=== PATIENT | male | born 1950 | race Hispanic/Latino ===

== ENCOUNTER 2017-05-17 15:18 | Inpatient (IN) | payer MEDICARE ==
[2017-05-17 15:19] VITALS: PULSE 135
[2017-05-17 15:34] VITALS: BMI 22.3
[2017-05-17] MEDS ORDERED: Morphine 2 mg/ml ISec IVP STA (16:14)
--- NOTE | 2017-05-17 16:14 | ED PDOC ---
Arrival/HPI - General Historian: Patient - History of Present Illness Time/Duration: Other (since last night) Quality: Aching Context: Home - General Chief Complaint: Trauma Time Seen by Provider: 05/17/17 15:37 - History of Present Illness Narrative History of Present Illness (Text): 05/17/17 16:14 This 66 yo male with a pacemaker, presents to this ED with brother in Law, c/o right shoulder pain, and right hip pain since last night. Patient stated as he was walking up his front stairs, he stepped "wrong", causing him to fall on his right shoulder, and hip. He noted a mild right sided head trauma. Denies loc. dizziness, syncope, dysarthria, weakness, paresthesias, or abnormal gait, but mild pain. (Georgina Mcallister) Past Medical History - Provider Review Nursing Documentation Reviewed: Yes - Infectious Disease Hx of Infectious Diseases: None - Tetanus Immunization Tetanus Immunization: Unknown - Cardiac Hx Hypertension: Yes Hx Pacemaker: Yes - Pulmonary Hx Respiratory Disorders: Yes Hx Chronic Obstructive Pulmonary Disease (COPD): Yes - Neurological Hx Neurological Disorder: No - HEENT Hx HEENT Disorder: No - Renal Hx Renal Disorder: No - Endocrine/Metabolic Hx Endocrine Disorders: No - Hematological/Oncological Hx Blood Disorders: No - Integumentary Hx Dermatological Disorder: No - Musculoskeletal/Rheumatological Hx Musculoskeletal Disorders: Yes Hx Falls: No Hx Herniated Disk: Yes (C6C7,CORD COMPRESSION C5C6) - Gastrointestinal Hx Gastrointestinal Disorders: Yes (HIATAL HERNIA,TONSILLECTOMY,BILROTH GASTRECTOMY 1981) Hx Gastroesophageal Reflux: Yes Hx Pancreatitis: Yes (2002) - Genitourinary/Gynecological Hx Genitourinary Disorders: No - Psychiatric Hx Psychophysiologic Disorder: No (INSOMNIA,SMOKED 1/2 PPD X 40 YRS.,ETOH WEEKENDS) Hx Depression: No Hx Emotional Abuse: No Hx Physical Abuse: No Hx Substance Use: No - Surgical History Hx Coronary Artery Bypass Graft: Yes (2013) - Anesthesia Hx Anesthesia: Yes Hx Anesthesia Reactions: No Hx Malignant Hyperthermia: No - Suicidal Assessment Feels Threatened In Home Enviroment: No Family/Social History - Physician Review Nursing Documentation Reviewed: Yes Family/Social History: Other (noncontributory) Smoking Status: Former Smoker Hx Alcohol Use: Yes (stopped 10 wks ago.DRANK [employer] WEEKENDS) Hx Substance Use: No Hx Substance Use Treatment: No Allergies/Home Meds Allergies/Adverse Reactions: Allergies No Known Allergies Allergy (Verified 08/29/13 07:54) Home Medications: Home Meds Medication Instructions Recorded Confirmed Warfarin [Coumadin] 3 mg PO DAILY 07/19/13 05/17/17 Amiodarone HCl [Pacerone] 200 mg PO DAILY 02/23/16 05/17/17 Atorvastatin [Lipitor] 20 mg PO DAILY 02/23/16 05/17/17 Losartan [Cozaar] 50 mg PO DAILY 02/23/16 05/17/17 Metoprolol Tartrate [Lopressor] 12.5 mg PO BID 02/23/16 05/17/17 Mexiletine [Mexiletine HCl] 150 mg PO DAILY 02/23/16 05/17/17 Levothyroxine [Synthroid] 1 tab PO DAILY 05/17/17 05/17/17 Zolpidem [Ambien] 1 tab PO DAILY 05/17/17 05/17/17 Review of Systems - Review of Systems Constitutional: Normal. absent: Fatigue, Weight Change, Fevers Eyes: Normal ENT: Normal Respiratory: Normal Cardiovascular: Normal Gastrointestinal: Normal Genitourinary Male: Normal Musculoskeletal: Other (right hip pain, right shoulder pain) Skin: Normal Neurological: Normal Endocrine: Normal Hemo/Lymphatic: Normal Psychiatric: Normal Physical Exam Temperature: Afebrile Blood Pressure: Normal Pulse: Regular Respiratory Rate: Normal Appearance: Positive for: Well-Appearing, Non-Toxic, Comfortable Pain Distress: None Mental Status: Positive for: Alert and Oriented X 3 - Systems Exam Head: Present: Atraumatic, Normocephalic Pupils: Present: PERRL Extroacular Muscles: Present: EOMI Conjunctiva: Present: Normal Mouth: Present: Moist Mucous Membranes Neck: Present: Normal Range of Motion Respiratory/Chest: Present: Clear to Auscultation, Good Air Exchange. No: Respiratory Distress, Accessory Muscle Use Cardiovascular: Present: Regular Rate and Rhythm, Normal S1, S2. No: Murmurs Abdomen: Present: Normal Bowel Sounds. No: Tenderness, Distention, Peritoneal Signs Back: Present: Normal Inspection Upper Extremity: Present: Normal Inspection, Normal ROM, NORMAL PULSES, Neurovascularly Intact, Capillary Refill < 2s, Other ((+) mild right trapezius tenderness.). No: Cyanosis, Edema Lower Extremity: Present: Normal Inspection, NORMAL PULSES, Neurovascularly Intact, Capillary Refill < 2 s. No: Edema, CALF TENDERNESS, Normal ROM ( decreased ROM due to pain. (+) mild tenderness over right greater throcanter area. No swelling or ecchymosis) Neurological: Present: GCS=15, CN II-XII Intact, Speech Normal Skin: Present: Warm, Dry, Normal Color. No: Rashes Psychiatric: Present: Alert, Oriented x 3, Normal Insight, Normal Concentration Vital Signs Temp Pulse Resp BP Pulse Ox 05/17/17 21:57 71 18 130/81 96 05/17/17 19:47 62 17 128/78 99 05/17/17 18:10 65 17 129/80 98 05/17/17 16:25 59 L 18 132/71 95 05/17/17 15:37 97.8 F 60 18 134/87 93 L Medical Decision Making Re-evaluation Time: 20:00 Reassessment Condition: Re-examined, Improving,but remains with symptoms ED Course and Treatment: 05/17/17 20:[address] reviewed. Patient with greater trochanteric fx. Based on patient's PMD, consult placed with Dr. Cameron. CT with also AAA noted, although patient with no abdominal pain, no back pain, no chest pain, intact distal pulses. Likely incidental finding although will recommend follow-up. d/w house doctor for admission to hospitalist, covering for DR. Rust, who we discussed case with. (Kirstie Ricketts) 05/17/17 20:[address] Rust who was covering Dr. Henriquez. He agrees with plan for observation. He recommended to have patient in observation under hospitalist. I spoke with Dr. Rosa Barnett regrading patient history of mechanical fall, and right clavicular, and right trochanteric Fx. She recommended to consult orthopedist. She agreed with plan for observation. Dr. Ricketts spoke with Dr. Cameron regarding Fx. (Georgina Mcallister) - Lab Interpretations Lab Results: 05/17/17 16:20 05/17/17 16:20 Lab Results 05/17/17 16:20: PT 23.0 H, INR 2.08 H, APTT 33.6 05/17/17 16:20: Sodium 135, Potassium 4.1, Chloride 101, Carbon Dioxide 22, Anion Gap 16, BUN 13, Creatinine 0.9, Est GFR ( Amer) > 60, Est GFR (Non- Af Amer) > 60, Random Glucose 104, Calcium 9.3, Total Bilirubin 0.5, AST 81 H, ALT 86 H, Alkaline Phosphatase 136 H, Total Protein 7.6, Albumin 4.2, Globulin 3.4, Albumin/Globulin Ratio 1.2 05/17/17 16:20: WBC 10.1, RBC 4.38, Hgb 11.1 L, Hct 34.4 L, MCV 78.5 L, MCH 25.3 , MCHC 32.3, RDW 18.5 H, Plt Count 171, MPV 10.2, Gran % 84.5 H, Lymph % (Auto) 5.4 L, [facility] % (Auto) 9.8 H, Eos % (Auto) 0.2 L, Baso % (Auto) 0.1, Gran # 8.52 H , Lymph # 0.5 L, [facility] # 1.0 H, Eos # 0.0, Baso # 0.01 - RAD Interpretation Narrative RAD Interpretations (Text): 05/17/17 20:07 [facility] Division of Radiology [address] [place] [address] Tel. no. Patient Name: MELISSA HAGEN Pt. Address: [address] [place] [address] Rec #: [id number] [place], [place] [id number] Ordering Dr: Georgina Mcallister PA-C Pt Order Location: ED : 1950 Male Age: 66 Order #: [id number] Reason for exam: pain s/p trauma CT Scan HIP WITHOUT CONTRAST RIGHT Exam Date: 05/17/17 This imaging exam was performed at [facility] EXAM: CT Right Lower Extremity Without Intravenous Contrast, Hip EXAM DATE/TIME: 05/17/2017 5:39 PM CLINICAL HISTORY: The patient age is 66 years old and is male; Pain; Hip; Right; Patient HX: Pain S/P trauma Facility exam id and description: Ct hipright hip without contrast right TECHNIQUE: Axial computed tomography images of the right hip without intravenous contrast. All CT scans at this facility use one or more dose reduction techniques, viz.: automated exposure control; ma/kV adjustment per patient size (including targeted exams where dose is matched to indication; i.e. head); or iterative reconstruction technique. Coronal and sagittal reformatted images were created and reviewed. COMPARISON: DX - HIP MIN 2V W/ PELVIS RT 2017-05-17 17:21 FINDINGS: Bones/joints: There is a fracture of the right greater trochanter, with mild displacement. Nonspecific sclerotic lesions are identified within the proximal right femur, the largest at the level of the femoral neck measuring 1.0 x 0.5 cm. There is a nonspecific sclerotic lesion within the posterior right iliac bone. There is no dislocation of the right hip. The remaining bones of the right hip are intact. Soft tissues: Minimal swelling of the subcutaneous tissues lateral to the right hip. Vasculature: There is aneurysmal dilatation of the distal abdominal aorta measuring 5.4 cm in diameter. There is focal ectasia of the right common iliac artery measures 1.8 cm in diameter. Atherosclerotic changes are identified of the visualized abdominal aorta and iliac arteries. IMPRESSION: 1. There is a fracture of the right greater trochanter, with mild displacement. 2. There is aneurysmal dilatation of the distal abdominal aorta measuring 5.4 cm in diameter. 3. Additional CT findings described above. Dictated By: Chad Kauffman MD, MD Dictated Date/Time: 05/17/171944 Signed By: Chad Baker MD Date Signed: 1942 Transcribed By: ROLANDO Transcribe Date/Time : 05/17/171944 SHAY/MAIDA (Georgina Mcallister) Radiology Orders: 05/17/17 16:10 HEAD W/O CONTRAST [CT] Stat Hip Right [HIP MIN 2V W/ PELVIS RT] [RAD] Stat SHOULDER RIGHT [RAD] Stat 05/17/17 16:12 CERVICAL SPINE W/O CONTRAST [CT] Stat 05/17/17 16:13 CHEST TWO VIEWS (PA/LAT) [RAD] Stat 05/17/17 17:39 HIP WITHOUT CONTRAST RIGHT [CT] Stat - Medication Orders Current Medication Orders: Amiodarone HCl (Cordarone) 200 mg PO DAILY SANNA Last Admin: 05/21/17 10:09 Dose: 200 mg MAR Pulse and Blood Pressure Document 05/21/17 10:09 KALA (Rec: 05/21/17 10:[address] [id number]) Pulse Pulse Rate (60-90) 82 Blood Pressure Blood Pressure (100/60-150/90) 130/99 Atorvastatin Calcium (Lipitor) 20 mg PO DAILY [facility] Last Admin: 05/21/17 10:09 Dose: 20 mg Famotidine (Pepcid) 40 mg PO HS [facility] Last Admin: 05/21/17 06:00 Dose: 40 mg Levothyroxine Sodium (Synthroid) 75 mcg PO DAILY [facility] Last Admin: 05/21/17 10:09 Dose: 75 mcg Losartan Potassium (Cozaar) 50 mg PO DAILY [facility] Last Admin: 05/21/17 10:10 Dose: 50 mg MAR Pulse and Blood Pressure Document 05/21/17 10:10 KALA (Rec: 05/21/17 10:[address] [id number]) Pulse Pulse Rate (60-90) 82 Blood Pressure Blood Pressure (100/60-150/90) 130/99 Metoprolol Tartrate (Lopressor) 12.5 mg PO BRKDIN [facility] Last Admin: 05/21/17 16:14 Dose: 12.5 mg MAR Pulse and Blood Pressure Document 05/21/17 16:14 KALA (Rec: 05/21/17 16:[address] [id number]) Pulse Pulse Rate (60-90) 64 Blood Pressure Blood Pressure (100/60-150/90) 124/87 Non-Formulary Medication (Mexiletine [Mexiletine]) 150 mg PO BID [facility] Last Admin: 05/21/17 17:40 Dose: 150 mg Oxycodone/Acetaminophen (Percocet 5/325 Mg Tab) 1 tab PO Q4H PRN PRN Reason: Pain, severe (8-10) Stop: 05/23/17 10:06 Last Admin: 05/21/17 16:18 Dose: 1 tab MAR Pain Assessment Document 05/21/17 16:18 KALA (Rec: 05/21/17 16:[address] [id number]) Pain Reassessment Is this a pain reassessment? No Sleep Is patient sleeping during reassessment? No Presence of Pain Presence of Pain Yes Pain Scale Used Pain Scale Used Numeric Location Left, Right or Bilateral Right Pain Location Body Site Hip Leg Description Description Constant Intensity of Pain at present 9 Pain Behavior Grasping Site Restlessness Facial Grimacing Aggravating Factors Exercise/Activity Alleviating Factors/Management Medication Techniques Position Change Alleviating Factors Medication Re-Assess: MAR Pain Assessment Document 05/21/17 17:18 JA (Rec: 05/21/17 17:43 JA [id number]) Pain Reassessment Is this a pain reassessment? Yes Sleep Is patient sleeping during reassessment? No Presence of Pain Presence of Pain Yes Pain Scale Used Pain Scale Used Numeric Description Intensity of Pain at present 4 Acceptable Level of Pain 0-2 Warfarin Sodium (Coumadin) 3 mg PO 1800 SANNA PRN Reason: Protocol Zolpidem Tartrate (Ambien) 5 mg PO HS PRN PRN Reason: Insomnia Last Admin: 05/19/17 00:58 Dose: 5 mg Behavioural Document 05/19/17 00:58 MB (Rec: 05/19/17 00:58 [id number] Maintenance Maintenance Dose Yes Re-Assess: Reassess Psych Meds Document 05/19/17 01:58 MB (Rec: 05/19/17 02:08 [id number][facility] Reassess Psych Med Effective Discontinued Medications Atorvastatin Calcium (Lipitor) 20 mg PO DAILY SANNA Levothyroxine Sodium (Synthroid) 75 mcg PO DAILY [facility] Morphine Sulfate (Morphine) 2 mg IVP STAT STA Stop: 05/17/17 16:15 Last Admin: 05/17/17 16:30 Dose: 2 mg [facility] Pain Assessment Document 05/17/17 16:30 SF (Rec: 05/17/17 16:30 SF [id number]) Pain Reassessment Is this a pain reassessment? Yes Sleep Is patient sleeping during reassessment? No Presence of Pain Presence of Pain Yes Pain Scale Used Pain Scale Used Numeric Location Left, Right or Bilateral Left IVP Administration Document 05/17/17 16:30 SF (Rec: 05/17/17 16:30 SF [id number]) Charges for Administration # of IVP Administrations 1 Morphine Sulfate (Morphine) 2 mg IVP Q4H PRN PRN Reason: Pain, severe (8-10) Last Admin: 05/20/17 07:52 Dose: 2 mg [facility] Pain Assessment Document 05/20/17 07:52 SD (Rec: 05/20/17 07:[address] [id number]) Pain Reassessment Is this a pain reassessment? No Presence of Pain Presence of Pain Yes Pain Scale Used Pain Scale Used Numeric Location Left, Right or Bilateral Right Pain Location Body Site Hip Description Description Intermittent Intensity of Pain at present 8 Pain Behavior Facial Grimacing IVP Administration Document 05/20/17 07:52 SD (Rec: 05/20/17 07:[address] [id number]) Charges for Administration # of IVP Administrations 1 Re-Assess: MAR Pain Assessment Document 05/20/17 08:52 SD (Rec: 05/20/17 10:[address] [id number]) Pain Reassessment Is this a pain reassessment? Yes Sleep Is patient sleeping during reassessment? Yes Non-Formulary Medication (Mexiletine [Mexiletine]) 150 mg PO BID SANNA Warfarin Sodium (Coumadin) 3 mg PO 1800 SANNA Last Admin: 05/19/17 17:22 Dose: 3 mg [facility] aPTT Document 05/19/17 17:22 DSZ (Rec: 05/19/17 17:[address] [id number]) aPTT aPTT (secs) 1.8 Warfarin Sodium (Coumadin) 4 mg PO 1800 ONE PRN Reason: Protocol Stop: 05/20/17 18:01 Last Admin: 05/20/17 17:01 Dose: 4 mg Warfarin Sodium (Coumadin) 6 mg PO 1800 ONE PRN Reason: Protocol Stop: 05/21/17 18:01 Last Admin: 05/21/17 17:40 Dose: 6 mg Disposition/Present on Arrival - Present on Arrival Any Indicators Present on Arrival: No History of DVT/PE: No History of Uncontrolled Diabetes: No Urinary Catheter: No History of Decub. Ulcer: No History Surgical Site Infection Following: None - Disposition Have Diagnosis and Disposition been Completed?: Yes Disposition Time: 20:20 Patient Plan: Observation - Disposition Diagnosis: Clavicular fracture, Trochanteric fracture of femur Disposition: HOSPITALIZED Condition: STABLE
[2017-05-17 16:55] LABS: BASO # 0.01 K/mm3 (0.0-2.0); BASO % 0.1 % (0.0-3.0); EOS % 0.2 % (1.5-5.0); GRAN # 8.52 (1.4-6.5); GRAN % 84.5 % (50.0-68.0); HEMATOCRIT 34.4 % (42.0-52.0); LYMPH # 0.5 (1.2-3.4); LYMPH % 5.4 % (22.0-35.0); MEAN CELL VOLUME 78.5 fl (80.0-105.0); MEAN CORPUSCULAR HEMOGLOBIN 25.3 pg (25.0-35.0); MEAN CORPUSCULAR HGB CONC 32.3 g/dl (31.0-37.0); MEAN PLATELET VOLUME 10.2 fl (7.0-11.0); MONO % 9.8 % (1.0-6.0); RED CELL DISTRIBUTION WIDTH 18.5 % (11.5-14.5); WHITE BLOOD COUNT 10.1 10^3/ul (4.5-11.0)
[2017-05-17 17:03] LABS: BLOOD UREA NITROGEN 13 mg/dL (7-21); CARBON DIOXIDE 22 mmol/L (21-33); CHLORIDE 101 mmol/L (98-107); GFR AFRICAN-AMERICAN > 60; GLUCOSE,RANDOM 104 mg/dL (70-110); POTASSIUM 4.1 mmol/L (3.6-5.0); SODIUM 135 mmol/L (132-148)
[2017-05-17 17:04] LABS: ALB/GLOB RATIO 1.2 (1.1-1.8); ALKALINE PHOSPHATASE 136 U/L (38-126); ALT/SGPT 86 U/L (7-56); AST/SGOT 81 U/L (17-59); BILIRUBIN,TOTAL 0.5 mg/dL (0.2-1.3); CALCIUM 9.3 mg/dL (8.4-10.5); TOTAL PROTEIN 7.6 g/dL (5.8-8.3)
[2017-05-17 17:06] LABS: INR 2.08 (0.93-1.08); PARTIAL THROMBOPLASTIN TIME 33.6 Seconds (25.1-36.5)
--- NOTE | 2017-05-17 18:03 | CT ---
PROCEDURE: CT Cervical Spine without contrast HISTORY: Posttraumatic pain COMPARISON: None available. TECHNIQUE: Axial computed tomography images were obtained of the cervical spine without the use of intravenous contrast. Coronal and sagittal reformatted images were created and reviewed. Radiation dose: Total exam DLP = 1344.65 mGy-cm. This CT exam was performed using one or more of the following dose reduction techniques: Automated exposure control, adjustment of the mA and/or kV according to patient size, and/or use of iterative reconstruction technique. FINDINGS: VERTEBRAE: No fracture. Normal alignment. No destructive bony lesion. DISCS/SPINAL CANAL/NEURAL FORAMINA: Hypertrophic bar formation C5-6 and C6-7. This is asymmetrical more prominent on the right than the left. Uncovertebral hypertrophy noted at multiple levels. PARASPINAL SOFT TISSUES: Unremarkable. OTHER FINDINGS: None. IMPRESSION: No acute findings related to/accounting for the clinical presentation. Multilevel degenerative change.
--- NOTE | 2017-05-17 18:04 | CT ---
PROCEDURE: CT HEAD WITHOUT CONTRAST. HISTORY: pain s/p fall COMPARISON: None available. TECHNIQUE: Axial computed tomography images were obtained through the head/brain without intravenous contrast. Radiation dose: Total exam DLP = 1344.65 mGy-cm. This CT exam was performed using one or more of the following dose reduction techniques: Automated exposure control, adjustment of the mA and/or kV according to patient size, and/or use of iterative reconstruction technique. FINDINGS: HEMORRHAGE: No intracranial hemorrhage. BRAIN: No mass effect or edema. Cortical atrophy, periventricular small vessel disease VENTRICLES: Unremarkable. No hydrocephalus. CALVARIUM: Unremarkable. PARANASAL SINUSES: Unremarkable as visualized. No significant inflammatory changes. MASTOID AIR CELLS: Unremarkable as visualized. No inflammatory changes. OTHER FINDINGS: None. IMPRESSION: Normal CT of the Head.
--- NOTE | 2017-05-17 18:07 | RAD ---
HISTORY: right upper back pain COMPARISON: 10/04/2013 TECHNIQUE: Chest PA and lateral FINDINGS: LUNGS: No active pulmonary disease. PLEURA: No significant pleural effusion identified. No pneumothorax apparent. CARDIOVASCULAR: Cardiomegaly. No evidence of acute, significant cardiovascular disease. Mitral valve device identified. Position/ configuration of pacemaker OSSEOUS STRUCTURES: No significant abnormalities. VISUALIZED UPPER ABDOMEN: Normal. OTHER FINDINGS: None. IMPRESSION: No active disease. No significant interval change compared to the prior examination(s).
--- NOTE | 2017-05-17 18:08 | RAD ---
PROCEDURE: Radiographs of the Right Shoulder HISTORY: pain s/p fall COMPARISON: No prior. FINDINGS: BONES: Distal non articular right clavicular fracture. Major fracture fragments are anatomically aligned. JOINTS: Degenerative changes primarily glenohumeral. No scapular abnormalities detected SOFT TISSUES: Soft tissue swelling attests to the acuity of the fracture. OTHER FINDINGS: None. IMPRESSION: Acute distal right clavicular fracture.
--- NOTE | 2017-05-17 19:10 | RAD ---
PROCEDURE: Right hip HISTORY: pain s/p fall COMPARISON: None TECHNIQUE: Standard protocol for this study/examination. FINDINGS: Avulsion fracture greater trochanter. The finding is marked on the study for review. IMPRESSION: Acute Avulsion fracture from the greater trochanter with adjacent soft tissue injury.
--- NOTE | 2017-05-17 19:45 | CT ---
EXAM: CT Right Lower Extremity Without Intravenous Contrast, Hip EXAM DATE/TIME: 05/17/2017 5:39 PM CLINICAL HISTORY: The patient age is 66 years old and is male; Pain; Hip; Right; Patient HX: Pain S/P trauma Facility exam id and description: Ct hipright hip without contrast right TECHNIQUE: Axial computed tomography images of the right hip without intravenous contrast. All CT scans at this facility use one or more dose reduction techniques, viz.: automated exposure control; ma/kV adjustment per patient size (including targeted exams where dose is matched to indication; i.e. head); or iterative reconstruction technique. Coronal and sagittal reformatted images were created and reviewed. COMPARISON: DX - HIP MIN 2V W/ PELVIS RT 2017-05-17 17:21 FINDINGS: Bones/joints: There is a fracture of the right greater trochanter, with mild displacement. Nonspecific sclerotic lesions are identified within the proximal right femur, the largest at the level of the femoral neck measuring 1.0 x 0.5 cm. There is a nonspecific sclerotic lesion within the posterior right iliac bone. There is no dislocation of the right hip. The remaining bones of the right hip are intact. Soft tissues: Minimal swelling of the subcutaneous tissues lateral to the right hip. Vasculature: There is aneurysmal dilatation of the distal abdominal aorta measuring 5.4 cm in diameter. There is focal ectasia of the right common iliac artery measures 1.8 cm in diameter. Atherosclerotic changes are identified of the visualized abdominal aorta and iliac arteries. IMPRESSION: 1. There is a fracture of the right greater trochanter, with mild displacement. 2. There is aneurysmal dilatation of the distal abdominal aorta measuring 5.4 cm in diameter. 3. Additional CT findings described above.
--- NOTE | 2017-05-17 20:53 | CP.PCM.HP ---
History of Present Illness - History of Present Illness History of Present Illness: 66 year old [place] male with a past medical history significant for hypothyrodism, non-obstructive CAD, MV replacement, history of tachyarrhythmias controlled with AICD, pacemaker, and antiarrhythmic drugs who presents s/p mechanical fall. He was holiday shopping yesterday and going from his car to his apartment when he slipped on some stairs outside and fell. He recalls having little to no pain after the fall. Prior to the fall he denies having any lightheadedness or faintness, weakness, fatigue, nausea, dimming vision, ringing in the ears, or sweating. When he woke up today he had fairly significant right shoulder, right hip pain and difficult with ambulation. PMD: Dr. Rajan PMH: As above Surgical History: Open chest surgery for MV replacement; AICD and pacemaker placement Allergies: NKDA Social: Lives alone, quit smoking, drinking 4 years ago; not employed Present on Admission - Present on Admission Any Indicators Present on Admission: No Review of Systems - Constitutional Constitutional: absent: Anorexia, Frequent Falls, Night Sweats - EENT Eyes: absent: Blurred Vision, Diplopia, Itchy Eyes Ears: absent: Ear Discharge, Disequilibrium, Dizziness Nose/Mouth/Throat: absent: Nasal Congestion, Nasal Trauma, Bleeding Gums - Cardiovascular Cardiovascular: absent: Chest Pain, Chest Pain at Rest, Dyspnea - Respiratory Respiratory: absent: Dyspnea, Hemoptysis, Pain on Inspiration - Gastrointestinal Gastrointestinal: absent: Abdominal Pain, Change in Stool Character, Fecal Incontinence - Genitourinary Genitourinary: absent: Change in Urinary Stream, Difficulty Urinating, Dysuria - Musculoskeletal Musculoskeletal: Abnormal Gait - Integumentary Integumentary: absent: Change in Pigmentation, Lesions, Pruritus - Neurological Neurological: absent: Abnormal Hearing, Burning Sensations, Focal Weakness - Psychiatric Psychiatric: absent: Anhedonia, Behavioral Changes, Depression - Hematologic/Lymphatic Hematologic: absent: Easy Bleeding, Easy Bruising Past Patient History - Infectious Disease Hx of Infectious Diseases: None - Tetanus Immunizations Tetanus Immunization: Unknown - Past Social History Smoking Status: Former Smoker - CARDIAC Hx Hypertension: Yes Hx Pacemaker: Yes - PULMONARY Hx Respiratory Disorders: Yes Hx Chronic Obstructive Pulmonary Disease (COPD): Yes - NEUROLOGICAL Hx Neurological Disorder: No - HEENT Hx HEENT Problems: No - RENAL Hx Chronic Kidney Disease: No - ENDOCRINE/METABOLIC Hx Endocrine Disorders: No - HEMATOLOGICAL/ONCOLOGICAL Hx Blood Disorders: No - INTEGUMENTARY Hx Dermatological Problems: No - MUSCULOSKELETAL/RHEUMATOLOGICAL Hx Musculoskeletal Disorders: Yes Hx Falls: No Hx Herniated Disk: Yes (C6C7,CORD COMPRESSION C5C6) - GASTROINTESTINAL Hx Gastrointestinal Disorders: Yes (HIATAL HERNIA,TONSILLECTOMY,BILROTH GASTRECTOMY 1981) Hx Gastroesophageal Reflux: Yes Hx Pancreatitis: Yes (2002) - GENITOURINARY/GYNECOLOGICAL Hx Genitourinary Disorders: No - PSYCHIATRIC Hx Psychophysiologic Disorder: No (INSOMNIA,SMOKED 1/2 PPD X 40 YRS.,ETOH WEEKENDS) Hx Depression: No Hx Emotional Abuse: No Hx Physical Abuse: No Hx Substance Use: No - SURGICAL HISTORY Hx Coronary Artery Bypass Graft: Yes (2013) - ANESTHESIA Hx Anesthesia: Yes Hx Anesthesia Reactions: No Hx Malignant Hyperthermia: No Meds Allergies/Adverse Reactions: Allergies Allergy/AdvReac Type Severity Reaction Status Date / Time No Known Allergies Allergy Verified 08/29/13 07:54 Physical Exam - Constitutional Appears: Well, Non-toxic - Head Exam Head Exam: ATRAUMATIC, NORMOCEPHALIC - Eye Exam Eye Exam: EOMI, Normal appearance - ENT Exam ENT Exam: Mucous Membranes Moist, Normal Oropharynx - Neck Exam Neck exam: Positive for: Normal Inspection - Respiratory Exam Respiratory Exam: Clear to Auscultation Bilateral, NORMAL BREATHING PATTERN. absent: Wheezes - Cardiovascular Exam Cardiovascular Exam: RRR, +S1, +S2 - GI/Abdominal Exam GI & Abdominal Exam: Normal Bowel Sounds, Soft - Extremities Exam Extremities exam: Positive for: normal capillary refill, normal inspection, pedal pulses present. Negative for: pedal edema - Back Exam Back exam: NORMAL INSPECTION. absent: CVA tenderness (L), CVA tenderness (R) - Neurological Exam Neurological exam: Alert, CN II-XII Intact, Oriented x3 - Psychiatric Exam Psychiatric exam: Normal Affect, Normal Mood - Skin Skin Exam: Dry, Intact, Normal Color, Warm - Additional Findings Additional findings: right shoulder and right hip tender to palpation. Results - Vital Signs Recent Vital Signs: Last Vital Signs Temp 97.8 F 05/17/17 15:37 Pulse 62 05/17/17 19:47 Resp 17 05/17/17 19:47 BP 128/78 05/17/17 19:47 Pulse Ox 99 05/17/17 19:47 - Labs Result Diagrams: 05/17/17 16:20 05/17/17 16:20 Labs: Laboratory Results - last 24 hr 05/17/17 05/17/17 05/17/17 16:20 16:20 16:20 WBC 10.1 RBC 4.38 Hgb 11.1 L Hct 34.4 L MCV 78.5 L MCH 25.3 MCHC 32.3 RDW 18.5 H Plt Count 171 MPV 10.2 Gran % 84.5 H Lymph % (Auto) 5.4 L [place] % (Auto) 9.8 H Eos % (Auto) 0.2 L Baso % (Auto) 0.1 Gran # 8.52 H Lymph # 0.5 L [place] # 1.0 H Eos # 0.0 Baso # 0.01 PT 23.0 H INR 2.08 H APTT 33.6 Sodium 135 Potassium 4.1 Chloride 101 Carbon Dioxide 22 Anion Gap 16 BUN 13 Creatinine 0.9 Est GFR ( Amer) > 60 Est GFR (Non-Af Amer) > 60 Random Glucose 104 Calcium 9.3 Total Bilirubin 0.5 AST 81 H ALT 86 H Alkaline Phosphatase 136 H Total Protein 7.6 Albumin 4.2 Globulin 3.4 Albumin/Globulin Ratio 1.2 Assessment & Plan - Assessment and Plan (Free Text) Assessment: 66 year old male with a past medical history significant for hypothyroidism, non -obstructive CAD, and arrhythmias s/p AICD, pacemaker, on anti-arrhythmic medications who presents s/p mechanical fall with an avulsion fracture of the greater trochanter with soft tissue swelling and a distal non-articular right clavicular fracture with associated soft tissue swelling. In the ED room, CT scan of the head and cervical spine showed no acute changes. Plan: 1) Fall - Non-contrast CT scan of head normal - 3 view of the right shoulder shows distal non-articular right clavicular fracture with soft tissue swelling. - Chest x-ray shows cardiomegaly, unchanged compared to prior film. - CT of hip shows there is a fracture of the right greater trochanter, with mild displacement. There is aneurysmal dilatation of the distal abdominal aorta measuring 5.4 cm. - CT of cervical spine negative for any acute changes. - Orthopedic consulted, Dr. Samuel 2) Tachyarrhythmia-currently controlled - Mexiletine 150 BID - Amiodarone 200 mg PO daily - Metoprolol 12.5 mg BID 3) CAD - Atrovastatin 20 mg PO daily - Warfarin 2.5-3 mg PO daily - Losartan 50 mg PO daily 4) Hypothyroidism - Levothyroxine 75 mcg PO daily 5) Insomnia - Ambien 5 mg HS PRN 6) GI/DVT prophylaxis - Famotidine 40 mg HS - Patient already on Warfarin Case discussed with attending physician, Dr. Tereza Barnett - Date & Time Date: 05/17/17 Time: 21:44
[2017-05-18] MEDS: Levothyroxine 75 MCG TAB PO SCH ×2 (06:26→09:27)
[2017-05-18 07:17] LABS: HEMATOCRIT 33.6 % (42.0-52.0); MEAN CELL VOLUME 78.9 fl (80.0-105.0); MEAN CORPUSCULAR HEMOGLOBIN 25.4 pg (25.0-35.0); MEAN CORPUSCULAR HGB CONC 32.1 g/dl (31.0-37.0); RED CELL DISTRIBUTION WIDTH 18.8 % (11.5-14.5); WHITE BLOOD COUNT 8.5 10^3/ul (4.5-11.0)
[2017-05-18 07:19] LABS: INR 2.2 (0.93-1.08)
[2017-05-18] MEDS: Morphine 2 mg/ml ISec IVP PRN ×3 (08:53→21:11)
[2017-05-18] MEDS ORDERED: AMIODARONE HCL 200 MG PO SCH (10:00)
[2017-05-18] MEDS ORDERED: MEXILETINE 150 MG PO SCH (10:00)
[2017-05-18] MEDS ORDERED: Levothyroxine 75 MCG TAB PO SCH (10:00)
--- NOTE | 2017-05-18 10:17 | CARD ---
APPROVED REPORT EKG Measurement Heart [id number] <Conclusion> AV sequential or dual chamber electronic pacemaker: 100% AV paced. No change
--- NOTE | 2017-05-18 10:45 | CP.PCM.PN ---
Subjective - Date & Time of Evaluation Date of Evaluation: 05/18/17 Time of Evaluation: 07:10 - Subjective Subjective: Patient seen and examined at bedside in no acute distress was up eating his breakfast. Patient states he had no sensation of dizziness, palpitations, or syncope contributing to his fall. Describes fall as purely mechanical stating he missed a step. Denies chest pain, shortness of breath, fever, chills, abdominal pain, dizziness, weakness. Objective - Vital Signs/Intake and Output Vital Signs (last 24 hours): Temp Pulse Resp BP Pulse Ox 98.5 F 61 20 105/71 94 L 05/18/17 07:30 05/18/17 09:27 05/18/17 07:30 05/18/17 09:27 05/18/17 07:30 Intake and Output: 05/18/17 05/18/17 06:59 18:59 Intake Total 180 Balance 180 - Medications Medications: Current Medications Amiodarone HCl (Cordarone) 200 mg PO DAILY [facility] Last Admin: 05/18/17 09:27 Dose: 200 mg Atorvastatin Calcium (Lipitor) 20 mg PO DAILY [facility] Last Admin: 05/18/17 09:27 Dose: 20 mg Famotidine (Pepcid) 40 mg PO HS [facility] Last Admin: 05/18/17 00:44 Dose: 40 mg Levothyroxine Sodium (Synthroid) 75 mcg PO DAILY [facility] Last Admin: 05/18/17 09:27 Dose: 75 mcg Losartan Potassium (Cozaar) 50 mg PO DAILY [facility] Last Admin: 05/18/17 09:27 Dose: 50 mg Metoprolol Tartrate (Lopressor) 12.5 mg PO BRKDIN [facility] Last Admin: 05/18/17 08:31 Dose: Not Given Morphine Sulfate (Morphine) 2 mg IVP Q4H PRN PRN Reason: Pain, severe (8-10) Last Admin: 05/18/17 08:53 Dose: 2 mg Non-Formulary Medication (Mexiletine [Mexiletine]) 150 mg PO BID [facility] Warfarin Sodium (Coumadin) 3 mg PO 1800 [facility] Zolpidem Tartrate (Ambien) 5 mg PO HS PRN PRN Reason: Insomnia - Labs Labs: 05/18/17 05:00 PT 24.6 SECONDS (9.4-12.5) H 05/18/17 06:30 INR 2.20 (0.93-1.08) H 05/18/17 06:30 APTT 33.6 Seconds (25.1-36.5) 05/17/17 16:20 - Constitutional Appears: Non-toxic, No Acute Distress - Head Exam Head Exam: ATRAUMATIC, NORMAL INSPECTION, NORMOCEPHALIC - Eye Exam Eye Exam: EOMI, Normal appearance - ENT Exam ENT Exam: Mucous Membranes Moist, Normal Exam - Neck Exam Neck Exam: Normal Inspection - Respiratory Exam Respiratory Exam: Clear to Ausculation Bilateral, NORMAL BREATHING PATTERN. absent: Wheezes - Cardiovascular Exam Cardiovascular Exam: REGULAR RHYTHM, +S1, +S2 - GI/Abdominal Exam GI & Abdominal Exam: Soft, Normal Bowel Sounds - Neurological Exam Neurological Exam: Alert, Awake, Oriented x3 - Psychiatric Exam Psychiatric exam: Normal Affect, Normal Mood - Skin Skin Exam: Intact, Normal Color, Warm Assessment and Plan - Assessment and Plan (Free Text) Assessment: 66 year old male with a past medical history significant for hypothyroidism, non -obstructive CAD, and arrhythmias s/p AICD, pacemaker, on anti-arrhythmic medications who presents s/p mechanical fall with an avulsion fracture of the greater trochanter with soft tissue swelling and a distal non-articular right clavicular fracture with associated soft tissue swelling. In the ED room, CT scan of the head and cervical spine showed no acute changes. Plan: 1. Fall - Non-contrast CT scan of head normal - 3 view of the right shoulder shows distal non-articular right clavicular fracture with soft tissue swelling. - Chest x-ray shows cardiomegaly, unchanged compared to prior film. - CT of hip shows there is a fracture of the right greater trochanter, with mild displacement. There is aneurysmal dilatation of the distal abdominal aorta measuring 5.4 cm; will discuss with patient to follow up this finding with his primary care physician. - CT of cervical spine negative for any acute changes. - Orthopedic consulted, Dr. Samuel;As per ortho patient has a right distal clavicle fracture and right greater trochanter fracture which does not require surgery. Suggests ambulatory assistance with a cane or walker and a right arm sling, subacute rehabilitation possibly required to increase functional mobility. 2. Tachyarrhythmia-currently controlled - Mexiletine 150 BID - Amiodarone 200 mg PO daily - Metoprolol 12.5 mg BID 3. CAD - Atrovastatin 20 mg PO daily - Warfarin 2.5-3 mg PO daily - Losartan 50 mg PO daily 4. Hypothyroidism - Levothyroxine 75 mcg PO daily 5. Insomnia - Ambien 5 mg HS PRN 6. GI/DVT prophylaxis - Famotidine 40 mg HS - Patient on Warfarin Case discussed with attending physician, Dr. Kelly
[2017-05-18] MEDS: MEXILETINE 150 MG PO SCH ×2 (11:32→17:34)
[2017-05-19 08:09] LABS: HEMATOCRIT 35.7 % (42.0-52.0); MEAN CELL VOLUME 79.9 fl (80.0-105.0); MEAN CORPUSCULAR HGB CONC 32.5 g/dl (31.0-37.0); MEAN PLATELET VOLUME 10.4 fl (7.0-11.0); RED CELL DISTRIBUTION WIDTH 18.7 % (11.5-14.5)
[2017-05-19 08:30] LABS: INR 1.81 (0.93-1.08)
--- NOTE | 2017-05-19 08:39 | CP.PCM.PN ---
Addendum entered and electronically signed by Aundrea Swain DO 05/19/17 13:13: f/u acute hep panel in light of elevated LFTs on admission CT showed aneurysmal dilatation of the distal abdominal aorta measuring 5.4 cm- discussed with patient and will discuss with PMD regarding follow up etc Discussed with Dr. Ericka Swain PGY2 Original Note: <Aundrea Swain - Last Filed: 05/19/17 13:00> Subjective - Date & Time of Evaluation Date of Evaluation: 05/19/17 Time of Evaluation: 08:15 - Subjective Subjective: PGY2 Medicine note for Dr. Barnett Please note encounter was with help of nurse who translated as patient is [place] speaking Patient seen and examined. Nursing reports no acute events overnight. Patient states pain is controlled with meds. Patient has sling in place. Denies acute complaints of headache, dizziness, chest pain, palpitations, SOB, cough, abd pain, nausea, vomiting, bowel/bladder complaints. Patient lives at home alone and walks up 4 stairs. He is amenable to physical therapy. Objective - Vital Signs/Intake and Output Vital Signs (last 24 hours): Temp Pulse Resp BP Pulse Ox 98.1 F 65 20 143/92 H 94 L 05/18/17 16:42 05/19/17 08:27 05/18/17 16:42 05/19/17 08:27 05/18/17 16:42 Intake and Output: 05/19/17 05/19/17 06:59 18:59 Intake Total 240 Output Total 200 Balance 40 - Medications Medications: Current Medications Amiodarone HCl (Cordarone) 200 mg PO DAILY [facility] Last Admin: 05/18/17 09:27 Dose: 200 mg Atorvastatin Calcium (Lipitor) 20 mg PO DAILY [facility] Last Admin: 05/18/17 09:27 Dose: 20 mg Famotidine (Pepcid) 40 mg PO HS [facility] Last Admin: 05/18/17 21:11 Dose: 40 mg Levothyroxine Sodium (Synthroid) 75 mcg PO DAILY [facility] Last Admin: 05/18/17 09:27 Dose: 75 mcg Losartan Potassium (Cozaar) 50 mg PO DAILY [facility] Last Admin: 05/18/17 09:27 Dose: 50 mg Metoprolol Tartrate (Lopressor) 12.5 mg PO BRKDIN [facility] Last Admin: 05/19/17 08:27 Dose: 12.5 mg Morphine Sulfate (Morphine) 2 mg IVP Q4H PRN PRN Reason: Pain, severe (8-10) Last Admin: 05/18/17 21:11 Dose: 2 mg Non-Formulary Medication (Mexiletine [Mexiletine]) 150 mg PO BID [facility] Last Admin: 05/18/17 17:34 Dose: 150 mg Warfarin Sodium (Coumadin) 3 mg PO 1800 [facility] Last Admin: 05/18/17 17:34 Dose: 3 mg Zolpidem Tartrate (Ambien) 5 mg PO HS PRN PRN Reason: Insomnia Last Admin: 05/19/17 00:58 Dose: 5 mg - Labs Labs: 05/19/17 05:00 PT 20.1 SECONDS (9.4-12.5) H 05/19/17 06:00 INR 1.81 (0.93-1.08) H 05/19/17 06:00 APTT 33.6 Seconds (25.1-36.5) 05/17/17 16:20 - Constitutional Appears: Non-toxic, No Acute Distress - Head Exam Head Exam: ATRAUMATIC, NORMAL INSPECTION, NORMOCEPHALIC - Eye Exam Eye Exam: EOMI, Normal appearance, PERRL. absent: Conjunctival injection, Scleral icterus Pupil Exam: NORMAL ACCOMODATION - ENT Exam ENT Exam: Mucous Membranes Moist - Neck Exam Neck Exam: Full ROM, Normal Inspection. absent: Lymphadenopathy - Respiratory Exam Respiratory Exam: Clear to Ausculation Bilateral, NORMAL BREATHING PATTERN. absent: Accessory Muscle Use, Rales, Rhonchi, Wheezes, Respiratory Distress - Cardiovascular Exam Cardiovascular Exam: REGULAR RHYTHM, +S1, +S2 - GI/Abdominal Exam GI & Abdominal Exam: Soft, Normal Bowel Sounds. absent: Tenderness - Extremities Exam Extremities Exam: Normal Inspection. absent: Pedal Edema, Tenderness - Neurological Exam Neurological Exam: Alert, Awake, Oriented x3 - Psychiatric Exam Psychiatric exam: Normal Affect, Normal Mood - Skin Skin Exam: Dry, Intact, Normal Color, Warm Assessment and Plan - Assessment and Plan (Free Text) Assessment: 66yo male PMHx hypothyroidism, non-obstructive CAD, and arrhythmias s/p AICD, pacemaker, on anti-arrhythmic medications presented s/p mechanical fall with an avulsion fracture of the right greater trochanter with soft tissue swelling and a distal non-articular right clavicular fracture with associated soft tissue swelling. Plan: Mechanical Fall - Head CT: negative - Cervical spine CT: negative - Hip/pelvis x-ray: acute avulsion fracture from greater trochanter with adjacent soft tissue injury - Shoulder x-ray: distal non-articular right clavicular fracture with soft tissue swelling. - CXR: cardiomegaly, unchanged compared to prior film. - CT hip: fracture of the right greater trochanter, with mild displacement. There is aneurysmal dilatation of the distal abdominal aorta measuring 5.4 cm - As per ortho patient has a right distal clavicle fracture and right greater trochanter fracture which does not require surgery. Suggests ambulatory assistance with a cane or walker and a right arm sling, subacute rehabilitation possibly required to increase functional mobility. - Morphine 2mg ivp q4 prn pain severe - Orthopedic Dr. Samuel - Physical therapy and Occupational therapy eval/treat Hx of Tachyarrhythmia - controlled HR - Mexiletine 150 BID - Amiodarone 200 mg PO daily - Metoprolol 12.5 mg BID Hx of CAD - Atrovastatin 20 mg PO daily - Warfarin 2.5-3 mg PO daily - Losartan 50 mg PO daily Hx of Hypothyroidism - Levothyroxine 75 mcg PO daily Hx of Insomnia - Ambien 5 mg HS PRN GI/DVT prophylaxis - Pepcid 40 mg HS - Patient on Warfarin Case discussed with Dr. Ericka Swain PGY2 <Danette Barnett - Last Filed: 05/20/17 17:45> Objective - Vital Signs/Intake and Output Vital Signs (last 24 hours): Temp Pulse Resp BP Pulse Ox 97.9 F 62 20 120/62 95 05/20/17 16:00 05/20/17 16:00 05/20/17 16:00 05/20/17 16:00 05/20/17 16:00 Intake and Output: 05/20/17 05/20/17 06:59 18:59 Intake Total 1260 780 Balance 1260 780 - Medications Medications: Current Medications Amiodarone HCl (Cordarone) 200 mg PO DAILY [facility] Last Admin: 05/20/17 10:05 Dose: 200 mg Atorvastatin Calcium (Lipitor) 20 mg PO DAILY [facility] Last Admin: 05/20/17 10:04 Dose: 20 mg Famotidine (Pepcid) 40 mg PO HS [facility] Last Admin: 05/19/17 21:19 Dose: 40 mg Levothyroxine Sodium (Synthroid) 75 mcg PO DAILY [facility] Last Admin: 05/20/17 10:04 Dose: 75 mcg Losartan Potassium (Cozaar) 50 mg PO DAILY [facility] Last Admin: 05/20/17 10:05 Dose: 50 mg Metoprolol Tartrate (Lopressor) 12.5 mg PO BRKDIN [facility] Last Admin: 05/20/17 16:39 Dose: 12.5 mg Non-Formulary Medication (Mexiletine [Mexiletine]) 150 mg PO BID [facility] Last Admin: 05/20/17 17:11 Dose: 150 mg Oxycodone/Acetaminophen (Percocet 5/325 Mg Tab) 1 tab PO Q4H PRN PRN Reason: Pain, severe (8-10) Stop: 05/23/17 10:06 Warfarin Sodium (Coumadin) 4 mg PO 1800 [facility] PRN Reason: Protocol Stop: 05/20/17 18:01 Last Admin: 05/20/17 17:01 Dose: 4 mg Warfarin Sodium (Coumadin) 3 mg PO 1800 [facility] Zolpidem Tartrate (Ambien) 5 mg PO HS PRN PRN Reason: Insomnia Last Admin: 05/19/17 00:58 Dose: 5 mg - Labs Labs: 05/20/17 06:40 05/19/17 09:00 PT 18.5 SECONDS (9.4-12.5) H 05/20/17 06:40 INR 1.66 (0.93-1.08) H 05/20/17 06:40 APTT 33.6 Seconds (25.1-36.5) 05/17/17 16:20 Attending/Attestation - Attestation I have personally seen and examined this patient.: Yes I have fully participated in the care of the patient.: Yes I have reviewed all pertinent clinical information, including history, physical exam and plan: Yes Notes (Text): I have seen and examined the patient at bedside. Agree with the above note with the following additions/ exceptions: Briefly this is 66 year old male with history of hypothyroidism, non-obstructive CAD, and arrhythmias s/p AICD, pacemaker, on anti-arrhythmic medications who came s/p mechanical fall and found to have avulsion fracture of the right greater trochanter and a distal non -articular right clavicular fracture. Ortho eval appreciated. There is no surgical intervention indicated.
[2017-05-19] MEDS: MEXILETINE 150 MG PO SCH ×2 (09:00→17:24)
[2017-05-19] MEDS: Levothyroxine 75 MCG TAB PO SCH (09:32)
--- NOTE | 2017-05-19 10:19 | CON ---
DATE: 05/19/2017 ORTHOPEDIC CONSULTATION HISTORY OF PRESENT ILLNESS: A 66-year-old male with a history of falling and sustaining a minimally displaced fracture of greater trochanter of this right hip and distal right clavicle fracture both minimally displaced and he is able to put weight on the right hip. He does not have an intertrochanteric fracture by x-ray, also confirmed by CAT scan. He cannot have an MRI because he has a pacemaker that is not compatible with MRI, but it appears still he has isolated greater trochanter fracture where he should be able to ambulate and I heard he is being going to the bathroom on his own and he has a right arm sling. It is going to be difficulty to use the walker because of his same sided right clavicle fracture, so he may have to go to TCU or subacute rehab until he gets better and I will follow him closely to make sure the right hip does not have an occult injury pattern, which would have to be followed clinically, hopefully he could stay at TCU so I could watch him for another week or so. FINAL DIAGNOSES: Minimally displaced fracture right distal clavicle and greater trochanter fracture right hip that does not appear to communicate with intertrochanteric region. Royal Samuel DO
[2017-05-19 10:24] LABS: ALB/GLOB RATIO 1.2 (1.1-1.8); ALKALINE PHOSPHATASE 125 U/L (38-126); ALT/SGPT 78 U/L (7-56); AST/SGOT 55 U/L (17-59); BILIRUBIN,TOTAL 0.4 mg/dL (0.2-1.3); BLOOD UREA NITROGEN 23 mg/dL (7-21); CALCIUM 9.5 mg/dL (8.4-10.5); CARBON DIOXIDE 22 mmol/L (21-33); CHLORIDE 104 mmol/L (98-107); GFR AFRICAN-AMERICAN > 60; GLUCOSE,RANDOM 139 mg/dL (70-110); POTASSIUM 4.6 mmol/L (3.6-5.0); SODIUM 138 mmol/L (132-148); TOTAL PROTEIN 7.1 g/dL (5.8-8.3)
[2017-05-19] MEDS: Morphine 2 mg/ml ISec IVP PRN (21:19)
[2017-05-20 07:04] LABS: MEAN CELL VOLUME 80.8 fl (80.0-105.0); MEAN CORPUSCULAR HEMOGLOBIN 25.5 pg (25.0-35.0); MEAN CORPUSCULAR HGB CONC 31.6 g/dl (31.0-37.0); MEAN PLATELET VOLUME 10.5 fl (7.0-11.0); RED CELL DISTRIBUTION WIDTH 18.8 % (11.5-14.5); WHITE BLOOD COUNT 9.3 10^3/ul (4.5-11.0)
[2017-05-20 07:17] LABS: INR 1.66 (0.93-1.08)
[2017-05-20] MEDS: Morphine 2 mg/ml ISec IVP PRN (07:52)
[2017-05-20 08:06] VITALS: RESP 20
--- NOTE | 2017-05-20 08:45 | CON ---
DATE: 05/18/2017 ORTHOPEDIC CONSULT HISTORY OF PRESENT ILLNESS: He is a 66-year-old male lives alone, slipped and fell couple of days before admission on his right hip and right shoulder. X-rays of the right hip showed isolated great trochanteric fracture right hip with intact calcar and a distal right clavicle fracture, minimally displaced oblique. Both fractures are compatible for conservative therapy with an arm sling for the right for 6 weeks and a protected weightbearing on the right for 6 weeks to allow both fractures to heel. He probably have to walk with a cane in his left hand initially but then switch to a walk when the pain in the shoulder is better and that will make a more stable gait to protect his right hip because he should not fall again because that could make the right hip fracture into complete fracture that could may need surgery. Let us hope he does not fall again. As he has a pacemaker, we cannot do an MRI to really investigate the extent of the fracture, but clinically he can move the hip well and can always do a straight leg raise to flex the hip without pain, just the greater trochanter hurts to palpation. He is also on Coumadin, so he will swell more than expected, but in the meantime, we will have to just rest him 3-4 days, he will feel better. He has 2 choices, either go home with his daughter because he lives alone or stay in the TCU for 8 days to get more therapy. I will try to reach out to the daughter, so this both injuries of the right clavicle fracture and right great trochanteric fracture compatible for now conservative therapy, so allow 6 to 8 weeks to fully heal, and I will follow him closely. I gave him my name and number, I should see him in the office once at least in the hospital. We will see him in 3 weeks. FINAL DIAGNOSES: Right clavicle fracture treated with right arm sling and the right trochanter fracture treatable with protected weightbearing and early mobilization, but no surgeries necessary. Royal Samuel DO
[2017-05-20] MEDS ORDERED: Enoxaparin 60 mg Syringe SC SCH (09:45)
[2017-05-20] MEDS: Levothyroxine 75 MCG TAB PO SCH (10:04)
[2017-05-20] MEDS: MEXILETINE 150 MG PO SCH ×3 (10:05→17:11)
[2017-05-20] MEDS ORDERED: Oxycodone/Acetaminophen 5/325 mg Tab PO PRN (10:05)
--- NOTE | 2017-05-20 17:13 | CP.PCM.PN ---
<Kamran Riggins - Last Filed: 05/20/17 17:14> Subjective - Date & Time of Evaluation Date of Evaluation: 05/20/17 Time of Evaluation: 07:30 - Subjective Subjective: Patient seen and evaluated at bedside in no acute distress with right arm in swing. Patient states his pain has been well controlled with pain medication. Denies any palpitations, chest pain, dizziness, shortness of breath, nausea, vomiting, fever, chills . Objective - Vital Signs/Intake and Output Vital Signs (last 24 hours): Temp Pulse Resp BP Pulse Ox 98.2 F 67 20 132/92 H 94 L 05/20/17 07:30 05/20/17 07:30 05/20/17 07:30 05/20/17 07:30 05/20/17 07:30 Intake and Output: 05/20/17 05/20/17 06:59 18:59 Intake Total 1260 780 Balance 1260 780 - Medications Medications: Current Medications Amiodarone HCl (Cordarone) 200 mg PO DAILY [facility] Last Admin: 05/20/17 10:05 Dose: 200 mg Atorvastatin Calcium (Lipitor) 20 mg PO DAILY [facility] Last Admin: 05/20/17 10:04 Dose: 20 mg Famotidine (Pepcid) 40 mg PO HS [facility] Last Admin: 05/19/17 21:19 Dose: 40 mg Levothyroxine Sodium (Synthroid) 75 mcg PO DAILY [facility] Last Admin: 05/20/17 10:04 Dose: 75 mcg Losartan Potassium (Cozaar) 50 mg PO DAILY [facility] Last Admin: 05/20/17 10:05 Dose: 50 mg Metoprolol Tartrate (Lopressor) 12.5 mg PO BRKDIN [facility] Last Admin: 05/20/17 16:39 Dose: 12.5 mg Non-Formulary Medication (Mexiletine [Mexiletine]) 150 mg PO BID [facility] Last Admin: 05/20/17 17:01 Dose: Not Given Oxycodone/Acetaminophen (Percocet 5/325 Mg Tab) 1 tab PO Q4H PRN PRN Reason: Pain, severe (8-10) Stop: 05/23/17 10:06 Warfarin Sodium (Coumadin) 4 mg PO 1800 ONE PRN Reason: Protocol Stop: 05/20/17 18:01 Last Admin: 05/20/17 17:01 Dose: 4 mg Warfarin Sodium (Coumadin) 3 mg PO 1800 SANNA Zolpidem Tartrate (Ambien) 5 mg PO HS PRN PRN Reason: Insomnia Last Admin: 05/19/17 00:58 Dose: 5 mg - Labs Labs: 05/20/17 06:40 05/19/17 09:00 PT 18.5 SECONDS (9.4-12.5) H 05/20/17 06:40 INR 1.66 (0.93-1.08) H 05/20/17 06:40 APTT 33.6 Seconds (25.1-36.5) 05/17/17 16:20 - Constitutional Appears: No Acute Distress - Head Exam Head Exam: ATRAUMATIC, NORMAL INSPECTION, NORMOCEPHALIC - Eye Exam Eye Exam: EOMI, Normal appearance - ENT Exam ENT Exam: Mucous Membranes Moist, Normal Exam - Respiratory Exam Respiratory Exam: Clear to Ausculation Bilateral, NORMAL BREATHING PATTERN. absent: Wheezes - Cardiovascular Exam Cardiovascular Exam: REGULAR RHYTHM, +S1, +S2 - GI/Abdominal Exam GI & Abdominal Exam: Soft, Normal Bowel Sounds - Neurological Exam Neurological Exam: Alert, Oriented x3 - Psychiatric Exam Psychiatric exam: Normal Affect, Normal Mood - Skin Skin Exam: Intact, Normal Color, Warm Assessment and Plan - Assessment and Plan (Free Text) Assessment: 66yo male PMHx hypothyroidism, non-obstructive CAD, and arrhythmias s/p AICD, pacemaker, on anti-arrhythmic medications presented s/p mechanical fall with an avulsion fracture of the right greater trochanter with soft tissue swelling and a distal non-articular right clavicular fracture with associated soft tissue swelling. Plan: Mechanical Fall - Head CT: negative - Cervical spine CT: negative - Hip/pelvis x-ray: acute avulsion fracture from greater trochanter with adjacent soft tissue injury - Shoulder x-ray: distal non-articular right clavicular fracture with soft tissue swelling. - CXR: cardiomegaly, unchanged compared to prior film. - CT hip: fracture of the right greater trochanter, with mild displacement. There is aneurysmal dilatation of the distal abdominal aorta measuring 5.4 cm - As per ortho patient has a right distal clavicle fracture and right greater trochanter fracture which does not require surgery. Suggests ambulatory assistance with a cane or walker and a right arm sling, subacute rehabilitation possibly required to increase functional mobility. - Morphine 2mg ivp q4 prn pain severe has been switched to percocet - Orthopedic Dr. Samuel; states patient is doing pretty well, the way patient is able to move his body alone and is able to ambulate is a positive - Physical therapy and Occupational therapy eval/treat. Physical therapy recommends subacute rehab. Patient has been provided with different locations will discuss with patient tomorrow. Distal Abdominal aortic aneurysm - 5.4 cm - Vascular surgery consulted for evaluation Hx of Tachyarrhythmia - Heart Rate continues to be controlled; monitor - Mexiletine 150 BID - Amiodarone 200 mg PO daily - Metoprolol 12.5 mg BID Hx of CAD - Atrovastatin 20 mg PO daily - Warfarin dose increased from 3 mg to 4 mg due to subtherapeutic INR - Losartan 50 mg PO daily Hx of Hypothyroidism - Levothyroxine 75 mcg PO daily Hx of Insomnia - Ambien 5 mg HS PRN GI/DVT prophylaxis - Pepcid 40 mg HS - Patient on Warfarin Case discussed with Dr. Ericka Swain PGY2 <Danette Barnett - Last Filed: 05/22/17 13:15> Objective - Vital Signs/Intake and Output Vital Signs (last 24 hours): Temp Pulse Resp BP Pulse Ox 97.8 F 64 20 124/87 95 05/21/17 16:02 05/21/17 16:14 05/21/17 16:02 05/21/17 16:14 05/21/17 16:02 - Labs Labs: 05/21/17 06:30 05/21/17 06:30 PT 18.5 SECONDS (9.4-12.5) H 05/20/17 06:40 INR 1.66 (0.93-1.08) H 05/20/17 06:40 APTT 33.6 Seconds (25.1-36.5) 05/17/17 16:20 Attending/Attestation - Attestation I have personally seen and examined this patient.: Yes I have fully participated in the care of the patient.: Yes I have reviewed all pertinent clinical information, including history, physical exam and plan: Yes Notes (Text): I have seen and examined the patient at bedside. Agree with the above note with the following additions/ exceptions: Briefly this is 66 year old male with history of hypothyroidism, non-obstructive CAD, and arrhythmias s/p AICD, pacemaker, on anti-arrhythmic medications who came s/p mechanical fall and found to have avulsion fracture of the right greater trochanter and a distal non -articular right clavicular fracture. Ortho eval appreciated. There is no surgical intervention indicated.
--- NOTE | 2017-05-20 17:14 | CP.PCM.CON ---
History of Present Illness - History of Present Illness History of Present Illness: Vascular surgery 66 year old [place] male former smoker h/o for hypothyrodism, non-obstructive CAD , MV replacement, history of tachyarrhythmias controlled with AICD, pacemaker, and coumadin who presents s/p mechanical fall. Vascular surgery is consulted to evaluate for incidental finding of AAA 5.4 cm that was found on the CT of hip. Pt slipped from stairs and fell on his R side . He recalls having little to no pain after the fall. Prior to the fall he denies having any lightheadedness or faintness, weakness, fatigue, nausea, dimming vision, ringing in the ears,LOC, pulsatile mass, back pain, abd pain, SILVA or sweating. When he woke up with significant right shoulder, right hip pain and difficult with ambulation. Pt is admitted for R clavicle and R hip fx. Pt is on coumadin. CT of the head shows no acute finding. PMD: Dr. Rajan PMH: As above Surgical History: Open chest surgery for MV replacement; AICD and pacemaker placement Allergies: NKDA Social: Lives alone, quit smoking, drinking 4 years ago; not employed Review of Systems - Review of Systems Review of Systems: See HPI Past Patient History - Infectious Disease Hx of Infectious Diseases: None - Tetanus Immunizations Tetanus Immunization: Unknown - Past Social History Smoking Status: Former Smoker - CARDIAC Hx Cardiac Disorders: Yes Hx Hypertension: Yes - PULMONARY Hx Chronic Obstructive Pulmonary Disease (COPD): Yes - NEUROLOGICAL Hx Neurological Disorder: No - HEENT Hx HEENT Problems: No - RENAL Hx Chronic Kidney Disease: No - ENDOCRINE/METABOLIC Hx Hypothyroidism: Yes - HEMATOLOGICAL/ONCOLOGICAL Hx Blood Disorders: No - INTEGUMENTARY Hx Dermatological Problems: No - MUSCULOSKELETAL/RHEUMATOLOGICAL Hx Falls: Yes - GASTROINTESTINAL Hx Gastrointestinal Disorders: Yes (HIATAL HERNIA,TONSILLECTOMY,BILROTH GASTRECTOMY 1981) Hx Gastroesophageal Reflux: Yes Hx Pancreatitis: Yes (2002) - GENITOURINARY/GYNECOLOGICAL Hx Genitourinary Disorders: No - PSYCHIATRIC Hx Psychophysiologic Disorder: No (INSOMNIA,SMOKED 1/2 PPD X 40 YRS.,ETOH WEEKENDS) Hx Depression: No Hx Emotional Abuse: No Hx Physical Abuse: No Hx Substance Use: No - SURGICAL HISTORY Hx Coronary Artery Bypass Graft: Yes (2013) - ANESTHESIA Hx Anesthesia: Yes Hx Anesthesia Reactions: No Hx Malignant Hyperthermia: No Meds Home Medications: Home Medication List Medication Instructions Recorded Confirmed Type oxyCODONE/Acetaminophen [Percocet 1 ea PO Q6H PRN #12 tab 05/20/17 Rx 5/325 mg Tab] Allergies/Adverse Reactions: Allergies Allergy/AdvReac Type Severity Reaction Status Date / Time No Known Allergies Allergy Verified 08/29/13 07:54 - Medications Medications: Current Medications Amiodarone HCl (Cordarone) 200 mg PO DAILY [facility] Last Admin: 05/20/17 10:05 Dose: 200 mg Atorvastatin Calcium (Lipitor) 20 mg PO DAILY [facility] Last Admin: 05/20/17 10:04 Dose: 20 mg Famotidine (Pepcid) 40 mg PO HS [facility] Last Admin: 05/19/17 21:19 Dose: 40 mg Levothyroxine Sodium (Synthroid) 75 mcg PO DAILY [facility] Last Admin: 05/20/17 10:04 Dose: 75 mcg Losartan Potassium (Cozaar) 50 mg PO DAILY [facility] Last Admin: 05/20/17 10:05 Dose: 50 mg Metoprolol Tartrate (Lopressor) 12.5 mg PO BRKDIN [facility] Last Admin: 05/20/17 16:39 Dose: 12.5 mg Non-Formulary Medication (Mexiletine [Mexiletine]) 150 mg PO BID [facility] Last Admin: 05/20/17 17:01 Dose: Not Given Oxycodone/Acetaminophen (Percocet 5/325 Mg Tab) 1 tab PO Q4H PRN PRN Reason: Pain, severe (8-10) Stop: 05/23/17 10:06 Warfarin Sodium (Coumadin) 4 mg PO 1800 ONE PRN Reason: Protocol Stop: 05/20/17 18:01 Last Admin: 05/20/17 17:01 Dose: 4 mg Warfarin Sodium (Coumadin) 3 mg PO 1800 [facility] Zolpidem Tartrate (Ambien) 5 mg PO HS PRN PRN Reason: Insomnia Last Admin: 05/19/17 00:58 Dose: 5 mg Physical Exam - Constitutional Appears: No Acute Distress - Head Exam Head Exam: ATRAUMATIC, NORMAL INSPECTION, NORMOCEPHALIC - Eye Exam Eye Exam: EOMI, Normal appearance, PERRL Pupil Exam: NORMAL ACCOMODATION, PERRL - ENT Exam ENT Exam: Mucous Membranes Moist, Normal Exam - Neck Exam Neck exam: Positive for: Normal Inspection - Respiratory Exam Respiratory Exam: Clear to Auscultation Bilateral, NORMAL BREATHING PATTERN - Cardiovascular Exam Cardiovascular Exam: REGULAR RHYTHM - GI/Abdominal Exam GI & Abdominal Exam: Normal Bowel Sounds, Soft. absent: Distended, Firm, Guarding, Hernia, Mass, Pulsatile Mass, Rebound, Tenderness - Exam Exam: NORMAL INSPECTION - Extremities Exam Extremities exam: Positive for: full ROM, normal inspection - Back Exam Back exam: NORMAL INSPECTION - Neurological Exam Neurological exam: Alert, CN II-XII Intact, Normal Gait, Oriented x3, Reflexes Normal - Psychiatric Exam Psychiatric exam: Normal Affect, Normal Mood - Skin Skin Exam: Dry, Intact, Normal Color, Warm Results - Vital Signs Recent Vital Signs: Last Vital Signs Temp 98.2 F 05/20/17 07:30 Pulse 67 05/20/17 07:30 Resp 20 05/20/17 07:30 BP 132/92 H 05/20/17 07:30 Pulse Ox 94 L 05/20/17 07:30 - Labs Result Diagrams: 05/20/17 06:40 05/19/17 09:00 Labs: Laboratory Results - last 24 hr 05/20/17 05/20/17 06:40 06:40 WBC 9.3 RBC 4.58 Hgb 11.7 L Hct 37.0 L MCV 80.8 MCH 25.5 MCHC 31.6 RDW 18.8 H Plt Count 181 MPV 10.5 PT 18.5 H INR 1.66 H Assessment & Plan - Assessment and Plan (Free Text) Assessment: Incidental finding of AAA 5.4cm on CT of the hip: Asymptomatic -F/U CT abd/ pelvis w IV contrast -Likely no emergent surgical intervention needed at this time. -6 month follow up -Likely elective outpatient surgery Will RAMÍREZ Pate
--- NOTE | 2017-05-20 17:37 | CT ---
PROCEDURE: CT Angiography Chest, Abdomen and Pelvis with and without intravenous contrast HISTORY: Aortic aneurism COMPARISON: None. TECHNIQUE: Contiguous axial images of the chest, abdomen and pelvis were obtained in the phase of aortic enhancement. A noncontrast enhanced CT of the chest was also obtained to evaluate for possible intramural thrombus. Coronal and sagittal reformats were generated. IV dose administered: 150 mL Omnipaque 350 Radiation dose: Total exam DLP = 798.08 mGy-cm. This CT exam was performed using one or more of the following dose reduction techniques: Automated exposure control, adjustment of the mA and/or kV according to patient size, and/or use of iterative reconstruction technique. FINDINGS: CT ANGIOGRAPHY OF THE CHEST WITH & WITHOUT CONTRAST: AORTA (CHEST AND ABDOMEN): No evidence of thoracic or abdominal aortic dissection. There is a fusiform infrarenal abdominal aortic aneurysm, approximately 9.2 cm in length. This aneurysm measures 4.7 cm in greatest A-P dimension. There is no iliac aneurysm evident. There is no thoracic aortic aneurysm evident. The celiac axis, superior mesenteric artery, inferior mesenteric artery and the renal arteries are widely patent. The pelvic arteries are unremarkable. LUNGS: Centrilobular pulmonary emphysema. Probable dependent atelectasis bilaterally, right greater than left. 1.9 cm rounded mass in the posterior right lower lobe. Concerning for neoplasm. Linear pleural-based scar/ atelectasis in lateral right lower lobe. No other pulmonary mass identified. MEDIASTINUM: No lymphadenopathy. Status post CABG. Cardiomegaly. No pericardial effusion. AICD. There is calcification along the posterior inferior wall of the left ventricle, possibly myocardial calcification status post infarction. Please correlate with clinical and echocardiographic evaluation. LYMPH NODES: Unremarkable. PLEURA: Unremarkable. No pneumothorax. No pleural fluid. BONES: Mild compression fracture of T5, T6 and T7 as well as T4 vertebrae, age indeterminate. OTHER FINDINGS: None. CT ANGIOGRAPHY OF THE ABDOMEN AND PELVIS WITH CONTRAST: LIVER: Unremarkable. No gross lesion or ductal dilatation. GALLBLADDER AND BILE DUCTS: Unremarkable. PANCREAS: Unremarkable. No gross lesion or ductal dilatation. SPLEEN: Unremarkable. ADRENALS: Unremarkable. No mass. KIDNEYS AND URETERS: Left upper pole exophytic renal cyst, 1.3 cm. Left lower pole renal cortical cyst, 1.2 cm. No calculus or hydronephrosis. VASCULATURE: As above STOMACH AND BOWEL: Unremarkable. No obstruction. No gross mural thickening. APPENDIX: Not identified. PERITONEUM: Unremarkable. No free fluid. No free air. LYMPH NODES: Unremarkable. No enlarged lymph nodes. BLADDER: Poorly distended. No gross abnormality. REPRODUCTIVE: Unremarkable prostate. BONES: Central compression deformity superior L2 vertebral endplate. Age indeterminate. A few very small nonspecific sclerotic foci of both iliac bones. Bone islands versus sclerotic metastases. Similar very small sclerotic foci in both femoral necks. OTHER FINDINGS: None. IMPRESSION: No evidence of thoracic or abdominal aortic dissection. Fusiform infrarenal abdominal aortic aneurysm, 4.7 cm greatest A-P diameter. Inferior wall left ventricle calcification, possibly status post OH. Please correlate. 1.9 cm rounded mass posterior right lower lobe. Suspicious for neoplasm. Consider further evaluation with percutaneous CT-guided biopsy. No lymphadenopathy. Centrilobular pulmonary emphysema. Multiple mild vertebral compression fractures of indeterminate age.
[2017-05-21 07:13] LABS: BASO # 0.02 K/mm3 (0.0-2.0); BASO % 0.3 % (0.0-3.0); EOS # 0.2 (0.0-0.7); EOS % 3.5 % (1.5-5.0); GRAN # 4.44 (1.4-6.5); HEMATOCRIT 32.3 % (42.0-52.0); LYMPH # 0.8 (1.2-3.4); LYMPH % 12.7 % (22.0-35.0); MEAN CELL VOLUME 79.6 fl (80.0-105.0); MEAN CORPUSCULAR HEMOGLOBIN 25.4 pg (25.0-35.0); MEAN CORPUSCULAR HGB CONC 31.9 g/dl (31.0-37.0); MEAN PLATELET VOLUME 10.1 fl (7.0-11.0); MONO # 0.6 (0.1-0.6); MONO % 10.5 % (1.0-6.0); RED CELL DISTRIBUTION WIDTH 18.7 % (11.5-14.5); WHITE BLOOD COUNT 6.1 10^3/ul (4.5-11.0)
[2017-05-21 07:36] LABS: ALB/GLOB RATIO 1.1 (1.1-1.8); ALKALINE PHOSPHATASE 108 U/L (38-126); ALT/SGPT 60 U/L (7-56); AST/SGOT 51 U/L (17-59); BILIRUBIN,TOTAL 0.4 mg/dL (0.2-1.3); BLOOD UREA NITROGEN 19 mg/dL (7-21); CALCIUM 9.1 mg/dL (8.4-10.5); CARBON DIOXIDE 25 mmol/L (21-33); CHLORIDE 105 mmol/L (98-107); GFR AFRICAN-AMERICAN > 60; GLUCOSE,RANDOM 88 mg/dL (70-110); POTASSIUM 4.2 mmol/L (3.6-5.0); SODIUM 137 mmol/L (132-148); TOTAL PROTEIN 6.8 g/dL (5.8-8.3)
--- NOTE | 2017-05-21 08:51 | CP.PCM.PN ---
Subjective - Date & Time of Evaluation Date of Evaluation: 05/21/17 Time of Evaluation: 06:40 - Subjective Subjective: Vascular Surgery Note for Dr. Pate Patient seen and examined at bedside. No acute events overnight reported. Patient complains of right shoulder and right hip pain. Patient denies chest pain, shortness of breath, abdominal pain, numbness, weakness, back pain, nausea , vomiting, fever, chills. Objective - Vital Signs/Intake and Output Vital Signs (last 24 hours): Temp Pulse Resp BP Pulse Ox 98.8 F 82 20 130/99 H 94 L 05/21/17 08:33 05/21/17 08:38 05/21/17 08:33 05/21/17 08:38 05/21/17 08:33 Intake and Output: 05/21/17 05/21/17 06:59 18:59 Intake Total 660 Balance 660 - Medications Medications: Current Medications Amiodarone HCl (Cordarone) 200 mg PO DAILY [facility] Last Admin: 05/20/17 10:05 Dose: 200 mg Atorvastatin Calcium (Lipitor) 20 mg PO DAILY [facility] Last Admin: 05/20/17 10:04 Dose: 20 mg Famotidine (Pepcid) 40 mg PO HS [facility] Last Admin: 05/21/17 06:00 Dose: 40 mg Levothyroxine Sodium (Synthroid) 75 mcg PO DAILY [facility] Last Admin: 05/20/17 10:04 Dose: 75 mcg Losartan Potassium (Cozaar) 50 mg PO DAILY [facility] Last Admin: 05/20/17 10:05 Dose: 50 mg Metoprolol Tartrate (Lopressor) 12.5 mg PO BRKDIN [facility] Last Admin: 05/21/17 08:38 Dose: 12.5 mg Non-Formulary Medication (Mexiletine [Mexiletine]) 150 mg PO BID [facility] Last Admin: 05/20/17 17:11 Dose: 150 mg Oxycodone/Acetaminophen (Percocet 5/325 Mg Tab) 1 tab PO Q4H PRN PRN Reason: Pain, severe (8-10) Stop: 05/23/17 10:06 Warfarin Sodium (Coumadin) 3 mg PO 1800 [facility] Zolpidem Tartrate (Ambien) 5 mg PO HS PRN PRN Reason: Insomnia Last Admin: 05/19/17 00:58 Dose: 5 mg - Labs Labs: 05/21/17 06:30 05/21/17 06:30 PT 18.5 SECONDS (9.4-12.5) H 05/20/17 06:40 INR 1.66 (0.93-1.08) H 05/20/17 06:40 APTT 33.6 Seconds (25.1-36.5) 05/17/17 16:20 - Constitutional Appears: No Acute Distress - Head Exam Head Exam: ATRAUMATIC, NORMAL INSPECTION, NORMOCEPHALIC - Eye Exam Eye Exam: EOMI, PERRL - ENT Exam ENT Exam: Mucous Membranes Moist, Normal Exam - Respiratory Exam Respiratory Exam: Clear to Ausculation Bilateral, NORMAL BREATHING PATTERN - Cardiovascular Exam Cardiovascular Exam: REGULAR RHYTHM, +S1, +S2 - GI/Abdominal Exam GI & Abdominal Exam: Soft, Normal Bowel Sounds - Back Exam Back Exam: NORMAL INSPECTION - Neurological Exam Neurological Exam: Alert, Awake, CN II-XII Intact, Normal Gait, Oriented x3 - Psychiatric Exam Psychiatric exam: Normal Affect, Normal Mood - Skin Skin Exam: Dry, Intact Assessment and Plan - Assessment and Plan (Free Text) Assessment: 66 year old male with past medical history that includes AICD for tachyarrhthymias, MV replacement, tobacco abuse with incidental finding on CT of Hip showing AAA of 5.4 cm Plan: -Pt asymptomatic -Plan for lung nodule biopsy -Depending on biopsy results, potential for endovascular repair of AAA -Plan to discuss with Dr. Rio Mcbride PGY1
[2017-05-21] MEDS: MEXILETINE 150 MG PO SCH ×2 (10:09→17:40)
[2017-05-21] MEDS: Levothyroxine 75 MCG TAB PO SCH (10:09)
--- NOTE | 2017-05-21 10:59 | PN ---
DATE: SUBJECTIVE: A 66-year-old male in room 566, bed 1, came into the hospital approximately on 05/17/2017 with a fall at home and suffered a minimally displaced greater trochanter fracture, isolated to that region of the hip and without evidence of intertrochanteric fracture. Unable to get a MRI because of a pacemaker. CAT scan did not show any cortical disruption of the calcar or intertrochanteric area. He also has a minimally displaced fracture, right distal clavicle with both fractures on the right side. We are doing therapy to get him to ambulate with a cane and he moves that right hip around quite well, could hyperflex it over 100 degrees, and can rotate it internal and external. Can move the leg off the bed without difficulty. That is why I am sure that he does not need an intramedullary екатерина or pin for the right hip because the intertrochanteric part of hip is not fractured. The greater trochanter which will heal uneventfully by 6 weeks, but he is allowed to get up out of bed and ambulate with a cane in the left hand and the clavicle also takes 6 weeks to heal as long as he does not fall again, so we have to be careful. I feel he probably could go home and live alone after he spends another week here in [facility] because he has accommodation to be on the first henry, he has a daughter, lives in [place], help him buy and purchase food and grocery. Does not have to go out for 6 weeks, and I will follow him closely. FINAL DIAGNOSES: Stable greater trochanteric fracture right hip and stable right distal clavicle fracture, both compatible with conservative therapy to allow 6 to 8 weeks for healing and ambulate with the cane in the left hand. Royal Samuel DO
--- NOTE | 2017-05-21 13:28 | CON ---
DATE: REASON FOR CONSULTATION: Infrarenal abdominal aortic aneurysm. HISTORY OF PRESENT ILLNESS: The patient is a 66-year-old man, who was admitted after a fall. Workup is for review of trochanteric fracture and the right AC joint separation. On one of his CAT scans, 5.3 cm infrarenal abdominal aortic aneurysm was noted. Repeat CT angiogram shows that the aneurysm to be around 5 cm. The patient has a significant cardiac history. He has undergone a mitral valve replacement 3 to 4 years ago for mitral valvular disease. He also has severe tricuspid regurgitation. The surgery was performed around 2013. At that point, echocardiogram showed 15%-20% ejection fraction. Due to a persistent ventricular arrhythmia, he was placed on amiodarone, Coumadin and had implantation of an AICD. His cardiac status has been stable until this episode. He has no prior knowledge of having an abdominal aortic aneurysm. Also, the CT of the chest showed a 1.9 mm lung nodule which was not noted previously. The old chart was reviewed and no prior chest x-ray or CT scan for comparison. PAST MEDICAL HISTORY: Significant for the mentioned cardiac disease. SOCIAL HISTORY: He was a former smoker. REVIEW OF SYSTEMS: Except for the cardiac disease mentioned in the history of present illness, rest of it was within normal limit. MEDICATIONS: He is on amiodarone. ALLERGY: HAS NO KNOWN ALLERGY. PHYSICAL EXAMINATION: GENERAL: Shows a slender male in no distress. He was wearing a right arm sling. HEENT: Within normal limit. CHEST: Wall has the presence of an AICD battery pack and the median sternotomy incision that was healed. Chest is clear. CARDIAC: Reveal irregular rhythm. ABDOMEN: Soft. There is a pulsatile epigastric mass. EXTREMITIES: Palpable femoral pulse and DP pulses. LABORATORY DATA: The CT scan was reviewed as well as his old chart. He has a negative stress test in 2016 and his echocardiogram in 2013 only shows an ejection fraction of 15%-20%. His hemoglobin is 11.1 and WBC 10.1. Chemistry is within normal limit with a creatinine ranging from 0.9 to 1.1. IMPRESSION: Asymptomatic abdominal aortic aneurysm. The aneurysm measured approximately 5 cm. In view of patient's extensive medical history as well as the presence of a lung nodule, the lung nodule has to be worked up first. Should it be benign, he is a good candidate for an endoaortic stent. His further evaluation could be complete as an outpatient. Magdalena Pate MD
[2017-05-21 16:20] VITALS: BP 124/87; PULSE 64
[2017-05-21 17:02] VITALS: TEMP 97.8; O2SAT 95
--- NOTE | 2017-05-22 19:26 | CP.PCM.DIS ---
Provider - Provider Date of Admission: 05/17/17 20:38 Attending physician: Danette Barnett MD Primary care physician: Vanessa Baker MD Consults: Vascular: Dr. Pate Interventional Radiology: Dr. Staton Time Spent in preparation of Discharge (in minutes): 45 Diagnosis - Discharge Diagnosis (1) Lung mass Status: Acute Priority: Medium (2) Abdominal aortic aneurysm (AAA) 3.0 cm to 5.5 cm in diameter in male Status: Acute Priority: Medium (3) Clavicular fracture Status: Acute Priority: High (4) Trochanteric fracture of femur Status: Acute Priority: High Hospital Course - Lab Results Lab Results: Most Recent Lab Values WBC 6.1 10^3/ul (4.5-11.0) D 05/21/17 06:30 RBC 4.06 10^6/uL (3.5-6.1) 05/21/17 06:30 Hgb 10.3 g/dL (14.0-18.0) L 05/21/17 06:30 Hct 32.3 % (42.0-52.0) L 05/21/17 06:30 MCV 79.6 fl (80.0-105.0) L 05/21/17 06:30 MCH 25.4 pg (25.0-35.0) 05/21/17 06:30 MCHC 31.9 g/dl (31.0-37.0) 05/21/17 06:30 RDW 18.7 % (11.5-14.5) H 05/21/17 06:30 Plt Count 160 10^3/uL (120.0-450.0) 05/21/17 06:30 MPV 10.1 fl (7.0-11.0) 05/21/17 06:30 Gran % 73.0 % (50.0-68.0) H 05/21/17 06:30 Lymph % (Auto) 12.7 % (22.0-35.0) L 05/21/17 06:30 [place] % (Auto) 10.5 % (1.0-6.0) H 05/21/17 06:30 Eos % (Auto) 3.5 % (1.5-5.0) 05/21/17 06:30 Baso % (Auto) 0.3 % (0.0-3.0) 05/21/17 06:30 Gran # 4.44 (1.4-6.5) 05/21/17 06:30 Lymph # 0.8 (1.2-3.4) L 05/21/17 06:30 [place] # 0.6 (0.1-0.6) 05/21/17 06:30 Eos # 0.2 (0.0-0.7) 05/21/17 06:30 Baso # 0.02 K/mm3 (0.0-2.0) 05/21/17 06:30 PT 18.5 SECONDS (9.4-12.5) H 05/20/17 06:40 INR 1.66 (0.93-1.08) H 05/20/17 06:40 APTT 33.6 Seconds (25.1-36.5) 05/17/17 16:20 Sodium 137 mmol/L (132-148) 05/21/17 06:30 Potassium 4.2 mmol/L (3.6-5.0) 05/21/17 06:30 Chloride 105 mmol/L (98-107) 05/21/17 06:30 Carbon Dioxide 25 mmol/L (21-33) 05/21/17 06:30 Anion Gap 11 (10-20) 05/21/17 06:30 BUN 19 mg/dL (7-21) 05/21/17 06:30 Creatinine 0.9 mg/dl (0.8-1.5) 05/21/17 06:30 Est GFR ( Amer) > 60 05/21/17 06:30 Est GFR (Non-Af Amer) > 60 05/21/17 06:30 Random Glucose 88 mg/dL (70-110) 05/21/17 06:30 Calcium 9.1 mg/dL (8.4-10.5) 05/21/17 06:30 Total Bilirubin 0.4 mg/dL (0.2-1.3) 05/21/17 06:30 AST 51 U/L (17-59) 05/21/17 06:30 ALT 60 U/L (7-56) H 05/21/17 06:30 Alkaline Phosphatase 108 U/L (38-126) 05/21/17 06:30 Total Protein 6.8 g/dL (5.8-8.3) 05/21/17 06:30 Albumin 3.5 g/dL (3.0-4.8) 05/21/17 06:30 Globulin 3.2 gm/dL 05/21/17 06:30 Albumin/Globulin Ratio 1.1 (1.1-1.8) 05/21/17 06:30 Hepatitis A IgM Ab Negative (NEGATIVE) 05/19/17 09:00 Hep Bs Antigen Negative (NEGATIVE) 05/19/17 09:00 Hep B Core IgM Ab Negative (NEGATIVE) 05/19/17 09:00 Hepatitis C Antibody Negative (NEGATIVE) 05/19/17 09:00 - Hospital Course Hospital Course: Patient is a 66 year old Faro[place] male with a past medical history significant for hypothyrodism, non-obstructive CAD, MV replacement, history of tachyarrhythmias controlled with AICD, pacemaker, and antiarrhythmic drugs who presents s/p mechanical fall. He was holiday shopping and going from his car to his apartment when he slipped on some stairs outside and fell. He recalls having little to no pain after the fall. Prior to the fall he denies having any lightheadedness or faintness, weakness, fatigue, nausea, dimming vision, ringing in the ears, or sweating. When he woke up he had fairly significant right shoulder, right hip pain and difficult with ambulation. Upon being admitted to the emergency department, imaging done included head ct, hip/pelvis x-ray, shoulder x-ray, cervical spine CT, chest x-ray, and hip CT. CT head revealed no ICH or any acute findings. Hip/pelvis x-ray revealed acute avulsion fracture from the greater trochanter with adjacent soft tissue injury. Shoulder x-ray revealed acute distal right clavicular fracture. Cervical spine CT revealed no acute findings; multilevel degenerative change. Chest x-ray reveals no active disease or interval changes compared to the prior examinations. Imaging revealed a fracture of the right greater trochanter with mild displacement, aneurysmal dilatation of the distal abdominal aorta measuring 5.4 cm in diameter. Being that the aneurysm was a new finding, patient's PMD was notified and requested inpatient evaluation. CT dissection was ordered and revealed a fusiform infrarenal abdominal aortic aneurysm, 4.7 cm greatest A-P diameter, inferior wall left ventricle calcification, possibly status post [place], another finding included 1.9 cm rounded mass posterior right lower lobe suspicious for neoplasm. As far as patient's bone injuries, Orthopedic surgery recommended physical therapy and no surgical intervention. Patient was therefore stable for transfer to TCU where he will receive rehabilitation as well as further work up regarding his two new findings. Interventional radiology was consulted for CT guided lung biopsy. Vascular surgery was consulted for evaluation of abdominal aneurysm and decided that if lung biopsy revealed no signs of malignancy then vascular surgery will repair abdominal aortic aneurysm with endovascular procedure. During patient's hospital course, INR was found to subtherapuetic which is currently being treated. Case discussed and reviewed with Dr. Barnett Discharge Exam - Head Exam Head Exam: ATRAUMATIC, NORMAL INSPECTION, NORMOCEPHALIC - Eye Exam Eye Exam: EOMI, Normal appearance Pupil Exam: NORMAL ACCOMODATION - ENT Exam ENT Exam: Mucous Membranes Moist - Neck Exam Neck exam: Normal Inspection - Respiratory Exam Respiratory Exam: NORMAL BREATHING PATTERN, UNREMARKABLE - Cardiovascular Exam Cardiovascular Exam: REGULAR RHYTHM, +S1, +S2 - GI/Abdominal Exam GI & Abdominal Exam: Normal Bowel Sounds, Unremarkable - Back Exam Back exam: NORMAL INSPECTION - Neurological Exam Neurological exam: Alert, CN II-XII Intact, Oriented x3 - Psychiatric Exam Psychiatric exam: Normal Affect, Normal Mood - Skin Skin Exam: Intact, Normal Color, Warm Discharge Plan - Follow Up Plan Condition: STABLE Disposition: TRANSF TO SNF Instructions: Pacemaker (DC), How To Use an Overhead Trapeze (GEN), How to Use a Sling (GEN), Abdominal Aortic Aneurysm (DC), Hip Fracture (GEN), Coronary Artery Bypass Graft (DC) Additional Instructions: follow up at Dr. Pate's office for Abdominal Aortic aneurism. Referrals: Magdalena Pate MD [Staff Provider] - Royal Samuel DO [Staff Provider] - Vanessa Foster MD [Primary Care Provider] -
== END 2017-05-21 20:56 | DRG 562 ==
LOC: ED 15:18 → ERH 20:38 → 5RNO 22:45
PROVIDERS: ADMIT Internal Medicine; ATTEND Hospitalist
DX: S42.031A Displaced fracture of lateral end of right clavicle, initial encounter for closed fracture (principal); S72.111A Displaced fracture of greater trochanter of right femur, initial encounter for closed fracture; S09.90XA Unspecified injury of head, initial encounter; I08.1 Rheumatic disorders of both mitral and tricuspid valves; E03.9 Hypothyroidism, unspecified; S43.101A Unspecified dislocation of right acromioclavicular joint, initial encounter; W01.0XXA Fall on same level from slipping, tripping and stumbling without subsequent striking against object, initial encounter; I10 Essential (primary) hypertension; I25.10 Atherosclerotic heart disease of native coronary artery without angina pectoris; I71.4 Abdominal aortic aneurysm, without rupture; J44.9 Chronic obstructive pulmonary disease, unspecified; K21.9 Gastro-esophageal reflux disease without esophagitis; Z79.01 Long term (current) use of anticoagulants; Z79.899 Other long term (current) drug therapy; Z87.891 Personal history of nicotine dependence; Z95.0 Presence of cardiac pacemaker; Z95.1 Presence of aortocoronary bypass graft; Z95.2 Presence of prosthetic heart valve; Z95.810 Presence of automatic (implantable) cardiac defibrillator

== ENCOUNTER 2017-05-21 21:08 | Inpatient (IN) | payer OTHER ==
[2017-05-21 21:16] VITALS: BMI 21.9
[2017-05-22] MEDS: Levothyroxine 75 MCG TAB PO SCH (05:54)
[2017-05-22 06:40] LABS: BASO # 0.01 K/mm3 (0.0-2.0); BASO % 0.2 % (0.0-3.0); EOS # 0.2 (0.0-0.7); EOS % 4.3 % (1.5-5.0); GRAN # 3.51 (1.4-6.5); GRAN % 71.2 % (50.0-68.0); HEMOGLOBIN 10.1 g/dL (14.0-18.0); LYMPH # 0.7 (1.2-3.4); MEAN CELL VOLUME 79.5 fl (80.0-105.0); MEAN CORPUSCULAR HEMOGLOBIN 25.6 pg (25.0-35.0); MEAN CORPUSCULAR HGB CONC 32.2 g/dl (31.0-37.0); MEAN PLATELET VOLUME 9.8 fl (7.0-11.0); MONO # 0.5 (0.1-0.6); MONO % 10.3 % (1.0-6.0); RBC 3.95 10^6/uL (3.5-6.1); RED CELL DISTRIBUTION WIDTH 18.2 % (11.5-14.5); WHITE BLOOD COUNT 4.9 10^3/ul (4.5-11.0)
[2017-05-22 07:01] LABS: ALBUMIN 3.5 g/dL (3.0-4.8); ALT/SGPT 62 U/L (7-56); AST/SGOT 45 U/L (17-59); BLOOD UREA NITROGEN 21 mg/dL (7-21); CALCIUM 9.1 mg/dL (8.4-10.5); GFR AFRICAN-AMERICAN > 60; GFR NON-AFRICAN AMERICAN > 60
[2017-05-22 07:17] LABS: INR 1.58 (0.93-1.08); PROTHROMBIN TIME 17.5 SECONDS (9.4-12.5)
--- NOTE | 2017-05-22 09:28 | CON ---
DATE: ORTHOPEDIC CONSULTATION REPORT HISTORY OF PRESENT ILLNESS: Vazquez Huitron is a 66-year-old male admitted to TCU floor on 05/21/2017 for rehabilitation for injury sustained when he fell on 05/17/2017, admitted to [facility] for evaluation. He was found to have a greater trochanteric fracture right hip and a right distal clavicle fracture both compatible with conservative therapy. He did well. While he was in the hospital, we put him in a right arm sling and he was able to ambulate with minimal assistance because the fracture of the hip is not involving the weightbearing portion just the greater trochanter and he could not have an MRI because he has also a pacemaker, so now he is on the TCU floor where a week or eight days of therapy here. It should be able to get him to his point where he could live alone and does have close family in [place], so he could physical therapy, ambulation mainly with a cane in the left hand, and just to wait that 6-8 weeks of fracture healing, so he could be totally independent. FINAL DIAGNOSES: Greater trochanteric fracture right hip, nonoperative, nonweightbearing type of fracture and the right distal clavicle fracture, both compatible with conservative care. Royal Samuel DO
--- NOTE | 2017-05-22 10:59 | CP.PCM.PN ---
Subjective - Date & Time of Evaluation Date of Evaluation: 05/22/17 Time of Evaluation: 07:15 - Subjective Subjective: Vascular Surgery Note for Dr. Pate Patient seen and examined at bedside. No acute events overnight reported. Patient complains of continued right shoulder and right hip pain. Patient now moved to TCU. Patient denies chest pain, shortness of breath, abdominal pain, numbness, weakness, back pain, nausea, vomiting, fever, chills. Objective - Vital Signs/Intake and Output Vital Signs (last 24 hours): Temp Pulse Resp BP Pulse Ox 98.2 F 66 18 117/80 05/21/17 23:08 05/22/17 08:30 05/21/17 23:08 05/22/17 08:30 - Medications Medications: Current Medications Amiodarone HCl (Cordarone) 200 mg PO DAILY [facility] PRN Reason: Protocol Atorvastatin Calcium (Lipitor) 20 mg PO DAILY [facility] PRN Reason: Protocol Last Admin: 05/21/17 22:15 Dose: 20 mg Famotidine (Pepcid) 40 mg PO HS [facility] PRN Reason: Protocol Last Admin: 05/21/17 22:15 Dose: 40 mg Home Med (Home Med) 1 unit PO BID [facility] Levothyroxine Sodium (Synthroid) 75 mcg PO 0600 [facility] PRN Reason: Protocol Last Admin: 05/22/17 05:54 Dose: 75 mcg Losartan Potassium (Cozaar) 50 mg PO DAILY [facility] PRN Reason: Protocol Metoprolol Tartrate (Lopressor) 12.5 mg PO BRKDIN [facility] PRN Reason: Protocol Last Admin: 05/22/17 08:30 Dose: 12.5 mg Oxycodone/Acetaminophen (Percocet 5/325 Mg Tab) 1 tab PO Q4H PRN; Protocol PRN Reason: Pain, severe (8-10) Stop: 05/24/17 21:17 Warfarin Sodium (Coumadin) 3 mg PO 1800 [facility] PRN Reason: Protocol Zolpidem Tartrate (Ambien) 5 mg PO HS PRN; Protocol PRN Reason: Insomnia Last Admin: 05/21/17 22:18 Dose: 5 mg - Labs Labs: 05/22/17 06:30 05/22/17 06:30 PT 17.5 SECONDS (9.4-12.5) H 05/22/17 06:30 INR 1.58 (0.93-1.08) H 05/22/17 06:30 - Constitutional Appears: No Acute Distress - Head Exam Head Exam: ATRAUMATIC, NORMAL INSPECTION, NORMOCEPHALIC - Eye Exam Eye Exam: EOMI, PERRL - ENT Exam ENT Exam: Mucous Membranes Moist - Respiratory Exam Respiratory Exam: Clear to Ausculation Bilateral, NORMAL BREATHING PATTERN - Cardiovascular Exam Cardiovascular Exam: REGULAR RHYTHM, +S1, +S2 - GI/Abdominal Exam GI & Abdominal Exam: Soft, Normal Bowel Sounds. absent: Tenderness - Extremities Exam Extremities Exam: Full ROM. absent: Calf Tenderness Additional comments: Tenderness to right shoulder upon palpation, RUE in sling Right hip with pain to palpation - Neurological Exam Neurological Exam: Alert, Awake, Oriented x3 - Psychiatric Exam Psychiatric exam: Normal Affect - Skin Skin Exam: Dry, Intact. absent: Rash Assessment and Plan - Assessment and Plan (Free Text) Assessment: 66 year old male with past medical history that includes AICD for tachyarrhthymias, MV replacement, tobacco abuse with incidental finding on CT of Hip showing AAA of 5.4 cm, Angiogram of chest, abdomen, pelvis showing infrarenal AAA measuring 4.7cm Plan: -Pt asymptomatic -CT angio chest, abdomen, pelvis showing infrarenal AAA measuring 4.7 cm -Plan for CT guided Lung nodule biopsy -Depending on biopsy results, potential for endovascular repair of AAA -Plan to discuss with Dr. Rio Mcbride PGY1
[2017-05-22] MEDS: MEXILETINE 150 MG PO SCH ×2 (11:00→17:19)
[2017-05-23] MEDS: Levothyroxine 75 MCG TAB PO SCH (05:25)
--- NOTE | 2017-05-23 07:32 | CP.PCM.HP ---
<Kamran Riggins - Last Filed: 05/23/17 07:43> History of Present Illness - History of Present Illness History of Present Illness: Patient is a 66 year old Frisian male with a past medical history significant for hypothyrodism, non-obstructive CAD, MV replacement, history of tachyarrhythmias controlled with AICD, pacemaker, and antiarrhythmic drugs who presents s/p mechanical fall. He was holiday shopping and going from his car to his apartment when he slipped on some stairs outside and fell. He recalls having little to no pain after the fall. Prior to the fall he denies having any lightheadedness or faintness, weakness, fatigue, nausea, dimming vision, ringing in the ears, or sweating. When he woke up he had fairly significant right shoulder, right hip pain and difficult with ambulation. Upon being admitted to the emergency department, imaging done included head ct, hip/pelvis x-ray, shoulder x-ray, cervical spine CT, chest x-ray, and hip CT. CT head revealed no ICH or any acute findings. Hip/pelvis x-ray revealed acute avulsion fracture from the greater trochanter with adjacent soft tissue injury. Shoulder x-ray revealed acute distal right clavicular fracture. Cervical spine CT revealed no acute findings; multilevel degenerative change. Chest x-ray reveals no active disease or interval changes compared to the prior examinations. Imaging revealed a fracture of the right greater trochanter with mild displacement, aneurysmal dilatation of the distal abdominal aorta measuring 5.4 cm in diameter. Being that the aneurysm was a new finding, patient's PMD was notified and requested inpatient evaluation. CT dissection was ordered and revealed a fusiform infrarenal abdominal aortic aneurysm, 4.7 cm greatest A-P diameter, inferior wall left ventricle calcification, possibly status post [place], another finding included 1.9 cm rounded mass posterior right lower lobe suspicious for neoplasm. As far as patient's bone injuries, Orthopedic surgery recommended physical therapy and no surgical intervention. Patient was therefore stable for transfer to TCU where he will receive rehabilitation as well as further work up regarding his two new findings. Interventional radiology was consulted for CT guided lung biopsy. Vascular surgery was consulted for evaluation of abdominal aneurysm and decided that if lung biopsy revealed no signs of malignancy then vascular surgery will repair abdominal aortic aneurysm with endovascular procedure. During patient's hospital course, INR was found to subtherapuetic which is currently being treated. Patient was transferred to TCU and will receive rehabilitation and will continue to monitor his INR. Date for discharge from TCU is set for 05/28/2016. CT guided lung biopsy pending for the following week. Present on Admission - Present on Admission Any Indicators Present on Admission: No Review of Systems - Review of Systems Systems not reviewed;Unavailable: Acuity of Condition - Constitutional Constitutional: absent: Anorexia, Chills - EENT Eyes: absent: Blurred Vision, Change in Vision Ears: absent: Decreased Hearing, Ear Discharge - Cardiovascular Cardiovascular: absent: Chest Pain, Dyspnea - Respiratory Respiratory: absent: Dyspnea, Pain on Inspiration - Gastrointestinal Gastrointestinal: absent: Abdominal Pain, Diarrhea, Nausea, Vomiting - Genitourinary Genitourinary: absent: Difficulty Urinating, Dysuria - Musculoskeletal Musculoskeletal: absent: Back Pain, Neck Pain, Stiffness Additional comments: right clavicular pain, right hip pain - Neurological Neurological: absent: Dizziness, Headaches, Loss of Vision - Psychiatric Psychiatric: absent: Anxiety, Confusion Past Patient History - Infectious Disease Hx of Infectious Diseases: None - Tetanus Immunizations Tetanus Immunization: Unknown - Past Social History Smoking Status: Former Smoker - CARDIAC Hx Cardiac Disorders: Yes (CABG, pacemaker) Hx Hypertension: Yes - PULMONARY Hx Chronic Obstructive Pulmonary Disease (COPD): Yes - NEUROLOGICAL Hx Neurological Disorder: No - HEENT Hx HEENT Problems: No - RENAL Hx Chronic Kidney Disease: No - ENDOCRINE/METABOLIC Hx Hypothyroidism: Yes - HEMATOLOGICAL/ONCOLOGICAL Hx Blood Disorders: No - INTEGUMENTARY Hx Dermatological Problems: No - MUSCULOSKELETAL/RHEUMATOLOGICAL Hx Falls: Yes - GASTROINTESTINAL Hx Gastrointestinal Disorders: Yes (Gerd, Pancreatitis, bilroth gastrectomy) - GENITOURINARY/GYNECOLOGICAL Hx Genitourinary Disorders: No Hx Reproductive Disorders: No - PSYCHIATRIC Hx Psychophysiologic Disorder: No (INSOMNIA,SMOKED 1/2 PPD X 40 YRS.,ETOH WEEKENDS) Hx Depression: No Hx Emotional Abuse: No Hx Physical Abuse: No Hx Substance Use: No - SURGICAL HISTORY Hx Coronary Artery Bypass Graft: Yes (2013) - ANESTHESIA Hx Anesthesia: Yes Hx Anesthesia Reactions: No Hx Malignant Hyperthermia: No Meds Allergies/Adverse Reactions: Allergies Allergy/AdvReac Type Severity Reaction Status Date / Time No Known Allergies Allergy Verified 08/29/13 07:54 Physical Exam - Constitutional Appears: Non-toxic, No Acute Distress - Head Exam Head Exam: ATRAUMATIC, NORMAL INSPECTION, NORMOCEPHALIC - Eye Exam Eye Exam: EOMI, Normal appearance - ENT Exam ENT Exam: Mucous Membranes Moist, Normal Exam - Neck Exam Neck exam: Positive for: Normal Inspection - Respiratory Exam Respiratory Exam: Clear to Auscultation Bilateral, Rhonchi (lower left lobe), NORMAL BREATHING PATTERN. absent: Wheezes - Cardiovascular Exam Cardiovascular Exam: REGULAR RHYTHM, +S1, +S2 - GI/Abdominal Exam GI & Abdominal Exam: Normal Bowel Sounds, Soft - Extremities Exam Extremities exam: Positive for: normal inspection - Back Exam Back exam: NORMAL INSPECTION - Neurological Exam Neurological exam: Alert, Oriented x3 - Psychiatric Exam Psychiatric exam: Normal Affect, Normal Mood - Skin Skin Exam: Intact, Normal Color, Warm Results - Vital Signs Recent Vital Signs: Last Vital Signs Temp 98.1 F 05/22/17 17:52 Pulse 63 05/22/17 17:52 Resp 18 05/22/17 17:52 BP 98/67 L 05/22/17 17:52 Pulse Ox 94 L 05/22/17 17:52 - Labs Result Diagrams: 05/22/17 06:30 05/22/17 06:30 Assessment & Plan - Assessment and Plan (Free Text) Assessment: 66yo male PMHx hypothyroidism, non-obstructive CAD, and arrhythmias s/p AICD, pacemaker, on anti-arrhythmic medications presented s/p mechanical fall with an avulsion fracture of the right greater trochanter with soft tissue swelling and a distal non-articular right clavicular fracture with associated soft tissue swelling. Plan: Mechanical Fall - Head CT: negative - Cervical spine CT: negative - Hip/pelvis x-ray: acute avulsion fracture from greater trochanter with adjacent soft tissue injury - Shoulder x-ray: distal non-articular right clavicular fracture with soft tissue swelling. - CXR: cardiomegaly, unchanged compared to prior film. - CT hip: fracture of the right greater trochanter, with mild displacement. There is aneurysmal dilatation of the distal abdominal aorta measuring 5.4 cm - CT dissection: fusiform infrarenal abdominal aortic aneurysm measures 4.7 AP diameter, inferior left ventricle calcification possibly status post [place], , 1.9 cm lung mass posterior right lower lobe. - As per ortho patient has a right distal clavicle fracture and right greater trochanter fracture which does not require surgery. Suggests ambulatory assistance with a cane or walker and a right arm sling, subacute rehabilitation possibly required to increase functional mobility. - Percocet for pain control - Patient has been transferred to TCU for rehabilitation. Distal Abdominal aortic aneurysm - 5.4 cm, found to be 4.[address] dissection - Vascular surgery consulted for evaluation; will perform endovascular procedure pending results of lung biopsy Lung mass posterior right lower lobe - 1.[address] dissection - Interventional radiology consulted - CT guided lung biopsy planned Hx of Tachyarrhythmia - Heart Rate continues to be controlled; monitor - Mexiletine 150 BID - Amiodarone 200 mg PO daily - Metoprolol 12.5 mg BID Hx of CAD - Atrovastatin 20 mg PO daily - Subtherapeutic INR; continue to monitor restarted home dose of warfarin - Losartan 50 mg PO daily Hx of Hypothyroidism - Levothyroxine 75 mcg PO daily Hx of Insomnia - Ambien 5 mg HS PRN GI/DVT prophylaxis - Pepcid 40 mg HS - Patient on Warfarin Case discussed with Dr. Barnett <Danette Barnett - Last Filed: 05/23/17 14:35> Results - Vital Signs Recent Vital Signs: Last Vital Signs Temp 97.7 F 05/23/17 11:21 Pulse 73 05/23/17 11:21 Resp 18 05/23/17 11:21 BP 154/73 H 05/23/17 11:21 Pulse Ox 94 L 05/23/17 11:21 - Labs Result Diagrams: 05/23/17 08:00 05/23/17 08:00 Labs: Laboratory Results - last 24 hr 05/23/17 05/23/17 05/23/17 08:00 08:00 08:00 WBC 5.9 D RBC 4.27 Hgb 10.8 L Hct 33.8 L MCV 79.2 L MCH 25.3 MCHC 32.0 RDW 17.9 H Plt Count 172 MPV 9.6 Gran % 73.7 H Lymph % (Auto) 10.6 L [place] % (Auto) 11.6 H Eos % (Auto) 3.9 Baso % (Auto) 0.2 Gran # 4.31 Lymph # 0.6 L [place] # 0.7 H Eos # 0.2 Baso # 0.01 PT 18.4 H INR 1.66 H APTT 28.1 Sodium 134 Potassium 4.2 Chloride 100 Carbon Dioxide 25 Anion Gap 13 BUN 21 Creatinine 1.0 Est GFR ( Amer) > 60 Est GFR (Non-Af Amer) > 60 Random Glucose 84 Calcium 9.0 Total Bilirubin 0.5 AST 44 ALT 61 H Alkaline Phosphatase 117 Total Protein 7.1 Albumin 3.7 Globulin 3.4 Albumin/Globulin Ratio 1.1 Attending/Attestation - Attestation I have personally seen and examined this patient.: Yes I have fully participated in the care of the patient.: Yes I have reviewed all pertinent clinical information: Yes Notes (Text): I have seen and examined the patient at bedside. Agree with the above note with the following additions/ exceptions: Briefly this is 66 year old male with history of hypothyroidism, non-obstructive CAD, and arrhythmias s/p AICD, pacemaker, on anti-arrhythmic medications who came s/p mechanical fall and found to have avulsion fracture of the right greater trochanter and a distal non -articular right clavicular fracture. Ortho eval appreciated. There is no surgical intervention indicated. PT recommends VIKI and patient got transferred to TCU. He is now participating in physical therapy. Patient was found to have incidental finding of infrarenal AAA measuring 4.7 cm. Vascular consult appreciated. Nothing emergent needs to be done. Patient can follow up with Dr Pate as an outpatient. Also there was an incidental finding of 1.9 cm posterior RLL nodule. IR consult appreciated. Plan for CT guided biopsy possibly on Friday. Discussed with Dr Contreras who has also informed patients daughter about that. Upon discharge patient will follow up with Dr Contreras. Dr Danette Barnett
[2017-05-23 08:08] LABS: BASO # 0.01 K/mm3 (0.0-2.0); BASO % 0.2 % (0.0-3.0); EOS # 0.2 (0.0-0.7); EOS % 3.9 % (1.5-5.0); GRAN # 4.31 (1.4-6.5); GRAN % 73.7 % (50.0-68.0); HEMOGLOBIN 10.8 g/dL (14.0-18.0); LYMPH # 0.6 (1.2-3.4); LYMPH % 10.6 % (22.0-35.0); MEAN CELL VOLUME 79.2 fl (80.0-105.0); MEAN CORPUSCULAR HEMOGLOBIN 25.3 pg (25.0-35.0); MEAN PLATELET VOLUME 9.6 fl (7.0-11.0); MONO # 0.7 (0.1-0.6); MONO % 11.6 % (1.0-6.0); RBC 4.27 10^6/uL (3.5-6.1); RED CELL DISTRIBUTION WIDTH 17.9 % (11.5-14.5); WHITE BLOOD COUNT 5.9 10^3/ul (4.5-11.0)
[2017-05-23 08:18] LABS: ALB/GLOB RATIO 1.1 (1.1-1.8); ALBUMIN 3.7 g/dL (3.0-4.8); ALT/SGPT 61 U/L (7-56); AST/SGOT 44 U/L (17-59); BLOOD UREA NITROGEN 21 mg/dL (7-21); GFR AFRICAN-AMERICAN > 60; GFR NON-AFRICAN AMERICAN > 60
[2017-05-23 08:34] LABS: PROTHROMBIN TIME 18.4 SECONDS (9.4-12.5)
[2017-05-23 08:35] LABS: INR 1.66 (0.93-1.08); PARTIAL THROMBOPLASTIN TIME 28.1 Seconds (25.1-36.5)
[2017-05-23] MEDS: Oxycodone/Acetaminophen 5/325 mg Tab PO PRN ×2 (08:45→21:52)
[2017-05-23] MEDS: MEXILETINE 150 MG PO SCH ×2 (10:35→17:48)
[2017-05-23] MEDS ORDERED: Enoxaparin 60 mg Syringe SC SCH (14:30)
[2017-05-24] MEDS: Levothyroxine 75 MCG TAB PO SCH (06:37)
[2017-05-24] MEDS: Enoxaparin 60 mg Syringe SC SCH ×2 (06:38→19:08)
[2017-05-24 07:39] LABS: BASO # 0.01 K/mm3 (0.0-2.0); BASO % 0.2 % (0.0-3.0); EOS # 0.2 (0.0-0.7); EOS % 3.4 % (1.5-5.0); GRAN # 4.39 (1.4-6.5); GRAN % 72.1 % (50.0-68.0); HEMOGLOBIN 10.9 g/dL (14.0-18.0); LYMPH # 0.8 (1.2-3.4); LYMPH % 13.6 % (22.0-35.0); MEAN CELL VOLUME 80.4 fl (80.0-105.0); MEAN CORPUSCULAR HEMOGLOBIN 25.2 pg (25.0-35.0); MEAN CORPUSCULAR HGB CONC 31.3 g/dl (31.0-37.0); MEAN PLATELET VOLUME 9.7 fl (7.0-11.0); MONO # 0.7 (0.1-0.6); MONO % 10.7 % (1.0-6.0); RBC 4.33 10^6/uL (3.5-6.1); RED CELL DISTRIBUTION WIDTH 17.8 % (11.5-14.5); WHITE BLOOD COUNT 6.1 10^3/ul (4.5-11.0)
[2017-05-24 08:16] LABS: INR 1.59 (0.93-1.08); PROTHROMBIN TIME 17.6 SECONDS (9.4-12.5)
[2017-05-24] MEDS: MEXILETINE 150 MG PO SCH ×2 (10:37→19:02)
--- NOTE | 2017-05-24 11:14 | CP.PCM.PN ---
<Jorge Martínez - Last Filed: 05/24/17 10:59> Subjective - Date & Time of Evaluation Date of Evaluation: 05/24/17 Time of Evaluation: 10:59 - Subjective Subjective: Medicine Progress Note Pt seen and examined at bedside. Pt offers no new complaints. Pt tolerating PT and diet well. Pt denied CP, SOB, nausea, vomiting, diarrhea, abdominal pain, fever, chills, SILVA, or dizziness. Objective - Vital Signs/Intake and Output Vital Signs (last 24 hours): Temp Pulse Resp BP Pulse Ox 97.4 F L 61 18 116/81 96 05/23/17 16:35 05/24/17 10:36 05/23/17 16:35 05/24/17 10:36 05/23/17 17:28 Intake and Output: 05/24/17 05/24/17 06:59 18:59 Intake Total 400 Balance 400 - Medications Medications: Current Medications Amiodarone HCl (Cordarone) 200 mg PO DAILY SANNA PRN Reason: Protocol Last Admin: 05/24/17 10:36 Dose: 200 mg Atorvastatin Calcium (Lipitor) 20 mg PO DAILY SANNA PRN Reason: Protocol Last Admin: 05/24/17 10:38 Dose: 20 mg Enoxaparin Sodium (Lovenox) 60 mg SC 0600,1800 SANNA PRN Reason: Protocol Last Admin: 05/24/17 06:38 Dose: 60 mg Famotidine (Pepcid) 40 mg PO HS SANNA PRN Reason: Protocol Last Admin: 05/23/17 21:49 Dose: 40 mg Home Med (Home Med) 1 unit PO BID SANNA Last Admin: 05/24/17 10:37 Dose: 1 unit Levothyroxine Sodium (Synthroid) 75 mcg PO 0600 SANNA PRN Reason: Protocol Last Admin: 05/24/17 06:37 Dose: 75 mcg Losartan Potassium (Cozaar) 50 mg PO DAILY SANNA PRN Reason: Protocol Last Admin: 05/24/17 10:37 Dose: 50 mg Metoprolol Tartrate (Lopressor) 12.5 mg PO BRKDIN SANNA PRN Reason: Protocol Last Admin: 05/24/17 08:27 Dose: 12.5 mg Oxycodone/Acetaminophen (Percocet 5/325 Mg Tab) 1 tab PO Q4H PRN; Protocol PRN Reason: Pain, severe (8-10) Stop: 05/24/17 21:17 Last Admin: 05/23/17 21:52 Dose: 1 tab Warfarin Sodium (Coumadin) 3 mg PO 1800 SANNA PRN Reason: Protocol Last Admin: 05/22/17 17:17 Dose: 3 mg Zolpidem Tartrate (Ambien) 5 mg PO HS PRN; Protocol PRN Reason: Insomnia Last Admin: 05/21/17 22:18 Dose: 5 mg - Labs Labs: 05/24/17 07:00 05/23/17 08:00 PT 17.6 SECONDS (9.4-12.5) H 05/24/17 07:00 INR 1.59 (0.93-1.08) H 05/24/17 07:00 APTT 29.0 Seconds (25.1-36.5) 05/24/17 07:00 - Constitutional Appears: No Acute Distress - Head Exam Head Exam: NORMAL INSPECTION - Eye Exam Eye Exam: Normal appearance - ENT Exam ENT Exam: Normal Exam - Respiratory Exam Respiratory Exam: Rhonchi (left lower lobe). absent: Accessory Muscle Use, Rales, Wheezes, Respiratory Distress - Cardiovascular Exam Cardiovascular Exam: RRR, +S1, +S2. absent: Gallop, Rubs, Murmur - GI/Abdominal Exam GI & Abdominal Exam: Soft. absent: Distended, Guarding, Tenderness, Rebound - Extremities Exam Extremities Exam: Normal Inspection - Back Exam Back Exam: NORMAL INSPECTION - Neurological Exam Neurological Exam: Alert, Awake, Oriented x3 - Psychiatric Exam Psychiatric exam: Normal Affect, Normal Mood - Skin Skin Exam: Dry, Intact, Normal Color, Warm Assessment and Plan - Assessment and Plan (Free Text) Assessment: 66yo male PMHx hypothyroidism, non-obstructive CAD, and arrhythmias s/p AICD, pacemaker, on anti-arrhythmic medications presented s/p mechanical fall with an avulsion fracture of the right greater trochanter with soft tissue swelling and a distal non-articular right clavicular fracture with associated soft tissue swelling. Plan: 1. Lung mass posterior right lower lobe - CTA chest showed 1.9 cm lung mass posterior right lower lobe - Interventional radiology consulted CT guided lung biopsy planned for Friday Cont Lovenox, Coumadin held for procedure 2. Distal Abdominal aortic aneurysm - CTA chest: fusiform infrarenal abdominal aortic aneurysm measures 4.7 AP diameter, inferior left ventricle calcification possibly status post OR - Vascular surgery consulted Endovascular procedure pending results of lung biopsy 3. Mechanical fall - Acute intracranial bleed and cervical trauma ruled out as Head CT and Cervical spine CT negative 4. Right distal clavicular fracture - Shoulder x-ray: distal non-articular right clavicular fracture with soft tissue swelling. - Ortho: right distal clavicular fracture and right greater trochanter fracture No surgical intervention at this time Ambulatory assistance with cane or walker and right arm sling Consider VIKI - Percocet for pain control - Cont PT 5. Right greater trochanter avulsion fracture - Hip/pelvis x-ray: acute avulsion fracture from greater trochanter with adjacent soft tissue injury - CT hip: fracture of the right greater trochanter, with mild displacement. There is aneurysmal dilatation of the distal abdominal aorta measuring 5.4 cm - See above for ortho recs 6. Hx of Tachyarrhythmia - Heart Rate continues to be controlled; monitor - Mexiletine 150 BID - Amiodarone 200 mg PO daily - Metoprolol 12.5 mg BID 7. Hx of CAD - Atrovastatin 20 mg PO daily - Subtherapeutic INR; continue to monitor restarted home dose of warfarin - Losartan 50 mg PO daily 8. Hx of Hypothyroidism - Levothyroxine 75 mcg PO daily 9. Hx of Insomnia - Ambien 5 mg HS PRN GI/DVT prophylaxis - Pepcid 40 mg HS - Lovenox Pt seen and discussed in detail with Dr. Barnett. Randal Martínez, PGY1 <Danette Barnett - Last Filed: 05/25/17 16:14> Objective - Vital Signs/Intake and Output Vital Signs (last 24 hours): Temp Pulse Resp BP Pulse Ox 97.7 F 61 19 94/63 L 96 05/24/17 10:00 05/25/17 10:12 05/24/17 10:00 05/25/17 10:12 05/24/17 10:00 - Medications Medications: Current Medications Amiodarone HCl (Cordarone) 200 mg PO DAILY SANNA PRN Reason: Protocol Last Admin: 05/25/17 10:12 Dose: 200 mg Atorvastatin Calcium (Lipitor) 20 mg PO DAILY SANNA PRN Reason: Protocol Last Admin: 05/25/17 10:13 Dose: 20 mg Enoxaparin Sodium (Lovenox) 60 mg SC 0600,1800 SANNA PRN Reason: Protocol Last Admin: 05/25/17 05:36 Dose: 60 mg Famotidine (Pepcid) 40 mg PO HS SANNA PRN Reason: Protocol Last Admin: 05/24/17 21:19 Dose: 40 mg Home Med (Home Med) 1 unit PO BID SANNA Last Admin: 05/25/17 10:12 Dose: 1 unit Ibuprofen (Motrin Tab) 400 mg PO Q6H PRN PRN Reason: Pain, moderate (4-7) Levothyroxine Sodium (Synthroid) 75 mcg PO 0600 SANNA PRN Reason: Protocol Last Admin: 05/25/17 05:36 Dose: 75 mcg Losartan Potassium (Cozaar) 25 mg PO DAILY SANNA PRN Reason: Protocol Metoprolol Tartrate (Lopressor) 12.5 mg PO BRKDIN SANNA PRN Reason: Protocol Last Admin: 05/25/17 08:23 Dose: 12.5 mg Oxycodone/Acetaminophen (Percocet 5/325 Mg Tab) 1 tab PO Q4H PRN PRN Reason: Pain, severe (8-10) Stop: 05/28/17 05:47 Warfarin Sodium (Coumadin) 3 mg PO 1800 SANNA PRN Reason: Protocol Last Admin: 05/22/17 17:17 Dose: 3 mg Zolpidem Tartrate (Ambien) 5 mg PO HS PRN; Protocol PRN Reason: Insomnia Last Admin: 05/21/17 22:18 Dose: 5 mg - Labs Labs: 05/25/17 06:30 05/25/17 06:30 PT 17.1 SECONDS (9.4-12.5) H 05/25/17 06:30 INR 1.54 (0.93-1.08) H 05/25/17 06:30 APTT 38.5 Seconds (25.1-36.5) H 05/25/17 06:30 Attending/Attestation - Attestation I have personally seen and examined this patient.: Yes I have fully participated in the care of the patient.: Yes I have reviewed all pertinent clinical information, including history, physical exam and plan: Yes Notes (Text): I have seen and examined the patient at bedside. Agree with the above note with the following additions/ exceptions: Briefly this is 66 year old male with history of hypothyroidism, non-obstructive CAD, and arrhythmias s/p AICD, pacemaker, on anti-arrhythmic medications who came s/p mechanical fall and found to have avulsion fracture of the right greater trochanter and a distal non -articular right clavicular fracture. There is no surgical intervention indicated as per ortho. PT recommends VIKI and patient got transferred to TCU. He is now participating in physical therapy. Patient was found to have incidental finding of infrarenal AAA measuring 4.7 cm. Vascular consult appreciated. Nothing emergent needs to be done. Patient can follow up with Dr Pate as an outpatient. Also there was an incidental finding of 1.9 cm posterior RLL nodule. IR consult appreciated. Plan for CT guided biopsy possibly on Friday. Coumadin is on hold and patient is on lovenox. Discussed with Dr Contreras who has also informed patients daughter about that. This morning patient complained of dizziness. SBP was in 90's. Patient took percocet an hour earlier. Advised patient to take percocet only for severe pain. Decrease losartan from 50 to 25 mg. Will closely monitor BP. Upon discharge patient will follow up with Dr Contreras. Dr Danette Barnett 1
[2017-05-25] MEDS: Levothyroxine 75 MCG TAB PO SCH (05:36)
[2017-05-25] MEDS: Enoxaparin 60 mg Syringe SC SCH ×2 (05:36→17:27)
[2017-05-25] MEDS ORDERED: Oxycodone/Acetaminophen 5/325 mg Tab PO PRN (05:46)
[2017-05-25 07:51] LABS: BASO # 0.01 K/mm3 (0.0-2.0); BASO % 0.2 % (0.0-3.0); EOS # 0.2 (0.0-0.7); EOS % 3.5 % (1.5-5.0); GRAN # 4.51 (1.4-6.5); GRAN % 71.1 % (50.0-68.0); HEMOGLOBIN 10.1 g/dL (14.0-18.0); LYMPH % 15.3 % (22.0-35.0); MEAN CELL VOLUME 79.7 fl (80.0-105.0); MEAN CORPUSCULAR HEMOGLOBIN 25.3 pg (25.0-35.0); MEAN CORPUSCULAR HGB CONC 31.8 g/dl (31.0-37.0); MONO # 0.6 (0.1-0.6); MONO % 9.9 % (1.0-6.0); RBC 3.99 10^6/uL (3.5-6.1); RED CELL DISTRIBUTION WIDTH 17.7 % (11.5-14.5); WHITE BLOOD COUNT 6.3 10^3/ul (4.5-11.0)
[2017-05-25 07:59] LABS: ALB/GLOB RATIO 1.2 (1.1-1.8); ALBUMIN 3.7 g/dL (3.0-4.8); ALT/SGPT 50 U/L (7-56); AST/SGOT 47 U/L (17-59); BLOOD UREA NITROGEN 21 mg/dL (7-21); CALCIUM 8.8 mg/dL (8.4-10.5); GFR AFRICAN-AMERICAN > 60; GFR NON-AFRICAN AMERICAN > 60
[2017-05-25 08:27] LABS: PROTHROMBIN TIME 17.1 SECONDS (9.4-12.5)
[2017-05-25 08:28] LABS: INR 1.54 (0.93-1.08); PARTIAL THROMBOPLASTIN TIME 38.5 Seconds (25.1-36.5)
[2017-05-25] MEDS: MEXILETINE 150 MG PO SCH ×2 (10:12→17:27)
[2017-05-26] MEDS: Enoxaparin 60 mg Syringe SC SCH ×2 (05:37→17:34)
[2017-05-26] MEDS: Levothyroxine 75 MCG TAB PO SCH (05:38)
[2017-05-26 07:40] LABS: BASO # 0.01 K/mm3 (0.0-2.0); BASO % 0.2 % (0.0-3.0); EOS # 0.2 (0.0-0.7); EOS % 3.6 % (1.5-5.0); GRAN # 4.81 (1.4-6.5); GRAN % 76.2 % (50.0-68.0); HEMOGLOBIN 10.3 g/dL (14.0-18.0); LYMPH # 0.7 (1.2-3.4); LYMPH % 10.8 % (22.0-35.0); MEAN CELL VOLUME 80.9 fl (80.0-105.0); MEAN CORPUSCULAR HEMOGLOBIN 25.5 pg (25.0-35.0); MEAN CORPUSCULAR HGB CONC 31.5 g/dl (31.0-37.0); MEAN PLATELET VOLUME 9.7 fl (7.0-11.0); MONO # 0.6 (0.1-0.6); MONO % 9.2 % (1.0-6.0); RBC 4.04 10^6/uL (3.5-6.1); RED CELL DISTRIBUTION WIDTH 17.7 % (11.5-14.5); WHITE BLOOD COUNT 6.3 10^3/ul (4.5-11.0)
[2017-05-26 07:54] LABS: ALB/GLOB RATIO 1.1 (1.1-1.8); ALBUMIN 3.7 g/dL (3.0-4.8); ALT/SGPT 54 U/L (7-56); AST/SGOT 49 U/L (17-59); BLOOD UREA NITROGEN 21 mg/dL (7-21); CALCIUM 9.2 mg/dL (8.4-10.5); GFR AFRICAN-AMERICAN > 60; GFR NON-AFRICAN AMERICAN > 60
[2017-05-26 07:56] LABS: INR 1.33 (0.93-1.08); PARTIAL THROMBOPLASTIN TIME 36.1 Seconds (25.1-36.5); PROTHROMBIN TIME 14.7 SECONDS (9.4-12.5)
[2017-05-26] MEDS: MEXILETINE 150 MG PO SCH ×2 (09:08→17:32)
--- NOTE | 2017-05-26 11:32 | RAD ---
PROCEDURE: Radiographs of the Lumbar Spine. HISTORY: Back pain COMPARISON: No prior. FINDINGS: BONES: The current study reveals multilevel chronic anterior wedge deformities of the lower thoracic and upper lumbar region. . There is mild dextroscoliosis centered at approximately the L2-L3 level. Vertebral bodies otherwise exhibit relatively normal alignment DISC SPACES: Multilevel degenerative spondylosis. Changes include varying degrees of mild posterior disc space narrowing with endplate eburnation and at anterolateral as well as small posterior osteophyte formation. Facet joints are hypertrophic L5-S1 through the L2-L3 levels in decreasing order of severity. OTHER FINDINGS: Large amount of stool seen throughout the colon consistent with fecal retention/ constipation. IMPRESSION: Multilevel chronic at anterior wedge deformities involving the lower thoracic and upper lumbar segments. Mild dextroscoliosis. Multilevel degenerative spondylosis.
[2017-05-26 12:11] VITALS: RESP 18
--- NOTE | 2017-05-26 13:51 | CP.PCM.PN ---
<Jorge Martínez - Last Filed: 05/26/17 13:47> Subjective - Date & Time of Evaluation Date of Evaluation: 05/26/17 Time of Evaluation: 13:48 - Subjective Subjective: Medicine Progress Note Pt seen and examined at bedside. No acute overnight events. Pt is OOB and ambulating. Pt scheduled for biopsy tomorrow AM. Pt denied CP, SOB, nausea, vomiting, diarrhea, abdominal pain, fever, chills, SILVA or dizziness. Objective - Vital Signs/Intake and Output Vital Signs (last 24 hours): Temp Pulse Resp BP Pulse Ox 97.9 F 62 18 104/69 96 05/26/17 10:00 05/26/17 10:00 05/26/17 10:00 05/26/17 10:00 05/24/17 10:00 Intake and Output: 05/26/17 05/26/17 06:59 18:59 Intake Total 500 Balance 500 - Medications Medications: Current Medications Amiodarone HCl (Cordarone) 200 mg PO DAILY SANNA PRN Reason: Protocol Last Admin: 05/26/17 09:06 Dose: 200 mg Atorvastatin Calcium (Lipitor) 20 mg PO DAILY SANNA PRN Reason: Protocol Last Admin: 05/26/17 09:08 Dose: 20 mg Enoxaparin Sodium (Lovenox) 60 mg SC 0600,1800 SANNA PRN Reason: Protocol Last Admin: 05/26/17 05:37 Dose: 60 mg Famotidine (Pepcid) 40 mg PO HS SANNA PRN Reason: Protocol Last Admin: 05/25/17 21:08 Dose: 40 mg Home Med (Home Med) 1 unit PO BID SANNA Last Admin: 05/26/17 09:08 Dose: 1 unit Ibuprofen (Motrin Tab) 400 mg PO Q6H PRN PRN Reason: Pain, moderate (4-7) Levothyroxine Sodium (Synthroid) 75 mcg PO 0600 SANNA PRN Reason: Protocol Last Admin: 05/26/17 05:38 Dose: 75 mcg Losartan Potassium (Cozaar) 25 mg PO DAILY SANNA PRN Reason: Protocol Last Admin: 05/26/17 09:07 Dose: 25 mg Metoprolol Tartrate (Lopressor) 12.5 mg PO BRKDIN SANNA PRN Reason: Protocol Last Admin: 05/26/17 08:19 Dose: 12.5 mg Oxycodone/Acetaminophen (Percocet 5/325 Mg Tab) 1 tab PO Q4H PRN PRN Reason: Pain, severe (8-10) Stop: 05/28/17 05:47 Warfarin Sodium (Coumadin) 3 mg PO 1800 SANNA PRN Reason: Protocol Last Admin: 05/22/17 17:17 Dose: 3 mg Zolpidem Tartrate (Ambien) 5 mg PO HS PRN; Protocol PRN Reason: Insomnia Last Admin: 05/21/17 22:18 Dose: 5 mg - Labs Labs: 05/26/17 06:30 05/26/17 06:30 PT 14.7 SECONDS (9.4-12.5) H 05/26/17 06:30 INR 1.33 (0.93-1.08) H 05/26/17 06:30 APTT 36.1 Seconds (25.1-36.5) 05/26/17 06:30 - Constitutional Appears: No Acute Distress - Head Exam Head Exam: NORMAL INSPECTION - Eye Exam Eye Exam: Normal appearance - ENT Exam ENT Exam: Normal Exam - Neck Exam Neck Exam: Normal Inspection - Respiratory Exam Respiratory Exam: Clear to Ausculation Bilateral. absent: Accessory Muscle Use , Rales, Rhonchi, Wheezes, Respiratory Distress - Cardiovascular Exam Cardiovascular Exam: RRR, +S1, +S2. absent: Gallop, Rubs, Murmur - GI/Abdominal Exam GI & Abdominal Exam: Soft. absent: Distended, Guarding, Tenderness, Rebound - Extremities Exam Additional comments: sling right arm - Neurological Exam Neurological Exam: Alert, Awake, Oriented x3 - Psychiatric Exam Psychiatric exam: Normal Affect, Normal Mood - Skin Skin Exam: Dry, Intact, Normal Color, Warm Assessment and Plan - Assessment and Plan (Free Text) Assessment: 66yo male PMHx hypothyroidism, non-obstructive CAD, and arrhythmias s/p AICD, pacemaker, on anti-arrhythmic medications presented s/p mechanical fall with an avulsion fracture of the right greater trochanter with soft tissue swelling and a distal non-articular right clavicular fracture with associated soft tissue swelling. Plan: 1. Lung mass posterior right lower lobe - CTA chest showed 1.9 cm lung mass posterior right lower lobe - Interventional radiology consulted CT guided lung biopsy planned for Tomorrow Cont Lovenox, Coumadin held for procedure 2. Distal Abdominal aortic aneurysm - CTA chest: fusiform infrarenal abdominal aortic aneurysm measures 4.7 AP diameter, inferior left ventricle calcification possibly status post [place] - Vascular surgery consulted Endovascular procedure pending results of lung biopsy 3. Mechanical fall - Acute intracranial bleed and cervical trauma ruled out as Head CT and Cervical spine CT negative - Cont PT 4. Right distal clavicular fracture - Shoulder x-ray: distal non-articular right clavicular fracture with soft tissue swelling. - Ortho: right distal clavicular fracture and right greater trochanter fracture No surgical intervention at this time Ambulatory assistance with cane or walker and right arm sling Consider VIKI - Percocet for pain control - Cont PT 5. Right greater trochanter avulsion fracture - Hip/pelvis x-ray: acute avulsion fracture from greater trochanter with adjacent soft tissue injury - CT hip: fracture of the right greater trochanter, with mild displacement. There is aneurysmal dilatation of the distal abdominal aorta measuring 5.4 cm - See above for ortho recs - Cont PT 6. Hx of Tachyarrhythmia - Heart Rate continues to be controlled; monitor - Mexiletine 150 BID - Amiodarone 200 mg PO daily - Metoprolol 12.5 mg BID 7. Hx of CAD - Atrovastatin 20 mg PO daily - Subtherapeutic INR; continue to monitor restarted home dose of warfarin - Losartan 50 mg PO daily 8. Hx of Hypothyroidism - Levothyroxine 75 mcg PO daily 9. Hx of Insomnia - Ambien 5 mg HS PRN GI/DVT prophylaxis - Pepcid 40 mg HS - Lovenox Pt seen and discussed in detail with Dr. Barnett. Randal Martínez, PGY1 <Danette Barnett B - Last Filed: 05/26/17 14:27> Objective - Vital Signs/Intake and Output Vital Signs (last 24 hours): Temp Pulse Resp BP Pulse Ox 97.9 F 62 18 109/69 97 05/26/17 14:00 05/26/17 14:00 05/26/17 14:00 05/26/17 14:00 05/26/17 14:00 Intake and Output: 05/26/17 05/26/17 06:59 18:59 Intake Total 500 Balance 500 - Medications Medications: Current Medications Amiodarone HCl (Cordarone) 200 mg PO DAILY SANNA PRN Reason: Protocol Last Admin: 05/26/17 09:06 Dose: 200 mg Atorvastatin Calcium (Lipitor) 20 mg PO DAILY SANNA PRN Reason: Protocol Last Admin: 05/26/17 09:08 Dose: 20 mg Enoxaparin Sodium (Lovenox) 60 mg SC 0600,1800 [facility] PRN Reason: Protocol Last Admin: 05/26/17 05:37 Dose: 60 mg Famotidine (Pepcid) 40 mg PO HS SANNA PRN Reason: Protocol Last Admin: 05/25/17 21:08 Dose: 40 mg Home Med (Home Med) 1 unit PO BID [facility] Last Admin: 05/26/17 09:08 Dose: 1 unit Ibuprofen (Motrin Tab) 400 mg PO Q6H PRN PRN Reason: Pain, moderate (4-7) Levothyroxine Sodium (Synthroid) 75 mcg PO 0600 [facility] PRN Reason: Protocol Last Admin: 05/26/17 05:38 Dose: 75 mcg Losartan Potassium (Cozaar) 25 mg PO DAILY SANNA PRN Reason: Protocol Last Admin: 05/26/17 09:07 Dose: 25 mg Metoprolol Tartrate (Lopressor) 12.5 mg PO BRKDIN [facility] PRN Reason: Protocol Last Admin: 05/26/17 08:19 Dose: 12.5 mg Oxycodone/Acetaminophen (Percocet 5/325 Mg Tab) 1 tab PO Q4H PRN PRN Reason: Pain, severe (8-10) Stop: 05/28/17 05:47 Last Admin: 05/26/17 14:22 Dose: 1 tab Warfarin Sodium (Coumadin) 3 mg PO 1800 [facility] PRN Reason: Protocol Last Admin: 05/22/17 17:17 Dose: 3 mg Zolpidem Tartrate (Ambien) 5 mg PO HS PRN; Protocol PRN Reason: Insomnia Last Admin: 05/21/17 22:18 Dose: 5 mg - Labs Labs: 05/26/17 06:30 05/26/17 06:30 PT 14.7 SECONDS (9.4-12.5) H 05/26/17 06:30 INR 1.33 (0.93-1.08) H 05/26/17 06:30 APTT 36.1 Seconds (25.1-36.5) 05/26/17 06:30 Attending/Attestation - Attestation I have personally seen and examined this patient.: Yes I have fully participated in the care of the patient.: Yes I have reviewed all pertinent clinical information, including history, physical exam and plan: Yes Notes (Text): I have seen and examined the patient at bedside. Agree with the above note with the following additions/ exceptions: Briefly this is 66 year old male with history of hypothyroidism, non-obstructive CAD, and arrhythmias s/p AICD, pacemaker, on anti-arrhythmic medications who came s/p mechanical fall and found to have avulsion fracture of the right greater trochanter and a distal non -articular right clavicular fracture. There is no surgical intervention indicated as per ortho. PT recommends VIKI and patient got transferred to TCU. He is now participating in physical therapy. Patient was found to have incidental finding of infrarenal AAA measuring 4.7 cm. Vascular consult appreciated. Nothing emergent needs to be done. Patient can follow up with Dr Pate as an outpatient. Also there was an incidental finding of 1.9 cm posterior RLL nodule. IR consult appreciated. Plan for CT guided biopsy possibly on Friday. Coumadin is on hold and patient is on lovenox. Today INR is 1.3. Discussed with Dr Contreras who has also informed patients daughter about that. Patients BP was on the lower side therefore losartan dose was decreased. Will monitor BP closely. Patient denies dizziness and reports no complaints. Upon discharge patient will follow up with Dr Contreras. Dr Danette Barnett
[2017-05-26] MEDS: Oxycodone/Acetaminophen 5/325 mg Tab PO PRN ×2 (14:22→23:50)
[2017-05-27] MEDS: Levothyroxine 75 MCG TAB PO SCH (06:01)
[2017-05-27 06:23] LABS: BASO # 0.01 K/mm3 (0.0-2.0); BASO % 0.1 % (0.0-3.0); EOS # 0.2 (0.0-0.7); EOS % 2.4 % (1.5-5.0); GRAN # 5.96 (1.4-6.5); GRAN % 72.9 % (50.0-68.0); HEMOGLOBIN 11.4 g/dL (14.0-18.0); LYMPH # 1.3 (1.2-3.4); LYMPH % 15.6 % (22.0-35.0); MEAN CELL VOLUME 81.3 fl (80.0-105.0); MEAN CORPUSCULAR HEMOGLOBIN 25.7 pg (25.0-35.0); MEAN CORPUSCULAR HGB CONC 31.6 g/dl (31.0-37.0); MEAN PLATELET VOLUME 9.4 fl (7.0-11.0); MONO # 0.7 (0.1-0.6); RBC 4.44 10^6/uL (3.5-6.1); RED CELL DISTRIBUTION WIDTH 17.8 % (11.5-14.5); WHITE BLOOD COUNT 8.2 10^3/ul (4.5-11.0)
[2017-05-27 06:41] LABS: ALB/GLOB RATIO 1.1 (1.1-1.8); ALBUMIN 4.1 g/dL (3.0-4.8); ALT/SGPT 59 U/L (7-56); AST/SGOT 43 U/L (17-59); BLOOD UREA NITROGEN 23 mg/dL (7-21); CALCIUM 9.5 mg/dL (8.4-10.5); GFR AFRICAN-AMERICAN > 60; GFR NON-AFRICAN AMERICAN > 60
[2017-05-27 06:44] LABS: INR 1.17 (0.93-1.08); PARTIAL THROMBOPLASTIN TIME 30.3 Seconds (25.1-36.5); PROTHROMBIN TIME 12.9 SECONDS (9.4-12.5)
[2017-05-27] MEDS ORDERED: Sod Polystyrene Sulf 15 gm/60 ml Susp PR ONE (08:51)
[2017-05-27] MEDS: MEXILETINE 150 MG PO SCH ×2 (13:31→18:47)
[2017-05-27] MEDS: Sod Polystyrene Sulf 15 gm/60 ml Susp PO ONE ×2 (13:31→18:56)
[2017-05-27] MEDS: Enoxaparin 60 mg Syringe SC SCH (19:25)
[2017-05-28] MEDS: Oxycodone/Acetaminophen 5/325 mg Tab PO PRN (02:03)
[2017-05-28] MEDS: Levothyroxine 75 MCG TAB PO SCH (06:06)
[2017-05-28 06:23] LABS: BASO # 0.01 K/mm3 (0.0-2.0); BASO % 0.2 % (0.0-3.0); EOS # 0.2 (0.0-0.7); EOS % 2.9 % (1.5-5.0); GRAN # 4.13 (1.4-6.5); GRAN % 71.2 % (50.0-68.0); HEMOGLOBIN 10.4 g/dL (14.0-18.0); LYMPH # 0.9 (1.2-3.4); LYMPH % 14.7 % (22.0-35.0); MEAN CELL VOLUME 80.8 fl (80.0-105.0); MEAN CORPUSCULAR HEMOGLOBIN 25.6 pg (25.0-35.0); MEAN CORPUSCULAR HGB CONC 31.7 g/dl (31.0-37.0); MEAN PLATELET VOLUME 9.3 fl (7.0-11.0); MONO # 0.6 (0.1-0.6); RBC 4.06 10^6/uL (3.5-6.1); RED CELL DISTRIBUTION WIDTH 17.5 % (11.5-14.5); WHITE BLOOD COUNT 5.8 10^3/ul (4.5-11.0)
[2017-05-28 07:14] LABS: INR 1.21 (0.93-1.08); PARTIAL THROMBOPLASTIN TIME 25.6 Seconds (25.1-36.5); PROTHROMBIN TIME 13.4 SECONDS (9.4-12.5)
[2017-05-28 08:18] LABS: BLOOD UREA NITROGEN 24 mg/dL (7-21); CALCIUM 8.9 mg/dL (8.4-10.5); GFR AFRICAN-AMERICAN > 60; GFR NON-AFRICAN AMERICAN > 60
--- NOTE | 2017-05-28 10:04 | RAD ---
PROCEDURE: Radiographs of the right clavicle. HISTORY: follow up COMPARISON: None. FINDINGS: RIGHT CLAVICLE: There is a mildly displaced obliquely oriented fracture of the distal clavicle JOINTS: Right acromioclavicular and glenohumeral joints are grossly unremarkable. SOFT TISSUES: Grossly unremarkable. OTHER FINDINGS: None. IMPRESSION: There is a mildly displaced obliquely oriented fracture of the distal clavicle
--- NOTE | 2017-05-28 10:07 | RAD ---
PROCEDURE: Right Hip and pelvis Radiographs. HISTORY: follow up COMPARISON: 05/17/2017 FINDINGS: BONES: There is a focal avulsion type fracture of the superior surface of the greater trochanter. This is unchanged. There are no other fractures seen. JOINTS: Normal. SOFT TISSUES: Normal. OTHER FINDINGS: None. IMPRESSION: There is a focal avulsion type fracture of the superior surface of the greater trochanter. This is unchanged. There are no other fractures seen.
[2017-05-28] MEDS: MEXILETINE 150 MG PO SCH ×2 (10:12→18:22)
[2017-05-28 17:45] VITALS: O2SAT 96
[2017-05-28] MEDS: Enoxaparin 60 mg Syringe SC SCH (18:24)
--- NOTE | 2017-05-28 20:34 | PN ---
DATE: 05/28/2017 ORTHOPEDIC FOLLOW REPORT SUBJECTIVE: The patient has been followed in TCU over the past week for recuperating from greater trochanteric fracture of his right hip and distal clavicle fracture. Both fractures were only moderately displaced and the hip fracture did not go into the intratrochanteric zone. So, it is safe to say that he is not going to get a structural right hip fracture, but just greater trochanteric fracture, which can be treated conservatively, and the initial injury occurred on 05/17/2017 and he has been in the TCU for the last week since 05/22/2017. He has no complaint of pain, can do bilateral straight leg raising, moves the hips and knees appropriately. Right shoulder still in the right sling. I will see him in the office in 3 weeks to reevaluate the right shoulder and right hip again. FINAL DIAGNOSES: Minimally displaced fracture of the right distal clavicle and minimally displaced retrograde trochanter of the right hip without extension into the trochanteric region. Royal Samuel DO
[2017-05-29] MEDS: Levothyroxine 75 MCG TAB PO SCH (05:03)
[2017-05-29] MEDS: Enoxaparin 60 mg Syringe SC SCH (05:03)
--- NOTE | 2017-05-29 05:46 | CP.PCM.PN ---
<Kamran Riggins - Last Filed: 05/29/17 05:48> Subjective - Date & Time of Evaluation Date of Evaluation: 05/28/17 Time of Evaluation: 07:45 - Subjective Subjective: Patient seen and examined at bedside in no acute distress. Patient states he is doing fine and the pain has improved. Denies shortness of breath, chest pain, abdominal pain, nausea, vomiting, diarrhea. Is aware of discharge plan tomorrow. Objective - Vital Signs/Intake and Output Vital Signs (last 24 hours): Temp Pulse Resp BP Pulse Ox 97.6 F 60 18 102/69 96 05/28/17 17:45 05/28/17 17:45 05/28/17 17:45 05/28/17 18:23 05/28/17 17:45 Intake and Output: 05/28/17 05/29/17 18:59 06:59 Intake Total 360 Balance 360 - Medications Medications: Current Medications Amiodarone HCl (Cordarone) 200 mg PO DAILY SANNA PRN Reason: Protocol Last Admin: 05/28/17 10:11 Dose: 200 mg Atorvastatin Calcium (Lipitor) 20 mg PO DAILY SANNA PRN Reason: Protocol Last Admin: 05/28/17 10:13 Dose: 20 mg Enoxaparin Sodium (Lovenox) 60 mg SC 0600,1800 SANNA PRN Reason: Protocol Last Admin: 05/29/17 05:03 Dose: 60 mg Famotidine (Pepcid) 40 mg PO HS SANNA PRN Reason: Protocol Last Admin: 05/28/17 21:13 Dose: 40 mg Home Med (Home Med) 1 unit PO BID [facility] Last Admin: 05/28/17 18:22 Dose: 1 unit Ibuprofen (Motrin Tab) 400 mg PO Q6H PRN PRN Reason: Pain, moderate (4-7) Levothyroxine Sodium (Synthroid) 75 mcg PO 0600 SANNA PRN Reason: Protocol Last Admin: 05/29/17 05:03 Dose: 75 mcg Losartan Potassium (Cozaar) 25 mg PO DAILY SANNA PRN Reason: Protocol Last Admin: 05/26/17 09:07 Dose: 25 mg Metoprolol Tartrate (Lopressor) 12.5 mg PO BRKDIN SANNA PRN Reason: Protocol Last Admin: 05/28/17 18:23 Dose: 12.5 mg Warfarin Sodium (Coumadin) 3 mg PO 1800 SANNA PRN Reason: Protocol Last Admin: 05/28/17 18:22 Dose: 3 mg Zolpidem Tartrate (Ambien) 5 mg PO HS PRN; Protocol PRN Reason: Insomnia Last Admin: 05/29/17 00:56 Dose: 5 mg - Labs Labs: 05/28/17 06:00 05/28/17 06:00 PT 13.4 SECONDS (9.4-12.5) H 05/28/17 06:00 INR 1.21 (0.93-1.08) H 05/28/17 06:00 APTT 25.6 Seconds (25.1-36.5) 05/28/17 06:00 - Constitutional Appears: Non-toxic, No Acute Distress - Head Exam Head Exam: ATRAUMATIC, NORMAL INSPECTION, NORMOCEPHALIC - ENT Exam ENT Exam: Mucous Membranes Moist, Normal Exam - Respiratory Exam Respiratory Exam: Clear to Ausculation Bilateral, NORMAL BREATHING PATTERN - Cardiovascular Exam Cardiovascular Exam: +S1, +S2. absent: Murmur - GI/Abdominal Exam GI & Abdominal Exam: Soft, Normal Bowel Sounds - Extremities Exam Extremities Exam: Normal Inspection. absent: Calf Tenderness, Joint Swelling - Back Exam Back Exam: NORMAL INSPECTION - Neurological Exam Neurological Exam: Alert, Awake, CN II-XII Intact - Psychiatric Exam Psychiatric exam: Normal Affect, Normal Mood - Skin Skin Exam: Intact, Normal Color, Warm Assessment and Plan - Assessment and Plan (Free Text) Assessment: 66yo male PMHx hypothyroidism, non-obstructive CAD, and arrhythmias s/p AICD, pacemaker, on anti-arrhythmic medications presented s/p mechanical fall with an avulsion fracture of the right greater trochanter with soft tissue swelling and a distal non-articular right clavicular fracture with associated soft tissue swelling. Plan: 1. Lung mass posterior right lower lobe - CTA chest showed 1.9 cm lung mass posterior right lower lobe - Interventional radiology consulted CT guided lung biopsy performed; will follow up outpatient for results Resume Lovenox, Coumadin 2. Distal Abdominal aortic aneurysm - CTA chest: fusiform infrarenal abdominal aortic aneurysm measures 4.7 AP diameter, inferior left ventricle calcification possibly status post AL - Vascular surgery consulted Endovascular procedure pending results of lung biopsy 3. Mechanical fall - Acute intracranial bleed and cervical trauma ruled out as Head CT and Cervical spine CT negative - Cont PT 4. Right distal clavicular fracture - Shoulder x-ray: distal non-articular right clavicular fracture with soft tissue swelling. - Ortho: right distal clavicular fracture and right greater trochanter fracture No surgical intervention at this time Ambulatory assistance with cane or walker and right arm sling Will be discharged to home - Percocet for pain control - Cont PT 5. Right greater trochanter avulsion fracture - Hip/pelvis x-ray: acute avulsion fracture from greater trochanter with adjacent soft tissue injury - CT hip: fracture of the right greater trochanter, with mild displacement. There is aneurysmal dilatation of the distal abdominal aorta measuring 5.4 cm - See above for ortho recs - Cont PT 6. Hx of Tachyarrhythmia - Heart Rate continues to be controlled; monitor - Mexiletine 150 BID - Amiodarone 200 mg PO daily - Metoprolol 12.5 mg BID 7. Hx of CAD - Atrovastatin 20 mg PO daily - Subtherapeutic INR; will check INR in am, if still subpar will provide patient with lovenox for bridging until follup with PCP on Friday - Losartan 50 mg PO daily 8. Hx of Hypothyroidism - Levothyroxine 75 mcg PO daily 9. Hx of Insomnia - Ambien 5 mg HS PRN GI/DVT prophylaxis - Pepcid 40 mg HS - Lovenox Pt seen and discussed in detail with Dr.Irfan Kamran Riggins PGY1 <Anupama Turcios - Last Filed: 05/29/17 12:52> Objective - Vital Signs/Intake and Output Vital Signs (last 24 hours): Temp Pulse Resp BP Pulse Ox 97.4 F L 60 18 116/71 96 05/29/17 10:00 05/29/17 10:36 05/29/17 10:00 05/29/17 10:36 05/29/17 10:00 Intake and Output: 05/29/17 05/29/17 06:59 18:59 Intake Total 360 Balance 360 - Medications Medications: Current Medications Amiodarone HCl (Cordarone) 200 mg PO DAILY SANNA PRN Reason: Protocol Last Admin: 05/29/17 10:36 Dose: 200 mg Atorvastatin Calcium (Lipitor) 20 mg PO DAILY SANNA PRN Reason: Protocol Last Admin: 05/29/17 10:37 Dose: 20 mg Enoxaparin Sodium (Lovenox) 60 mg SC 0600,1800 SANNA PRN Reason: Protocol Last Admin: 05/29/17 05:03 Dose: 60 mg Famotidine (Pepcid) 40 mg PO HS SANNA PRN Reason: Protocol Last Admin: 05/28/17 21:13 Dose: 40 mg Home Med (Home Med) 1 unit PO BID SANNA Last Admin: 05/29/17 10:37 Dose: 1 unit Ibuprofen (Motrin Tab) 400 mg PO Q6H PRN PRN Reason: Pain, moderate (4-7) Levothyroxine Sodium (Synthroid) 75 mcg PO 0600 SANNA PRN Reason: Protocol Last Admin: 05/29/17 05:03 Dose: 75 mcg Losartan Potassium (Cozaar) 25 mg PO DAILY SANNA PRN Reason: Protocol Last Admin: 05/26/17 09:07 Dose: 25 mg Metoprolol Tartrate (Lopressor) 12.5 mg PO BRKDIN SANNA PRN Reason: Protocol Last Admin: 05/29/17 08:35 Dose: 12.5 mg Warfarin Sodium (Coumadin) 3 mg PO 1800 SANNA PRN Reason: Protocol Last Admin: 05/28/17 18:22 Dose: 3 mg Zolpidem Tartrate (Ambien) 5 mg PO HS PRN; Protocol PRN Reason: Insomnia Last Admin: 05/29/17 00:56 Dose: 5 mg - Labs Labs: 05/28/17 06:00 05/28/17 06:00 PT 14.0 SECONDS (9.4-12.5) H 05/29/17 07:00 INR 1.21 (0.93-1.08) H 05/29/17 07:00 APTT 35.5 Seconds (25.1-36.5) 05/29/17 07:00 Attending/Attestation - Attestation I have personally seen and examined this patient.: Yes I have fully participated in the care of the patient.: Yes I have reviewed all pertinent clinical information, including history, physical exam and plan: Yes Notes (Text): 05/29/17 12:50 Patient was seen and examined Agreed with medical office technologist assesment and plan. . 66 year old male with history of hypothyroidism, non-obstructive CAD, and arrhythmias s/p AICD, pacemaker, on anti-arrhythmic medications who came s/p mechanical fall and found to have avulsion fracture of the right greater trochanter and a distal non-articular right clavicular fracture. There is no surgical intervention indicated as per ortho. PT recommends VIKI and patient got transferred to TCU. He is now participating in physical therapy. Patient was found to have incidental finding of infrarenal AAA measuring 4.7 cm. Vascular consult appreciated. Nothing emergent needs to be done. Patient can follow up with Dr Pate as an outpatient.Also there was an incidental finding of 1.9 cm posterior RLL nodule. IR consult appreciated. Patient underwent CT guided biopsy 05/27/17 , results are pending at this time.Warfarin is restarted.INR is not therapeutic.Patient is on bridging lovenox.
[2017-05-29 07:36] LABS: INR 1.21 (0.93-1.08); PARTIAL THROMBOPLASTIN TIME 35.5 Seconds (25.1-36.5)
[2017-05-29] MEDS: MEXILETINE 150 MG PO SCH (10:37)
[2017-05-29 10:38] VITALS: BP 116/71; PULSE 60
[2017-05-29 11:31] VITALS: TEMP 97.4
== END 2017-05-29 16:26 | disposition home or self-care (01) | DRG 536 ==
LOC: TRCU 21:08
PROVIDERS: ADMIT Hospitalist; ATTEND Internal Medicine
PROC: F07Z9FZ Gait Training/Functional Ambulation Treatment using Assistive, Adaptive, Supportive or Protective Equipment (ICD-10-PCS; principal; 2017-05-22)
PROC: F07M6ZZ Therapeutic Exercise Treatment of Musculoskeletal System - Whole Body (ICD-10-PCS; 2017-05-22)
PROC: F08Z0ZZ Bathing/Showering Techniques Treatment (ICD-10-PCS; 2017-05-22)
PROC: F08Z1ZZ Dressing Techniques Treatment (ICD-10-PCS; 2017-05-22)
PROC: F08Z2ZZ Grooming/Personal Hygiene Treatment (ICD-10-PCS; 2017-05-22)
PROC: F08Z4ZZ Home Management Treatment (ICD-10-PCS; 2017-05-22)
DX: S72.111A Displaced fracture of greater trochanter of right femur, initial encounter for closed fracture (principal); E03.9 Hypothyroidism, unspecified; S42.031A Displaced fracture of lateral end of right clavicle, initial encounter for closed fracture; W01.0XXA Fall on same level from slipping, tripping and stumbling without subsequent striking against object, initial encounter; I10 Essential (primary) hypertension; I25.10 Atherosclerotic heart disease of native coronary artery without angina pectoris; I25.2 Old myocardial infarction; I71.4 Abdominal aortic aneurysm, without rupture; J44.9 Chronic obstructive pulmonary disease, unspecified; K21.9 Gastro-esophageal reflux disease without esophagitis; Z87.891 Personal history of nicotine dependence; Z95.1 Presence of aortocoronary bypass graft; Z95.810 Presence of automatic (implantable) cardiac defibrillator; G47.00 Insomnia, unspecified

== ENCOUNTER 2017-05-27 13:34 | Day surgery (SDC) | payer MEDICARE, MEDICAID ==
[2017-05-27] MEDS ORDERED: Midazolam 2 MG/2 ML VIAL ONE (14:46)
[2017-05-27] MEDS ORDERED: Lidocaine 1% Inj (20ml) ONE (15:46)
[2017-05-27] MEDS ORDERED: Oxycodone/Acetaminophen 5/325 mg Tab PO PRN (16:01)
[2017-05-27] MEDS ORDERED: Sodium Chloride 0.45% 1,000 ML IV SCH (16:15)
[2017-05-27 17:05] VITALS: PULSE 63; RESP 20; TEMP 98.2; O2SAT 93
--- NOTE | 2017-05-27 17:59 | RAD ---
HISTORY: rt lung bx All COMPARISON: No prior. FINDINGS: LUNGS: No active pulmonary disease. PLEURA: No significant pleural effusion identified, no pneumothorax apparent. CARDIOVASCULAR: Cardiomegaly. No evidence of acute, significant cardiovascular disease. Position/ configuration of pacemaker Satisfactory. OSSEOUS STRUCTURES: No significant abnormalities. VISUALIZED UPPER ABDOMEN: Normal. OTHER FINDINGS: None. IMPRESSION: No evidence of pneumothorax status post CT directed lung biopsy right lower lobe mass
[2017-05-27 18:28] VITALS: BP 112/74
--- NOTE | 2017-05-27 20:14 | CT ---
PROCEDURE: CT guided right lower lobe lung biopsy. HISTORY: 2.9 cm right lower lobe lung nodule. Previous smoker. Evaluate for malignancy PHYSICIAN(S): Mike Tang MD. TECHNIQUE: The relative risks and indications of the procedure were explained to the patient and consent obtained. The patient was placed prone on the CT scanner and preliminary images through the bases obtained. Conscious sedation and monitoring were provided throughout the procedure by a nurse. There is a noncalcified 2.9 cm nodule in the right lower lobe posteriorly. A right posterior approach was selected and the area prepped and draped in the usual sterile fashion. 1% Xylocaine was used to anesthetize the skin and soft tissues. A 19 gauge guiding needle was advanced into the 2.9 cm right lower lobe nodule. Its position was confirmed with CT. Using coaxial technique, multiple core biopsies were obtained. The postprocedure images show no evidence of large pneumothorax or significant hemorrhage.. IMPRESSION: 1. CT-guided right lower lobe lung biopsy as described above.
== END 2017-05-27 18:36 ==
LOC: SDS 13:34
PROVIDERS: ATTEND Radiology Vascular & Interventional Radiology
DX: C34.31 Malignant neoplasm of lower lobe, right bronchus or lung (principal); Z87.891 Personal history of nicotine dependence
CPT/HCPCS: 32405; 71045; 77012; 88305; J2250; J2405; J3010; J7030

== ENCOUNTER 2017-09-22 18:08 | Inpatient (IN) | payer MEDICARE, MEDICAID ==
[2017-09-22 18:09] VITALS: PULSE 135; BMI 20.6
--- NOTE | 2017-09-22 19:10 | ED PDOC ---
Arrival/HPI - General Chief Complaint: Upper Extremity Problem/Injury Time Seen by Provider: 09/22/17 19:00 Historian: Patient - History of Present Illness Narrative History of Present Illness (Text): 09/22/17 19:08 A 67 year old male, whose past medical history includes NC, open heart surgery ( patient currently takes Coudmadin), COPD, and pacemaker, presents to the emergency department complaining of right shoulder pain. Patient reports was consuming alcohol yesterday and fell in the hallway of his home, injuring his right upper chest shoulder region. No signs of bruising or broken ribs. Limited HPI and ROS due to patient being a poor historian. PMD: Dr. Alma Delia Lenz Past Medical History - Provider Review Nursing Documentation Reviewed: Yes - Infectious Disease Hx of Infectious Diseases: None - Tetanus Immunization Tetanus Immunization: Unknown - Cardiac Hx NC: Yes (x 1) Hx Hypertension: Yes - Pulmonary Hx Chronic Obstructive Pulmonary Disease (COPD): Yes - HEENT Hx HEENT Disorder: No - Renal Hx Renal Disorder: No - Endocrine/Metabolic Hx Hypothyroidism: Yes - Hematological/Oncological Hx Blood Transfusions: No Hx Blood Transfusion Reaction: No - Integumentary Hx Dermatological Disorder: No - Musculoskeletal/Rheumatological Hx Musculoskeletal Disorders: No - Gastrointestinal Hx Gastrointestinal Disorders: Yes (Gerd, Pancreatitis, bilroth gastrectomy) - Genitourinary/Gynecological Hx Genitourinary Disorders: No Hx Reproductive Disorders: No - Psychiatric Hx Emotional Abuse: No Hx Physical Abuse: No Hx Substance Use: No - Surgical History Hx Cardiac Catheterization: Yes Hx Coronary Artery Bypass Graft: Yes - Anesthesia Hx Anesthesia: Yes Hx Anesthesia Reactions: No Hx Malignant Hyperthermia: No - Suicidal Assessment Feels Threatened In Home Enviroment: No Family/Social History - Physician Review Nursing Documentation Reviewed: Yes Family/Social History: No Known Family HX Smoking Status: Former Smoker Hx Alcohol Use: Yes (OCCASSIONAL) Hx Substance Use: No Hx Substance Use Treatment: No Allergies/Home Meds Allergies/Adverse Reactions: Allergies No Known Allergies Allergy (Verified 08/29/13 07:54) Home Medications: Home Meds Medication Instructions Recorded Confirmed Amiodarone HCl [Pacerone] 200 mg PO DAILY 02/23/16 09/01/17 Atorvastatin [Lipitor] 20 mg PO DAILY 02/23/16 09/01/17 Losartan [Cozaar] 50 mg PO DAILY 02/23/16 09/01/17 Metoprolol Tartrate [Lopressor] 25 mg PO BRKDIN 02/23/16 05/21/17 Mexiletine 150 mg PO BID 02/23/16 09/01/17 Levothyroxine [Synthroid] 88 tab PO DAILY 05/17/17 09/01/17 Warfarin [Coumadin] 4 mg PO 1800 09/01/17 09/01/17 Review of Systems - Review of Systems Systems not reviewed;Unavailable: Other (poor historian) Physical Exam Vital Signs Reviewed: Yes Vital Signs Temp Pulse Resp BP Pulse Ox 09/22/17 19:01 98.3 F 60 18 141/92 H 97 09/22/17 18:09 98.4 F 60 20 141/92 H 97 Temperature: Afebrile Blood Pressure: Normal Pulse: Regular Respiratory Rate: Normal Appearance: Positive for: Well-Appearing Pain Distress: None Mental Status: Positive for: Alert and Oriented X 3 - Systems Exam Head: Present: Atraumatic, Normocephalic Respiratory/Chest: Present: Clear to Auscultation, Good Air Exchange. No: Respiratory Distress, Accessory Muscle Use Cardiovascular: Present: Regular Rate and Rhythm, Normal S1, S2. No: Murmurs Abdomen: Present: Tenderness (right side ribs 3 and 4 tenderness anteriorly), Other (no rib fractures). No: Distention, Peritoneal Signs Back: Present: Normal Inspection Upper Extremity: Present: Normal Inspection, Normal ROM (right shoulder full ROM ). No: Cyanosis, Edema Lower Extremity: Present: Normal Inspection. No: Edema Neurological: Present: GCS=15, CN II-XII Intact, Speech Normal Skin: Present: Warm, Dry, Normal Color, Other (no visible bruising). No: Rashes Psychiatric: Present: Alert, Oriented x 3, Normal Insight, Normal Concentration Medical Decision Making ED Course and Treatment: 09/22/17 19:11 Impression: 67 year old male with right shoulder pain, no other information due to patient being a poor historian. Physical exam shows right shoulder full ROM; no rib fractures, right side ribs 3 and 4 tenderness anteriorly. Plan: -- EKG -- Abd/Pelvis CT -- Chest CT -- Labs -- Urine Culture -- Urinalysis -- Reassess and disposition Prior Visits: Notes and results from previous visits were reviewed. Patient was last seen in the emergency department on 05/17/2017 for right shoulder pain and right hip pain. Patient was admitted. Progress Notes: EKG: Ordered, reviewed, and independently interpreted the EKG. Rate : 70 BPM Rhythm : AV sequential or dual chamber electronic pacemaker. Interpretation : No ST-segment elevations or depressions, no T-wave inversions, normal intervals. Comparison : No previous EKG for comparison. EXAM:CT Abdomen and Pelvis Without Intravenous Contrast Dictated and Authenticated by: Katya Kasper MD 09/22/2017 10:21 PM IMPRESSION: - No evidence of acute traumatic organ injury, allowing for motion artifact and unenhanced technique. - Large 5.3 cm abdominal aortic aneurysm. No evidence of aneurysm rupture. - Healing fracture of the right greater trochanter. - See above for remaining findings. EXAM: CT Chest Without Intravenous Contrast Dictated and Authenticated by: Katya Kasper MD 09/22/2017 10:34 PM IMPRESSION: - No evidence of significant acute traumatic injury in the chest on this unenhanced exam. - 1.7 cm indeterminate right pulmonary nodule. Further workup is recommended, such as with PET/CT or tissue sampling. - Small area of consolidation in the right middle lobe. This could be due to a small infiltrate/pneumonia. - Emphysematous changes. - See above for remaining findings. 09/22/17 22:31 Case discussed with [employer] Mixer and Dr. Ashley who is aware and agrees with the plan. Accepts patient into hospitlaist service. - Lab Interpretations Lab Results: 09/22/17 20:00 09/22/17 20:00 Lab Results 09/22/17 20:03: Urine Opiates Screen Negative, Urine Methadone Screen Negative, Ur Barbiturates Screen Negative, Ur Phencyclidine Scrn Negative, Ur Amphetamines Screen Negative, U Benzodiazepines Scrn Negative, U Oth Cocaine Metabols Negative, U Cannabinoids Screen Negative 09/22/17 20:03: Urine Color Straw, Urine Appearance Clear, Urine pH 7.5, Ur Specific [place] 1.010, Urine Protein Negative, Urine Glucose (UA) Negative, Urine Ketones Negative, Urine Blood Negative, Urine Nitrate Negative, Urine Bilirubin Negative, Urine Urobilinogen 0.2, Ur Leukocyte Esterase Negative 09/22/17 20:00: TSH 3rd Generation 7.27 H, Alcohol, Quantitative < 10 09/22/17 20:00: Sodium 120 L, Potassium 5.2 H, Chloride 88 L, Carbon Dioxide 24 , Anion Gap 14, BUN 10, Creatinine 0.7 L, Est GFR ( Amer) > 60, Est GFR ( Non-Af Amer) > 60, Random Glucose 104, Calcium 8.9, Total Bilirubin 0.4, AST 134 H D, ALT 72 H, Alkaline Phosphatase 137 H, Lactate Dehydrogenase 1011 H, Total Creatine Kinase 201, Troponin I 0.02 D, Total Protein 7.6, Albumin 4.2, Globulin 3.4, Albumin/Globulin Ratio 1.3 09/22/17 20:00: PT 23.8 H, INR 2.06 H 09/22/17 20:00: WBC 6.0, RBC 4.05, Hgb 10.7 L, Hct 30.8 L, MCV 76.0 L D, MCH 26.4, MCHC 34.7, RDW 15.4 H, Plt Count 195, MPV 9.0, Gran % 82.2 H, Lymph % ( Auto) 8.8 L, [place] % (Auto) 8.8 H, Eos % (Auto) 0.2 L, Baso % (Auto) 0.0, Gran # 4.96, Lymph # (Auto) 0.5 L, [place] # (Auto) 0.5, Eos # (Auto) 0.0, Baso # (Auto) 0.00 - RAD Interpretation Radiology Orders: 09/22/17 19:07 ABD & PELVIS W/O PO OR IV CONT [CT] Stat CHEST W/O CONTRAST [CT] Stat - Medication Orders Current Medication Orders: Ceftriaxone Sodium (Rocephin 1 Gram Ivpb) 1 gm in 100 mls @ 200 mls/hr IVPB STAT STA PRN Reason: Protocol Stop: 09/22/17 23:09 Azithromycin (Zithromax 500mg In Ns) 500 mg in 250 mls @ 167 mls/hr IVPB STAT STA PRN Reason: Protocol Stop: 09/23/17 00:09 Discontinued Medications Sodium Chloride (Sodium Chloride 0.9%) 1,000 mls @ 999 mls/hr IV .Q1H1M STA Stop: 09/22/17 22:23 Last Admin: 09/22/17 22:04 Dose: 999 mls/hr eMAR Start Stop Document 09/22/17 22:04 RD (Rec: 04/30/18 22:04 RD [id number]) Intravenous Solution Start Date 09/22/17 Start Time 21:50 End Date 09/22/17 End time 22:50 Total Infusion Time 60 Sodium Polystyrene Sulfonate (Kayexalate Susp) 15 gm PO STAT STA Stop: 09/22/17 21:24 Last Admin: 09/22/17 22:04 Dose: 15 gm - Scribe Statement The provider has reviewed the documentation as recorded by the Ileana Burt Provider Yaryibrodney Attestation: All medical record entries made by the Ileana were at my direction and personally dictated by me. I have reviewed the chart and agree that the record accurately reflects my personal performance of the history, physical exam, medical decision making, and the department course for this patient. I have also personally directed, reviewed, and agree with the discharge instructions and disposition. Disposition/Present on Arrival - Present on Arrival Any Indicators Present on Arrival: No History of DVT/PE: No History of Uncontrolled Diabetes: No Urinary Catheter: No History of Decub. Ulcer: No History Surgical Site Infection Following: None - Disposition Have Diagnosis and Disposition been Completed?: Yes Diagnosis: Lung mass, Abdominal aortic aneurysm (AAA) 3.0 cm to 5.5 cm in diameter in male , Hyponatremia, Hyperkalemia, Hypothyroidism determined by thyroid function test , CHF (congestive heart failure), Hepatic insufficiency, Lung cancer, Pulmonary infiltrate in right lung on CXR, Pneumonia Disposition: HOSPITALIZED Disposition Time: 22:38 Patient Plan: Admission, Telemetry Patient Problems: Current Active Problems Problem Status Onset Lung mass Acute Abdominal aortic aneurysm (AAA) 3.0 cm to 5.5 cm in diameter in male Acute Hyponatremia Acute Hyperkalemia Acute Hypothyroidism determined by thyroid function test Acute CHF (congestive heart failure) Acute Hepatic insufficiency Acute Lung cancer Acute Pulmonary infiltrate in right lung on CXR Acute Discharge Instructions (ExitCare): Heart Failure (ED) Referrals: Alma Delia Lenz Ae, [facility] [Advanced Practice Nurse] - Follow up with primary Forms: [employer] ([place])
[2017-09-22 20:28] LABS: ALB/GLOB RATIO 1.3 (1.1-1.8); ALBUMIN 4.2 g/dL (3.0-4.8); ALT/SGPT 72 U/L (7-56); AST/SGOT 134 U/L (17-59); BLOOD UREA NITROGEN 10 mg/dL (7-21); CALCIUM 8.9 mg/dL (8.4-10.5); EOS % 0.2 % (1.5-5.0); GFR AFRICAN-AMERICAN > 60; GFR NON-AFRICAN AMERICAN > 60; GRAN # 4.96 (1.4-6.5); GRAN % 82.2 % (50.0-68.0); HEMOGLOBIN 10.7 g/dL (14.0-18.0); LYMPH # 0.5 (1.2-3.4); LYMPH % 8.8 % (22.0-35.0); MEAN CORPUSCULAR HEMOGLOBIN 26.4 pg (25.0-35.0); MEAN CORPUSCULAR HGB CONC 34.7 g/dl (31.0-37.0); MONO # 0.5 (0.1-0.6); MONO % 8.8 % (1.0-6.0); RBC 4.05 10^6/uL (3.5-6.1); RED CELL DISTRIBUTION WIDTH 15.4 % (11.5-14.5)
[2017-09-22 20:31] LABS: PH,URINE 7.5 (4.7-8.0); URINE BILIRUBIN NEGATIVE (NEGATIVE); URINE BLOOD NEGATIVE (NEGATIVE); URINE GLUCOSE (UA) NEGATIVE (NEGATIVE); URINE LEUKOCYTE ESTERASE NEGATIVE Leu/uL (NEGATIVE); URINE PROTEIN NEGATIVE mg/dL (<30 mg/dL); URINE UROBILINOGEN 0.2 E.U./dL (<1 E.U./dL)
[2017-09-22 20:32] LABS: URINE APPEARANCE CLEAR (CLEAR); URINE COLOR STRAW (YELLOW)
[2017-09-22 20:39] LABS: TROPONIN I 0.02 ng/mL
[2017-09-22 20:40] LABS: INR 2.06 (0.93-1.08); PROTHROMBIN TIME 23.8 SECONDS (9.4-12.5)
[2017-09-22 20:56] LABS: BARBITURATES, UR NEGATIVE (NEGATIVE); BENZODIAZEPINES, UR NEGATIVE (NEGATIVE); OPIATES, UR NEGATIVE (NEGATIVE); PHENCYCLIDINE, UR NEGATIVE (NEGATIVE)
[2017-09-22] MEDS ORDERED: Sodium Chloride 0.9% 1,000 ML IV STA (21:23)
[2017-09-22] MEDS ORDERED: Sod Polystyrene Sulf 15 gm/60 ml Susp PO STA (21:23)
--- NOTE | 2017-09-22 22:22 | CT ---
EXAM: CT Abdomen and Pelvis Without Intravenous Contrast EXAM DATE/TIME: 09/22/2017 7:07 PM CLINICAL HISTORY: 67 years old, male; Injury or trauma; Fall; Initial encounter; Abrasion; Additional info: Fall on coumadin, CO pain r chest/abd TECHNIQUE: Axial computed tomography images of the abdomen and pelvis without intravenous contrast. All CT scans at this facility use one or more dose reduction techniques, viz.: automated exposure control; ma/kV adjustment per patient size (including targeted exams where dose is matched to indication; i.e. head); or iterative reconstruction technique. Coronal and sagittal reformatted images were created and reviewed. COMPARISON: Report from a prior CT right hip of 05/17/2017. The prior study itself is currently unavailable. FINDINGS: LIMITATIONS: Mild to moderate streak/motion artifact. Streak artifact from a metallic cardiac pacing device. ABDOMEN: LIVER: No evidence of liver laceration, allowing for unenhanced technique. GALLBLADDER AND BILE DUCTS: High density material in the gallbladder lumen, likely representing gallbladder sludge. No evidence of pericholecystic fluid. PANCREAS: No evidence of peripancreatic fluid. SPLEEN: No evidence of splenic laceration, allowing for unenhanced technique. ADRENALS: No evidence of adrenal hemorrhage/hematoma. KIDNEYS AND URETERS: No evidence of perinephric hemorrhage. STOMACH AND BOWEL: No definite acute abnormality of the bowel identified, allowing for motion artifact. No evidence of large mesenteric hematoma. No evidence of bowel obstruction. PELVIS: APPENDIX: Appendix is seen, and is within normal limits in appearance. BLADDER: No acute abnormality of the bladder identified. REPRODUCTIVE: No acute abnormality of the reproductive organs is seen. ABDOMEN and PELVIS: INTRAPERITONEAL SPACE: No evidence of free intraperitoneal air or fluid. RETROPERITONEAL SPACE: No evidence of retroperitoneal hemorrhage. BONES/JOINTS: Mildly displaced fracture of the right greater trochanter. There is adjacent bony sclerosis, and this was also described on the prior right hip CT report. Findings are most compatible with a healing fracture. 50% compression fracture of L2, which appears chronic in nature. Chronic fracture versus a normal variant involving the right L1 transverse process. Bony structures appear demineralized. No definite acute fractures. SOFT TISSUES: No evidence of soft tissue hematoma. VASCULATURE: Large infrarenal abdominal aortic aneurysm, measuring 5.3 x 4.9 cm maximally. No evidence of periaortic hemorrhage/aneurysm rupture LYMPH NODES: No evidence of diffuse lymphadenopathy. IMPRESSION: - No evidence of acute traumatic organ injury, allowing for motion artifact and unenhanced technique. - Large 5.3 cm abdominal aortic aneurysm. No evidence of aneurysm rupture. - Healing fracture of the right greater trochanter. - See above for remaining findings.
--- NOTE | 2017-09-22 22:34 | CT ---
EXAM: CT Chest Without Intravenous Contrast EXAM DATE/TIME: 09/22/2017 7:07 PM CLINICAL HISTORY: 67 years old, male; Injury or trauma; Fall; Initial encounter; Abrasion; Additional info: Fall on coumadin, CO pain r chest/abd TECHNIQUE: Axial computed tomography images of the chest without intravenous contrast. All CT scans at this facility use one or more dose reduction techniques, viz.: automated exposure control; ma/kV adjustment per patient size (including targeted exams where dose is matched to indication; i.e. head); or iterative reconstruction technique. Coronal and sagittal reformatted images were created and reviewed. COMPARISON: Prior chest radiographs of 2017-05-27 FINDINGS: LIMITATIONS: Moderate streak/motion artifact. LUNGS: 1.7 x 1.4 cm nodule in the right lung base. This has mildly irregular margins. Small area of consolidation in the right middle lobe. This could be due to a small infiltrate/pneumonia. Moderate bilateral centrilobular emphysematous changes. PLEURAL SPACE: No pneumothorax or significant pleural effusions seen. HEART: Heart appears moderately to markedly enlarged. Prosthetic cardiac valve is in place. No evidence of hemopericardium. MEDIASTINUM: No evidence of pneumomediastinum. BONES/JOINTS: Multiple chronic thoracic vertebral compression fractures, greatest at T4, where there is associated 50-75% vertebral height loss. Sclerosis involving multiple right ribs, most likely secondary to old fractures. Sternotomy wires noted. Bony structures appear demineralized. No definite acute fractures. SOFT TISSUES: No evidence of soft tissue hematoma. VASCULATURE: Exam is nondiagnostic for aortic dissection, secondary to unenhanced technique. No evidence of periaortic hemorrhage. LYMPH NODES: No evidence of diffuse lymphadenopathy. TUBES, LINES AND DEVICES: Cardiac pacing device is in place. IMPRESSION: - No evidence of significant acute traumatic injury in the chest on this unenhanced exam. - 1.7 cm indeterminate right pulmonary nodule. Further workup is recommended, such as with PET/CT or tissue sampling. - Small area of consolidation in the right middle lobe. This could be due to a small infiltrate/pneumonia. - Emphysematous changes. - See above for remaining findings.
[2017-09-22] MEDS ORDERED: Azithromycin 500MG/NS 250ml 500 MG/250 ML BAG IVPB STA (22:40)
[2017-09-22] MEDS ORDERED: cefTRIAXone 1 gm 1 GM/100 ML BAG IVPB STA (22:40)
--- NOTE | 2017-09-23 00:47 | CP.PCM.HP ---
"<Song Ryan - Last Filed: 09/23/17 02:43> History of Present Illness - History of Present Illness History of Present Illness: This patient is a 67 year old male with a PMHx of CHF (32%EF), Pacemaker, Hypothyroidism, CAD, HTN, Open Heart Surgery, COPD (Denies Hx), Atrial Flutter, and Adenocarcinoma of the right lung who presents complaining of Right shoulder and rib pain. Patient states he drank 10 beers yesterday, lost his balance and fell. He denies any loss of consciousness or head trauma but states he hit his shoulder and rib when he fell. The shoulder pain has been getting worse which prompted him to come to the emergency room. The pain is aggravated with movement. He did not try any modalities to relieve the pain. Patient denies any chest/rib pain at rest or with deep inspiration. He denies any fever, chills, vision changes, headache, dizziness, SOB, abdominal pain, nausea, vomiting, changes in bowel habits, generalized weakness, or urinary symptoms. Patient found have sodium of 120 and Potassium of 5.2 in E.R. Patient states he drank about a gallon of water today. ROS: As stated above PMHx: As stated Above PSHx: unspecified abdominal surgery (Over 30 years ago), Open Heart Surgery Allergies: NKDA SocialHx: 1/2PPD Smoker for 35 years. Quit 5 years ago. States Friday was his only time drinking since last admission. Denies illicit drug use [place] [facility] [place] Avulsion Fracture FamHx: Non-Cont. Meds: Reviewed PMD: Dr. Baker Cardio: Dr. Wong Present on Admission - Present on Admission Any Indicators Present on Admission: No Review of Systems - Review of Systems All systems: reviewed and no additional remarkable complaints except (As per HPI ) Review of Systems: As per HPI Past Patient History - Infectious Disease Hx of Infectious Diseases: None - Tetanus Immunizations Tetanus Immunization: Unknown - Past Social History Smoking Status: Former Smoker - CARDIAC Hx Heart Attack: Yes (x 1) Hx Hypertension: Yes - PULMONARY Hx Chronic Obstructive Pulmonary Disease (COPD): Yes - HEENT Hx HEENT Problems: No - RENAL Hx Chronic Kidney Disease: No - ENDOCRINE/METABOLIC Hx Hypothyroidism: Yes - HEMATOLOGICAL/ONCOLOGICAL Hx Blood Transfusions: No Hx Blood Transfusion Reaction: No - INTEGUMENTARY Hx Dermatological Problems: No - MUSCULOSKELETAL/RHEUMATOLOGICAL Hx Musculoskeletal Disorders: No - GASTROINTESTINAL Hx Gastrointestinal Disorders: Yes (Gerd, Pancreatitis, bilroth gastrectomy) - GENITOURINARY/GYNECOLOGICAL Hx Genitourinary Disorders: No Hx Reproductive Disorders: No - PSYCHIATRIC Hx Emotional Abuse: No Hx Physical Abuse: No Hx Substance Use: No - SURGICAL HISTORY Hx Cardiac Catheterization: Yes Hx Coronary Artery Bypass Graft: Yes - ANESTHESIA Hx Anesthesia: Yes Hx Anesthesia Reactions: No Hx Malignant Hyperthermia: No Meds Allergies/Adverse Reactions: Allergies Allergy/AdvReac Type Severity Reaction Status Date / Time No Known Allergies Allergy Verified 08/29/13 07:54 Physical Exam - Constitutional Appears: Non-toxic, Older Than Stated Age - Head Exam Head Exam: ATRAUMATIC, NORMAL INSPECTION, NORMOCEPHALIC - Eye Exam Eye Exam: EOMI, Normal appearance, PERRL - ENT Exam ENT Exam: Mucous Membranes Moist - Neck Exam Neck exam: Positive for: Normal Inspection - Respiratory Exam Respiratory Exam: Clear to Auscultation Bilateral, NORMAL BREATHING PATTERN. absent: Accessory Muscle Use, Rales, Wheezes - Cardiovascular Exam Cardiovascular Exam: RRR, +S1, +S2. absent: Bradycardia, Diastolic murmur, Systolic Murmur - GI/Abdominal Exam GI & Abdominal Exam: Normal Bowel Sounds, Soft. absent: Organomegaly, Tenderness - Extremities Exam Extremities exam: Positive for: normal capillary refill, normal inspection, pedal pulses present. Negative for: pedal edema Additional comments: Normal Quadricep reflex bilaterally - Expanded Upper Extremities Exam Right Upper Arm exam: full ROM, tenderness. absent: abrasion - Back Exam Back exam: rash noted (Right Thoracic Region with some scabbing. ). absent: paraspinal tenderness - Neurological Exam Neurological exam: Alert, Oriented x3 Additional comments: NO Motor or Sensory Deficit No Tremor Normal Quadricep reflex bilaterally Normal Speech. - Psychiatric Exam Psychiatric exam: Normal Affect, Normal Mood - Skin Skin Exam: Dry, Intact, Warm Additional comments: Midline Chest Wall Scar Normal Skin Turgor - Additional Findings Additional findings: Tenderness to palpation in Right lateral ribs (7-8), No Bruising or erythema noted. Results - Vital Signs Recent Vital Signs: Last Vital Signs Temp 98.3 F 09/22/17 19:01 Pulse 70 09/22/17 23:28 Resp 18 09/22/17 23:28 BP 147/91 H 09/22/17 23:28 Pulse Ox 97 09/22/17 23:28 - Labs Result Diagrams: 09/22/17 20:00 09/22/17 20:00 Assessment & Plan - Assessment and Plan (Free Text) Assessment: 67 year old male with a PMHx of CHF (32%EF), Pacemaker, Hypothyroidism, CAD, HTN , Open Heart Surgery, COPD (Denies Hx), Atrial Flutter, and Adenocarcinoma of the right lung presents for right shoulder and rib pain status post mechanical fall. Patient found to be hyponatremic. Admitted for evaluation and treatment of hyponatremia and hyperkalemia. EXAM:CT Abdomen and Pelvis Without Intravenous Contrast Dictated and Authenticated by: Katya Kasper MD 09/22/2017 10:21 PM IMPRESSION: - No evidence of acute traumatic organ injury, allowing for motion artifact and unenhanced technique. - Large 5.3 cm abdominal aortic aneurysm. No evidence of aneurysm rupture. - Healing fracture of the right greater trochanter. - See above for remaining findings. EXAM: CT Chest Without Intravenous Contrast Dictated and Authenticated by: Katya Kasper MD 09/22/2017 10:34 PM IMPRESSION: - No evidence of significant acute traumatic injury in the chest on this unenhanced exam. - 1.7 cm indeterminate right pulmonary nodule. Further workup is recommended, such as with PET/CT or tissue sampling. - Small area of consolidation in the right middle lobe. This could be due to a small infiltrate/pneumonia. - Emphysematous changes. - See above for remaining findings. Plan: Right Shoulder Pain/Right Rib Pain CT scans showed no evidence of acute traumatic organ or chest injury. Motrin PRN for Pain Hyponatremia Likely 2/2 to SIADH 120 on Admission Serum Osm - 250 (Low) Urine Osm - PENDING Serum Uric Acid - 1.9 (Low) Urine Uric Acid - PENDING Fluid Restriction AM Cortisol Consider Serum ADH/[employer] NS @ 60mls/hr CMP in AM HyperKalemia Kayexalate Given in ED CMP in AM Community Acquired PNA Chest CT showed small area of consolidation in the right middle lobe. Start Rocephin/Azithromycin ProCal Elevated Liver Enzymes Negative Hep Panel in April 2017 Likely due to EtOH Abuse Monitor Hx of HTN Home Losartan 50mg Hx of CAD w/ Pacemaker | Atrial Flutter Home Coumadin 4 HS Home Metoprolol Tartrate 25mg PO Home Amiodarone 200mg PO Hx of Hypothyroidism TSH elevated with normal T4 Home Synthroid 88mcg Patient needs outpatient levothyroxine adjustment Consider Endo Consult Hx of Abdominal Aortic Aneurysm (Stable) Patient stated that he was told that he was too high risk for surgical repair of aneurysm Hx of Adenocarcinoma Currently Receiving Radiation therapy Unsure of the name of doctor and place he is receiving therapy at Follow up with PMD in the AM for Proph Lovenox Protonix Heart Health Diet w/ Fluid Restriction Patient discussed with Attending (Dr. Ashley) Song Ryan, PGY-1 <Marilyn Ashley - Last Filed: 09/23/17 06:16> Results - Vital Signs Recent Vital Signs: Last Vital Signs Temp 97.9 F 09/23/17 05:48 Pulse 60 09/23/17 05:48 Resp 19 09/23/17 05:48 BP 119/77 09/23/17 05:48 Pulse Ox 94 L 09/23/17 05:48 - Labs Result Diagrams: 09/22/17 20:00 09/22/17 20:00 Attending/Attestation - Attestation I have personally seen and examined this patient.: Yes I have fully participated in the care of the patient.: Yes I have reviewed all pertinent clinical information: Yes Notes (Text): 09/23/17 06:13 Patient was seen when he was in bed # 13 in the ER. Medical record was reviewed. Agree with history, physical examination, assessment and plan. A note of following should be made. Hyponatremia. Hyperkalemia. Electrolyt imbalance. Open heart surgery. ETOH. CHF. HTN. HLD. PPM. Hypothyroidism. MVR. History of ventricular tachycardia. COPD. Historoy of cardioversion. EF 15-20 %. Anemia. On coumadin.Borderline coagulopathy. History of alcohol abuse. Elevated LFT's. Elevated BNP. Left ventricular aneurism repair. Atrial fibrillaton. Ablation therapy for atrial fibrillation. Pulmonary HTN. history of Billroth II gastrectomy. history of hiatus hernia. History of C6-C7 disc herniation. History of cord compression at C5,C6. History of pancreatitis. History of AR.[id number]! HIstory of CAD. History of AICD placeement. History of distal abdominal aortic aneurism. History of lung mass posterior right lower lobe. History of insomnia."
[2017-09-23 01:47] LABS: URIC ACID 1.9 mg/dL (3.5-8.5)
[2017-09-23] MEDS ORDERED: Albuterol-Ipratrop 3 mg / 0.5 (3 ml) UD IH PRN (02:49)
[2017-09-23] MEDS ORDERED: Sodium Chloride 0.9% 1,000 ML IV SCH (03:00)
[2017-09-23] MEDS: Pantoprazole 40 mg EC Tab PO SCH (06:02)
[2017-09-23] MEDS: Levothyroxine 88 MCG TAB PO SCH (06:47)
[2017-09-23 07:00] LABS: BASO # 0.01 K/mm3 (0.0-2.0); BASO % 0.2 % (0.0-3.0); EOS % 0.7 % (1.5-5.0); GRAN # 3.17 (1.4-6.5); GRAN % 78.2 % (50.0-68.0); HEMOGLOBIN 10.3 g/dL (14.0-18.0); LYMPH # 0.2 (1.2-3.4); LYMPH % 5.9 % (22.0-35.0); MEAN CELL VOLUME 77.1 fl (80.0-105.0); MEAN CORPUSCULAR HEMOGLOBIN 25.9 pg (25.0-35.0); MEAN CORPUSCULAR HGB CONC 33.7 g/dl (31.0-37.0); MONO # 0.6 (0.1-0.6); RBC 3.97 10^6/uL (3.5-6.1); RED CELL DISTRIBUTION WIDTH 15.5 % (11.5-14.5); WHITE BLOOD COUNT 4.1 10^3/ul (4.5-11.0)
[2017-09-23 07:43] LABS: ALB/GLOB RATIO 1.3 (1.1-1.8); ALBUMIN 3.7 g/dL (3.0-4.8); ALT/SGPT 68 U/L (7-56); AST/SGOT 113 U/L (17-59); BLOOD UREA NITROGEN 8 mg/dL (7-21); CALCIUM 8.6 mg/dL (8.4-10.5); GFR AFRICAN-AMERICAN > 60; GFR NON-AFRICAN AMERICAN > 60
--- NOTE | 2017-09-23 08:34 | CT ---
PROCEDURE: CT HEAD WITHOUT CONTRAST. HISTORY: Fall COMPARISON: 05/17/2017 CT TECHNIQUE: Axial computed tomography images were obtained through the head/brain without intravenous contrast. Radiation dose: Total exam DLP = 920 mGy-cm. This CT exam was performed using one or more of the following dose reduction techniques: Automated exposure control, adjustment of the mA and/or kV according to patient size, and/or use of iterative reconstruction technique. FINDINGS: HEMORRHAGE: No intracranial hemorrhage. BRAIN: No mass effect or edema. Chronic microvascular changes are seen in the periventricular white matter. There is mild atrophy VENTRICLES: Unremarkable. No hydrocephalus. CALVARIUM: Unremarkable. PARANASAL SINUSES: Unremarkable as visualized. No significant inflammatory changes. MASTOID AIR CELLS: Unremarkable as visualized. No inflammatory changes. OTHER FINDINGS: None. IMPRESSION: No acute findings
[2017-09-23] MEDS: MEXILETINE 150 MG PO SCH ×2 (09:22→20:46)
[2017-09-23] MEDS ORDERED: Enoxaparin 40 mg Syringe SC SCH (10:00)
[2017-09-23] MEDS ORDERED: Azithromycin 500MG/NS 250ml 500 MG/250 ML BAG IVPB SCH (10:00)
[2017-09-23] MEDS ORDERED: cefTRIAXone 1 gm 1 GM/100 ML BAG IVPB SCH (10:00)
--- NOTE | 2017-09-23 10:48 | CP.PCM.PN ---
"<Komal Ramirez - Last Filed: 09/23/17 10:45> Subjective - Date & Time of Evaluation Date of Evaluation: 09/23/17 Time of Evaluation: 09:00 - Subjective Subjective: IM progress note for Dr. Kelly-Komal Ramirez, PGY-1 Pt S & E at bedside. Pt reports continued Right sided chest wall pain with touch, right shoulder pain. Pain is worse with deep breathing. Admits to one previous episode of fall a few months ago- off steps, poor appetite. Denies SOB, palpitations, CP, N & V, F & C, dizzinesss, weakness, vision changes. Objective - Vital Signs/Intake and Output Vital Signs (last 24 hours): Temp Pulse Resp BP Pulse Ox 97.9 F 63 19 113/76 94 L 09/23/17 05:48 09/23/17 09:21 09/23/17 05:48 09/23/17 09:21 09/23/17 05:48 Intake and Output: 09/23/17 09/23/17 06:59 18:59 Intake Total 520 Output Total 400 Balance 120 - Medications Medications: Current Medications Albuterol/Ipratropium (Duoneb 3 Mg/0.5 Mg (3 Ml) Ud) 3 ml IH Q2H PRN PRN Reason: Shortness of Breath Amiodarone HCl (Cordarone) 200 mg PO DAILY [facility] Last Admin: 09/23/17 09:19 Dose: 200 mg Atorvastatin Calcium (Lipitor) 20 mg PO DAILY [facility] Last Admin: 09/23/17 09:19 Dose: 20 mg Ceftriaxone Sodium (Rocephin 1 Gram Ivpb) 1 gm in 100 mls @ 100 mls/hr IVPB DAILY [facility] PRN Reason: Protocol Last Admin: 09/23/17 09:21 Dose: 100 mls/hr Azithromycin (Zithromax 500mg In Ns) 500 mg in 250 mls @ 167 mls/hr IVPB DAILY [facility] PRN Reason: Protocol Ibuprofen (Motrin Tab) 600 mg PO Q6H PRN PRN Reason: Pain, moderate (4-7) Levothyroxine Sodium (Synthroid) 88 mcg PO 0600 [facility] Last Admin: 09/23/17 06:47 Dose: 88 mcg Losartan Potassium (Cozaar) 50 mg PO DAILY [facility] Last Admin: 05/01/18 09:21 Dose: 50 mg Metoprolol Tartrate (Lopressor) 25 mg PO BRKDIN [facility] Last Admin: 09/23/17 09:20 Dose: 25 mg Mexiletine [ Mexiletine] 150 Mg ( Home Med) 150 mg PO BID [facility] Last Admin: 09/23/17 09:22 Dose: Not Given Pantoprazole Sodium (Protonix Ec Tab) 40 mg PO 0600 [facility] Last Admin: 09/23/17 06:02 Dose: 40 mg Warfarin Sodium (Coumadin) 4 mg PO 1800 [facility] PRN Reason: Protocol Zolpidem Tartrate (Ambien) 5 mg PO HS [facility] PRN Reason: Protocol - Labs Labs: 09/23/17 05:30 09/23/17 05:30 PT 23.8 SECONDS (9.4-12.5) H 09/22/17 20:00 INR 2.06 (0.93-1.08) H 09/22/17 20:00 - Constitutional Appears: Non-toxic, No Acute Distress - Head Exam Head Exam: NORMOCEPHALIC. absent: ATRAUMATIC (superficial scratch over left eye , left forehead) - Eye Exam Eye Exam: EOMI, Normal appearance - ENT Exam ENT Exam: Mucous Membranes Moist, Normal Exam - Neck Exam Neck Exam: Full ROM, Normal Inspection - Respiratory Exam Respiratory Exam: Clear to Ausculation Bilateral, NORMAL BREATHING PATTERN. absent: Rales, Rhonchi, Wheezes - Cardiovascular Exam Cardiovascular Exam: REGULAR RHYTHM, +S1, +S2 - GI/Abdominal Exam GI & Abdominal Exam: Soft. absent: Distended, Firm, Guarding, Tenderness - Extremities Exam Extremities Exam: Normal Inspection. absent: Tenderness - Back Exam Back Exam: absent: paraspinal tenderness, vertebral tenderness - Neurological Exam Neurological Exam: Alert, Awake, CN II-XII Intact, Oriented x3 - Psychiatric Exam Psychiatric exam: Normal Affect, Normal Mood - Skin Skin Exam: Abrasion (right midthoracic region), Dry, Intact, Normal Color, Warm Assessment and Plan - Assessment and Plan (Free Text) Assessment: 67M w/PMH sig for CHF (EF 32%), Pacemaker, Hypothyroidism, CAD, HTN, CABG, COPD , Atrial Flutter, & Adenocarcinoma of R lung admitted s/p fall with right shoulder & right rib pain w/hyponatremia & hyperkalemia Plan: Right Shoulder Pain/Right Rib Pain CT ab neg for rib fxr or acute traumatic organ injury; heal, large 5.3 cm AAA, No evidence of aneurysm rupture. Healing fxr of R greater trochanter. Cont Motrin PRN for Pain CT brain neg Hyponatremia likely 2/2 to ETOH 131 from 120 D/c IVF FU urine uric acid urine osm 234 (low) Serum Osm - 250 (Low) Serum Uric Acid - 1.9 (Low) Cont Fluid Restriction FU AM Cortisol HyperKalemia- resolved 3.9 from 5.[address] w/small area of consolidation in RML Cont Rocephin/Azithromycin FU ProCal Transaminitis in setting of ETOH abuse Resolving Monitor Hx of HTN Cont home med-Losartan 50mg Hx of CAD w/ Pacemaker | Atrial Flutter Cont home meds- Coumadin 4 HS, Metoprolol Tartrate 25mg PO, Amiodarone 200mg PO Hx of Hypothyroidism Cont home med-Synthroid 88mcg FU w/PMh for medication adjustment, possible endo referral Hx of Abdominal Aortic Aneurysm (Stable) Patient stated that he was told that he was too high risk for surgical repair of aneurysm Cont to monitor via U/S Q6mos as outpatient Adenocarcinoma of lung s/p radiation therapy CT chest w/no sig acute traumatic injury, small RML consolidation, R pulmonary nodule, emphysematous changes Cont outpatient FU w/onc ETOH use FU UDS ETOH cessation education CIWA protocol Seizure precautions GI/DVT ppx Lovenox Protonix PT DW attending Ashley, PGY-1 <Domi Kelly - Last Filed: 09/24/17 15:30> Objective - Vital Signs/Intake and Output Vital Signs (last 24 hours): Temp Pulse Resp BP Pulse Ox 98.5 F 59 L 18 125/58 L 95 09/24/17 12:00 09/24/17 12:00 09/24/17 12:00 09/24/17 12:00 09/24/17 06:00 Intake and Output: 09/24/17 09/24/17 06:59 18:59 Intake Total 240 Output Total 1200 Balance -960 - Medications Medications: Current Medications Albuterol/Ipratropium (Duoneb 3 Mg/0.5 Mg (3 Ml) Ud) 3 ml IH Q2H PRN PRN Reason: Shortness of Breath Amiodarone HCl (Cordarone) 200 mg PO DAILY [facility] Last Admin: 09/24/17 11:50 Dose: 200 mg Atorvastatin Calcium (Lipitor) 20 mg PO DAILY [facility] Last Admin: 09/24/17 11:50 Dose: 20 mg Ceftriaxone Sodium (Rocephin 1 Gram Ivpb) 1 gm in 100 mls @ 100 mls/hr IVPB DAILY [facility] PRN Reason: Protocol Last Admin: 09/23/17 09:21 Dose: 100 mls/hr Azithromycin (Zithromax 500mg In Ns) 500 mg in 250 mls @ 167 mls/hr IVPB DAILY [facility] PRN Reason: Protocol Last Admin: 09/23/17 10:56 Dose: 167 mls/hr Ibuprofen (Motrin Tab) 600 mg PO Q6H PRN PRN Reason: Pain, moderate (4-7) Levothyroxine Sodium (Synthroid) 88 mcg PO 0600 [facility] Last Admin: 09/24/17 06:21 Dose: 88 mcg Losartan Potassium (Cozaar) 50 mg PO DAILY [facility] Last Admin: 09/24/17 11:50 Dose: 50 mg Metoprolol Tartrate (Lopressor) 25 mg PO BRKDIN [facility] Last Admin: 09/24/17 08:26 Dose: 25 mg Mexiletine [ Mexiletine] 150 Mg ( Home Med) 150 mg PO BID [facility] Last Admin: 09/24/17 11:28 Dose: Not Given Pantoprazole Sodium (Protonix Ec Tab) 40 mg PO 0600 [facility] Last Admin: 09/24/17 06:21 Dose: 40 mg Warfarin Sodium (Coumadin) 4 mg PO 1800 [facility] PRN Reason: Protocol Last Admin: 09/23/17 19:41 Dose: 4 mg Zolpidem Tartrate (Ambien) 5 mg PO HS [facility] PRN Reason: Protocol Last Admin: 09/23/17 21:46 Dose: 5 mg - Labs Labs: 09/24/17 06:15 09/24/17 06:15 PT 15.6 SECONDS (9.4-12.5) H 09/24/17 09:45 INR 1.35 (0.93-1.08) H 09/24/17 09:45 APTT 27.6 Seconds (25.1-36.5) 09/24/17 09:45 Attending/Attestation - Attestation I have personally seen and examined this patient.: Yes I have fully participated in the care of the patient.: Yes I have reviewed all pertinent clinical information, including history, physical exam and plan: Yes Notes (Text): 09/24/17 15:28 Attending note; Patient seen and examined with resident. Patient is a 67-year-old male with a past medical history of CHF (EF 32%), Pacemaker, Hypothyroidism, CAD, HTN, CABG, COPD, Atrial Flutter, & Adenocarcinoma of R lung/getting treated at [facility] with radiotherapy is admitted s/p fall with right shoulder & right rib pain w/ hyponatremia & hyperkalemia. Patient was drinking alcohol. Hyponatremia secondary to beer potomania. Sodium is improving. CT of the head is negative. CT abdomen and pelvis is negative. and chest is negative for any acute fracture. History of abdominal aneurysm. Stable. Patient is currently alert and awake. Started on diet. PT evaluation requested. Possible discharge home tomorrow. Case discussed with PMD Dr. Baker in detail."
--- NOTE | 2017-09-23 19:05 | CARD ---
APPROVED REPORT EKG Measurement Heart [id number] <Conclusion> AV sequential or dual chamber electronic pacemaker
[2017-09-23 19:30] LABS: INR 1.58 (0.93-1.08); PROTHROMBIN TIME 18.2 SECONDS (9.4-12.5)
[2017-09-24 06:01] VITALS: O2SAT 95
[2017-09-24] MEDS: Levothyroxine 88 MCG TAB PO SCH (06:21)
[2017-09-24] MEDS: Pantoprazole 40 mg EC Tab PO SCH (06:21)
[2017-09-24 06:45] LABS: ALB/GLOB RATIO 1.2 (1.1-1.8); ALBUMIN 3.7 g/dL (3.0-4.8); ALT/SGPT 60 U/L (7-56); AST/SGOT 74 U/L (17-59); BLOOD UREA NITROGEN 12 mg/dL (7-21); GFR AFRICAN-AMERICAN > 60; GFR NON-AFRICAN AMERICAN > 60
[2017-09-24 07:21] LABS: BASO # 0.02 K/mm3 (0.0-2.0); BASO % 0.5 % (0.0-3.0); EOS # 0.2 (0.0-0.7); EOS % 3.7 % (1.5-5.0); GRAN # 2.74 (1.4-6.5); GRAN % 68.1 % (50.0-68.0); HEMOGLOBIN 10.3 g/dL (14.0-18.0); LYMPH # 0.4 (1.2-3.4); MEAN CELL VOLUME 78.7 fl (80.0-105.0); MEAN CORPUSCULAR HEMOGLOBIN 26.1 pg (25.0-35.0); MEAN CORPUSCULAR HGB CONC 33.1 g/dl (31.0-37.0); MEAN PLATELET VOLUME 9.4 fl (7.0-11.0); MONO # 0.7 (0.1-0.6); MONO % 17.7 % (1.0-6.0); RBC 3.95 10^6/uL (3.5-6.1); RED CELL DISTRIBUTION WIDTH 15.8 % (11.5-14.5)
[2017-09-24 10:09] LABS: INR 1.35 (0.93-1.08); PARTIAL THROMBOPLASTIN TIME 27.6 Seconds (25.1-36.5); PROTHROMBIN TIME 15.6 SECONDS (9.4-12.5)
[2017-09-24] MEDS: MEXILETINE 150 MG PO SCH (11:28)
[2017-09-24 11:52] VITALS: PULSE 59
[2017-09-24 12:12] VITALS: BP 125/58; RESP 18; TEMP 98.5
--- NOTE | 2017-09-24 17:45 | CP.PCM.DIS ---
<MarcoJovani - Last Filed: 09/24/17 17:29> Provider - Provider Date of Admission: 09/22/17 22:27 Attending physician: Anupama Turcios MD Primary care physician: Vanessa Baker MD Consults: N/a Time Spent in preparation of Discharge (in minutes): 35 Diagnosis - Discharge Diagnosis (1) Accident due to mechanical fall without injury Status: Acute Priority: High (2) Abdominal aortic aneurysm (AAA) 3.0 cm to 5.5 cm in diameter in male Status: Chronic Priority: High (3) CHF (congestive heart failure) Status: Chronic Priority: Medium (4) Hyponatremia Status: Resolved Priority: High (5) Lung cancer Status: Chronic Priority: High Hospital Course - Lab Results Lab Results: Most Recent Lab Values WBC 4.0 10^3/ul (4.5-11.0) L 09/24/17 06:15 RBC 3.95 10^6/uL (3.5-6.1) 09/24/17 06:15 Hgb 10.3 g/dL (14.0-18.0) L 09/24/17 06:15 Hct 31.1 % (42.0-52.0) L 09/24/17 06:15 MCV 78.7 fl (80.0-105.0) L 09/24/17 06:15 MCH 26.1 pg (25.0-35.0) 09/24/17 06:15 MCHC 33.1 g/dl (31.0-37.0) 09/24/17 06:15 RDW 15.8 % (11.5-14.5) H 09/24/17 06:15 Plt Count 185 10^3/uL (120.0-450.0) 09/24/17 06:15 MPV 9.4 fl (7.0-11.0) 09/24/17 06:15 Gran % 68.1 % (50.0-68.0) H 09/24/17 06:15 Lymph % (Auto) 10.0 % (22.0-35.0) L 09/24/17 06:15 [place] % (Auto) 17.7 % (1.0-6.0) H 09/24/17 06:15 Eos % (Auto) 3.7 % (1.5-5.0) 09/24/17 06:15 Baso % (Auto) 0.5 % (0.0-3.0) 09/24/17 06:15 Gran # 2.74 (1.4-6.5) 09/24/17 06:15 Lymph # (Auto) 0.4 (1.2-3.4) L 09/24/17 06:15 [place] # (Auto) 0.7 (0.1-0.6) H 09/24/17 06:15 Eos # (Auto) 0.2 (0.0-0.7) 09/24/17 06:15 Baso # (Auto) 0.02 K/mm3 (0.0-2.0) 09/24/17 06:15 PT 15.6 SECONDS (9.4-12.5) H 09/24/17 09:45 INR 1.35 (0.93-1.08) H 09/24/17 09:45 APTT 27.6 Seconds (25.1-36.5) 09/24/17 09:45 Sodium 136 mmol/L (132-148) 09/24/17 06:15 Potassium 4.1 mmol/L (3.6-5.0) 09/24/17 06:15 Chloride 100 mmol/L (98-107) 09/24/17 06:15 Carbon Dioxide 26 mmol/L (21-33) 09/24/17 06:15 Anion Gap 14 (10-20) 09/24/17 06:15 BUN 12 mg/dL (7-21) 09/24/17 06:15 Creatinine 0.8 mg/dl (0.8-1.5) 09/24/17 06:15 Est GFR ( Amer) > 60 09/24/17 06:15 Est GFR (Non-Af Amer) > 60 09/24/17 06:15 Random Glucose 85 mg/dL (70-110) 09/24/17 06:15 Serum Osmolality 250 mosm/kg (272-300) L 09/22/17 20:00 Uric Acid 1.9 mg/dL (3.5-8.5) L 09/22/17 20:00 Calcium 9.0 mg/dL (8.4-10.5) 09/24/17 06:15 Phosphorus 3.4 mg/dL (2.5-4.5) 09/23/17 05:30 Magnesium 2.1 mg/dL (1.7-2.2) 09/23/17 05:30 Total Bilirubin 0.2 mg/dL (0.2-1.3) 09/24/17 06:15 AST 74 U/L (17-59) H D 09/24/17 06:15 ALT 60 U/L (7-56) H 09/24/17 06:15 Alkaline Phosphatase 113 U/L (38-126) 09/24/17 06:15 Lactate Dehydrogenase 1011 U/L (333-699) H 09/22/17 20:00 Total Creatine Kinase 201 U/L (35-230) 09/22/17 20:00 Troponin I 0.02 ng/mL D 09/22/17 20:00 NT-Pro-B Natriuret Pep 856 pg/mL (0-450) H 09/22/17 20:00 Total Protein 6.9 g/dL (5.8-8.3) 09/24/17 06:15 Albumin 3.7 g/dL (3.0-4.8) 09/24/17 06:15 Globulin 3.2 gm/dL 09/24/17 06:15 Albumin/Globulin Ratio 1.2 (1.1-1.8) 09/24/17 06:15 Procalcitonin < 0.05 NG/ML (0.19-0.49) L 09/23/17 05:30 Free T4 1.71 ng/dL (0.78-2.19) 09/22/17 20:00 TSH 3rd Generation 7.27 mIU/mL (0.46-4.68) H 09/22/17 20:00 Cortisol AM Sample 14.0 ug/dL (4.46-22.7) 09/23/17 05:30 Urine Color Straw (YELLOW) 09/22/17 20:03 Urine Appearance Clear (CLEAR) 09/22/17 20:03 Urine pH 7.5 (4.7-8.0) 09/22/17 20:03 Ur Specific [place] 1.010 (1.005-1.035) 09/22/17 20:03 Urine Protein Negative mg/dL (<30 mg/dL) 09/22/17 20:03 Urine Glucose (UA) Negative mg/dL (NEGATIVE) 09/22/17 20:03 Urine Ketones Negative mg/dL (NEGATIVE) 09/22/17 20:03 Urine Blood Negative (NEGATIVE) 09/22/17 20:03 Urine Nitrate Negative (NEGATIVE) 09/22/17 20:03 Urine Bilirubin Negative (NEGATIVE) 09/22/17 20:03 Urine Urobilinogen 0.2 E.U./dL (<1 E.U./dL) 09/22/17 20:03 Ur Leukocyte Esterase Negative Zeus/uL (NEGATIVE) 09/22/17 20:03 Urine Osmolality 234 mosm/kg (300-1000) L 09/23/17 09:50 Ur Random Sodium 59 meq/L 09/23/17 09:50 Ur Random Uric Acid 23.3 mg/dL 09/23/17 09:50 Urine Opiates Screen Negative (NEGATIVE) 09/22/17 20:03 Urine Methadone Screen Negative (NEGATIVE) 09/22/17 20:03 Ur Barbiturates Screen Negative (NEGATIVE) 09/22/17 20:03 Ur Phencyclidine Scrn Negative (NEGATIVE) 09/22/17 20:03 Ur Amphetamines Screen Negative (NEGATIVE) 09/22/17 20:03 U Benzodiazepines Scrn Negative (NEGATIVE) 09/22/17 20:03 U Oth Cocaine Metabols Negative (NEGATIVE) 09/22/17 20:03 U Cannabinoids Screen Negative (NEGATIVE) 09/22/17 20:03 Alcohol, Quantitative < 10 mg/dL (0-10) 09/22/17 20:00 - Hospital Course Hospital Course: This is a 67 yo M with PMH of CHF (EF 32%), Pacemaker, Hypothyroidism, CAD, HTN , CABG, COPD, Atrial Flutter, and Adenocarcinoma of R lung who was admitted s/p fall with right shoulder & right rib pain and co-presenting with hyponatremia & hyperkalemia. Although alcohol level was negative on presentation, patient admitted extensive drinking hx to admitting team, making his electrolyte abnormalities concerning for beer potomania. He underwent testing to determine cause of electrolytes abnormalities, including urine and serum osmolalities, spot urine sodium/creatinine, and AM cortisol. Serum and urine osms were both low, but with admission of IVF NS and PO fluid restriction, patient's hyponatremia quickly corrected to normal range. Imaging while inpatient confirms presence of stable 5.3cm AAA (pt too high risk for surgical repair as per prior reports and per pt), adenocarcinoma of the lung (too high risk for surgical resection, so undergoes radiation therapy). He was also monitored under the CIWA protocol, given his reported alcohol use hx, but scores remained consistently 0, so he appears to either be incorrect/lying about his most recent drinks, or he already underwent withdrawal prior to presentation. PT saw and also cleared patient to return home, without need for services. Patient was instructed to resume all home medications as previously prescribed, to follow up with his PMD (Dr. Baker) within 1 week of discharge, and to abstain from ALL further alcohol use. Patient expressed understanding and agreement with these instructions. He was then discharged. Patient seen, reviewed, and discussed with attending, Dr. Kelly. Discharge Exam - Additional Findings Additional findings: - Constitutional Appears: Non-toxic, No Acute Distress - Head Exam Head Exam: NORMOCEPHALIC but not Atraumatic (superficial scratch over left eye, left forehead, improved compared to yesterday) - Eye Exam Eye Exam: EOMI, Normal appearance - ENT Exam ENT Exam: Mucous Membranes Moist, Normal Exam - Neck Exam Neck Exam: Full ROM, Normal Inspection - Respiratory Exam Respiratory Exam: Clear to Ausculation Bilateral, NORMAL BREATHING PATTERN. absent: Rales, Rhonchi, Wheezes - Cardiovascular Exam Cardiovascular Exam: REGULAR RHYTHM, +S1, +S2 - GI/Abdominal Exam GI & Abdominal Exam: Soft. absent: Distended, Firm, Guarding, Tenderness - Extremities Exam Extremities Exam: Normal Inspection. absent: Tenderness - Neurological Exam Neurological Exam: Alert, Awake, moving all extremities spontaneously, following all commands - Psychiatric Exam Psychiatric exam: Normal Affect, Normal Mood - Skin Skin Exam: Abrasion (right midthoracic region), Dry, Intact, Normal Color, Warm Discharge Plan - Follow Up Plan Condition: GOOD Disposition: HOME/ ROUTINE Instructions: Alcohol Withdrawal (DC), Alcohol Abuse and Alcoholism (DC) Additional Instructions: Please resume all home medications as previously prescribed. Please follow up with your PMD (Dr. Baker) within 1 week of discharge Please avoid ALL further alcohol use. Please return to a hospital if you experience new concerning or worsening symptoms. Referrals: Vanessa Foster MD [Primary Care Provider] - <Domi Kelly - Last Filed: 09/25/17 07:14> Provider - Provider Date of Admission: 09/22/17 22:27 Attending physician: Anupama Turcios MD Primary care physician: Vanessa Baker MD Hospital Course - Lab Results Lab Results: Most Recent Lab Values WBC 4.0 10^3/ul (4.5-11.0) L 09/24/17 06:15 RBC 3.95 10^6/uL (3.5-6.1) 09/24/17 06:15 Hgb 10.3 g/dL (14.0-18.0) L 09/24/17 06:15 Hct 31.1 % (42.0-52.0) L 09/24/17 06:15 MCV 78.7 fl (80.0-105.0) L 09/24/17 06:15 MCH 26.1 pg (25.0-35.0) 09/24/17 06:15 MCHC 33.1 g/dl (31.0-37.0) 09/24/17 06:15 RDW 15.8 % (11.5-14.5) H 09/24/17 06:15 Plt Count 185 10^3/uL (120.0-450.0) 09/24/17 06:15 MPV 9.4 fl (7.0-11.0) 09/24/17 06:15 Gran % 68.1 % (50.0-68.0) H 09/24/17 06:15 Lymph % (Auto) 10.0 % (22.0-35.0) L 09/24/17 06:15 [place] % (Auto) 17.7 % (1.0-6.0) H 09/24/17 06:15 Eos % (Auto) 3.7 % (1.5-5.0) 09/24/17 06:15 Baso % (Auto) 0.5 % (0.0-3.0) 09/24/17 06:15 Gran # 2.74 (1.4-6.5) 09/24/17 06:15 Lymph # (Auto) 0.4 (1.2-3.4) L 09/24/17 06:15 [place] # (Auto) 0.7 (0.1-0.6) H 09/24/17 06:15 Eos # (Auto) 0.2 (0.0-0.7) 09/24/17 06:15 Baso # (Auto) 0.02 K/mm3 (0.0-2.0) 09/24/17 06:15 PT 15.6 SECONDS (9.4-12.5) H 09/24/17 09:45 INR 1.35 (0.93-1.08) H 09/24/17 09:45 APTT 27.6 Seconds (25.1-36.5) 09/24/17 09:45 Sodium 136 mmol/L (132-148) 09/24/17 06:15 Potassium 4.1 mmol/L (3.6-5.0) 09/24/17 06:15 Chloride 100 mmol/L (98-107) 09/24/17 06:15 Carbon Dioxide 26 mmol/L (21-33) 09/24/17 06:15 Anion Gap 14 (10-20) 09/24/17 06:15 BUN 12 mg/dL (7-21) 09/24/17 06:15 Creatinine 0.8 mg/dl (0.8-1.5) 09/24/17 06:15 Est GFR ( Amer) > 60 09/24/17 06:15 Est GFR (Non-Af Amer) > 60 09/24/17 06:15 Random Glucose 85 mg/dL (70-110) 09/24/17 06:15 Serum Osmolality 250 mosm/kg (272-300) L 09/22/17 20:00 Uric Acid 1.9 mg/dL (3.5-8.5) L 09/22/17 20:00 Calcium 9.0 mg/dL (8.4-10.5) 09/24/17 06:15 Phosphorus 3.4 mg/dL (2.5-4.5) 09/23/17 05:30 Magnesium 2.1 mg/dL (1.7-2.2) 09/23/17 05:30 Total Bilirubin 0.2 mg/dL (0.2-1.3) 09/24/17 06:15 AST 74 U/L (17-59) H D 09/24/17 06:15 ALT 60 U/L (7-56) H 09/24/17 06:15 Alkaline Phosphatase 113 U/L (38-126) 09/24/17 06:15 Lactate Dehydrogenase 1011 U/L (333-699) H 09/22/17 20:00 Total Creatine Kinase 201 U/L (35-230) 09/22/17 20:00 Troponin I 0.02 ng/mL D 09/22/17 20:00 NT-Pro-B Natriuret Pep 856 pg/mL (0-450) H 09/22/17 20:00 Total Protein 6.9 g/dL (5.8-8.3) 09/24/17 06:15 Albumin 3.7 g/dL (3.0-4.8) 09/24/17 06:15 Globulin 3.2 gm/dL 09/24/17 06:15 Albumin/Globulin Ratio 1.2 (1.1-1.8) 09/24/17 06:15 Procalcitonin < 0.05 NG/ML (0.19-0.49) L 09/23/17 05:30 Free T4 1.71 ng/dL (0.78-2.19) 09/22/17 20:00 TSH 3rd Generation 7.27 mIU/mL (0.46-4.68) H 09/22/17 20:00 Cortisol AM Sample 14.0 ug/dL (4.46-22.7) 09/23/17 05:30 Urine Color Straw (YELLOW) 09/22/17 20:03 Urine Appearance Clear (CLEAR) 09/22/17 20:03 Urine pH 7.5 (4.7-8.0) 09/22/17 20:03 Ur Specific [place] 1.010 (1.005-1.035) 09/22/17 20:03 Urine Protein Negative mg/dL (<30 mg/dL) 09/22/17 20:03 Urine Glucose (UA) Negative mg/dL (NEGATIVE) 09/22/17 20:03 Urine Ketones Negative mg/dL (NEGATIVE) 09/22/17 20:03 Urine Blood Negative (NEGATIVE) 09/22/17 20:03 Urine Nitrate Negative (NEGATIVE) 09/22/17 20:03 Urine Bilirubin Negative (NEGATIVE) 09/22/17 20:03 Urine Urobilinogen 0.2 E.U./dL (<1 E.U./dL) 09/22/17 20:03 Ur Leukocyte Esterase Negative [place]us/uL (NEGATIVE) 09/22/17 20:03 Urine Osmolality 234 mosm/kg (300-1000) L 09/23/17 09:50 Ur Random Sodium 59 meq/L 09/23/17 09:50 Ur Random Uric Acid 23.3 mg/dL 09/23/17 09:50 Urine Opiates Screen Negative (NEGATIVE) 09/22/17 20:03 Urine Methadone Screen Negative (NEGATIVE) 09/22/17 20:03 Ur Barbiturates Screen Negative (NEGATIVE) 09/22/17 20:03 Ur Phencyclidine Scrn Negative (NEGATIVE) 09/22/17 20:03 Ur Amphetamines Screen Negative (NEGATIVE) 09/22/17 20:03 U Benzodiazepines Scrn Negative (NEGATIVE) 09/22/17 20:03 U Oth Cocaine Metabols Negative (NEGATIVE) 09/22/17 20:03 U Cannabinoids Screen Negative (NEGATIVE) 09/22/17 20:03 Alcohol, Quantitative < 10 mg/dL (0-10) 09/22/17 20:00 Attending/Attestation - Attestation I have personally seen and examined this patient.: Yes I have fully participated in the care of the patient.: Yes I have reviewed all pertinent clinical information, including history, physical exam and plan: Yes Notes (Text): 09/25/17 07:13 Attending note; Patient seen and examined with resident. Patient is a 67-year-old male with a past medical history of CHF (EF 32%), Pacemaker, Hypothyroidism, CAD, HTN, CABG, COPD, Atrial Flutter, & Adenocarcinoma of R lung/getting treated at [facility] with radiotherapy is admitted s/p fall with right shoulder & right rib pain w/ hyponatremia & hyperkalemia. Patient was drinking alcohol. Hyponatremia secondary to beer potomania. Sodium is improving. CT of the head is negative. CT abdomen and pelvis is negative. and chest is negative for any acute fracture. History of abdominal aneurysm. Stable. Patient is currently alert and awake. Started on diet. PT evaluation appreciated. discharge home today. Case discussed with PMD Dr. Baker in detail.
== END 2017-09-24 17:27 | disposition home or self-care (01) | DRG 194 ==
LOC: ED 18:08 → ERH 22:27 → 2RSO 09-23 00:41
PROVIDERS: ADMIT Internal Medicine; ATTEND Internal Medicine
DX: J18.9 Pneumonia, unspecified organism (principal); E87.1 Hypo-osmolality and hyponatremia; C34.91 Malignant neoplasm of unspecified part of right bronchus or lung; I48.92 Unspecified atrial flutter; J44.0 Chronic obstructive pulmonary disease with (acute) lower respiratory infection; I71.4 Abdominal aortic aneurysm, without rupture; E87.5 Hyperkalemia; E03.9 Hypothyroidism, unspecified; I11.0 Hypertensive heart disease with heart failure; I50.9 Heart failure, unspecified; I25.10 Atherosclerotic heart disease of native coronary artery without angina pectoris; K21.9 Gastro-esophageal reflux disease without esophagitis; I27.20 Pulmonary hypertension, unspecified; Z79.01 Long term (current) use of anticoagulants; Z95.810 Presence of automatic (implantable) cardiac defibrillator; I25.2 Old myocardial infarction; Z95.1 Presence of aortocoronary bypass graft; Z87.891 Personal history of nicotine dependence

== ENCOUNTER → 2018-09-02 | Outpatient (CLI) | payer MEDICARE | END | disposition home or self-care (01) | LOC: RAD 07:52 | DX: I71.4 Abdominal aortic aneurysm, without rupture (principal); Z01.812 Encounter for preprocedural laboratory examination ==

== ENCOUNTER 2018-09-08 23:25 | Emergency (ER) | payer MEDICARE, OTHER ==
[2018-09-08 23:26] VITALS: PULSE 135
[2018-09-08 23:37] VITALS: BMI 21.9
--- NOTE | 2018-09-09 03:59 | ED PDOC ---
Arrival/HPI - General Chief Complaint: Alcohol Ingestion Time Seen by Provider: 09/08/18 23:26 Historian: Patient - History of Present Illness Narrative History of Present Illness (Text): 09/09/18 03:56 Rohan Huitron is a 68 y/o male with a past medical history of CHF, Pacemaker, Hypothyroidism, CAD, HTN, Open Heart Surgery, COPD (Denies Hx), Atrial Flutter, and Adenocarcinoma of the right lung, who presents to the emergency department after drinking vodka for 2 day. Patient states not taking his blood pressure medication and is unable to remember name of the medication. Patient denies any fever, chills, vision changes, headache, dizziness, SOB, abdominal pain, nausea, vomiting, changes in bowel habits, generalized weakness, urinary symptoms, and any other complaint. Time/Duration: < week (2 days.) Symptom Onset: Gradual Activities at Onset: Light Context: Home Past Medical History - Provider Review Nursing Documentation Reviewed: Yes - Infectious Disease Hx of Infectious Diseases: None - Tetanus Immunization Tetanus Immunization: Unknown - Cardiac Hx OR: Yes (x 1) Hx Hypertension: Yes - Pulmonary Hx Chronic Obstructive Pulmonary Disease (COPD): Yes - HEENT Hx HEENT Disorder: No - Renal Hx Renal Disorder: No - Endocrine/Metabolic Hx Hypothyroidism: Yes - Hematological/Oncological Hx Blood Transfusions: No Hx Blood Transfusion Reaction: No - Integumentary Hx Dermatological Disorder: No - Musculoskeletal/Rheumatological Hx Musculoskeletal Disorders: No - Gastrointestinal Hx Gastrointestinal Disorders: Yes (Gerd, Pancreatitis, bilroth gastrectomy) - Genitourinary/Gynecological Hx Genitourinary Disorders: No Hx Reproductive Disorders: No - Psychiatric Hx Emotional Abuse: No Hx Physical Abuse: No Hx Substance Use: No - Surgical History Hx Cardiac Catheterization: Yes Hx Coronary Artery Bypass Graft: Yes - Anesthesia Hx Anesthesia: Yes Hx Anesthesia Reactions: No Hx Malignant Hyperthermia: No - Suicidal Assessment Feels Threatened In Home Enviroment: No Family/Social History - Physician Review Nursing Documentation Reviewed: Yes Family/Social History: Unknown Family HX Smoking Status: Current Some Days Smoker Hx Alcohol Use: Yes (OCCASSIONAL) Hx Substance Use: No Hx Substance Use Treatment: No Allergies/Home Meds Allergies/Adverse Reactions: Allergies No Known Allergies Allergy (Verified 09/08/18 23:42) Home Medications: Home Meds Medication Instructions Recorded Confirmed Amiodarone HCl [Pacerone] 200 mg PO DAILY 02/23/16 09/24/17 Atorvastatin [Lipitor] 20 mg PO DAILY 02/23/16 09/24/17 Losartan [Cozaar] 50 mg PO DAILY 02/23/16 09/24/17 Metoprolol Tartrate [Lopressor] 25 mg PO BRKDIN 02/23/16 09/24/17 Mexiletine 150 mg PO BID 02/23/16 09/01/17 Levothyroxine [Synthroid] 88 tab PO DAILY 05/17/17 09/24/17 Warfarin [Coumadin] 5 mg PO 1800 09/01/17 09/24/17 Zolpidem [Ambien] 5 mg PO HS 09/23/17 09/24/17 Review of Systems - Review of Systems Systems not reviewed;Unavailable: Intoxicated Constitutional: absent: Fatigue, Fevers ENT: absent: Hearing Changes Respiratory: absent: SOB, Cough, Wheezing Cardiovascular: absent: Chest Pain, Palpitations Gastrointestinal: absent: Abdominal Pain, Diarrhea, Nausea, Vomiting Musculoskeletal: absent: Back Pain, Neck Pain Skin: absent: Rash Neurological: absent: Headache, Dizziness Psychiatric: absent: Anxiety, Depression Physical Exam Vital Signs Reviewed: Yes Vital Signs Temp Pulse Resp BP Pulse Ox 09/08/18 23:37 98.0 F 83 19 114/59 L 96 Temperature: Afebrile Blood Pressure: Normal Pulse: Regular Respiratory Rate: Normal Appearance: Positive for: Well-Appearing, Non-Toxic, Comfortable Pain Distress: None Mental Status: Positive for: Alert and Oriented X 3 Finger Stick Blood Glucose: 71 - Systems Exam Head: Present: Atraumatic, Normocephalic Pupils: Present: PERRL. No: Sluggish, Non-Reactive Extroacular Muscles: Present: EOMI Conjunctiva: Present: Normal Mouth: Present: Moist Mucous Membranes Neck: Present: Normal Range of Motion. No: Meningeal Signs, MIDLINE TENDERNESS Respiratory/Chest: Present: Clear to Auscultation, Good Air Exchange. No: Respiratory Distress, Accessory Muscle Use, Wheezes, Decreased Breath Sounds, Rales, Rhonchi Cardiovascular: Present: Regular Rate and Rhythm, Normal S1, S2. No: Murmurs, Tachycardic Abdomen: No: Tenderness, Distention, Peritoneal Signs, Guarding Back: Present: Normal Inspection. No: Midline Tenderness Upper Extremity: Present: Normal Inspection, Normal ROM. No: Cyanosis, Edema, Tenderness, Swelling Lower Extremity: Present: Normal Inspection, Normal ROM. No: Edema, Tenderness, Swelling Neurological: Present: GCS=15, Speech Normal Skin: Present: Warm, Dry, Normal Color. No: Rashes Psychiatric: Present: Alert, Oriented x 3, Normal Insight, Normal Concentration Medical Decision Making ED Course and Treatment: 09/09/18 04:02 Impression: 68 y/o male who presents to the emergency department after drinking vodka for two days and not taking blood pressure medication. Plan: -- Reassess and disposition Prior Visits: Notes and results from previous visits were reviewed. Progress Notes: - Lab Interpretations Lab Results: Lab Results 09/09/18 03:33: POC Glucose (mg/dL) 66 09/09/18 00:23: Alcohol, Quantitative 294 H - Scribe Statement The provider has reviewed the documentation as recorded by the Scribe Ashleigh Yuen All medical record entries made by the Scribe were at my direction and personally dictated by me. I have reviewed the chart and agree that the record accurately reflects my personal performance of the history, physical exam, medical decision making, and the department course for this patient. I have also personally directed, reviewed, and agree with the discharge instructions and disposition. Disposition/Present on Arrival - Present on Arrival Any Indicators Present on Arrival: No History of DVT/PE: No History of Uncontrolled Diabetes: No Urinary Catheter: No History of Decub. Ulcer: No History Surgical Site Infection Following: None - Disposition Have Diagnosis and Disposition been Completed?: Yes Diagnosis: Alcohol abuse Disposition: HOME/ ROUTINE Disposition Time: 06:21 Patient Plan: Discharge Condition: IMPROVED Discharge Instructions (ExitCare): Alcohol Abuse and Alcoholism (DC) Print Language: NEPALI Additional Instructions: All medical record entries made by the Scribe were at my direction and personally dictated by me. I have reviewed the chart and agree that the record accurately reflects my personal performance of the history, physical exam, medical decision making, and the department course for this patient. I have also personally directed, reviewed, and agree with the discharge instructions and disposition. Please follow up with your PCP Referrals: Vanessa Foster MD [Primary Care Provider] - Follow up with primary Forms: [employer] ([place]ian)
[2018-09-09 06:31] VITALS: BP 118/78; PULSE 88; RESP 18; TEMP 98.3; O2SAT 98
== END 2018-09-09 06:31 | disposition home or self-care (01) ==
LOC: ED 23:25
DX: F10.10 Alcohol abuse, uncomplicated (principal)
CPT/HCPCS: 82948; 99283; G0480

== ENCOUNTER 2018-09-12 08:56 | Inpatient (IN) | payer MEDICARE, OTHER | END 2018-09-16 18:34 | disposition skilled nursing facility (03) | LOC: ED 08:56 → ERH 13:50 → 2RSO 15:46 ==

== ENCOUNTER 2018-09-16 18:40 | Inpatient (IN) | payer OTHER ==
[2018-09-12 08:57] VITALS: PULSE 135
[2018-09-16 22:11] VITALS: RESP 18
[2018-09-17] MEDS: Enoxaparin 60 mg Syringe SC SCH ×2 (05:28→17:56)
[2018-09-17 07:28] LABS: INR 1.09; PROTHROMBIN TIME 12.3 SECONDS (9.4-12.5)
[2018-09-17] MEDS ORDERED: AMIODARONE HCL 200 MG PO SCH (10:00)
[2018-09-17 15:44] VITALS: BMI 20.2
--- NOTE | 2018-09-18 01:16 | CON ---
DATE: 09/17/2018 LOCATION: The patient is in room 313, bed 1. REASON FOR CONSULTATION: Cardiomyopathy, CHF, atrial fibrillation, history of mitral valve repair, and AICD insertion. HISTORY OF PRESENT ILLNESS: The patient is a 68-year-old male who came to emergency room complaining of chest pain and he felt as if his defibrillator has fired, but he was not sure about it. The patient has been drinking heavy and on remission. He was found to have hyperkalemia and alcoholic intoxication. The patient is a very poor compliant patient and he does not follow the instructions. PAST MEDICAL HISTORY: Positive for nonischemic cardiomyopathy, cath in 03/2013 showed that LAD had only 20% to 30% narrowing, several nonobstructive coronary artery disease, status post mitral valve repair, history of ventricular tachycardia in the past, history of defibrillator insertion, and reposition of defibrillator was done. The patient again had ventricular tachycardia, so it was sent for ablation for the VT, but the VT was found to be under the mitral valve repair area, so it was a dangerous area for ablation, so the patient was decided to be treated medically. HTN, Atrial Fibrillation. Bilroth Gastrectomy Surgery,Gastro-Oesophagealk Reflux Disease, Hiatal Hernia, Hypothyroid,Lung Adenocarcinoma Surgery. PERSONAL HISTORY: Denies smoking, but admit to drinking heavy amount of vodka everyday. ALLERGIES: THE PATIENT DENIES ANY ALLERGIES. HOME MEDICATIONS: Included Ambien 5 mg p.o. at bedtime, warfarin 5 mg p.o. daily, mexiletine 150 mg p.o. b.i.d., metoprolol tartrate 25 mg b.i.d., losartan 50 mg daily, Synthroid 88 mcg p.o. daily, Lipitor 20 mg daily, amiodarone 200 mg p.o. daily, but apparently, the patient was not taking them regularly. PREVIOUS CARDIAC WORKUP: The patient had echocardiogram on 09/14/2018, which showed normal size LV, [id number] LVH with LV ejection fraction of 30%, prosthetic mitral valve in place, eibz-gr-rmzdiiec aortic regurgitation, mild tricuspid regurgitation, mild pulmonary insufficiency, and RVSP only 29 mmHg. The patient has stress test on 09/01/2017, it showed fixed defect with ejection fraction of 32%. The patient's cardiac history has been already mentioned in the past history. REVIEW OF SYSTEMS: All the systems reviewed, positive mentioned in the history, others are negative. PHYSICAL EXAMINATION: VITAL SIGNS: Blood pressure 105/72, respiration 18, pulse 79, and temperature 98.7. HEENT: Head is normocephalic. Eyes; pupil normal. Conjunctivae slightly pale. NECK: JVP low. Carotid equal. THORAX: AP diameter normal. LUNGS: Clear. CARDIOVASCULAR: S1 and S2. ABDOMEN: Soft. No tenderness. No organomegaly. EXTREMITIES: No clubbing. No cyanosis. LABORATORY DATA: Showed WBC 4.5, hemoglobin 10.2, hematocrit 32.5, and platelets 95. Sodium 137, potassium 4.4, BUN 6, creatinine 0.6, phosphorus 2.9, and magnesium 2. AST 74, ALT 49, and alkaline phosphatase 116. TSH was 8.33. Cholesterol 156, HDL 79, and triclyceride 89. DIAGNOSES: Alcoholic intoxication, hyperkalemia, which had been corrected; history of nonischemic alcohol induced cardiomyopathy, status post automatic implantable cardioverter-defibrillator insertion, hypothyroidism, congestive heart failure due to systolic dysfunction, nonobstructive coronary artery disease, mitral valve repair, hypertension, atrial flutter and fibrillation, history of lung adenocarcinoma surgery, Billroth gastrectomy surgery, pancreatitis, gastroesophageal reflux disease, and hiatal hernia. Last cardiac catheterization was on 04/13/2013, which showed nonobstructive coronary artery disease and left anterior descending 30% to 40%, moderate disease in right coronary artery disease 40% to 50%, left ventricular ejection fraction 35% and . Last echo on 09/14/2018, normal size left ventricle, cghs-vh-gtqtzhek left ventricular hypertrophy, ejection fraction of 30%, vmvu-xi-ixkqlpwa aortic regurgitation, mild tricuspid regurgitation, mild pulmonary insufficiency, and right ventricular systolic pressure 29 mmHg. Stress test on 09/01/2017, fixed defect, ejection fraction of 32%, history of ventricular tachycardia in the past. MUGA scan 09/01/2017 showed ejection fraction of 32%. The patient is poorly compliant, not taking medications and drinking heavy alcohol. On admission, level was 294 and 234. Interrogation of [employer] automatic implantable cardioverter-defibrillator did not reveal any discharge and no ventricular tachycardia was noted, 40 episodes of atrial fibrillation in and around, longest episode was 24 minutes. Bolus of amiodarone was given on medical floor and amiodarone on a daily basis was started. Prosthetic mitral valve appears to be in place on the echocardiogram. The patient is on Transitional Care Unit, transferred for deconditioning. PLAN: The patient is in Transitional Care Unit now for deconditioning. Physical therapy will be started. Hyperkalemia has been corrected. The patient is on amiodarone 200 mg daily, warfarin 10 mg p.o. today and then warfarin 5 mg p.o. daily starting tomorrow, losartan 25 mg daily, chlordiazepoxide 50 mg p.o. b.i.d., Lipitor 10 mg daily, metoprolol 25 mg b.i.d., Lovenox 50 mg subcutaneously b.i.d., and thiamine 100 mg p.o. daily. The patient's prothrombin time 12.3 and INR 1.09. So, it will be repeated tomorrow again and we will follow with that. In the meantime, continue physical therapy. Anupama Wong MD MTDTejas
[2018-09-18] MEDS: Enoxaparin 60 mg Syringe SC SCH (05:31)
[2018-09-18 07:08] LABS: INR 1.2; PROTHROMBIN TIME 13.6 SECONDS (9.4-12.5)
--- NOTE | 2018-09-18 10:17 | PN ---
DATE: 09/17/2018 SUBJECTIVE: The patient was seen this evening in transitional care unit, room 313, wanting very much to go home. The nurses had earlier explained to him how he is here until we can adjust his Coumadin level where it is safe for him to go home. The patient told me that in the past he has taken Lovenox at home and can give him self injection and says that he feels remorseful and will not drink while he is home as this is our big concern. I spoke with him at length regarding the possibilities. We will make that decision tomorrow since his INR was so slow to rise. In spite of giving extra doses, we may opt for discharge to home tomorrow bridging with Lovenox as he is getting here in the hospital until his Coumadin is therapeutic. The patient lives two doors away from my office. We have an in-house PT/INR fingerstick unit that I can follow his Coumadin levels carefully. So, I explained to him that if he were to go home Friday or Friday over the weekend, I would want him to come to the office Friday or Friday morning for fingerstick PT/INR. The patient understands. Carlos Alberto Guzman MD
[2018-09-18 10:41] VITALS: BP 96/67; PULSE 59; TEMP 97.5; O2SAT 98
--- NOTE | 2018-09-18 13:58 | PN ---
DATE: 09/18/2018 LOCATION: The patient is in room 313, bed 1. REASON FOR CONSULTATION: Cardiomyopathy, CHF, atrial fibrillation, history of mitral valve repair, and AICD insertion. HISTORY OF PRESENT ILLNESS: The patient was admitted to medical floor with chest pain and shortness of breath. The patient was found to be with alcoholic intoxication state and he was not taking medications. He was drinking heavy amount of vodka everyday. The patient was also found to have hyperkalemia. The patient was treated; he got better. The patient is now in Transitional Care Unit for deconditioning. The patient is a known case of nonischemic cardiomyopathy, CHF, atrial fibrillation, history of mitral valve repair, AICD insertion for multiple episodes of ventricular tachycardia. The patient denies any chest pain, shortness of breath, or palpitation at present moment. The patient had an echo on 09/14/2018 showed ejection fraction of 30%, mild to moderate aortic regurgitation, mild tricuspid regurgitation, mild pulmonary insufficiency with RVSP only 29 mmHg. The patient's detail cardiac history mentioned in our consult, dated 09/17/2018. PHYSICAL EXAMINATION: The patient on examination; VITAL SIGNS: Blood pressure 100/66, respiration 18, pulse 60, and the patient is afebrile. HEENT: Head is normocephalic. Eyes; pupils normal. Conjunctivae normal. Nose and throat normal. NECK: JVP low. Carotids equal. THORAX: AP diameter normal. LUNGS: Clear. CARDIOVASCULAR: S1 and S2. ABDOMEN: Soft. No tenderness. No organomegaly. EXTREMITIES: No clubbing. No cyanosis. LABORATORY DATA: Prothrombin time 13.6 and INR 1.20. DIAGNOSES: Status post alcoholic intoxication, status post hyperkalemia, nonischemic alcoholic cardiomyopathy status post automatic implantable cardioverter-defibrillator insertion, hypothyroidism, congestive heart failure due to systolic dysfunction, nonobstructive coronary artery disease, mitral valve repair, hypertension, atrial flutter and fibrillation, history of lung adenocarcinoma surgery, also had Billroth gastrectomy surgery, pancreatitis, gastroesophageal reflux disease, hiatal hernia, status post interrogation of [employer] automatic implantable cardioverter-defibrillator which did not reveal any discharge and no ventricular tachycardia; however, episodes of atrial fibrillation were noted, longest episode was 24 minutes. So bolus of amiodarone was given to the patient and amiodarone was started on a daily basis because the patient had stopped medication at home. He was only paying attention to drinking. PLAN: The patient is getting physical therapy for deconditioning in the Transitional Care Unit. Pro-time is still low, so yesterday the patient received 10 mg of Coumadin; today he is supposed to get 5 mg, but we are going to give 10 mg again today of warfarin. The patient is also getting amiodarone 200 mg daily, losartan 25 daily, atorvastatin 10 daily, metoprolol 25 twice a day, Lovenox 50 mg subcutaneous twice a day, and thiamine 100 mg daily. We will follow PT/INR in the morning. We will follow with you. Anupama Wong MD
== END 2018-09-18 13:57 | disposition home or self-care (01) | DRG 92 ==
LOC: TRCU 18:40
PROVIDERS: ADMIT Internal Medicine; ATTEND Internal Medicine
PROC: F07Z9FZ Gait Training/Functional Ambulation Treatment using Assistive, Adaptive, Supportive or Protective Equipment (ICD-10-PCS; principal; 2018-09-17)
PROC: F07Z5ZZ Bed Mobility Treatment (ICD-10-PCS; 2018-09-17)
PROC: F08Z2ZZ Grooming/Personal Hygiene Treatment (ICD-10-PCS; 2018-09-18)
PROC: F08Z1ZZ Dressing Techniques Treatment (ICD-10-PCS; 2018-09-18)
DX: R26.89 Other abnormalities of gait and mobility (principal); I42.6 Alcoholic cardiomyopathy; I50.22 Chronic systolic (congestive) heart failure; F10.129 Alcohol abuse with intoxication, unspecified; I11.0 Hypertensive heart disease with heart failure; E87.5 Hyperkalemia; I48.91 Unspecified atrial fibrillation; E03.9 Hypothyroidism, unspecified; I25.10 Atherosclerotic heart disease of native coronary artery without angina pectoris; K21.9 Gastro-esophageal reflux disease without esophagitis; I08.2 Rheumatic disorders of both aortic and tricuspid valves; Z95.810 Presence of automatic (implantable) cardiac defibrillator; Z95.2 Presence of prosthetic heart valve; Z91.19 Patient's noncompliance with other medical treatment and regimen; Z79.01 Long term (current) use of anticoagulants; Z85.118 Personal history of other malignant neoplasm of bronchus and lung

== ENCOUNTER → 2018-09-29 | Outpatient (CLI) | payer MEDICARE | LOC: PAT 09:56 ==

== ENCOUNTER 2018-09-30 07:59 | Outpatient (CLI) | payer MEDICARE | END 2018-09-30 08:00 | disposition home or self-care (01) | LOC: CARDIO 07:59 | DX: Z01.810 Encounter for preprocedural cardiovascular examination (principal); I42.9 Cardiomyopathy, unspecified; Z95.0 Presence of cardiac pacemaker ==

== ENCOUNTER 2018-10-12 08:01 | Inpatient (IN) | payer MEDICARE, OTHER ==
[2018-09-12 08:57] VITALS: PULSE 135
[2018-10-12 09:04] LABS: INR 1.14; PROTHROMBIN TIME 12.9 SECONDS (9.4-12.5)
[2018-10-12] MEDS ORDERED: Propofol 10 mg/ml Inj (20 ML) ONE (09:05)
[2018-10-12] MEDS ORDERED: Midazolam 2 MG/2 ML VIAL ONE (09:06)
[2018-10-12] MEDS ORDERED: Glycopyrrolate 0.2 mg/ml (2ml vial) ONE (09:06)
[2018-10-12] MEDS ORDERED: Lidocaine PF 2% (5 ml) Inj (For Cardiac Arrhy) ONE (10:32)
[2018-10-12] MEDS ORDERED: Iodixanol 320 MG/ML 200 ML BOTTLE IV ONE (10:32)
[2018-10-12] MEDS ORDERED: Heparin 2,000 ML IV ONE (10:34)
[2018-10-12] MEDS ORDERED: DiphenhydrAMINE 50 mg/ml Inj ONE (11:07)
[2018-10-12] MEDS ORDERED: Nitroglycerin 50mg in D5W 50 MG/250 ML BOTTLE IV ONE (11:19)
[2018-10-12] MEDS ORDERED: Iodixanol 320 mg/ml 150 ml Bottle IV ONE (11:46)
[2018-10-12] MEDS ORDERED: HYDROmorphone 0.5 mg/0.5 ml ISec IVP PRN (13:19)
[2018-10-12] MEDS ORDERED: HYDROmorphone 0.5 mg/0.5 ml ISec IVP ONE (13:20)
[2018-10-12] MEDS ORDERED: HYDROmorphone 0.5 mg/0.5 ml ISec ONE (13:21)
[2018-10-12] MEDS ORDERED: Sodium Chloride 0.9% 1,000 ML IV SCH (13:30)
--- NOTE | 2018-10-12 14:26 | RAD ---
Date of service: 10/12/2018 HISTORY: post AAA resp status COMPARISON: 09/15/2018 TECHNIQUE: 1 view obtained. FINDINGS: LUNGS: No active pulmonary disease. PLEURA: No significant pleural effusion identified, no pneumothorax apparent. CARDIOVASCULAR: No aortic atherosclerotic calcification present. Cardiomegaly and aortic tortuosity. Moderate vascular and interstitial congestion OSSEOUS STRUCTURES: No significant abnormalities. VISUALIZED UPPER ABDOMEN: Normal. OTHER FINDINGS: None. IMPRESSION: Cardiomegaly and aortic tortuosity. Moderate vascular and interstitial congestion
--- NOTE | 2018-10-12 14:39 | CP.PCM.CON ---
<Emanuel Gee - Last Filed: 10/12/18 15:06> History of Present Illness - History of Present Illness History of Present Illness: Emanuel Gee, PGY-1 Consult Note for ICU CC: Post - AAA repair HPI: Mr. Huitron is a 68 M with PMHx of CHF (EF 32%), Pacemaker, Hypothyroidism, CAD, HTN, CABG, COPD, Atrial Flutter, and Adenocarcinoma of R lung and history of >5 cm AAA. Patient underwent AAA repair under IR guidance, after which time patient was evaluated in PACU. Patient is hemodynamically sta ble on a 100% non-rebreather saturating 97% with BP of 109/69. Patient was alert but responsive and lethargic, likely 2/2 anesthetic effects. Patient will be transferred to ICU for further monitoring. PMHx: As stated above PSHx: unspecified abdominal surgery (Over 30 years ago), Open Heart Surgery Allergies: NKDA SocialHx: 1/2PPD Smoker for 35 years. Quit 5 years ago. Denies illicit drug use [place] [facility] [place] Avulsion Fracture FamHx: Non-Cont. PMD: Dr. Baker Cardio: Dr. Wong Review of Systems - Review of Systems Systems not reviewed;Unavailable: Other (post-op) Past Patient History - Infectious Disease Hx of Infectious Diseases: None - Tetanus Immunizations Tetanus Immunization: Unknown - Past Social History Smoking Status: Former Smoker - CARDIAC Hx Pacemaker: Yes - PULMONARY Hx Chronic Obstructive Pulmonary Disease (COPD): Yes - NEUROLOGICAL Hx Paralysis: No - HEENT Hx HEENT Problems: No - RENAL Hx Chronic Kidney Disease: No - ENDOCRINE/METABOLIC Hx Hypothyroidism: Yes - HEMATOLOGICAL/ONCOLOGICAL Hx Blood Transfusions: No Hx Blood Transfusion Reaction: No - INTEGUMENTARY Hx Dermatological Problems: No - MUSCULOSKELETAL/RHEUMATOLOGICAL Hx Musculoskeletal Disorders: No - GASTROINTESTINAL Hx Gastrointestinal Disorders: (bilroth gastrectomy/gerd/pancreatitis) - GENITOURINARY/GYNECOLOGICAL Hx Genitourinary Disorders: No Hx Reproductive Disorders: No - PSYCHIATRIC Hx Emotional Abuse: No Hx Physical Abuse: No Hx Substance Use: No - SURGICAL HISTORY Hx Surgeries: Yes (HIATAL HERNIA REPAIR,TONSILLECTOMY,AICD,PACEMAKER, MITRAL V ALVE REPLACEM,) - ANESTHESIA Hx Anesthesia Reactions: No Hx Malignant Hyperthermia: No Meds Allergies/Adverse Reactions: Allergies Allergy/AdvReac Type Severity Reaction Status Date / Time No Known Allergies Allergy Verified 09/16/18 20:10 - Medications Medications: Current Medications Famotidine (Pepcid) 20 mg IVP DAILY [facility] Hydromorphone HCl (Dilaudid) 0.5 mg IVP Q15M PRN PRN Reason: Pain, Moderate/Severe (4-10) Stop: 10/12/18 15:00 Sodium Chloride (Sodium Chloride 0.9%) 1,000 mls @ 75 mls/hr IV .[id number] SANNA Stop: 10/12/18 15:31 Sodium Chloride (Sodium Chloride 0.9%) 1,000 mls @ 75 mls/hr IV .[id number] SANNA Physical Exam - Constitutional Appears: Well, Non-toxic, Older Than Stated Age - Head Exam Head Exam: ATRAUMATIC, NORMOCEPHALIC - Eye Exam Eye Exam: EOMI, Normal appearance Pupil Exam: PERRL - ENT Exam Additional comments: non-rebreather in place - Neck Exam Neck exam: Positive for: Normal Inspection - Respiratory Exam Respiratory Exam: Clear to Auscultation Bilateral. absent: Accessory Muscle Use, Rales, Rhonchi, Wheezes, Respiratory Distress - Cardiovascular Exam Cardiovascular Exam: RRR, +S1, +S2. absent: Bradycardia, Tachycardia - GI/Abdominal Exam Additional comments: Dressings c/d/i - Exam Additional comments: Jackson in place - Neurological Exam Neurological exam: Alert (lethargic) Results - Vital Signs Recent Vital Signs: Last Vital Signs Temp 98.2 F 10/12/18 08:57 Pulse 61 10/12/18 13:15 Resp 18 10/12/18 13:15 BP 109/69 10/12/18 13:15 Pulse Ox 97 10/12/18 08:57 - Labs Labs: Laboratory Results - last 24 hr 10/12/18 10/12/18 08:40 08:40 PT 12.9 H INR 1.14 Blood Type B POSITIVE Antibody Screen Negative BBK History Checked Patient has bt Assessment & Plan - Assessment and Plan (Free Text) Assessment: 68 M with PMHx of CHF (EF 32%), Pacemaker, Hypothyroidism, CAD, HTN, CABG, COPD, Atrial Flutter, and Adenocarcinoma of R lung s/p repair of AAA. Patient is hemodynamically stable but requiring oxygen via nonrebreather. He will continue to be monitored in the ICU for recovery. Recs: -Resume HHD for dinner -IVF -NC PRN -CXR -ABG -AM labs -GI/DVT ppx Patient seen, case reviewed and plan approved by Dr. Chapman. Emanuel Gee, PGY-1 <Ian Chapman - Last Filed: 10/12/18 15:32> Meds - Medications Medications: Current Medications Famotidine (Pepcid) 20 mg IVP DAILY [facility] Sodium Chloride (Sodium Chloride 0.9%) 1,000 mls @ 75 mls/hr IV .[id number] SANNA Stop: 10/12/18 15:31 Sodium Chloride (Sodium Chloride 0.9%) 1,000 mls @ 75 mls/hr IV .[id number] SANNA Results - Vital Signs Recent Vital Signs: Last Vital Signs Temp 96.7 F L 10/12/18 15:00 Pulse 61 10/12/18 15:00 Resp 20 10/12/18 15:00 BP 136/76 10/12/18 15:00 Pulse Ox 97 10/12/18 08:57 - Labs Labs: Laboratory Results - last 24 hr 10/12/18 10/12/18 08:40 08:40 PT 12.9 H INR 1.14 Blood Type B POSITIVE Antibody Screen Negative BBK History Checked Patient has bt Assessment & Plan - Assessment and Plan (Free Text) Assessment: I saw and examined the patient with the resident, agree with note with following additions/exceptions: 68yo male with PMHx of CHF (EF 32%), Pacemaker, Hypothyroidism, CAD, HTN, CABG, COPD, Atrial Flutter, and Adenocarcinoma of R lung and history of >5 cm AAA s/pt AAA repair under IR guidance. Currently afebrile, awake, alert, in NAD Admitted to MICU for post observation Uncomplicated procedure IVF Resume diet ABG BP control ASA GI ppx DVT ppx Admit to MICU
[2018-10-12] MEDS: Sodium Chloride 0.9% 1,000 ML IV SCH (15:00)
[2018-10-12 15:52] LABS: ARTERIAL BLOOD GAS HCO3 22.8 mmol/L (21-28); ARTERIAL BLOOD GAS HEMOGLOBIN 8.7 g/dL (11.7-17.4); ARTERIAL BLOOD GAS O2 CAPACITY 12.7 mL/dl (16-24); ARTERIAL BLOOD GAS O2 CONTENT 12.6 ML/dl (15-23); ARTERIAL BLOOD GAS O2 SAT 99.3 % (95-98); ARTERIAL BLOOD GAS PCO2 57 mm/Hg (35-45); ARTERIAL BLOOD GAS PH 7.21 (7.35-7.45); ARTERIAL BLOOD GAS TCO2 24.5 mmol.L (22-28)
[2018-10-12] MEDS ORDERED: MEXILETINE 150 MG PO SCH ×2 (18:00→18:43)
--- NOTE | 2018-10-12 18:53 | VASCULAR ---
PROCEDURE: Bifurcated infrarenal abdominal aneurysm stent graft repair. HISTORY: 5.6 cm infrarenal abdominal aortic aneurysm. PHYSICIAN(S): Mike Tang MD. Renetta Salazar MD TECHNIQUE: The relative risks and indications of the procedure were explained thoroughly to the patient and consent obtained. The patient was placed supine on the arteriogram table and conscious sedation and monitoring for are bite it throughout the procedure by anesthesia. The abdomen and groins were prepped and draped in the usual sterile fashion. Under ultrasound guidance, the common femoral arteries bilaterally were punctured with a micropuncture set and small sheaths placed. Two Perclose devices were pre deployed at both groins. 0.035 support guidewires were placed in the thoracic aorta. A 16 [place] by 35 cm sheath was placed on the right. A 14 [place] by 30 cm sheath was placed on the left. A 34 x 80 ovation main body was advanced over a support wire from the right groin. The renal arteries were carefully localized via a flush catheter placed from the left groin. The ovation main body was deployed carefully under fluoroscopic guidance. The polymer was deployed. The contralateral limb was easily cannulated through the pigtail catheter and glidewire. Position was confirmed with rotation of the pigtail catheter within the main body. A support wire was placed. A marker catheter was used to measure the length from the contralateral limb to the left internal iliac artery. An 18 x 140 left iliac limb was placed. The proximal seal was tested with injection of contrast. No obvious leak was seen. Subsequently the ipsilateral limb was detached. Once again a marker catheter was used to measure the length from the ipsilateral limb to the right internal iliac artery. An 18 x 140 ipsilateral iliac limb was placed. The gómez were simultaneously dilated with 12 mm balloons. Completion angiograms were obtained. No endoleak is appreciated. The graft is patent. The renal arteries are patent. The sheath and guidewire was removed and hemostasis obtained with the Perclose devices. The patient tolerated the procedure well. FINDINGS: A fusiform infrarenal abdominal aneurysm is seen. The renal arteries are patent and remain patent after deployment of the stent graft. No evidence of a proximal endoleak is seen. The graft is widely patent. The articulations and distal landing sites are normal in appearance. The internal and external iliac arteries are patent and normal. IMPRESSION: 1. Successful deployment of a bifurcated infrarenal abdominal aortic stent graft as described above.
[2018-10-12 21:13] VITALS: BMI 20.5
[2018-10-12] MEDS: Oxycodone/Acetaminophen 5/325 mg Tab PO PRN (22:23)
[2018-10-13] MEDS: Oxycodone/Acetaminophen 5/325 mg Tab PO PRN ×2 (04:40→17:26)
[2018-10-13 06:33] LABS: BASO # 0.01 K/mm3 (0.0-2.0); BASO % 0.1 % (0.0-3.0); EOS # 0.2 (0.0-0.7); EOS % 1.3 % (1.5-5.0); LYMPH # 0.8 (1.2-3.4); LYMPH % 6.3 % (22.0-35.0); MEAN CELL VOLUME 75.2 fl (80.0-105.0); MEAN CORPUSCULAR HEMOGLOBIN 23.6 pg (25.0-35.0); MEAN CORPUSCULAR HGB CONC 31.4 g/dl (31.0-37.0); MEAN PLATELET VOLUME 9.3 fl (7.0-11.0); MONO # 1.4 (0.1-0.6); MONO % 11.1 % (1.0-6.0); RBC 3.39 10^6/uL (3.5-6.1); RED CELL DISTRIBUTION WIDTH 17.2 % (11.5-14.5); WHITE BLOOD COUNT 12.1 10^3/uL (4.5-11.0)
[2018-10-13] MEDS: Levothyroxine 88 MCG TAB PO SCH (06:38)
[2018-10-13 06:52] LABS: ALB/GLOB RATIO 1.1 (1.1-1.8); ALBUMIN 3.2 g/dL (3.0-4.8); ALT/SGPT 28 U/L (7-56); AST/SGOT 33 U/L (17-59); BLOOD UREA NITROGEN 19 mg/dL (7-21); CALCIUM 7.2 mg/dL (8.4-10.5); GFR NON-AFRICAN AMERICAN > 60
[2018-10-13 06:56] LABS: ARTERIAL BLOOD GAS HCO3 20.6 mmol/L (21-28); ARTERIAL BLOOD GAS HEMOGLOBIN 7.6 g/dL (11.7-17.4); ARTERIAL BLOOD GAS O2 CAPACITY 10.6 mL/dl (16-24); ARTERIAL BLOOD GAS O2 CONTENT 10.3 ML/dl (15-23); ARTERIAL BLOOD GAS O2 SAT 97.3 % (95-98); ARTERIAL BLOOD GAS PCO2 34 mm/Hg (35-45); ARTERIAL BLOOD GAS PH 7.39 (7.35-7.45); ARTERIAL BLOOD GAS TCO2 21.6 mmol.L (22-28)
--- NOTE | 2018-10-13 07:39 | CP.CCUPN ---
<Emanuel Gee - Last Filed: 10/13/18 10:39> CCU Subjective - Physician Review Subjective (Free Text): Emanuel Gee PGY-1 Critical Care Progress Note Patient seen and evaluated at bedside. No acute events reported overnight. Patient currently on 2L NC, sitting up comfortably in bed in no respiratory distress. Patient reports R sided lower back pain that patient admits has been recurring from a fall onto his R lower back a few weeks ago. Denies chest pain, palpitations, shortness of breath, headaches, blurry vision or abdominal pain. CCU Objective - Vital Signs / Intake & Output Vital Signs (Last 4 hours): Vital Signs Temp Pulse Resp BP Pulse Ox 10/13/18 06:37 146/90 10/13/18 05:10 68 19 97 10/13/18 05:00 71 36 H 150/87 95 10/13/18 04:50 74 22 96 10/13/18 04:40 71 40 H 96 10/13/18 04:30 73 27 H 150/95 H 95 10/13/18 04:20 71 69 H 98 10/13/18 04:10 69 26 H 94 L 10/13/18 04:00 98.9 F 73 71 H 145/86 94 L 10/13/18 03:50 70 37 H 94 L 10/13/18 03:40 70 58 H 95 Intake and Output (Last 8hrs): Intake & Output 10/12/18 10/13/18 10/13/18 22:59 06:59 14:59 Intake Total 400 900 Output Total 1000 525 Balance -600 375 Weight 54.431 kg Intake: IV 400 900 Left Wrist 400 900 Output: Urine 1000 525 2-way Urethral 1000 525 Other: Voiding Method Self-Catheterization - Physical Exam Head: Positive for: Atraumatic, Normocephalic Pupils: Positive for: PERRL Extroacular Muscles: Positive for: EOMI Conjunctiva: Positive for: Normal Mouth: Positive for: Moist Mucous Membranes Nose (External): Positive for: Other (NC in place) Neck: Positive for: Normal Range of Motion Respiratory/Chest: Positive for: Clear to Auscultation, Good Air Exchange. Negative for: Respiratory Distress, Accessory Muscle Use Cardiovascular: Positive for: Regular Rate and Rhythm, Normal S1, S2 Abdomen: Positive for: Other (b/l groin dressings c/d/i). Negative for: Tenderness, Distention, Peritoneal Signs Genitourinary Male: Positive for: Other (yanes in place) Lower Extremity: Positive for: Normal Inspection, Other (distal pulses intact +2). Negative for: Edema, CALF TENDERNESS Skin: Positive for: Warm, Dry, Normal Color Psychiatric: Positive for: Alert, Oriented x 3, Normal Insight, Normal Concentration - Medications Active Medications: Active Medications Generic Name Dose Route Start Last Admin Trade Name Freq PRN Reason Stop Dose Admin Amiodarone HCl 200 mg 10/13/18 10:00 Cordarone PO DAILY [facility] Aspirin 81 mg 10/13/18 10:00 Aspirin Chewable PO DAILY [facility] Atorvastatin Calcium 20 mg 10/13/18 10:00 Lipitor PO DAILY [facility] Diphenhydramine HCl 25 mg 10/13/18 07:29 Benadryl PO 10/13/18 07:30 ONCE ONE Famotidine 20 mg 10/12/18 14:00 10/12/18 15:36 Pepcid IVP 20 mg DAILY [facility] Administration Sodium Chloride 1,000 mls @ 75 mls/hr 10/12/18 14:00 10/12/18 15:00 Sodium Chloride 0.9% IV 75 mls/hr .[id number] SANNA Administration Ibuprofen 600 mg 10/12/18 17:20 Motrin Tab PO Q6H PRN Pain, Mild (1-3) Levothyroxine Sodium 88 mcg 10/13/18 07:30 10/13/18 06:38 Synthroid PO 88 mcg ACB SANNA Administration Metoprolol Tartrate 25 mg 10/13/18 07:30 10/13/18 06:37 Lopressor PO 25 mg BRKDIN [facility]NA Administration Mexiletine 150 Mg 150 mg 10/12/18 18:44 Cap (Home Med) PO BID [facility] Oxycodone/Acetaminophen 1 tab 10/12/18 17:19 10/13/18 04:40 Percocet 5/325 Mg Tab PO 10/15/18 17:20 1 tab Q6H PRN Administration Pain, moderate (4-7) Warfarin Sodium 5 mg 10/13/18 10:00 Coumadin PO DAILY [facility] Protocol - Patient Studies Lab Studies: Lab Studies 10/13/18 10/13/18 10/13/18 Range/Units 06:50 05:30 05:30 WBC 12.1 H D (4.5-11.0) 10^3/uL RBC 3.39 L (3.5-6.1) 10^6/uL Hgb 8.0 L (14.0-18.0) g/dL Hct 25.5 L (42.0-52.0) % MCV 75.2 L (80.0-105.0) fl MCH 23.6 L (25.0-35.0) pg MCHC 31.4 (31.0-37.0) g/dl RDW 17.2 H (11.5-14.5) % Plt Count 134 (120.0-450.0) 10^3/uL MPV 9.3 (7.0-11.0) fl Neut % (Auto) 81.2 H (50.0-68.0) % Lymph % (Auto) 6.3 L (22.0-35.0) % [place] % (Auto) 11.1 H (1.0-6.0) % Eos % (Auto) 1.3 L (1.5-5.0) % Baso % (Auto) 0.1 (0.0-3.0) % Lymph # (Auto) 0.8 L (1.2-3.4) [place] # (Auto) 1.4 H (0.1-0.6) Eos # (Auto) 0.2 (0.0-0.7) Baso # (Auto) 0.01 (0.0-2.0) K/mm3 Absolute Neuts (auto) 9.86 H (1.4-6.5) PT (9.4-12.5) SECONDS INR pCO2 34 L (35-45) mm/Hg pO2 71.0 L (80-100) mm/Hg HCO3 20.6 L (21-28) mmol/L ABG pH 7.39 (7.35-7.45) ABG Total CO2 21.6 L (22-28) mmol.L ABG O2 Saturation 97.3 (95-98) % ABG O2 Content 10.3 L (15-23) ML/dl ABG Base Excess -3.9 L (-2.0-3.0) mmol/L ABG Hemoglobin 7.6 L (11.7-17.4) g/dL ABG Carboxyhemoglobin 1.5 (0.5-1.5) % POC ABG HHb (Measured) 2.6 (0-5) % ABG Methemoglobin 0.7 (0.0-3.0) % ABG O2 Capacity 10.6 L (16-24) mL/dl Hgb O2 Saturation 95.2 (95.0-98.0) % FiO2 28.0 % Sodium 136 (132-148) mmol/L Potassium 4.0 (3.6-5.0) mmol/L Chloride 105 (98-107) mmol/L Carbon Dioxide 23 (21-33) mmol/L Anion Gap 12 (10-20) BUN 19 (7-21) mg/dL Creatinine 1.2 (0.8-1.5) mg/dl Est GFR ( Amer) > 60 Est GFR (Non-Af Amer) > 60 Random Glucose 87 (70-110) mg/dL Calcium 7.2 L (8.4-10.5) mg/dL Phosphorus 3.0 (2.5-4.5) mg/dL Magnesium 1.5 L (1.7-2.2) mg/dL Total Bilirubin 0.3 (0.2-1.3) mg/dL AST 33 (17-59) U/L ALT 28 (7-56) U/L Alkaline Phosphatase 87 (38-126) U/L Total Protein 6.1 (5.8-8.3) g/dL Albumin 3.2 (3.0-4.8) g/dL Globulin 2.8 gm/dL Albumin/Globulin Ratio 1.1 (1.1-1.8) Blood Type Antibody Screen Crossmatch BBK History Checked 10/12/18 10/12/18 10/12/18 Range/Units 15:45 08:40 08:40 WBC (4.5-11.0) 10^3/uL RBC (3.5-6.1) 10^6/uL Hgb (14.0-18.0) g/dL Hct (42.0-52.0) % MCV (80.0-105.0) fl MCH (25.0-35.0) pg MCHC (31.0-37.0) g/dl RDW (11.5-14.5) % Plt Count (120.0-450.0) 10^3/uL MPV (7.0-11.0) fl Neut % (Auto) (50.0-68.0) % Lymph % (Auto) (22.0-35.0) % [place] % (Auto) (1.0-6.0) % Eos % (Auto) (1.5-5.0) % Baso % (Auto) (0.0-3.0) % Lymph # (Auto) (1.2-3.4) [place] # (Auto) (0.1-0.6) Eos # (Auto) (0.0-0.7) Baso # (Auto) (0.0-2.0) K/mm3 Absolute Neuts (auto) (1.4-6.5) PT 12.9 H (9.4-12.5) SECONDS INR 1.14 pCO2 57 H (35-45) mm/Hg pO2 263.0 H (80-100) mm/Hg HCO3 22.8 (21-28) mmol/L ABG pH 7.21 L (7.35-7.45) ABG Total CO2 24.5 (22-28) mmol.L ABG O2 Saturation 99.3 H (95-98) % ABG O2 Content 12.6 L (15-23) ML/dl ABG Base Excess -5.1 L (-2.0-3.0) mmol/L ABG Hemoglobin 8.7 L (11.7-17.4) g/dL ABG Carboxyhemoglobin 1.6 H (0.5-1.5) % POC ABG HHb (Measured) 0.7 (0-5) % ABG Methemoglobin 0.6 (0.0-3.0) % ABG O2 Capacity 12.7 L (16-24) mL/dl Hgb O2 Saturation 97.1 (95.0-98.0) % FiO2 100.0 % Sodium (132-148) mmol/L Potassium (3.6-5.0) mmol/L Chloride (98-107) mmol/L Carbon Dioxide (21-33) mmol/L Anion Gap (10-20) BUN (7-21) mg/dL Creatinine (0.8-1.5) mg/dl Est GFR ( Amer) Est GFR (Non-Af Amer) Random Glucose (70-110) mg/dL Calcium (8.4-10.5) mg/dL Phosphorus (2.5-4.5) mg/dL Magnesium (1.7-2.2) mg/dL Total Bilirubin (0.2-1.3) mg/dL AST (17-59) U/L ALT (7-56) U/L Alkaline Phosphatase (38-126) U/L Total Protein (5.8-8.3) g/dL Albumin (3.0-4.8) g/dL Globulin gm/dL Albumin/Globulin Ratio (1.1-1.8) Blood Type B POSITIVE Antibody Screen Negative Crossmatch See Detail BBK History Checked Patient has bt Laboratory Results - last 24 hr 10/12/18 10/12/18 10/12/18 08:40 08:40 15:45 WBC RBC Hgb Hct MCV MCH MCHC RDW Plt Count MPV Neut % (Auto) Lymph % (Auto) [place] % (Auto) Eos % (Auto) Baso % (Auto) Lymph # (Auto) [place] # (Auto) Eos # (Auto) Baso # (Auto) Absolute Neuts (auto) PT 12.9 H INR 1.14 pCO2 57 H pO2 263.0 H HCO3 22.8 ABG pH 7.21 L ABG Total CO2 24.5 ABG O2 Saturation 99.3 H ABG O2 Content 12.6 L ABG Base Excess -5.1 L ABG Hemoglobin 8.7 L ABG Carboxyhemoglobin 1.6 H POC ABG HHb (Measured) 0.7 ABG Methemoglobin 0.6 ABG O2 Capacity 12.7 L Hgb O2 Saturation 97.1 FiO2 100.0 Sodium Potassium Chloride Carbon Dioxide Anion Gap BUN Creatinine Est GFR ( Amer) Est GFR (Non-Af Amer) Random Glucose Calcium Phosphorus Magnesium Total Bilirubin AST ALT Alkaline Phosphatase Total Protein Albumin Globulin Albumin/Globulin Ratio Blood Type B POSITIVE Antibody Screen Negative Crossmatch See Detail BBK History Checked Patient has bt 10/13/18 10/13/18 10/13/18 05:30 05:30 06:50 WBC 12.1 H D RBC 3.39 L Hgb 8.0 L Hct 25.5 L MCV 75.2 L MCH 23.6 L MCHC 31.4 RDW 17.2 H Plt Count 134 MPV 9.3 Neut % (Auto) 81.2 H Lymph % (Auto) 6.3 L [place] % (Auto) 11.1 H Eos % (Auto) 1.3 L Baso % (Auto) 0.1 Lymph # (Auto) 0.8 L [place] # (Auto) 1.4 H Eos # (Auto) 0.2 Baso # (Auto) 0.01 Absolute Neuts (auto) 9.86 H PT INR pCO2 34 L pO2 71.0 L HCO3 20.6 L ABG pH 7.39 ABG Total CO2 21.6 L ABG O2 Saturation 97.3 ABG O2 Content 10.3 L ABG Base Excess -3.9 L ABG Hemoglobin 7.6 L ABG Carboxyhemoglobin 1.5 POC ABG HHb (Measured) 2.6 ABG Methemoglobin 0.7 ABG O2 Capacity 10.6 L Hgb O2 Saturation 95.2 FiO2 28.0 Sodium 136 Potassium 4.0 Chloride 105 Carbon Dioxide 23 Anion Gap 12 BUN 19 Creatinine 1.2 Est GFR ( Amer) > 60 Est GFR (Non-Af Amer) > 60 Random Glucose 87 Calcium 7.2 L Phosphorus 3.0 Magnesium 1.5 L Total Bilirubin 0.3 AST 33 ALT 28 Alkaline Phosphatase 87 Total Protein 6.1 Albumin 3.2 Globulin 2.8 Albumin/Globulin Ratio 1.1 Blood Type Antibody Screen Crossmatch BBK History Checked Radiology Impressions: Radiology Impressions Interventional Vascular Procedure 10/12/18 10:00 IMPRESSION: 1. Successful deployment of a bifurcated infrarenal abdominal aortic stent graft as described above. Chest X-Ray 10/12/18 14:15 IMPRESSION: Cardiomegaly and aortic tortuosity. Moderate vascular and interstitial congestion Review of Systems - Review of Systems Review of Systems: 12 point ROS completed and negative except as described in HPI. Critical Care Progress Note - Nutrition Nutrition: Nutrition Category Date Time Status Heart Healthy Diet [DIET] Diets 10/12/18 Dinner Active Assessment/Plan - Assessment and Plan (Free Text) Assessment: 68 M with PMHx of CHF (EF 32%), Pacemaker, Hypothyroidism, CAD, HTN, CABG, COPD, Atrial Flutter, and Adenocarcinoma of R lung POD#1 s/p infrarenal abdominal aortic stent graft placement by IR on 10/12/18. Neuro: -AAOx3, no FND, moving extremities past midline. -Monitor neuro status. -Reorient patient as necessary. Cardio: -c/w home meds amiodarone, asa, lipitor -Warfarin and Lopressor on hold -Pain control with Percocet per IR -RRR, normotensive, no signs of HD compromise -Maintain MAP>65. -Monitor for S/S, HD compromise. Pulm: -No signs of respiratory distress. CTA B/L -Maintain O2 saturation >90%. -O2 NC PRN, currently on 2L NC -10/12 CXR: cardiomegaly and aortic tortuosity, vascular and interstitial c ongestion -Elevate bed to 30 degrees GI: -Tolerating HHD -Pepcid /Nephro: -MARJORIE from baseline Cr 0.7 -C/W IVF NS @ 75 cc/hr -Good urine output, yanes to be removed this AM -Continue monitoring. -Replete electrolytes as needed. -Maintain euvolemia. Endocrinology: -Random glucose: 87 -Maintain euglycemia. Heme/Onc: -H/H 8.0, 1 unit PRBC to be transfused, consent obtained. F/u repeat H&H this afternoon -No signs of current HD compromise -Continue monitoring H/H ID: -Afebrile, mild leukocytosis -Monitor for signs and symptoms of infection. DVT prophylaxis: scd, chemoprophylaxis on hold GI prophylaxis: Pepcid Patient seen, case reviewed and plan approved by Dr. Chapman. Emanuel eGe, PGY-1 <Ian Chapman - Last Filed: 10/13/18 16:22> CCU Objective - Vital Signs / Intake & Output Intake and Output (Last 8hrs): Intake & Output 10/13/18 10/13/18 10/13/18 06:59 14:59 22:59 Intake Total 900 329 Output Total 525 Balance 375 329 Intake: IV 900 Left Wrist 900 Blood Product 279 Apheresis Rbc Cp2d As3 Lr 279 2nd Unit [id number] Other 50 Apheresis Rbc Cp2d As3 Lr 50 2nd Unit [id number] Output: Urine 525 2-way Urethral 525 - Medications Active Medications: Active Medications Generic Name Dose Route Start Last Admin Trade Name Freq PRN Reason Stop Dose Admin Amiodarone HCl 200 mg 10/13/18 10:00 10/13/18 09:59 Cordarone PO 200 mg DAILY [facility] Administration Aspirin 81 mg 10/13/18 10:00 10/13/18 09:55 Aspirin Chewable PO 81 mg DAILY [facility] Administration Atorvastatin Calcium 20 mg 10/13/18 10:00 10/13/18 10:01 Lipitor PO 20 mg DAILY [facility] Administration Famotidine 20 mg 10/14/18 10:00 Pepcid PO DAILY [facility] Sodium Chloride 1,000 mls @ 75 mls/hr 10/12/18 14:00 10/12/18 15:00 Sodium Chloride 0.9% IV 75 mls/hr .[id number] SANNA Administration Levothyroxine Sodium 88 mcg 10/13/18 07:30 10/13/18 06:38 Synthroid PO 88 mcg ACB [facility]NA Administration Metoprolol Tartrate 25 mg 10/13/18 07:30 10/13/18 06:37 Lopressor PO 25 mg BRKDIN SANNA Administration Mexiletine 150 Mg 150 mg 10/12/18 18:44 10/13/18 09:56 Cap (Home Med) PO 150 mg BID [facility] Administration Oxycodone/Acetaminophen 1 tab 10/12/18 17:19 10/13/18 04:40 Percocet 5/325 Mg Tab PO 10/15/18 17:20 1 tab Q6H PRN Administration Pain, moderate (4-7) Warfarin Sodium 5 mg 10/13/18 10:00 10/13/18 10:00 Coumadin PO 5 mg DAILY [facility] Administration Protocol - Patient Studies Lab Studies: Lab Studies 10/13/18 10/13/18 10/13/18 Range/Units 11:40 06:50 05:30 WBC (4.5-11.0) 10^3/uL RBC (3.5-6.1) 10^6/uL Hgb 9.0 L (14.0-18.0) g/dL Hct 29.9 L (42.0-52.0) % MCV (80.0-105.0) fl MCH (25.0-35.0) pg MCHC (31.0-37.0) g/dl RDW (11.5-14.5) % Plt Count (120.0-450.0) 10^3/uL MPV (7.0-11.0) fl Neut % (Auto) (50.0-68.0) % Lymph % (Auto) (22.0-35.0) % [place] % (Auto) (1.0-6.0) % Eos % (Auto) (1.5-5.0) % Baso % (Auto) (0.0-3.0) % Lymph # (Auto) (1.2-3.4) [place] # (Auto) (0.1-0.6) Eos # (Auto) (0.0-0.7) Baso # (Auto) (0.0-2.0) K/mm3 Absolute Neuts (auto) (1.4-6.5) pCO2 34 L (35-45) mm/Hg pO2 71.0 L (80-100) mm/Hg HCO3 20.6 L (21-28) mmol/L ABG pH 7.39 (7.35-7.45) ABG Total CO2 21.6 L (22-28) mmol.L ABG O2 Saturation 97.3 (95-98) % ABG O2 Content 10.3 L (15-23) ML/dl ABG Base Excess -3.9 L (-2.0-3.0) mmol/L ABG Hemoglobin 7.6 L (11.7-17.4) g/dL ABG Carboxyhemoglobin 1.5 (0.5-1.5) % POC ABG HHb (Measured) 2.6 (0-5) % ABG Methemoglobin 0.7 (0.0-3.0) % ABG O2 Capacity 10.6 L (16-24) mL/dl Hgb O2 Saturation 95.2 (95.0-98.0) % FiO2 28.0 % Sodium 136 (132-148) mmol/L Potassium 4.0 (3.6-5.0) mmol/L Chloride 105 (98-107) mmol/L Carbon Dioxide 23 (21-33) mmol/L Anion Gap 12 (10-20) BUN 19 (7-21) mg/dL Creatinine 1.2 (0.8-1.5) mg/dl Est GFR ( Amer) > 60 Est GFR (Non-Af Amer) > 60 Random Glucose 87 (70-110) mg/dL Calcium 7.2 L (8.4-10.5) mg/dL Phosphorus 3.0 (2.5-4.5) mg/dL Magnesium 1.5 L (1.7-2.2) mg/dL Total Bilirubin 0.3 (0.2-1.3) mg/dL AST 33 (17-59) U/L ALT 28 (7-56) U/L Alkaline Phosphatase 87 (38-126) U/L Total Protein 6.1 (5.8-8.3) g/dL Albumin 3.2 (3.0-4.8) g/dL Globulin 2.8 gm/dL Albumin/Globulin Ratio 1.1 (1.1-1.8) Blood Type Antibody Screen Crossmatch BBK History Checked 10/13/18 10/12/18 Range/Units 05:30 08:40 WBC 12.1 H D (4.5-11.0) 10^3/uL RBC 3.39 L (3.5-6.1) 10^6/uL Hgb 8.0 L (14.0-18.0) g/dL Hct 25.5 L (42.0-52.0) % MCV 75.2 L (80.0-105.0) fl MCH 23.6 L (25.0-35.0) pg MCHC 31.4 (31.0-37.0) g/dl RDW 17.2 H (11.5-14.5) % Plt Count 134 (120.0-450.0) 10^3/uL MPV 9.3 (7.0-11.0) fl Neut % (Auto) 81.2 H (50.0-68.0) % Lymph % (Auto) 6.3 L (22.0-35.0) % [place] % (Auto) 11.1 H (1.0-6.0) % Eos % (Auto) 1.3 L (1.5-5.0) % Baso % (Auto) 0.1 (0.0-3.0) % Lymph # (Auto) 0.8 L (1.2-3.4) [place] # (Auto) 1.4 H (0.1-0.6) Eos # (Auto) 0.2 (0.0-0.7) Baso # (Auto) 0.01 (0.0-2.0) K/mm3 Absolute Neuts (auto) 9.86 H (1.4-6.5) pCO2 (35-45) mm/Hg pO2 (80-100) mm/Hg HCO3 (21-28) mmol/L ABG pH (7.35-7.45) ABG Total CO2 (22-28) mmol.L ABG O2 Saturation (95-98) % ABG O2 Content (15-23) ML/dl ABG Base Excess (-2.0-3.0) mmol/L ABG Hemoglobin (11.7-17.4) g/dL ABG Carboxyhemoglobin (0.5-1.5) % POC ABG HHb (Measured) (0-5) % ABG Methemoglobin (0.0-3.0) % ABG O2 Capacity (16-24) mL/dl Hgb O2 Saturation (95.0-98.0) % FiO2 % Sodium (132-148) mmol/L Potassium (3.6-5.0) mmol/L Chloride (98-107) mmol/L Carbon Dioxide (21-33) mmol/L Anion Gap (10-20) BUN (7-21) mg/dL Creatinine (0.8-1.5) mg/dl Est GFR ( Amer) Est GFR (Non-Af Amer) Random Glucose (70-110) mg/dL Calcium (8.4-10.5) mg/dL Phosphorus (2.5-4.5) mg/dL Magnesium (1.7-2.2) mg/dL Total Bilirubin (0.2-1.3) mg/dL AST (17-59) U/L ALT (7-56) U/L Alkaline Phosphatase (38-126) U/L Total Protein (5.8-8.3) g/dL Albumin (3.0-4.8) g/dL Globulin gm/dL Albumin/Globulin Ratio (1.1-1.8) Blood Type B POSITIVE Antibody Screen Negative Crossmatch See Detail BBK History Checked Patient has bt Laboratory Results - last 24 hr 10/12/18 10/13/18 10/13/18 08:40 05:30 05:30 WBC 12.1 H D RBC 3.39 L Hgb 8.0 L Hct 25.5 L MCV 75.2 L MCH 23.6 L MCHC 31.4 RDW 17.2 H Plt Count 134 MPV 9.3 Neut % (Auto) 81.2 H Lymph % (Auto) 6.3 L [place] % (Auto) 11.1 H Eos % (Auto) 1.3 L Baso % (Auto) 0.1 Lymph # (Auto) 0.8 L [place] # (Auto) 1.4 H Eos # (Auto) 0.2 Baso # (Auto) 0.01 Absolute Neuts (auto) 9.86 H pCO2 pO2 HCO3 ABG pH ABG Total CO2 ABG O2 Saturation ABG O2 Content ABG Base Excess ABG Hemoglobin ABG Carboxyhemoglobin POC ABG HHb (Measured) ABG Methemoglobin ABG O2 Capacity Hgb O2 Saturation FiO2 Sodium 136 Potassium 4.0 Chloride 105 Carbon Dioxide 23 Anion Gap 12 BUN 19 Creatinine 1.2 Est GFR ( Amer) > 60 Est GFR (Non-Af Amer) > 60 Random Glucose 87 Calcium 7.2 L Phosphorus 3.0 Magnesium 1.5 L Total Bilirubin 0.3 AST 33 ALT 28 Alkaline Phosphatase 87 Total Protein 6.1 Albumin 3.2 Globulin 2.8 Albumin/Globulin Ratio 1.1 Blood Type B POSITIVE Antibody Screen Negative Crossmatch See Detail BBK History Checked Patient has bt 10/13/18 10/13/18 06:50 11:40 WBC RBC Hgb 9.0 L Hct 29.9 L MCV MCH MCHC RDW Plt Count MPV Neut % (Auto) Lymph % (Auto) [place] % (Auto) Eos % (Auto) Baso % (Auto) Lymph # (Auto) [place] # (Auto) Eos # (Auto) Baso # (Auto) Absolute Neuts (auto) pCO2 34 L pO2 71.0 L HCO3 20.6 L ABG pH 7.39 ABG Total CO2 21.6 L ABG O2 Saturation 97.3 ABG O2 Content 10.3 L ABG Base Excess -3.9 L ABG Hemoglobin 7.6 L ABG Carboxyhemoglobin 1.5 POC ABG HHb (Measured) 2.6 ABG Methemoglobin 0.7 ABG O2 Capacity 10.6 L Hgb O2 Saturation 95.2 FiO2 28.0 Sodium Potassium Chloride Carbon Dioxide Anion Gap BUN Creatinine Est GFR ( Amer) Est GFR (Non-Af Amer) Random Glucose Calcium Phosphorus Magnesium Total Bilirubin AST ALT Alkaline Phosphatase Total Protein Albumin Globulin Albumin/Globulin Ratio Blood Type Antibody Screen Crossmatch BBK History Checked Radiology Impressions: Radiology Impressions Interventional Vascular Procedure 10/12/18 10:00 IMPRESSION: 1. Successful deployment of a bifurcated infrarenal abdominal aortic stent graft as described above. Critical Care Progress Note - Nutrition Nutrition: Nutrition Category Date Time Status Heart Healthy Diet [DIET] Diets 10/12/18 Dinner Active Assessment/Plan - Assessment and Plan (Free Text) Assessment: I saw and examined the patient with the resident, agree with note with following additions/exceptions: 68yo male with PMHx of CHF (EF 32%), Pacemaker, Hypothyroidism, CAD, HTN, CABG, COPD, Atrial Flutter, and Adenocarcinoma of R lung and history of >5 cm AAA s/pt AAA repair under IR guidance. Currently afebrile, awake, alert, in NAD Admitted to MICU for post observation HH downtrending, given 1u PRBC, with appropriate response Slight increase in Cr, on IVF< will monitor IVF Low salt diet diet BIPAP at [facility] Follow up IR, Surgery BP control ASA GI ppx DVT ppx Monitor in MICU
--- NOTE | 2018-10-13 09:00 | CP.PCM.PN ---
Subjective - Date & Time of Evaluation Date of Evaluation: 10/13/18 Time of Evaluation: 07:20 - Subjective Subjective: Vascular Surgery Pt seen and examined. Complaining of b/l groin and R flank/back pain. Vitals stable, WNL. Objective - Vital Signs/Intake and Output Vital Signs (last 24 hours): Temp Pulse Resp BP Pulse Ox 98.1 F 60 16 132/70 97 10/13/18 08:41 10/13/18 08:41 10/13/18 08:41 10/13/18 08:41 10/13/18 05:10 Intake and Output: 10/13/18 10/13/18 06:59 18:59 Intake Total 900 0 Output Total 525 Balance 375 0 - Medications Medications: Current Medications Amiodarone HCl (Cordarone) 200 mg PO DAILY [facility] Aspirin (Aspirin Chewable) 81 mg PO DAILY [facility] Atorvastatin Calcium (Lipitor) 20 mg PO DAILY [facility] Famotidine (Pepcid) 20 mg IVP DAILY [facility] Last Admin: 10/12/18 15:36 Dose: 20 mg Sodium Chloride (Sodium Chloride 0.9%) 1,000 mls @ 75 mls/hr IV .[id number] [facility] Last Admin: 10/12/18 15:00 Dose: 75 mls/hr Ibuprofen (Motrin Tab) 600 mg PO Q6H PRN PRN Reason: Pain, Mild (1-3) Levothyroxine Sodium (Synthroid) 88 mcg PO ACB [facility] Last Admin: 10/13/18 06:38 Dose: 88 mcg Metoprolol Tartrate (Lopressor) 25 mg PO BRKDIN [facility] Last Admin: 10/13/18 06:37 Dose: 25 mg Mexiletine 150 Mg (Cap (Home Med)) 150 mg PO BID [facility] Oxycodone/Acetaminophen (Percocet 5/325 Mg Tab) 1 tab PO Q6H PRN PRN Reason: Pain, moderate (4-7) Stop: 10/15/18 17:20 Last Admin: 10/13/18 04:40 Dose: 1 tab Warfarin Sodium (Coumadin) 5 mg PO DAILY [facility]; Protocol - Labs Labs: 10/13/18 05:30 10/13/18 05:30 PT 12.9 SECONDS (9.4-12.5) H 10/12/18 08:40 INR 1.14 10/12/18 08:40 - Constitutional Appears: Non-toxic, No Acute Distress - Head Exam Head Exam: ATRAUMATIC, NORMOCEPHALIC - Eye Exam Eye Exam: EOMI. absent: Scleral icterus - Respiratory Exam Respiratory Exam: NORMAL BREATHING PATTERN. absent: Respiratory Distress - GI/Abdominal Exam GI & Abdominal Exam: Soft. absent: Distended, Tenderness - Extremities Exam Extremities Exam: absent: Calf Tenderness, Pedal Edema Additional comments: No swelling or ecchymosis in the groin b/l Groin dressings C/D/I - Back Exam Back Exam: tenderness (R flank/back) Additional comments: No ecchymosis over R flank or back - Neurological Exam Neurological Exam: Alert, Awake, Oriented x3 - Skin Skin Exam: Dry, Warm Assessment and Plan - Assessment and Plan (Free Text) Assessment: 68M with Abdominal aortic aneurysm s/p EVAR Plan: Transfuse PRBC. Monitor Hgb, Vitals D/W Dr. Martin Bryant PGY4
[2018-10-13] MEDS: MEXILETINE 150 MG PO SCH ×2 (09:56→17:27)
[2018-10-13] MEDS: Sodium Chloride 0.9% 1,000 ML IV SCH (19:52)
[2018-10-14] MEDS: Oxycodone/Acetaminophen 5/325 mg Tab PO PRN (01:12)
[2018-10-14 06:21] LABS: BASO # 0.01 K/mm3 (0.0-2.0); BASO % 0.1 % (0.0-3.0); EOS # 0.2 (0.0-0.7); EOS % 1.9 % (1.5-5.0); HEMOGLOBIN 8.9 g/dL (14.0-18.0); LYMPH % 9.9 % (22.0-35.0); MEAN CELL VOLUME 76.4 fl (80.0-105.0); MEAN CORPUSCULAR HEMOGLOBIN 23.9 pg (25.0-35.0); MEAN CORPUSCULAR HGB CONC 31.2 g/dl (31.0-37.0); MEAN PLATELET VOLUME 9.9 fl (7.0-11.0); MONO % 10.5 % (1.0-6.0); RBC 3.73 10^6/uL (3.5-6.1); RED CELL DISTRIBUTION WIDTH 17.5 % (11.5-14.5); WHITE BLOOD COUNT 9.9 10^3/uL (4.5-11.0)
[2018-10-14 07:06] LABS: ALB/GLOB RATIO 1.1 (1.1-1.8); ALBUMIN 3.4 g/dL (3.0-4.8); ALT/SGPT 28 U/L (7-56); AST/SGOT 30 U/L (17-59); BLOOD UREA NITROGEN 14 mg/dL (7-21); CALCIUM 7.9 mg/dL (8.4-10.5); GFR NON-AFRICAN AMERICAN > 60
[2018-10-14] MEDS ORDERED: Magnesium Sulfate 1 gm in D5W 1 GM/100 ML BAG IVPB ONE (08:08)
--- NOTE | 2018-10-14 08:20 | CP.CCUPN ---
<Emanuel Gee - Last Filed: 10/14/18 11:13> CCU Subjective - Physician Review Subjective (Free Text): Emanuel Gee, PGY-1 Critical Care Progress Note Patient seen and evaluated at bedside. No acute events reported overnight. Patient currently on 2L NC, sitting up comfortably in bed in no respiratory distress. Patient tolerated diet. Patient reports stable R sided lower back pain without radiation. Reports no BM for 3 days but denies chest pain, palpitations, shortness of breath, headaches, blurry vision or abdominal pain. CCU Objective - Vital Signs / Intake & Output Intake and Output (Last 8hrs): Intake & Output 10/13/18 10/14/18 10/14/18 22:59 06:59 14:59 Intake Total 460 1380 Output Total 1250 2000 Balance -790 -620 Intake: IV 900 Left Wrist 900 Oral 460 480 Output: Urine 1250 2000 2-way Urethral 1250 Urine, Voided 2000 Other: # Voids 2-way Urethral 2 - Physical Exam Head: Positive for: Atraumatic, Normocephalic Pupils: Positive for: PERRL Extroacular Muscles: Positive for: EOMI Conjunctiva: Positive for: Normal Mouth: Positive for: Moist Mucous Membranes Nose (External): Positive for: Other (NC in place) Neck: Positive for: Normal Range of Motion Respiratory/Chest: Positive for: Clear to Auscultation, Good Air Exchange. Negative for: Respiratory Distress, Accessory Muscle Use Cardiovascular: Positive for: Regular Rate and Rhythm, Normal S1, S2 Abdomen: Positive for: Other (b/l groin dressings c/d/i). Negative for: Tenderness, Distention, Peritoneal Signs Lower Extremity: Positive for: Normal Inspection, Other (distal pulses intact +2). Negative for: Edema, CALF TENDERNESS Skin: Positive for: Warm, Dry, Normal Color Psychiatric: Positive for: Alert, Oriented x 3, Normal Insight, Normal Concentration - Medications Active Medications: Active Medications Generic Name Dose Route Start Last Admin Trade Name Freq PRN Reason Stop Dose Admin Amiodarone HCl 200 mg 10/13/18 10:00 10/13/18 09:59 Cordarone PO 200 mg DAILY SANNA Administration Aspirin 81 mg 10/13/18 10:00 10/13/18 09:55 Aspirin Chewable PO 81 mg DAILY SANNA Administration Atorvastatin Calcium 20 mg 10/13/18 10:00 10/13/18 10:01 Lipitor PO 20 mg DAILY SANNA Administration Famotidine 20 mg 10/14/18 10:00 Pepcid PO DAILY SANNA Sodium Chloride 1,000 mls @ 75 mls/hr 10/12/18 14:00 10/13/18 19:52 Sodium Chloride 0.9% IV 75 mls/hr .[id number] SANNA Administration Magnesium Sulfate/Dextrose 1 gm in 100 mls @ 100 mls/hr 10/14/18 08:08 Magnesium Sulfate 1 Gm/100 Ml D5w IVPB 10/14/18 09:07 ONCE ONE Levothyroxine Sodium 88 mcg 10/13/18 07:30 10/13/18 06:38 Synthroid PO 88 mcg ACB SANNA Administration Metoprolol Tartrate 25 mg 10/13/18 07:30 10/13/18 06:37 Lopressor PO 25 mg BRKDIN SANNA Administration Mexiletine 150 Mg 150 mg 10/12/18 18:44 10/13/18 17:27 Cap (Home Med) PO 150 mg BID SANNA Administration Oxycodone/Acetaminophen 1 tab 10/12/18 17:19 10/14/18 01:12 Percocet 5/325 Mg Tab PO 10/15/18 17:20 1 tab Q6H PRN Administration Pain, moderate (4-7) Warfarin Sodium 5 mg 10/13/18 10:00 10/13/18 10:00 Coumadin PO 5 mg DAILY SNANA Administration Protocol - Patient Studies Lab Studies: Microbiology Studies 10/12/18 16:43 MRSA Culture (Admit) - Final Naris MRSA NOT DETECTED Lab Studies 10/14/18 10/14/18 10/14/18 Range/Units 06:57 05:30 05:30 WBC 9.9 (4.5-11.0) 10^3/uL RBC 3.73 (3.5-6.1) 10^6/uL Hgb 8.9 L (14.0-18.0) g/dL Hct 28.5 L (42.0-52.0) % MCV 76.4 L (80.0-105.0) fl MCH 23.9 L (25.0-35.0) pg MCHC 31.2 (31.0-37.0) g/dl RDW 17.5 H (11.5-14.5) % Plt Count 139 (120.0-450.0) 10^3/uL MPV 9.9 (7.0-11.0) fl Neut % (Auto) 77.6 H (50.0-68.0) % Lymph % (Auto) 9.9 L (22.0-35.0) % Bulloch % (Auto) 10.5 H (1.0-6.0) % Eos % (Auto) 1.9 (1.5-5.0) % Baso % (Auto) 0.1 (0.0-3.0) % Lymph # (Auto) 1.0 L (1.2-3.4) Bulloch # (Auto) 1.0 H (0.1-0.6) Eos # (Auto) 0.2 (0.0-0.7) Baso # (Auto) 0.01 (0.0-2.0) K/mm3 Absolute Neuts (auto) 7.72 H (1.4-6.5) Sodium 141 (132-148) mmol/L Potassium 3.7 (3.6-5.0) mmol/L Chloride 109 H (98-107) mmol/L Carbon Dioxide 26 (21-33) mmol/L Anion Gap 9 L (10-20) BUN 14 (7-21) mg/dL Creatinine 0.9 (0.8-1.5) mg/dl Est GFR ( Amer) > 60 Est GFR (Non-Af Amer) > 60 Random Glucose 81 (70-110) mg/dL Calcium 7.9 L (8.4-10.5) mg/dL Magnesium 1.6 L (1.7-2.2) mg/dL Total Bilirubin 0.4 (0.2-1.3) mg/dL AST 30 (17-59) U/L ALT 28 (7-56) U/L Alkaline Phosphatase 93 (38-126) U/L Total Protein 6.4 (5.8-8.3) g/dL Albumin 3.4 (3.0-4.8) g/dL Globulin 3.0 gm/dL Albumin/Globulin Ratio 1.1 (1.1-1.8) Blood Type Antibody Screen Crossmatch BBK History Checked 10/13/18 10/12/18 Range/Units 11:40 08:40 WBC (4.5-11.0) 10^3/uL RBC (3.5-6.1) 10^6/uL Hgb 9.0 L (14.0-18.0) g/dL Hct 29.9 L (42.0-52.0) % MCV (80.0-105.0) fl MCH (25.0-35.0) pg MCHC (31.0-37.0) g/dl RDW (11.5-14.5) % Plt Count (120.0-450.0) 10^3/uL MPV (7.0-11.0) fl Neut % (Auto) (50.0-68.0) % Lymph % (Auto) (22.0-35.0) % Bulloch % (Auto) (1.0-6.0) % Eos % (Auto) (1.5-5.0) % Baso % (Auto) (0.0-3.0) % Lymph # (Auto) (1.2-3.4) Bulloch # (Auto) (0.1-0.6) Eos # (Auto) (0.0-0.7) Baso # (Auto) (0.0-2.0) K/mm3 Absolute Neuts (auto) (1.4-6.5) Sodium (132-148) mmol/L Potassium (3.6-5.0) mmol/L Chloride (98-107) mmol/L Carbon Dioxide (21-33) mmol/L Anion Gap (10-20) BUN (7-21) mg/dL Creatinine (0.8-1.5) mg/dl Est GFR ( Amer) Est GFR (Non-Af Amer) Random Glucose (70-110) mg/dL Calcium (8.4-10.5) mg/dL Magnesium (1.7-2.2) mg/dL Total Bilirubin (0.2-1.3) mg/dL AST (17-59) U/L ALT (7-56) U/L Alkaline Phosphatase (38-126) U/L Total Protein (5.8-8.3) g/dL Albumin (3.0-4.8) g/dL Globulin gm/dL Albumin/Globulin Ratio (1.1-1.8) Blood Type B POSITIVE Antibody Screen Negative Crossmatch See Detail BBK History Checked Patient has bt Laboratory Results - last 24 hr 10/12/18 10/13/18 10/14/18 08:40 11:40 05:30 WBC 9.9 RBC 3.73 Hgb 9.0 L 8.9 L Hct 29.9 L 28.5 L MCV 76.4 L MCH 23.9 L MCHC 31.2 RDW 17.5 H Plt Count 139 MPV 9.9 Neut % (Auto) 77.6 H Lymph % (Auto) 9.9 L Bulloch % (Auto) 10.5 H Eos % (Auto) 1.9 Baso % (Auto) 0.1 Lymph # (Auto) 1.0 L Bulloch # (Auto) 1.0 H Eos # (Auto) 0.2 Baso # (Auto) 0.01 Absolute Neuts (auto) 7.72 H Sodium Potassium Chloride Carbon Dioxide Anion Gap BUN Creatinine Est GFR ( Amer) Est GFR (Non-Af Amer) Random Glucose Calcium Magnesium Total Bilirubin AST ALT Alkaline Phosphatase Total Protein Albumin Globulin Albumin/Globulin Ratio Blood Type B POSITIVE Antibody Screen Negative Crossmatch See Detail BBK History Checked Patient has bt 10/14/18 10/14/18 05:30 06:57 WBC RBC Hgb Hct MCV MCH MCHC RDW Plt Count MPV Neut % (Auto) Lymph % (Auto) Bulloch % (Auto) Eos % (Auto) Baso % (Auto) Lymph # (Auto) Bulloch # (Auto) Eos # (Auto) Baso # (Auto) Absolute Neuts (auto) Sodium 141 Potassium 3.7 Chloride 109 H Carbon Dioxide 26 Anion Gap 9 L BUN 14 Creatinine 0.9 Est GFR ( Amer) > 60 Est GFR (Non-Af Amer) > 60 Random Glucose 81 Calcium 7.9 L Magnesium 1.6 L Total Bilirubin 0.4 AST 30 ALT 28 Alkaline Phosphatase 93 Total Protein 6.4 Albumin 3.4 Globulin 3.0 Albumin/Globulin Ratio 1.1 Blood Type Antibody Screen Crossmatch BBK History Checked Review of Systems - Review of Systems Review of Systems: 12 point ROS completed and negative except as described in HPI. Critical Care Progress Note - Nutrition Nutrition: Nutrition Category Date Time Status Heart Healthy Diet [DIET] Diets 05/20/19 Dinner Active Assessment/Plan - Assessment and Plan (Free Text) Assessment: 68 M with PMHx of CHF (EF 32%), Pacemaker, Hypothyroidism, CAD, HTN, CABG, COPD, Atrial Flutter, and Adenocarcinoma of R lung POD#2 s/p infrarenal abdominal aortic stent graft placement by IR on 10/12/18. Patient remains hemodynamically stable, in no acute respiratory distress, and tolerating diet. Pain controlled. Neuro: -AAOx3, no FND, moving extremities past midline. -Monitor neuro status. -Reorient patient as necessary. Cardio: -c/w home meds amiodarone, asa, lipitor -Pain control with Percocet per IR -RRR, normotensive, no signs of HD compromise -Maintain MAP>65. -Monitor for S/S, HD compromise. Pulm: -No signs of respiratory distress. CTA B/L -Maintain O2 saturation >90%. -O2 NC PRN, currently on 2L NC -10/12 CXR: cardiomegaly and aortic tortuosity, vascular and interstitial congestion -Elevate bed to 30 degrees GI: -Tolerating HHD -Pepcid /Nephro: -MARJORIE resolved -IVF NS @ 75 cc/hr -Good urine output, yanes removed yesterday -Continue monitoring. -Replete electrolytes as needed. HypoMg repleted -Maintain euvolemia. Endocrinology: -Random glucose: 87 -Maintain euglycemia. Heme/Onc: -H/H appropriate response s/p 1 unit PRBC transfused 10/13, currently 8.9 -No signs of current HD compromise -Continue monitoring H/H ID: -Remains Afebrile, no leukocytosis -Monitor for signs and symptoms of infection. DVT prophylaxis: scd GI prophylaxis: Pepcid Patient seen, case reviewed and plan approved by Dr. العراقي. Emanuel Gee, PGY-1 <Henrry العراقي - Last Filed: 10/14/18 14:02> CCU Objective - Vital Signs / Intake & Output Vital Signs (Last 4 hours): Vital Signs Pulse Resp BP Pulse Ox 10/14/18 11:40 74 22 94 L 10/14/18 11:30 76 27 H 137/86 92 L 10/14/18 11:20 68 21 85 L 10/14/18 11:10 71 22 90 L 10/14/18 11:00 72 135/86 90 L 10/14/18 10:50 78 66 H 94 L 10/14/18 10:40 78 30 H 93 L 10/14/18 10:30 82 17 144/91 H 96 10/14/18 10:20 78 18 90 L 10/14/18 10:10 79 19 95 Intake and Output (Last 8hrs): Intake & Output 10/13/18 10/14/18 10/14/18 22:59 06:59 14:59 Intake Total 460 1380 750 Output Total 1250 2000 1200 Balance -790 -620 -450 Intake: IV 900 250 Left Wrist 900 250 Oral 460 480 500 Output: Urine 1250 2000 1200 2-way Urethral 1250 Urine, Voided 2000 1200 Other: # Voids 2-way Urethral 2 Urine, Voided 2 # Bowel Movements 0 - Patient Studies Lab Studies: Microbiology Studies 10/12/18 16:43 MRSA Culture (Admit) - Final Naris MRSA NOT DETECTED Lab Studies 10/14/18 10/14/18 10/14/18 Range/Units 06:57 05:30 05:30 WBC 9.9 (4.5-11.0) 10^3/uL RBC 3.73 (3.5-6.1) 10^6/uL Hgb 8.9 L (14.0-18.0) g/dL Hct 28.5 L (42.0-52.0) % MCV 76.4 L (80.0-105.0) fl MCH 23.9 L (25.0-35.0) pg MCHC 31.2 (31.0-37.0) g/dl RDW 17.5 H (11.5-14.5) % Plt Count 139 (120.0-450.0) 10^3/uL MPV 9.9 (7.0-11.0) fl Neut % (Auto) 77.6 H (50.0-68.0) % Lymph % (Auto) 9.9 L (22.0-35.0) % Bulloch % (Auto) 10.5 H (1.0-6.0) % Eos % (Auto) 1.9 (1.5-5.0) % Baso % (Auto) 0.1 (0.0-3.0) % Lymph # (Auto) 1.0 L (1.2-3.4) Bulloch # (Auto) 1.0 H (0.1-0.6) Eos # (Auto) 0.2 (0.0-0.7) Baso # (Auto) 0.01 (0.0-2.0) K/mm3 Absolute Neuts (auto) 7.72 H (1.4-6.5) Sodium 141 (132-148) mmol/L Potassium 3.7 (3.6-5.0) mmol/L Chloride 109 H (98-107) mmol/L Carbon Dioxide 26 (21-33) mmol/L Anion Gap 9 L (10-20) BUN 14 (7-21) mg/dL Creatinine 0.9 (0.8-1.5) mg/dl Est GFR ( Amer) > 60 Est GFR (Non-Af Amer) > 60 Random Glucose 81 (70-110) mg/dL Calcium 7.9 L (8.4-10.5) mg/dL Magnesium 1.6 L (1.7-2.2) mg/dL Total Bilirubin 0.4 (0.2-1.3) mg/dL AST 30 (17-59) U/L ALT 28 (7-56) U/L Alkaline Phosphatase 93 (38-126) U/L Total Protein 6.4 (5.8-8.3) g/dL Albumin 3.4 (3.0-4.8) g/dL Globulin 3.0 gm/dL Albumin/Globulin Ratio 1.1 (1.1-1.8) Crossmatch 10/12/18 Range/Units 08:40 WBC (4.5-11.0) 10^3/uL RBC (3.5-6.1) 10^6/uL Hgb (14.0-18.0) g/dL Hct (42.0-52.0) % MCV (80.0-105.0) fl MCH (25.0-35.0) pg MCHC (31.0-37.0) g/dl RDW (11.5-14.5) % Plt Count (120.0-450.0) 10^3/uL MPV (7.0-11.0) fl Neut % (Auto) (50.0-68.0) % Lymph % (Auto) (22.0-35.0) % Bulloch % (Auto) (1.0-6.0) % Eos % (Auto) (1.5-5.0) % Baso % (Auto) (0.0-3.0) % Lymph # (Auto) (1.2-3.4) Bulloch # (Auto) (0.1-0.6) Eos # (Auto) (0.0-0.7) Baso # (Auto) (0.0-2.0) K/mm3 Absolute Neuts (auto) (1.4-6.5) Sodium (132-148) mmol/L Potassium (3.6-5.0) mmol/L Chloride (98-107) mmol/L Carbon Dioxide (21-33) mmol/L Anion Gap (10-20) BUN (7-21) mg/dL Creatinine (0.8-1.5) mg/dl Est GFR ( Amer) Est GFR (Non-Af Amer) Random Glucose (70-110) mg/dL Calcium (8.4-10.5) mg/dL Magnesium (1.7-2.2) mg/dL Total Bilirubin (0.2-1.3) mg/dL AST (17-59) U/L ALT (7-56) U/L Alkaline Phosphatase (38-126) U/L Total Protein (5.8-8.3) g/dL Albumin (3.0-4.8) g/dL Globulin gm/dL Albumin/Globulin Ratio (1.1-1.8) Crossmatch See Detail Laboratory Results - last 24 hr 10/12/18 10/14/18 10/14/18 08:40 05:30 05:30 WBC 9.9 RBC 3.73 Hgb 8.9 L Hct 28.5 L MCV 76.4 L MCH 23.9 L MCHC 31.2 RDW 17.5 H Plt Count 139 MPV 9.9 Neut % (Auto) 77.6 H Lymph % (Auto) 9.9 L Bulloch % (Auto) 10.5 H Eos % (Auto) 1.9 Baso % (Auto) 0.1 Lymph # (Auto) 1.0 L Bulloch # (Auto) 1.0 H Eos # (Auto) 0.2 Baso # (Auto) 0.01 Absolute Neuts (auto) 7.72 H Sodium 141 Potassium 3.7 Chloride 109 H Carbon Dioxide 26 Anion Gap 9 L BUN 14 Creatinine 0.9 Est GFR ( Amer) > 60 Est GFR (Non-Af Amer) > 60 Random Glucose 81 Calcium 7.9 L Magnesium Total Bilirubin 0.4 AST 30 ALT 28 Alkaline Phosphatase 93 Total Protein 6.4 Albumin 3.4 Globulin 3.0 Albumin/Globulin Ratio 1.1 Crossmatch See Detail 10/14/18 06:57 WBC RBC Hgb Hct MCV MCH MCHC RDW Plt Count MPV Neut % (Auto) Lymph % (Auto) Bulloch % (Auto) Eos % (Auto) Baso % (Auto) Lymph # (Auto) Bulloch # (Auto) Eos # (Auto) Baso # (Auto) Absolute Neuts (auto) Sodium Potassium Chloride Carbon Dioxide Anion Gap BUN Creatinine Est GFR ( Amer) Est GFR (Non-Af Amer) Random Glucose Calcium Magnesium 1.6 L Total Bilirubin AST ALT Alkaline Phosphatase Total Protein Albumin Globulin Albumin/Globulin Ratio Crossmatch Critical Care Progress Note - Nutrition Nutrition: Nutrition Category Date Time Status Heart Healthy Diet [DIET] Diets 10/12/18 Dinner Active Attending/Attestation - Attestation I have personally seen and examined this patient.: Yes I have fully participated in the care of the patient.: Yes I have reviewed all pertinent clinical information: Yes Notes (Text): 10/14/18 14:02 hemodynamically and respiratory stable. protecting airways, aaox 3, sitting in the chair, Hb relatively stable ccm time 40 min
[2018-10-14] MEDS: Levothyroxine 88 MCG TAB PO SCH (08:43)
[2018-10-14 09:08] VITALS: TEMP 97.9
[2018-10-14] MEDS: Sodium Chloride 0.9% 1,000 ML IV SCH (09:25)
[2018-10-14] MEDS: MEXILETINE 150 MG PO SCH (09:26)
[2018-10-14] MEDS ORDERED: Calcium Gluconate in NS 1 GM/50 ML BAG IV ONE (09:58)
[2018-10-14 13:53] VITALS: BP 137/86; PULSE 74; RESP 22; O2SAT 94
--- NOTE | 2018-10-15 00:12 | DS ---
HOSPITAL COURSE: The patient is a 68-year-old male, who is known to have a history of congestive heart failure with an ejection fraction of 35%, status post cardiac ablation, status post implanted cardiac defibrillator. He is also known to have a history of hypothyroidism and a history of EtOH ism. The patient has been seeing me for many years in office visits. He was found to have an abdominal aortic aneurysm of approximately 5 to 5.1 cm in diameter. Arrangements were made for repair of this AAA. The patient was seen prior to the procedure and medical clearance was given. The procedure was performed yesterday with Dr. Mike Tang, and the patient tolerated the procedure well. Post procedure, he was admitted to the Intensive Care Unit where he is seen today. The patient is sitting up in a chair. He is awake, alert, and oriented. He voices no complaints. He is sitting feeling perfectly well. His heart rate is 72. Blood pressure is stable. His lungs are clear anteriorly. Heart sounds are regular. Abdomen is soft and nontender. Ecchymosis from the insertion site is noted. Laboratory study shows the white blood cell count to be 9.9; hemoglobin and hematocrit are 8.9 and 28.5 respectively. Sodium is 141, potassium 3.7, blood urea nitrogen 14, and creatinine is 0.9. The patient is slated for discharge today. Of note, he was found to have B + type blood. The patient is slated to be discharged today. He is feeling well. He is requesting Spiriva HFA to be called in to the local pharmacy [facility], which was done, and the patient is discharged in improved condition. He will be following up with us in an office in one week and following up with his surgeon in two weeks. Royal Guzman MD
== END 2018-10-14 12:41 | disposition home or self-care (01) | DRG 269 ==
LOC: SDAINP 08:01 → EDSTATUS 10:00 → ICU 15:26
PROVIDERS: ADMIT Radiology Vascular & Interventional Radiology; ATTEND Radiology Vascular & Interventional Radiology
PROC: 04V03E6 (ICD-10-PCS; principal; 2018-10-12)
PROC: 5A09357 Assistance with Respiratory Ventilation, Less than 24 Consecutive Hours, Continuous Positive Airway Pressure (ICD-10-PCS; 2018-10-12)
PROC: 30233N1 Transfusion of Nonautologous Red Blood Cells into Peripheral Vein, Percutaneous Approach (ICD-10-PCS; 2018-10-13)
DX: I71.4 Abdominal aortic aneurysm, without rupture (principal); I48.92 Unspecified atrial flutter; N17.9 Acute kidney failure, unspecified; I11.0 Hypertensive heart disease with heart failure; I50.9 Heart failure, unspecified; E03.9 Hypothyroidism, unspecified; I25.10 Atherosclerotic heart disease of native coronary artery without angina pectoris; J44.9 Chronic obstructive pulmonary disease, unspecified; Z85.118 Personal history of other malignant neoplasm of bronchus and lung; Z87.891 Personal history of nicotine dependence; Z95.1 Presence of aortocoronary bypass graft; Z95.810 Presence of automatic (implantable) cardiac defibrillator; Z95.0 Presence of cardiac pacemaker

== ENCOUNTER 2018-10-18 17:32 | Inpatient (IN) | payer MEDICARE, OTHER ==
[2018-10-18 17:32] VITALS: PULSE 135
[2018-10-18 18:07] LABS: BASO # 0.01 K/mm3 (0.0-2.0); BASO % 0.1 % (0.0-3.0); EOS # 0.2 (0.0-0.7); HEMOGLOBIN 9.3 g/dL (14.0-18.0); LYMPH % 12.8 % (22.0-35.0); MEAN CELL VOLUME 76.1 fl (80.0-105.0); MEAN CORPUSCULAR HEMOGLOBIN 24.2 pg (25.0-35.0); MEAN CORPUSCULAR HGB CONC 31.7 g/dl (31.0-37.0); MEAN PLATELET VOLUME 9.8 fl (7.0-11.0); MONO # 0.7 (0.1-0.6); MONO % 9.7 % (1.0-6.0); RBC 3.85 10^6/uL (3.5-6.1); RED CELL DISTRIBUTION WIDTH 17.9 % (11.5-14.5); WHITE BLOOD COUNT 7.4 10^3/uL (4.5-11.0)
[2018-10-18 18:14] LABS: INR 1.86; PARTIAL THROMBOPLASTIN TIME 33.8 Seconds (26.9-38.3); PROTHROMBIN TIME 20.7 SECONDS (9.4-12.5)
[2018-10-18 18:24] LABS: ALB/GLOB RATIO 1.1 (1.1-1.8); ALBUMIN 3.8 g/dL (3.0-4.8); ALT/SGPT 18 U/L (7-56); AST/SGOT 41 U/L (17-59); BLOOD UREA NITROGEN 15 mg/dL (7-21); CALCIUM 8.6 mg/dL (8.4-10.5); GFR NON-AFRICAN AMERICAN > 60
--- NOTE | 2018-10-18 18:26 | RAD ---
Date of service: 10/18/2018 HISTORY: chest pain COMPARISON: Chest radiograph dated 10/12/2018. TECHNIQUE: 1 view obtained. FINDINGS: LUNGS: Prominence of pulmonary vasculature may be secondary to AP technique and/or pulmonary vascular congestion. No focal consolidation. PLEURA: No significant pleural effusion identified, no pneumothorax apparent. CARDIOVASCULAR: Prior sternotomy with sternal wires, surgical clips and prosthetic aortic valve redemonstrated. Left subclavian access AICD/pacemaker redemonstrated. Aortic atherosclerotic calcifications. Cardiomediastinal silhouette stably enlarged. OSSEOUS STRUCTURES: Unchanged. VISUALIZED UPPER ABDOMEN: Partially imaged aortic endo graft OTHER FINDINGS: None. IMPRESSION: Prominence of the pulmonary vasculature may be secondary to AP technique and/or pulmonary vascular congestion. No focal consolidation or pleural effusion.
[2018-10-18 18:32] LABS: B-TYPE NATRIURETIC PEPTIDE 2190 pg/mL (0-450)
[2018-10-18 18:33] LABS: TROPONIN I < 0.01 ng/mL
[2018-10-18] MEDS ORDERED: Amiodarone 150 mg/D5W 100 ml 150 MG/100 ML BAG IVPB ONE ×2 (18:55→19:43)
[2018-10-18] MEDS: Amiodarone 360 mg/D5W 200 ml 360 MG/200 ML BAG IV SCH (19:18)
--- NOTE | 2018-10-18 19:44 | ED PDOC ---
Arrival/HPI - General Chief Complaint: Pacemaker Problem Time Seen by Provider: 10/18/18 17:43 Historian: Patient - History of Present Illness Narrative History of Present Illness (Text): 10/18/18 19:41 A 68 year old male, whose past medical history includes alcohol abuse, CHF (32%EF), Pacemaker, Hypothyroidism, CAD, HTN, Open Heart Surgery, COPD (Denies Hx), Atrial Flutter, and adenocarcinoma, presents to the ED complaining of defibrillator displacement. Patient reports he was eating when his heart started racing and he felt that his internal defibrillator came off. Patient denies any chest pain, shortness of breath, fever or cough. Time/Duration: Prior to Arrival Symptom Onset: Gradual Symptom Course: Unchanged Activities at Onset: Light Context: Home Past Medical History - Provider Review Nursing Documentation Reviewed: Yes - Infectious Disease Hx of Infectious Diseases: None - Tetanus Immunization Tetanus Immunization: Unknown - Cardiac Hx Cardiac Disorders: Yes Hx Congestive Heart Failure: Yes Hx Hypertension: Yes Hx Pacemaker: Yes - Pulmonary Hx Respiratory Disorders: Yes Hx Chronic Obstructive Pulmonary Disease (COPD): Yes - Neurological Hx Neurological Disorder: No - HEENT Hx HEENT Disorder: No - Renal Hx Renal Disorder: No - Endocrine/Metabolic Hx Endocrine Disorders: Yes Hx Hypothyroidism: Yes - Hematological/Oncological Hx Blood Disorders: No - Integumentary Hx Dermatological Disorder: No - Musculoskeletal/Rheumatological Hx Musculoskeletal Disorders: Yes Hx Falls: Yes Hx Fractures: Yes - Gastrointestinal Hx Gastrointestinal Disorders: Yes (bilroth gastrectomy/gerd/pancreatitis) - Genitourinary/Gynecological Hx Genitourinary Disorders: No - Psychiatric Hx Psychophysiologic Disorder: No Hx Substance Use: No - Surgical History Other/Comment: HIATAL HERNIA REPAIR,TONSILLECTOMY,AICD,PACEMAKER, MITRAL VALVE REPLACEM, - Anesthesia Hx Anesthesia Reactions: No Hx Malignant Hyperthermia: No - Suicidal Assessment Feels Threatened In Home Enviroment: No Family/Social History - Physician Review Nursing Documentation Reviewed: Yes Family/Social History: No Known Family HX Smoking Status: Former Smoker Hx Alcohol Use: Yes ("I QUIT 08/2018 AFTER HOSPITALIZED"PAST ETOH) Hx Substance Use: No Hx Substance Use Treatment: No Allergies/Home Meds Allergies/Adverse Reactions: Allergies No Known Allergies Allergy (Verified 10/13/18 19:02) Home Medications: Home Meds Medication Instructions Recorded Confirmed Atorvastatin [Lipitor] 20 mg PO DAILY 02/23/16 10/18/18 Metoprolol Tartrate [Lopressor] 25 mg PO BRKDIN 02/23/16 10/18/18 Mexiletine 150 mg PO BID 02/23/16 10/18/18 Levothyroxine [Synthroid] 88 tab PO DAILY 05/17/17 10/18/18 Amiodarone [Cordarone] 200 mg PO DAILY 09/29/18 10/18/18 Warfarin [Coumadin] 5 mg PO DAILY 09/29/18 10/18/18 Review of Systems - Physician Review All systems were reviewed & negative as marked: Yes - Review of Systems Cardiovascular: Other (Defibrillator came off.). absent: Chest Pain Physical Exam Vital Signs Reviewed: Yes Vital Signs Temp Pulse Resp BP Pulse Ox 10/18/18 19:22 82 20 153/94 H 98 10/18/18 18:50 85 18 149/95 H 100 10/18/18 18:00 84 20 149/90 98 10/18/18 17:40 98.1 F 78 18 133/93 H 97 Temperature: Afebrile Blood Pressure: Hypertensive Pulse: Regular Respiratory Rate: Normal - Systems Exam Head: Present: Atraumatic, Normocephalic Pupils: Present: PERRL Extroacular Muscles: Present: EOMI Conjunctiva: Present: Normal Respiratory/Chest: Present: Clear to Auscultation, Good Air Exchange. No: Respiratory Distress, Accessory Muscle Use Cardiovascular: Present: Regular Rate and Rhythm, Normal S1, S2. No: Murmurs Skin: Present: Warm, Dry, Normal Color. No: Rashes Psychiatric: Present: Alert, Oriented x 3, Normal Insight, Normal Concentration Medical Decision Making ED Course and Treatment: 10/18/18 19:46 Impression: A 68 year old male who presents to the ED s/p his defibrillator came off. Plan: -- EKG -- Amiodarone -- Urinalysis -- Reassess and disposition Prior Visits: Notes and results from previous visits were reviewed. Patient was last seen in the emergency department on 09/12/18. Progress Notes: EKG: Dual chamber paced rhythm @ 87 bpm. 10/18/18 19:48 While in ER, patient went into ventricular tachycardia with a pulse, before any medications were administered. Patient's internal defibrillator fired. Patient returned to normal paced rhythm in 80s. Spoke to Dr. Birch, who requests Amiodarone and ICU admission. Spoke to Dr. Ashley and Dr. Jose Guzman who are aware of patient's ICU admission. - Lab Interpretations Lab Results: PT 20.7 SECONDS (9.4-12.5) H 10/18/18 17:50 INR 1.86 10/18/18 17:50 APTT 33.8 Seconds (26.9-38.3) 10/18/18 17:50 Troponin I < 0.01 ng/mL D 10/18/18 17:50 NT-Pro-B Natriuret Pep 2190 pg/mL (0-450) H 10/18/18 17:50 Total Bilirubin 0.6 mg/dL (0.2-1.3) 10/18/18 17:50 AST 41 U/L (17-59) 10/18/18 17:50 ALT 18 U/L (7-56) 10/18/18 17:50 Alkaline Phosphatase 100 U/L (38-126) 10/18/18 17:50 Total Protein 7.2 g/dL (5.8-8.3) 10/18/18 17:50 Albumin 3.8 g/dL (3.0-4.8) 10/18/18 17:50 Globulin 3.4 gm/dL 10/18/18 17:50 Albumin/Globulin Ratio 1.1 (1.1-1.8) 10/18/18 17:50 - RAD Interpretation Radiology Orders: 10/18/18 17:45 CHEST PORTABLE [RAD] Stat - Medication Orders Current Medication Orders: Amiodarone HCl/Dextrose (Nexterone 360 Mg In D5w 200 Ml (Premix)) 360 mg in 200 mls @ 33.333 mls/hr IV .Q6H [facility]; Protocol Last Admin: 10/18/18 19:18 Dose: 33.333 mls/hr eMAR Start Stop Document 10/18/18 19:18 RG (Rec: 10/18/18 19:18 RG [id number]) Intravenous Solution Start Date 10/18/18 Start Time 19:18 Discontinued Medications Amiodarone HCl/Dextrose (Nexterone 150 Mg In Dextrose 100 Ml (Premix)) 150 mg in 100 mls @ 600 mls/hr IVPB ONCE ONE; Protocol Stop: 10/18/18 19:04 Last Admin: 10/18/18 19:02 Dose: 600 mls/hr eMAR Start Stop Document 10/18/18 19:02 LUIS M (Rec: 10/18/18 19:02 LUIS M [id number]) Intravenous Solution Start Date 10/18/18 Start Time 19:02 End Date 10/18/18 End time 19:12 Total Infusion Time 10 - Scribe Statement The provider has reviewed the documentation as recorded by the Ileana Brown Provider Scribe Attestation: All medical record entries made by the Ileana were at my direction and personally dictated by me. I have reviewed the chart and agree that the record accurately reflects my personal performance of the history, physical exam, medical decision making, and the department course for this patient. I have also personally directed, reviewed, and agree with the discharge instructions and disposition. Disposition/Present on Arrival - Present on Arrival Any Indicators Present on Arrival: No History of DVT/PE: No History of Uncontrolled Diabetes: No Urinary Catheter: Yes History of Decub. Ulcer: No History Surgical Site Infection Following: None - Disposition Have Diagnosis and Disposition been Completed?: Yes Diagnosis: Ventricular tachyarrhythmia, Implantable cardioverter-defibrillator (ICD) discharge, Chest pain Disposition: HOSPITALIZED Disposition Time: 18:20 Condition: SERIOUS ED Critical Care Documentation - Critical Care Total Time (mins): 60 Documented critical care: time excludes all time spent performing seperately billable procedures.
[2018-10-18] MEDS ORDERED: Magnesium Sulfate 2 gm/50 ml 2 GM/50 ML BAG IVPB ONE (19:47)
[2018-10-18] MEDS ORDERED: Potassium Chloride 20 mEq ER Tab PO STA (20:16)
--- NOTE | 2018-10-18 20:21 | CP.PCM.CON ---
<Cheyanne Stuart - Last Filed: 10/18/18 21:01> History of Present Illness - History of Present Illness History of Present Illness: Cheyanne Stuart, PGY2, ICU Consult Note for Dr Ashley: CC: "shock through defibrillator" This is a 68 year old male, with past medical history alcohol abuse, CHF (last EF 30% on 08/2018) s/p AICD, Hypothyroidism, CAD, HTN, CABG, Atrial Flutter on warfarin, and R lung adenocarcinoma, presents to ED complaining "shocks in his chest" while eating dinner. Patient reports that she was having dinner with his sister, when he felt his heart racing and felt his defibrillator misfiring. Denies any chest pain, nausea, vomiting, dizziness, syncope, sob, fevers, chills, diaphoresis. While in ED, patient went into ventricular tachycardia with a pulse twice, before any medications were administered. Patient's internal defibrillator fired. Patient returned to normal paced rhythm in 80s. Patient was given Amiodarone 150 mg IV x2, his magnesium and potassium were repleted. Patient was then started on Amiodarone drip. ED physician spoke to Dr Birch, agrees with management. [employer] was called to inquire about interrogation of AICD, states that they will interrogate and send in report. Otherwise, patient denies any cough, fevers, abdominal pain, diarrhea, constipation, urinary symptoms, orthopnea, leg swelling. 12 point ROS obtained and negative, except as per HPI. PMHx: recent AAA repair, CHF (EF 30%), Pacemaker, Hypothyroidism, CAD, HTN, CABG, COPD, Atrial Flutter, and Adenocarcinoma of R lung PSHx: unspecified abdominal surgery (Over 30 years ago), Open Heart Surgery Allergies: NKDA SocialHx: 1/2PPD Smoker for 35 years. Quit 5 years ago. Denies illicit drug use [place] [facility] [place] Avulsion Fracture FamHx: Non-Cont. PMD: Dr. Guzman Cardio: Dr. Wong Pharm: [facility], [place] Review of Systems - Review of Systems All systems: reviewed and no additional remarkable complaints except Review of Systems: as per HPI Past Patient History - Infectious Disease Hx of Infectious Diseases: None - Tetanus Immunizations Tetanus Immunization: Unknown - Past Social History Smoking Status: Former Smoker - CARDIAC Hx Cardiac Disorders: Yes Hx Congestive Heart Failure: Yes Hx Hypertension: Yes Hx Pacemaker: Yes - PULMONARY Hx Respiratory Disorders: Yes Hx Chronic Obstructive Pulmonary Disease (COPD): Yes - NEUROLOGICAL Hx Neurological Disorder: No - HEENT Hx HEENT Problems: No - RENAL Hx Chronic Kidney Disease: No - ENDOCRINE/METABOLIC Hx Endocrine Disorders: Yes Hx Hypothyroidism: Yes - HEMATOLOGICAL/ONCOLOGICAL Hx Blood Disorders: No - INTEGUMENTARY Hx Dermatological Problems: No - MUSCULOSKELETAL/RHEUMATOLOGICAL Hx Musculoskeletal Disorders: Yes Hx Falls: Yes Hx Fractures: Yes - GASTROINTESTINAL Hx Gastrointestinal Disorders: Yes (bilroth gastrectomy/gerd/pancreatitis) - GENITOURINARY/GYNECOLOGICAL Hx Genitourinary Disorders: No - PSYCHIATRIC Hx Psychophysiologic Disorder: No Hx Substance Use: No - SURGICAL HISTORY Other/Comment: HIATAL HERNIA REPAIR,TONSILLECTOMY,AICD,PACEMAKER, MITRAL VALVE REPLACEM, - ANESTHESIA Hx Anesthesia Reactions: No Hx Malignant Hyperthermia: No Meds Allergies/Adverse Reactions: Allergies Allergy/AdvReac Type Severity Reaction Status Date / Time No Known Allergies Allergy Verified 10/13/18 19:02 - Medications Medications: Current Medications Amiodarone HCl/Dextrose (Nexterone 360 Mg In D5w 200 Ml (Premix)) 360 mg in 200 mls @ 33.333 mls/hr IV .Q6H SANNA; Protocol Last Admin: 10/18/18 19:18 Dose: 33.333 mls/hr Magnesium Sulfate (Magnesium Sulfate 2 Gm/50 Ml Water) 2 gm in 50 mls @ 50 mls/hr IVPB ONCE ONE Stop: 10/18/18 20:46 Potassium Chloride (K-Dur 20 Meq Er Tab) 40 meq PO STAT STA Stop: 10/18/18 20:17 Physical Exam - Constitutional Appears: Non-toxic, No Acute Distress - Head Exam Head Exam: ATRAUMATIC, NORMOCEPHALIC - Eye Exam Eye Exam: EOMI, PERRL. absent: Conjunctival injection, Nystagmus, Scleral icterus Pupil Exam: NORMAL ACCOMODATION, PERRL. absent: Irregular, Unequal - ENT Exam ENT Exam: Mucous Membranes Moist - Neck Exam Neck exam: Positive for: Full Rom - Respiratory Exam Respiratory Exam: Clear to Auscultation Bilateral, NORMAL BREATHING PATTERN. absent: Accessory Muscle Use, Rhonchi, Wheezes - Cardiovascular Exam Cardiovascular Exam: +S1, +S2 Additional comments: midsternal old chest scar - GI/Abdominal Exam GI & Abdominal Exam: Normal Bowel Sounds, Soft. absent: Distended, Firm, Guarding, Rebound, Tenderness - Extremities Exam Extremities exam: Positive for: normal inspection. Negative for: calf tender ness, pedal edema - Back Exam Back exam: NORMAL INSPECTION - Neurological Exam Neurological exam: Alert, Oriented x3 - Psychiatric Exam Psychiatric exam: Normal Affect, Normal Mood - Skin Skin Exam: Dry, Normal Color, Warm Results - Vital Signs Recent Vital Signs: Last Vital Signs Temp 98.1 F 10/18/18 17:40 Pulse 82 10/18/18 19:22 Resp 20 10/18/18 19:22 BP 153/94 H 10/18/18 19:22 Pulse Ox 98 10/18/18 19:22 - Labs Result Diagrams: 10/18/18 17:50 10/18/18 17:50 Labs: Laboratory Results - last 24 hr 10/18/18 10/18/18 10/18/18 17:50 17:50 17:50 WBC 7.4 D RBC 3.85 Hgb 9.3 L Hct 29.3 L MCV 76.1 L MCH 24.2 L MCHC 31.7 RDW 17.9 H Plt Count 269 MPV 9.8 Neut % (Auto) 75.4 H Lymph % (Auto) 12.8 L [place] % (Auto) 9.7 H Eos % (Auto) 2.0 Baso % (Auto) 0.1 Lymph # (Auto) 1.0 L [place] # (Auto) 0.7 H Eos # (Auto) 0.2 Baso # (Auto) 0.01 Absolute Neuts (auto) 5.61 PT 20.7 H INR 1.86 APTT 33.8 Sodium 136 Potassium 3.3 L Chloride 99 Carbon Dioxide 24 Anion Gap 16 BUN 15 Creatinine 0.9 Est GFR ( Amer) > 60 Est GFR (Non-Af Amer) > 60 Random Glucose 110 Calcium 8.6 Magnesium 1.6 L Total Bilirubin 0.6 AST 41 ALT 18 Alkaline Phosphatase 100 Lactate Dehydrogenase 970 H Total Creatine Kinase 69 Troponin I < 0.01 D NT-Pro-B Natriuret Pep 2190 H Total Protein 7.2 Albumin 3.8 Globulin 3.4 Albumin/Globulin Ratio 1.1 Assessment & Plan - Assessment and Plan (Free Text) Assessment: This is a 68 year old male with PMH recent AAA repair, CHF (EF 32%), Pacemaker, Hypothyroidism, CAD, HTN, CABG, COPD, Atrial Flutter, and Adenocarcinoma of R lung, is here s/p AICD firing today: Neuro: AAOx3. No changes in mental status. Cont to monitor. Cardio: - Patient had AICD firing today x2 - EKG shows dual chamber paced rhythm @ 87 bpm. - Given Amiodarone 150 mg IV x2 in ED - Started on Amiodarone drip at 1 mg/min - K 3.2, repleted with Kdur 40 meq; Mg 1.6, repleted with 2 gm IVx1 - will continue with home meds metoprolol tartrate 25 BID PO and Mexilitine 150 mg PO BID - INR 1.86. c/w home Warfarin 5 mg daily for afib - Initial trop negative. f/u trops x2 - Cardiology Dr Wong consulted. F/u recs. - Called [employer], awaiting report. - Will monitor in ICU Resp: - CXR prominence of pulm vascular congestion. no pleural effusion/consolidation. - on NC, saturating well. - HOB elevated to 30 degrees - Monitor GI: - Pepcid for ppx - heart healthy diet Nephro: - BUN/Cr 15/0.9 - replace lytes and monitor Endo: - last A1C 6.2 - BG 110. - Maintain euglycemia PPX: warfarin, pepcid Case seen and discussed with Dr Ashley. <Marilyn Ashley - Last Filed: 10/19/18 05:56> Meds - Medications Medications: Current Medications Atorvastatin Calcium (Lipitor) 20 mg PO DAILY SANNA Famotidine (Pepcid) 20 mg PO 1000,2200 [facility] Last Admin: 10/18/18 21:07 Dose: 20 mg Guaifenesin (Robitussin) 200 mg PO Q4H PRN PRN Reason: Cough and congestion Amiodarone HCl/Dextrose (Nexterone 360 Mg In D5w 200 Ml (Premix)) 360 mg in 200 mls @ 33.333 mls/hr IV .Q6H SANNA; Protocol Last Admin: 10/19/18 00:30 Dose: 33.333 mls/hr Levothyroxine Sodium (Synthroid) 88 mcg PO DAILY [facility] Metoprolol Tartrate (Lopressor) 25 mg PO BRKDIN [facility] Last Admin: 10/18/18 21:06 Dose: 25 mg Non-Formulary Medication (Mexiletine [Mexiletine]) 150 mg PO BID [facility] Warfarin Sodium (Coumadin) 5 mg PO DAILY [facility]; Protocol Results - Vital Signs Recent Vital Signs: Last Vital Signs Temp 98.6 F 10/18/18 20:50 Pulse 65 10/19/18 04:00 Resp 24 10/19/18 02:10 BP 148/101 H 10/19/18 02:00 Pulse Ox 99 10/19/18 02:10 - Labs Result Diagrams: 10/18/18 17:50 10/18/18 17:50 Labs: Laboratory Results - last 24 hr 10/18/18 10/18/18 10/18/18 17:50 17:50 17:50 WBC 7.4 D RBC 3.85 Hgb 9.3 L Hct 29.3 L MCV 76.1 L MCH 24.2 L MCHC 31.7 RDW 17.9 H Plt Count 269 MPV 9.8 Neut % (Auto) 75.4 H Lymph % (Auto) 12.8 L [place] % (Auto) 9.7 H Eos % (Auto) 2.0 Baso % (Auto) 0.1 Lymph # (Auto) 1.0 L [place] # (Auto) 0.7 H Eos # (Auto) 0.2 Baso # (Auto) 0.01 Absolute Neuts (auto) 5.61 PT 20.7 H INR 1.86 APTT 33.8 Sodium 136 Potassium 3.3 L Chloride 99 Carbon Dioxide 24 Anion Gap 16 BUN 15 Creatinine 0.9 Est GFR ( Amer) > 60 Est GFR (Non-Af Amer) > 60 Random Glucose 110 Calcium 8.6 Magnesium 1.6 L Total Bilirubin 0.6 AST 41 ALT 18 Alkaline Phosphatase 100 Lactate Dehydrogenase 970 H Total Creatine Kinase 69 Troponin I < 0.01 D NT-Pro-B Natriuret Pep 2190 H Total Protein 7.2 Albumin 3.8 Globulin 3.4 Albumin/Globulin Ratio 1.1 TSH 3rd Generation Alcohol, Quantitative 10/18/18 10/19/18 18:00 00:28 WBC RBC Hgb Hct MCV MCH MCHC RDW Plt Count MPV Neut % (Auto) Lymph % (Auto) [place] % (Auto) Eos % (Auto) Baso % (Auto) Lymph # (Auto) [place] # (Auto) Eos # (Auto) Baso # (Auto) Absolute Neuts (auto) PT INR APTT Sodium Potassium Chloride Carbon Dioxide Anion Gap BUN Creatinine Est GFR ( Amer) Est GFR (Non-Af Amer) Random Glucose Calcium Magnesium Total Bilirubin AST ALT Alkaline Phosphatase Lactate Dehydrogenase Total Creatine Kinase Troponin I 0.03 D NT-Pro-B Natriuret Pep Total Protein Albumin Globulin Albumin/Globulin Ratio TSH 3rd Generation 4.80 H Alcohol, Quantitative < 10 Attending/Attestation - Attestation I have personally seen and examined this patient.: Yes I have fully participated in the care of the patient.: Yes I have reviewed all pertinent clinical information: Yes Notes (Text): 10/19/18 05:52 Patient was seen when he was in the cubicle # 7 in the ER. Medical record was reviewed. Agree with consult note. I had spoken to [employer] person Aissatou , who is going to come to interrogate defibrillator this morning. Critical care time spent 30 minutes: B-19:05 , E-19:35.
[2018-10-18] MEDS ORDERED: MEXILETINE 150 MG PO SCH (20:45)
[2018-10-18 20:53] VITALS: BMI 21.0
[2018-10-19] MEDS: Amiodarone 360 mg/D5W 200 ml 360 MG/200 ML BAG IV SCH ×2 (00:30→06:51)
[2018-10-19 06:08] LABS: BASO # 0.01 K/mm3 (0.0-2.0); BASO % 0.2 % (0.0-3.0); EOS # 0.1 (0.0-0.7); EOS % 2.3 % (1.5-5.0); HEMOGLOBIN 9.4 g/dL (14.0-18.0); LYMPH # 0.6 (1.2-3.4); MEAN CELL VOLUME 75.9 fl (80.0-105.0); MEAN CORPUSCULAR HEMOGLOBIN 23.6 pg (25.0-35.0); MEAN CORPUSCULAR HGB CONC 31.1 g/dl (31.0-37.0); MEAN PLATELET VOLUME 9.4 fl (7.0-11.0); MONO # 0.8 (0.1-0.6); MONO % 13.3 % (1.0-6.0); RBC 3.98 10^6/uL (3.5-6.1); RED CELL DISTRIBUTION WIDTH 17.8 % (11.5-14.5); WHITE BLOOD COUNT 6.1 10^3/uL (4.5-11.0)
[2018-10-19 06:21] LABS: ALB/GLOB RATIO 1.1 (1.1-1.8); ALBUMIN 3.5 g/dL (3.0-4.8); ALT/SGPT 22 U/L (7-56); AST/SGOT 32 U/L (17-59); BLOOD UREA NITROGEN 10 mg/dL (7-21); CALCIUM 7.8 mg/dL (8.4-10.5); GFR NON-AFRICAN AMERICAN > 60; HDL CHOLESTEROL 45 mg/dL (29-60)
[2018-10-19 06:26] LABS: LDL CHOLESTEROL 87 mg/dL (0-129); TROPONIN I 0.02 ng/mL
[2018-10-19] MEDS ORDERED: Potassium Phosphate 15 MMOLE in Sodium Chloride 0.9% 250 ML IVPB ONE (06:30)
[2018-10-19] MEDS: Potassium Chloride 20 mEq ER Tab PO SCH ×3 (07:00→15:48)
--- NOTE | 2018-10-19 07:45 | CP.CCUPN ---
<Emanuel Gee - Last Filed: 10/19/18 11:44> CCU Subjective - Physician Review Subjective (Free Text): 10/19/18 07:34 Emanuel Gee PGY-1 Critical Care Progress Note Patient seen and evaluated at bedside. Patient reports 5-6 shocks overnight. Patient remains asymptomatic without chest pain, palpitations, shortness of breath, dizziness, headaches, blurry vision, diaphoresis, nausea or vomiting. CCU Objective - Vital Signs / Intake & Output Vital Signs (Last 4 hours): Vital Signs Pulse Resp BP Pulse Ox 10/19/18 07:10 71 23 98 10/19/18 07:00 71 18 95 10/19/18 06:50 73 14 96 10/19/18 06:40 70 17 96 10/19/18 06:30 67 23 95 10/19/18 06:20 65 19 93 L 10/19/18 06:10 68 24 93 L 10/19/18 06:00 72 15 151/98 H 96 10/19/18 05:50 69 21 96 10/19/18 05:40 68 18 96 10/19/18 05:30 66 22 94 L 10/19/18 05:20 68 19 95 10/19/18 05:10 70 34 H 92 L 10/19/18 05:00 67 22 140/85 97 10/19/18 04:50 66 21 96 10/19/18 04:40 67 24 96 10/19/18 04:30 66 23 97 10/19/18 04:20 66 18 100 10/19/18 04:10 68 24 97 10/19/18 04:00 63 22 165/93 H 99 10/19/18 03:50 73 44 H 97 10/19/18 03:42 68 20 158/101 H 98 10/19/18 03:40 69 23 97 Intake and Output (Last 8hrs): Intake & Output 10/18/18 10/19/18 10/19/18 22:59 06:59 14:59 Weight 53.977 kg - Physical Exam Head: Positive for: Atraumatic, Normocephalic Pupils: Positive for: PERRL Extroacular Muscles: Positive for: EOMI Conjunctiva: Positive for: Normal Respiratory/Chest: Positive for: Clear to Auscultation, Good Air Exchange. Negative for: Respiratory Distress, Accessory Muscle Use Cardiovascular: Positive for: Regular Rate and Rhythm, Normal S1, S2. Negative for: Murmurs Upper Extremity: Positive for: Normal Inspection, Normal ROM, NORMAL PULSES. Negative for: Edema Lower Extremity: Positive for: Normal Inspection. Negative for: Edema, CALF TENDERNESS Neurological: Positive for: GCS=15, CN II-XII Intact, Speech Normal, Motor Func Grossly Intact Skin: Positive for: Warm, Dry, Normal Color. Negative for: Rashes Psychiatric: Positive for: Alert, Oriented x 3, Normal Insight, Normal Concentration - Medications Active Medications: Active Medications Generic Name Dose Route Start Last Admin Trade Name Freq PRN Reason Stop Dose Admin Atorvastatin Calcium 20 mg 10/19/18 10:00 Lipitor PO DAILY SANNA Famotidine 20 mg 10/18/18 22:00 10/18/18 21:07 Pepcid PO 20 mg 1000,2200 SANNA Administration Guaifenesin 200 mg 10/19/18 03:48 Robitussin PO Q4H PRN Cough and congestion Amiodarone HCl/Dextrose 360 mg in 200 mls @ 33.333 mls/hr 10/18/18 19:00 10/19/18 06:51 Nexterone 360 Mg In D5w 200 Ml (Premix) IV 33.333 mls/hr .Q6H SANNA Administration Protocol 1 MG/MIN Potassium Phosphate 15 mmole/ 255 mls @ 42.5 mls/hr 10/19/18 06:30 10/19/18 06:58 Sodium Chloride IVPB 10/19/18 12:29 42.5 mls/hr ONCE ONE Administration Levothyroxine Sodium 88 mcg 10/19/18 10:00 Synthroid PO DAILY [facility] Metoprolol Tartrate 25 mg 10/18/18 20:45 10/18/18 21:06 Lopressor PO 25 mg BRKDIN SANNA Administration Non-Formulary Medication 150 mg 10/19/18 10:00 Mexiletine [Mexiletine] PO BID SANNA Potassium Chloride 40 meq 10/19/18 06:45 10/19/18 07:00 K-Dur 20 Meq Er Tab PO 10/19/18 10:46 40 meq Q2H SANNA Administration Warfarin Sodium 5 mg 10/19/18 10:00 Coumadin PO DAILY [facility] Protocol - Patient Studies Lab Studies: Lab Studies 10/19/18 10/19/18 10/19/18 Range/Units 05:20 05:20 00:28 WBC 6.1 (4.5-11.0) 10^3/uL RBC 3.98 (3.5-6.1) 10^6/uL Hgb 9.4 L (14.0-18.0) g/dL Hct 30.2 L (42.0-52.0) % MCV 75.9 L (80.0-105.0) fl MCH 23.6 L (25.0-35.0) pg MCHC 31.1 (31.0-37.0) g/dl RDW 17.8 H (11.5-14.5) % Plt Count 225 (120.0-450.0) 10^3/uL MPV 9.4 (7.0-11.0) fl Neut % (Auto) 75.2 H (50.0-68.0) % Lymph % (Auto) 9.0 L (22.0-35.0) % [place] % (Auto) 13.3 H (1.0-6.0) % Eos % (Auto) 2.3 (1.5-5.0) % Baso % (Auto) 0.2 (0.0-3.0) % Lymph # (Auto) 0.6 L (1.2-3.4) [place] # (Auto) 0.8 H (0.1-0.6) Eos # (Auto) 0.1 (0.0-0.7) Baso # (Auto) 0.01 (0.0-2.0) K/mm3 Absolute Neuts (auto) 4.60 (1.4-6.5) PT (9.4-12.5) SECONDS INR APTT (26.9-38.3) Seconds Sodium 133 (132-148) mmol/L Potassium 2.9 L* (3.6-5.0) mmol/L Chloride 98 (98-107) mmol/L Carbon Dioxide 28 (21-33) mmol/L Anion Gap 11 (10-20) BUN 10 (7-21) mg/dL Creatinine 0.7 L (0.8-1.5) mg/dl Est GFR ( Amer) > 60 Est GFR (Non-Af Amer) > 60 Random Glucose 95 (70-110) mg/dL Calcium 7.8 L (8.4-10.5) mg/dL Phosphorus 2.1 L (2.5-4.5) mg/dL Magnesium 1.7 (1.7-2.2) mg/dL Total Bilirubin 0.3 (0.2-1.3) mg/dL AST 32 (17-59) U/L ALT 22 (7-56) U/L Alkaline Phosphatase 103 (38-126) U/L Lactate Dehydrogenase (333-699) U/L Total Creatine Kinase (35-230) U/L Troponin I 0.02 D 0.03 D ng/mL NT-Pro-B Natriuret Pep (0-450) pg/mL Total Protein 6.8 (5.8-8.3) g/dL Albumin 3.5 (3.0-4.8) g/dL Globulin 3.2 gm/dL Albumin/Globulin Ratio 1.1 (1.1-1.8) Triglycerides 96 (35-160) mg/dL Cholesterol 162 (130-200) mg/dL LDL Cholesterol Direct 87 (0-129) mg/dL HDL Cholesterol 45 (29-60) mg/dL TSH 3rd Generation (0.46-4.68) mIU/mL Alcohol, Quantitative (0-10) mg/dL 10/18/18 10/18/18 10/18/18 Range/Units 18:00 17:50 17:50 WBC (4.5-11.0) 10^3/uL RBC (3.5-6.1) 10^6/uL Hgb (14.0-18.0) g/dL Hct (42.0-52.0) % MCV (80.0-105.0) fl MCH (25.0-35.0) pg MCHC (31.0-37.0) g/dl RDW (11.5-14.5) % Plt Count (120.0-450.0) 10^3/uL MPV (7.0-11.0) fl Neut % (Auto) (50.0-68.0) % Lymph % (Auto) (22.0-35.0) % [place] % (Auto) (1.0-6.0) % Eos % (Auto) (1.5-5.0) % Baso % (Auto) (0.0-3.0) % Lymph # (Auto) (1.2-3.4) [place] # (Auto) (0.1-0.6) Eos # (Auto) (0.0-0.7) Baso # (Auto) (0.0-2.0) K/mm3 Absolute Neuts (auto) (1.4-6.5) PT 20.7 H (9.4-12.5) SECONDS INR 1.86 APTT 33.8 (26.9-38.3) Seconds Sodium 136 (132-148) mmol/L Potassium 3.3 L (3.6-5.0) mmol/L Chloride 99 (98-107) mmol/L Carbon Dioxide 24 (21-33) mmol/L Anion Gap 16 (10-20) BUN 15 (7-21) mg/dL Creatinine 0.9 (0.8-1.5) mg/dl Est GFR ( Amer) > 60 Est GFR (Non-Af Amer) > 60 Random Glucose 110 (70-110) mg/dL Calcium 8.6 (8.4-10.5) mg/dL Phosphorus (2.5-4.5) mg/dL Magnesium 1.6 L (1.7-2.2) mg/dL Total Bilirubin 0.6 (0.2-1.3) mg/dL AST 41 (17-59) U/L ALT 18 (7-56) U/L Alkaline Phosphatase 100 (38-126) U/L Lactate Dehydrogenase 970 H (333-699) U/L Total Creatine Kinase 69 (35-230) U/L Troponin I < 0.01 D ng/mL NT-Pro-B Natriuret Pep 2190 H (0-450) pg/mL Total Protein 7.2 (5.8-8.3) g/dL Albumin 3.8 (3.0-4.8) g/dL Globulin 3.4 gm/dL Albumin/Globulin Ratio 1.1 (1.1-1.8) Triglycerides (35-160) mg/dL Cholesterol (130-200) mg/dL LDL Cholesterol Direct (0-129) mg/dL HDL Cholesterol (29-60) mg/dL TSH 3rd Generation 4.80 H (0.46-4.68) mIU/mL Alcohol, Quantitative < 10 (0-10) mg/dL 10/18/18 Range/Units 17:50 WBC 7.4 D (4.5-11.0) 10^3/uL RBC 3.85 (3.5-6.1) 10^6/uL Hgb 9.3 L (14.0-18.0) g/dL Hct 29.3 L (42.0-52.0) % MCV 76.1 L (80.0-105.0) fl MCH 24.2 L (25.0-35.0) pg MCHC 31.7 (31.0-37.0) g/dl RDW 17.9 H (11.5-14.5) % Plt Count 269 (120.0-450.0) 10^3/uL MPV 9.8 (7.0-11.0) fl Neut % (Auto) 75.4 H (50.0-68.0) % Lymph % (Auto) 12.8 L (22.0-35.0) % [place] % (Auto) 9.7 H (1.0-6.0) % Eos % (Auto) 2.0 (1.5-5.0) % Baso % (Auto) 0.1 (0.0-3.0) % Lymph # (Auto) 1.0 L (1.2-3.4) [place] # (Auto) 0.7 H (0.1-0.6) Eos # (Auto) 0.2 (0.0-0.7) Baso # (Auto) 0.01 (0.0-2.0) K/mm3 Absolute Neuts (auto) 5.61 (1.4-6.5) PT (9.4-12.5) SECONDS INR APTT (26.9-38.3) Seconds Sodium (132-148) mmol/L Potassium (3.6-5.0) mmol/L Chloride (98-107) mmol/L Carbon Dioxide (21-33) mmol/L Anion Gap (10-20) BUN (7-21) mg/dL Creatinine (0.8-1.5) mg/dl Est GFR ( Amer) Est GFR (Non-Af Amer) Random Glucose (70-110) mg/dL Calcium (8.4-10.5) mg/dL Phosphorus (2.5-4.5) mg/dL Magnesium (1.7-2.2) mg/dL Total Bilirubin (0.2-1.3) mg/dL AST (17-59) U/L ALT (7-56) U/L Alkaline Phosphatase (38-126) U/L Lactate Dehydrogenase (333-699) U/L Total Creatine Kinase (35-230) U/L Troponin I ng/mL NT-Pro-B Natriuret Pep (0-450) pg/mL Total Protein (5.8-8.3) g/dL Albumin (3.0-4.8) g/dL Globulin gm/dL Albumin/Globulin Ratio (1.1-1.8) Triglycerides (35-160) mg/dL Cholesterol (130-200) mg/dL LDL Cholesterol Direct (0-129) mg/dL HDL Cholesterol (29-60) mg/dL TSH 3rd Generation (0.46-4.68) mIU/mL Alcohol, Quantitative (0-10) mg/dL Laboratory Results - last 24 hr 10/18/18 10/18/18 10/18/18 17:50 17:50 17:50 WBC 7.4 D RBC 3.85 Hgb 9.3 L Hct 29.3 L MCV 76.1 L MCH 24.2 L MCHC 31.7 RDW 17.9 H Plt Count 269 MPV 9.8 Neut % (Auto) 75.4 H Lymph % (Auto) 12.8 L [place] % (Auto) 9.7 H Eos % (Auto) 2.0 Baso % (Auto) 0.1 Lymph # (Auto) 1.0 L [place] # (Auto) 0.7 H Eos # (Auto) 0.2 Baso # (Auto) 0.01 Absolute Neuts (auto) 5.61 PT 20.7 H INR 1.86 APTT 33.8 Sodium 136 Potassium 3.3 L Chloride 99 Carbon Dioxide 24 Anion Gap 16 BUN 15 Creatinine 0.9 Est GFR ( Amer) > 60 Est GFR (Non-Af Amer) > 60 Random Glucose 110 Calcium 8.6 Phosphorus Magnesium 1.6 L Total Bilirubin 0.6 AST 41 ALT 18 Alkaline Phosphatase 100 Lactate Dehydrogenase 970 H Total Creatine Kinase 69 Troponin I < 0.01 D NT-Pro-B Natriuret Pep 2190 H Total Protein 7.2 Albumin 3.8 Globulin 3.4 Albumin/Globulin Ratio 1.1 Triglycerides Cholesterol LDL Cholesterol Direct HDL Cholesterol TSH 3rd Generation Alcohol, Quantitative 10/18/18 10/19/18 10/19/18 18:00 00:28 05:20 WBC 6.1 RBC 3.98 Hgb 9.4 L Hct 30.2 L MCV 75.9 L MCH 23.6 L MCHC 31.1 RDW 17.8 H Plt Count 225 MPV 9.4 Neut % (Auto) 75.2 H Lymph % (Auto) 9.0 L [place] % (Auto) 13.3 H Eos % (Auto) 2.3 Baso % (Auto) 0.2 Lymph # (Auto) 0.6 L [place] # (Auto) 0.8 H Eos # (Auto) 0.1 Baso # (Auto) 0.01 Absolute Neuts (auto) 4.60 PT INR APTT Sodium Potassium Chloride Carbon Dioxide Anion Gap BUN Creatinine Est GFR ( Amer) Est GFR (Non-Af Amer) Random Glucose Calcium Phosphorus Magnesium Total Bilirubin AST ALT Alkaline Phosphatase Lactate Dehydrogenase Total Creatine Kinase Troponin I 0.03 D NT-Pro-B Natriuret Pep Total Protein Albumin Globulin Albumin/Globulin Ratio Triglycerides Cholesterol LDL Cholesterol Direct HDL Cholesterol TSH 3rd Generation 4.80 H Alcohol, Quantitative < 10 10/19/18 05:20 WBC RBC Hgb Hct MCV MCH MCHC RDW Plt Count MPV Neut % (Auto) Lymph % (Auto) [place] % (Auto) Eos % (Auto) Baso % (Auto) Lymph # (Auto) [place] # (Auto) Eos # (Auto) Baso # (Auto) Absolute Neuts (auto) PT INR APTT Sodium 133 Potassium 2.9 L* Chloride 98 Carbon Dioxide 28 Anion Gap 11 BUN 10 Creatinine 0.7 L Est GFR ( Amer) > 60 Est GFR (Non-Af Amer) > 60 Random Glucose 95 Calcium 7.8 L Phosphorus 2.1 L Magnesium 1.7 Total Bilirubin 0.3 AST 32 ALT 22 Alkaline Phosphatase 103 Lactate Dehydrogenase Total Creatine Kinase Troponin I 0.02 D NT-Pro-B Natriuret Pep Total Protein 6.8 Albumin 3.5 Globulin 3.2 Albumin/Globulin Ratio 1.1 Triglycerides 96 Cholesterol 162 LDL Cholesterol Direct 87 HDL Cholesterol 45 TSH 3rd Generation Alcohol, Quantitative Radiology Impressions: Radiology Impressions Chest X-Ray 10/18/18 17:45 IMPRESSION: Prominence of the pulmonary vasculature may be secondary to AP technique and/or pulmonary vascular congestion. No focal consolidation or pleural effusion. EKG/Cardiology Studies: Cardiology / EKG Studies 10/18/18 17:44 ELECTROCARDIOGRAM Stat Comment: Reason For Exam: chest pain 10/18/18 18:48 EKG [ELECTROCARDIOGRAM] Stat Comment: Reason For Exam: chest pain Review of Systems - Review of Systems Review of Systems: 12 point ROS completed and negative except as described in HPI. Critical Care Progress Note - Nutrition Nutrition: Nutrition Category Date Time Status Heart Healthy Diet [DIET] Diets 10/18/18 Dinner Active Assessment/Plan - Assessment and Plan (Free Text) Assessment: 68 year old male with PMH recent AAA repair 10/11, CHF (EF 32%) s/p AICD, Hypothyroidism, CAD, HTN, CABG, COPD, Atrial Flutter, and Adenocarcinoma of R lung, is here s/p AICD firing on 10/18. Neuro: - AAOx3. No changes in mental status. Cont to monitor. - Reorient as necessary Cardio: - Patient had AICD which fired multiple times overnight - EKG shows dual chamber paced rhythm @ 88 bpm. - C/w Amiodarone drip at 0.5 mg/min until this evening - Begin Amiodarone PO loading regimen later today with maintenance to begin tomorrow - will continue home meds metoprolol tartrate 25 BID PO and Mexilitine 150 mg PO BID - INR 2.04. c/w home Warfarin 5 mg daily for afib - trops negative x3 - Cardiology Dr Wong consulted. - Awaiting [employer] report/interrogation regarding shocks - Continue to be monitored in ICU Resp: - CXR 10/18 prominence of pulm vascular congestion. no pleural effusion/cons olidation. - on NC, saturating well. - HOB elevated to 30 degrees - Monitor GI: - Pepcid for ppx - heart healthy diet Nephro: - BUN/Cr 10/0.7 - Hypokalemia repleted with K-dur, HypoCalcemia repleted w Ca gluconate, phosphate replteed with K-phos - repeat CMP this afternoon - replace lytes and monitor - monitor urine o/p Endo: - last A1C 6.2 - TSH 4.8, f/u free T4 - Continue with Synthroid - BG 95 - Maintain euglycemia PPX: warfarin, pepcid Patient seen, case reviewed and plan approved by Dr. Chapman. Emanuel Gee, PGY-1 <Ian Chapman - Last Filed: 10/19/18 12:05> CCU Objective - Vital Signs / Intake & Output Vital Signs (Last 4 hours): Vital Signs Pulse BP 10/19/18 11:49 67 10/19/18 11:33 65 154/92 H Intake and Output (Last 8hrs): Intake & Output 10/18/18 10/19/18 10/19/18 22:59 06:59 14:59 Intake Total 949 Output Total 900 Balance 49 Weight 119 lb 119 lb Intake: IV 949 Left Hand 550 Right Hand 399 Output: Urine 900 Urine, Voided 900 Stool 0 - Medications Active Medications: Active Medications Generic Name Dose Route Start Last Admin Trade Name Freq PRN Reason Stop Dose Admin Amiodarone HCl 200 mg 10/20/18 10:00 Cordarone PO DAILY SANNA Amiodarone HCl 400 mg 10/19/18 14:00 Cordarone PO 10/19/18 23:59 TID SANNA Atorvastatin Calcium 20 mg 10/19/18 10:00 10/19/18 11:49 Lipitor PO 20 mg DAILY SANNA Administration Famotidine 20 mg 10/18/18 22:00 10/19/18 11:43 Pepcid PO 20 mg 1000,2200 SANNA Administration Guaifenesin 200 mg 10/19/18 03:48 Robitussin PO Q4H PRN Cough and congestion Potassium Phosphate 15 mmole/ 255 mls @ 42.5 mls/hr 10/19/18 06:30 10/19/18 06:58 Sodium Chloride IVPB 10/19/18 12:29 42.5 mls/hr ONCE ONE Administration Amiodarone HCl/Dextrose 360 mg in 200 mls @ 16.667 mls/hr 10/19/18 10:15 Nexterone 360 Mg In D5w 200 Ml (Premix) IV 10/19/18 22:15 .Q12H SANNA Protocol 0.5 MG/MIN Levothyroxine Sodium 88 mcg 10/19/18 10:00 10/19/18 11:42 Synthroid PO 88 mcg DAILY SANNA Administration Magnesium Oxide 400 mg 10/19/18 10:15 10/19/18 11:48 Mag-Ox PO 10/20/18 23:59 400 mg BID SANNA Administration Metoprolol Tartrate 25 mg 10/18/18 20:45 10/19/18 11:49 Lopressor PO 25 mg BRKDIN SANNA Administration Non-Formulary Medication 150 mg 10/19/18 10:00 Mexiletine [Mexiletine] PO BID SANNA Warfarin Sodium 5 mg 10/19/18 10:00 10/19/18 11:50 Coumadin PO 5 mg DAILY SANNA Administration Protocol - Patient Studies Lab Studies: Lab Studies 10/19/18 10/19/18 10/19/18 Range/Units 11:00 11:00 05:20 WBC (4.5-11.0) 10^3/uL RBC (3.5-6.1) 10^6/uL Hgb (14.0-18.0) g/dL Hct (42.0-52.0) % MCV (80.0-105.0) fl MCH (25.0-35.0) pg MCHC (31.0-37.0) g/dl RDW (11.5-14.5) % Plt Count (120.0-450.0) 10^3/uL MPV (7.0-11.0) fl Neut % (Auto) (50.0-68.0) % Lymph % (Auto) (22.0-35.0) % [place] % (Auto) (1.0-6.0) % Eos % (Auto) (1.5-5.0) % Baso % (Auto) (0.0-3.0) % Lymph # (Auto) (1.2-3.4) [place] # (Auto) (0.1-0.6) Eos # (Auto) (0.0-0.7) Baso # (Auto) (0.0-2.0) K/mm3 Absolute Neuts (auto) (1.4-6.5) PT 23.0 H (9.4-12.5) SECONDS INR 2.04 APTT (26.9-38.3) Seconds Sodium 133 (132-148) mmol/L Potassium 2.9 L* (3.6-5.0) mmol/L Chloride 98 (98-107) mmol/L Carbon Dioxide 28 (21-33) mmol/L Anion Gap 11 (10-20) BUN 10 (7-21) mg/dL Creatinine 0.7 L (0.8-1.5) mg/dl Est GFR ( Amer) > 60 Est GFR (Non-Af Amer) > 60 Random Glucose 95 (70-110) mg/dL Calcium 7.8 L (8.4-10.5) mg/dL Phosphorus 2.1 L (2.5-4.5) mg/dL Magnesium 1.7 (1.7-2.2) mg/dL Total Bilirubin 0.3 (0.2-1.3) mg/dL AST 32 (17-59) U/L ALT 22 (7-56) U/L Alkaline Phosphatase 103 (38-126) U/L Lactate Dehydrogenase (333-699) U/L Total Creatine Kinase (35-230) U/L Troponin I 0.02 D ng/mL NT-Pro-B Natriuret Pep (0-450) pg/mL Total Protein 6.8 (5.8-8.3) g/dL Albumin 3.5 (3.0-4.8) g/dL Globulin 3.2 gm/dL Albumin/Globulin Ratio 1.1 (1.1-1.8) Triglycerides 96 (35-160) mg/dL Cholesterol 162 (130-200) mg/dL LDL Cholesterol Direct 87 (0-129) mg/dL HDL Cholesterol 45 (29-60) mg/dL Free T4 1.72 (0.78-2.19) ng/dL TSH 3rd Generation (0.46-4.68) mIU/mL Alcohol, Quantitative (0-10) mg/dL 10/19/18 10/19/18 10/18/18 Range/Units 05:20 00:28 18:00 WBC 6.1 (4.5-11.0) 10^3/uL RBC 3.98 (3.5-6.1) 10^6/uL Hgb 9.4 L (14.0-18.0) g/dL Hct 30.2 L (42.0-52.0) % MCV 75.9 L (80.0-105.0) fl MCH 23.6 L (25.0-35.0) pg MCHC 31.1 (31.0-37.0) g/dl RDW 17.8 H (11.5-14.5) % Plt Count 225 (120.0-450.0) 10^3/uL MPV 9.4 (7.0-11.0) fl Neut % (Auto) 75.2 H (50.0-68.0) % Lymph % (Auto) 9.0 L (22.0-35.0) % [place] % (Auto) 13.3 H (1.0-6.0) % Eos % (Auto) 2.3 (1.5-5.0) % Baso % (Auto) 0.2 (0.0-3.0) % Lymph # (Auto) 0.6 L (1.2-3.4) [place] # (Auto) 0.8 H (0.1-0.6) Eos # (Auto) 0.1 (0.0-0.7) Baso # (Auto) 0.01 (0.0-2.0) K/mm3 Absolute Neuts (auto) 4.60 (1.4-6.5) PT (9.4-12.5) SECONDS INR APTT (26.9-38.3) Seconds Sodium (132-148) mmol/L Potassium (3.6-5.0) mmol/L Chloride (98-107) mmol/L Carbon Dioxide (21-33) mmol/L Anion Gap (10-20) BUN (7-21) mg/dL Creatinine (0.8-1.5) mg/dl Est GFR ( Amer) Est GFR (Non-Af Amer) Random Glucose (70-110) mg/dL Calcium (8.4-10.5) mg/dL Phosphorus (2.5-4.5) mg/dL Magnesium (1.7-2.2) mg/dL Total Bilirubin (0.2-1.3) mg/dL AST (17-59) U/L ALT (7-56) U/L Alkaline Phosphatase (38-126) U/L Lactate Dehydrogenase (333-699) U/L Total Creatine Kinase (35-230) U/L Troponin I 0.03 D ng/mL NT-Pro-B Natriuret Pep (0-450) pg/mL Total Protein (5.8-8.3) g/dL Albumin (3.0-4.8) g/dL Globulin gm/dL Albumin/Globulin Ratio (1.1-1.8) Triglycerides (35-160) mg/dL Cholesterol (130-200) mg/dL LDL Cholesterol Direct (0-129) mg/dL HDL Cholesterol (29-60) mg/dL Free T4 (0.78-2.19) ng/dL TSH 3rd Generation 4.80 H (0.46-4.68) mIU/mL Alcohol, Quantitative < 10 (0-10) mg/dL 10/18/18 10/18/18 10/18/18 Range/Units 17:50 17:50 17:50 WBC 7.4 D (4.5-11.0) 10^3/uL RBC 3.85 (3.5-6.1) 10^6/uL Hgb 9.3 L (14.0-18.0) g/dL Hct 29.3 L (42.0-52.0) % MCV 76.1 L (80.0-105.0) fl MCH 24.2 L (25.0-35.0) pg MCHC 31.7 (31.0-37.0) g/dl RDW 17.9 H (11.5-14.5) % Plt Count 269 (120.0-450.0) 10^3/uL MPV 9.8 (7.0-11.0) fl Neut % (Auto) 75.4 H (50.0-68.0) % Lymph % (Auto) 12.8 L (22.0-35.0) % [place] % (Auto) 9.7 H (1.0-6.0) % Eos % (Auto) 2.0 (1.5-5.0) % Baso % (Auto) 0.1 (0.0-3.0) % Lymph # (Auto) 1.0 L (1.2-3.4) [place] # (Auto) 0.7 H (0.1-0.6) Eos # (Auto) 0.2 (0.0-0.7) Baso # (Auto) 0.01 (0.0-2.0) K/mm3 Absolute Neuts (auto) 5.61 (1.4-6.5) PT 20.7 H (9.4-12.5) SECONDS INR 1.86 APTT 33.8 (26.9-38.3) Seconds Sodium 136 (132-148) mmol/L Potassium 3.3 L (3.6-5.0) mmol/L Chloride 99 (98-107) mmol/L Carbon Dioxide 24 (21-33) mmol/L Anion Gap 16 (10-20) BUN 15 (7-21) mg/dL Creatinine 0.9 (0.8-1.5) mg/dl Est GFR ( Amer) > 60 Est GFR (Non-Af Amer) > 60 Random Glucose 110 (70-110) mg/dL Calcium 8.6 (8.4-10.5) mg/dL Phosphorus (2.5-4.5) mg/dL Magnesium 1.6 L (1.7-2.2) mg/dL Total Bilirubin 0.6 (0.2-1.3) mg/dL AST 41 (17-59) U/L ALT 18 (7-56) U/L Alkaline Phosphatase 100 (38-126) U/L Lactate Dehydrogenase 970 H (333-699) U/L Total Creatine Kinase 69 (35-230) U/L Troponin I < 0.01 D ng/mL NT-Pro-B Natriuret Pep 2190 H (0-450) pg/mL Total Protein 7.2 (5.8-8.3) g/dL Albumin 3.8 (3.0-4.8) g/dL Globulin 3.4 gm/dL Albumin/Globulin Ratio 1.1 (1.1-1.8) Triglycerides (35-160) mg/dL Cholesterol (130-200) mg/dL LDL Cholesterol Direct (0-129) mg/dL HDL Cholesterol (29-60) mg/dL Free T4 (0.78-2.19) ng/dL TSH 3rd Generation (0.46-4.68) mIU/mL Alcohol, Quantitative (0-10) mg/dL Laboratory Results - last 24 hr 10/18/18 10/18/18 10/18/18 17:50 17:50 17:50 WBC 7.4 D RBC 3.85 Hgb 9.3 L Hct 29.3 L MCV 76.1 L MCH 24.2 L MCHC 31.7 RDW 17.9 H Plt Count 269 MPV 9.8 Neut % (Auto) 75.4 H Lymph % (Auto) 12.8 L [place] % (Auto) 9.7 H Eos % (Auto) 2.0 Baso % (Auto) 0.1 Lymph # (Auto) 1.0 L [place] # (Auto) 0.7 H Eos # (Auto) 0.2 Baso # (Auto) 0.01 Absolute Neuts (auto) 5.61 PT 20.7 H INR 1.86 APTT 33.8 Sodium 136 Potassium 3.3 L Chloride 99 Carbon Dioxide 24 Anion Gap 16 BUN 15 Creatinine 0.9 Est GFR ( Amer) > 60 Est GFR (Non-Af Amer) > 60 Random Glucose 110 Calcium 8.6 Phosphorus Magnesium 1.6 L Total Bilirubin 0.6 AST 41 ALT 18 Alkaline Phosphatase 100 Lactate Dehydrogenase 970 H Total Creatine Kinase 69 Troponin I < 0.01 D NT-Pro-B Natriuret Pep 2190 H Total Protein 7.2 Albumin 3.8 Globulin 3.4 Albumin/Globulin Ratio 1.1 Triglycerides Cholesterol LDL Cholesterol Direct HDL Cholesterol Free T4 TSH 3rd Generation Alcohol, Quantitative 10/18/18 10/19/18 10/19/18 18:00 00:28 05:20 WBC 6.1 RBC 3.98 Hgb 9.4 L Hct 30.2 L MCV 75.9 L MCH 23.6 L MCHC 31.1 RDW 17.8 H Plt Count 225 MPV 9.4 Neut % (Auto) 75.2 H Lymph % (Auto) 9.0 L [place] % (Auto) 13.3 H Eos % (Auto) 2.3 Baso % (Auto) 0.2 Lymph # (Auto) 0.6 L [place] # (Auto) 0.8 H Eos # (Auto) 0.1 Baso # (Auto) 0.01 Absolute Neuts (auto) 4.60 PT INR APTT Sodium Potassium Chloride Carbon Dioxide Anion Gap BUN Creatinine Est GFR ( Amer) Est GFR (Non-Af Amer) Random Glucose Calcium Phosphorus Magnesium Total Bilirubin AST ALT Alkaline Phosphatase Lactate Dehydrogenase Total Creatine Kinase Troponin I 0.03 D NT-Pro-B Natriuret Pep Total Protein Albumin Globulin Albumin/Globulin Ratio Triglycerides Cholesterol LDL Cholesterol Direct HDL Cholesterol Free T4 TSH 3rd Generation 4.80 H Alcohol, Quantitative < 10 10/19/18 10/19/18 10/19/18 05:20 11:00 11:00 WBC RBC Hgb Hct MCV MCH MCHC RDW Plt Count MPV Neut % (Auto) Lymph % (Auto) [place] % (Auto) Eos % (Auto) Baso % (Auto) Lymph # (Auto) [place] # (Auto) Eos # (Auto) Baso # (Auto) Absolute Neuts (auto) PT 23.0 H INR 2.04 APTT Sodium 133 Potassium 2.9 L* Chloride 98 Carbon Dioxide 28 Anion Gap 11 BUN 10 Creatinine 0.7 L Est GFR ( Amer) > 60 Est GFR (Non-Af Amer) > 60 Random Glucose 95 Calcium 7.8 L Phosphorus 2.1 L Magnesium 1.7 Total Bilirubin 0.3 AST 32 ALT 22 Alkaline Phosphatase 103 Lactate Dehydrogenase Total Creatine Kinase Troponin I 0.02 D NT-Pro-B Natriuret Pep Total Protein 6.8 Albumin 3.5 Globulin 3.2 Albumin/Globulin Ratio 1.1 Triglycerides 96 Cholesterol 162 LDL Cholesterol Direct 87 HDL Cholesterol 45 Free T4 1.72 TSH 3rd Generation Alcohol, Quantitative Radiology Impressions: Radiology Impressions Chest X-Ray 10/18/18 17:45 IMPRESSION: Prominence of the pulmonary vasculature may be secondary to AP technique and/or pulmonary vascular congestion. No focal consolidation or pleural effusion. EKG/Cardiology Studies: Cardiology / EKG Studies 10/18/18 17:44 ELECTROCARDIOGRAM Stat Comment: Reason For Exam: chest pain 10/18/18 18:48 EKG [ELECTROCARDIOGRAM] Stat Comment: Reason For Exam: chest pain Critical Care Progress Note - Nutrition Nutrition: Nutrition Category Date Time Status Heart Healthy Diet [DIET] Diets 10/18/18 Dinner Active Assessment/Plan - Assessment and Plan (Free Text) Assessment: I saw and examined the patient on rounds with the resident, agree with note with following additions/exceptions: Patient is 68 year old male with PMH recent AAA repair 10/11, CHF (EF 32%) s/p AICD, Hypothyroidism, CAD, HTN, CABG, COPD, Atrial Flutter, and Adenocarcinoma of R lung, is here s/p AICD firing on 10/18. Appropriate shocks, base don AICD interrogation. Patient on Amio drip, cardiology following Afebrile, HD stable, comfortable in NAD, tolerating PO diet Eletrolytes repleted Trops negative x3 Hypokalemia AICD firing VTACH Chronic CHF Hypothyroidism CAD CABG COPD Atrial flutter Recommend: - cont with supp o2 as needed, duonebs PRN - NO ID issues - Amio drip - Begin Amiodarone PO loading regimen later today with maintenance to begin tomorrow - continue metoprolol tartrate 25 BID PO and Mexilitine 150 mg PO BID - INR 2.04. c/w home Warfarin 5 mg daily for afib - GI ppx - DVT ppx - Monitor in MICU
[2018-10-19] MEDS ORDERED: Magnesium Sulfate 2 gm/50 ml 2 GM/50 ML BAG IVPB ONE (10:06)
[2018-10-19] MEDS ORDERED: Amiodarone 360 mg/D5W 200 ml 360 MG/200 ML BAG IV SCH (10:15)
[2018-10-19 11:18] LABS: INR 2.04
--- NOTE | 2018-10-19 11:25 | CARD ---
APPROVED REPORT Date of service: 10/18/2018 EKG Measurement Heart [id number] [id number] <Conclusion> AV sequential or dual chamber electronic pacemaker
--- NOTE | 2018-10-19 11:26 | CARD ---
APPROVED REPORT Date of service: 10/18/2018 EKG Measurement Heart [id number] <Conclusion> AV sequential or dual chamber electronic pacemaker Underlying NSR.
[2018-10-19] MEDS: Levothyroxine 88 MCG TAB PO SCH (11:42)
[2018-10-19] MEDS: Magnesium Oxide 400 mg Tab UD PO SCH ×2 (11:48→18:50)
[2018-10-19 14:24] LABS: ALB/GLOB RATIO 1.1 (1.1-1.8); ALBUMIN 3.7 g/dL (3.0-4.8); ALT/SGPT 23 U/L (7-56); AST/SGOT 31 U/L (17-59); BLOOD UREA NITROGEN 10 mg/dL (7-21); CALCIUM 8.6 mg/dL (8.4-10.5); GFR NON-AFRICAN AMERICAN > 60
--- NOTE | 2018-10-19 15:18 | CON ---
CARDIOLOGY CONSULTATION DATE: 10/19/2018 REASON FOR CONSULTATION: Defibrillator fired multiple times, severe hypokalemic, status post AICD. HISTORY OF PRESENT ILLNESS: Briefly, this is a 68-year-old male with past medical history significant for alcohol abuse, CHF, reduced LV function, history of coronary artery disease, history of AICD, history of hypertension, history of open heart surgery, status post mitral valve replacement, history of AFib and flutter on Coumadin, history of right ventricular outflow tract tachycardia and cannot be ablated with radiofrequency because the bundle is behind the mitral valve, who was having dinner in the daughter's house. Suddenly, he felt that defibrillator fired, so the patient came here. While the patient was here, in the ambulance he had a second and then multiple episodes of defibrillator went off. The patient was started on IV amiodarone. , ER physician, called me and started amiodarone. Since then, the patient is stable. Yesterday, potassium was 3.8, today is 2.9. The patient denies any further episodes of defibrillator firing. The patient's last night interrogation done of defibrillator that was found to be VT/VF at the rate of 200 and multiple times shock was delivered and converted to normal sinus. All the shock was appropriate. PAST HISTORY: Significant recently for AAA endovascular repair, history of AICD, history of hypothyroidism, history of coronary artery disease, history of open heart surgery, history of mitral valve repair, COPD, atrial flutter, and history of adenocarcinoma of the right lung. PAST SURGICAL HISTORY: Significant for endovascular repair for AAA recently, history of open heart surgery, history of mitral valve repair, history of hypothyroidism, history of Billroth gastrectomy, history of pancreatitis, history of lung adenocarcinoma, status post resection, history of cardiac catheterization on 04/13/2013 that shows a nonobstructive coronary artery disease, history of AICD placed, history of EP study for ventricular fibrillation, but it was found to be the accessory pathway is buried under the mitral valve repair, so it cannot be ablated. PREVIOUS CARDIAC WORKUP: The patient had a cardiac catheterization on 04/13/2013 that shows a nonobstructive coronary artery disease, [id number] disease in LAD 30% to 40%, moderate disease in RCA 40% to 50%, ejection fraction 35%, enlarged LV posterobasal hypokinesis, nonischemic cardiomyopathy, severe mitral regurgitation. The patient was referred to [facility] for mitral valve repair by Dr. Oneal. History as mentioned of multiple ventricular tachycardia and ventricular lead was repositioned but cannot be ablated because the tract accessory pathway is buried under the mitral valve repair, too dangerous to ablate because it will ruin the valve function. The patient had MUGA scan on 09/01/2017 that shows a fixed defect with ejection fraction 32%. The patient had [employer] AICD placed by Dr. Bill. Date of implantation is 05/2013 and then upgraded again 07/23/2013, and being followed by Dr. Bill at [facility]. The patient had recent repeat echo done on the last admission when the patient came with acute alcoholic intoxication, elevated blood alcohol level. At that time, the echo revealed ejection fraction 30% dated 09/14/2018, prosthetic mitral valve appears normal. No vegetation noted on the prosthetic mitral valve. Mild tricuspid regurgitation, RV systolic pressure 29, mild pulmonary insufficiency. No pericardial effusion. History of AFib/flutter on anticoagulation. SOCIAL HISTORY: Denies any history of smoking, but on last admission, the patient had a blood alcohol level elevated when the patient came in with acute alcoholic intoxication. Denies any drinking now. ALLERGIES: NO KNOWN DRUG ALLERGIES. CURRENT MEDICATIONS: The patient at home was taking Coumadin 5 mg daily, mexiletine 150 p.o. b.i.d., metoprolol tartrate 25 mg p.o. b.i.d., levothyroxine 88 mcg, atorvastatin 20 mg, amiodarone 200 mg p.o. daily. REVIEW OF SYSTEMS: As per HPI. PHYSICAL EXAMINATION: VITAL SIGNS: Height of the patient is 5 feet 3 inches, weight 119 pounds, body mass index 21.1 kg/m2. Temperature afebrile, heart rate 70, blood pressure 150/98. HEENT: PERRLA. Extraocular muscles intact. NECK: Supple. No carotid bruit or thyromegaly. CHEST: Clear to auscultation. HEART: S1, S2 regular. ABDOMEN: Soft. EXTREMITIES: Clubbing and cyanosis negative. Defibrillator site looks okay. IMPRESSION: A 68-year-old male with past medical history significant for nonobstructive coronary artery disease, status post cardiac catheterization, history of severe mitral regurgitation, status post mitral valve bioprosthetic replacement, history of ventricular tachycardia and accessory pathways behind the mitral valve repair, cannot be ablated because it is too dangerous. It will affect the valve function and cause scarring. Admitted yesterday with the defibrillator fired. It was appropriate interrogation. Then, the patient had [employer] AICD done by Dr. Bill and interrogation yesterday done that revealed the patient went into ventricular tachycardia and ventricular fibrillation shock was appropriately delivered, total 6 shocks were delivered. The patient has hypokalemia on admission 3.6 to 2.9. RECOMMENDATION: Load him with amiodarone, though the patient was on amiodarone 200 mg, so we will increase IV 300 mg bolus followed by 1 mg for 8 hours followed by 0.5 mg for 18 hours and then 400 mg p.o. t.i.d. We will also aggressively supplement potassium and magnesium and keep magnesium above 2 and potassium 4. If remained stable, possible discharge home tomorrow. Recent echo showed ejection fraction 30%, mild MR, mild TR on 08/2018 with the patient admitted with alcoholic intoxication. The patient recently had endovascular repair done for AAA. We will follow with you. Thank you Dr. Guzman for providing us the opportunity in taking care of the patient, Rohan Huitron. The patient's INR is 1.86. We will continue Coumadin 5 mg. The patient's troponin 0.04 probably is most likely secondary to after having a shock, but no evidence of acute IA. Magnesium 1.7, potassium 2.9. We will supplement aggressively potassium and magnesium. We will load with amiodarone. TSH is 4.8. We will monitor closely. May need to increase later if goes above 5. We will follow. Anupama Birch MD
[2018-10-19] MEDS: guaiFENesin 200 mg/10 ml Syrup UD PO PRN (21:36)
[2018-10-20 00:13] VITALS: TEMP 98
--- NOTE | 2018-10-20 01:13 | PN ---
DATE: 10/19/2018 DAILY PROGRESS NOTE SUBJECTIVE: The patient is a 68-year-old male with a known past medical history positive for coronary artery disease, congestive heart failure and ejection fraction of about 30% to 35%, status post implantation of a defibrillator/pacemaker. He also has a history of hypothyroidism and a history of alcoholism. He was admitted after his defibrillator fired at home. It fired again when he is in the emergency room. He was admitted yesterday and overnight the defibrillator fired for approximately six times. OBJECTIVE: GENERAL: When seen today, the patient is awake, alert and oriented. LUNGS: Clear. HEART: Regular. ABDOMEN: Soft and nontender. LABORATORY DATA: This morning's laboratory showed the white blood cell count to be 6.1, hemoglobin and hematocrit are 9.4 and 30.2 respectively, platelet count is 225. This morning, his PT/INR is 2.04. Serum chemistries showed the potassium is depressed at 2.9, sodium is 133, BUN and creatinine are 10 and 0.7 respectively, glucose is 95. Calcium is also depressed at 7.8, phosphorus depressed at 2.1, magnesium is normal at 1.7. Currently, the patient is receiving amiodarone 600 mg three times a day. He continues to receive warfarin 5 mg daily, Lipitor 20 mg daily, atorvastatin 25 mg twice a day. He is receiving magnesium oxide 400 mg twice a day, Pepcid 20 mg twice a day and levothyroxine 88 mcg daily. ASSESSMENT AND PLAN: We are continuing to follow the patient's labs closely. The patient is to be re-evaluated in the morning and discussed with Cardiology as well as with the elementary education teacher. Royal Guzman MD
[2018-10-20 06:04] LABS: INR 2.23; PROTHROMBIN TIME 25.2 SECONDS (9.4-12.5)
[2018-10-20 06:09] LABS: BASO # 0.01 K/mm3 (0.0-2.0); BASO % 0.1 % (0.0-3.0); EOS # 0.1 (0.0-0.7); EOS % 1.7 % (1.5-5.0); HEMOGLOBIN 9.4 g/dL (14.0-18.0); LYMPH # 0.7 (1.2-3.4); LYMPH % 9.9 % (22.0-35.0); MEAN CELL VOLUME 76.3 fl (80.0-105.0); MEAN CORPUSCULAR HEMOGLOBIN 23.5 pg (25.0-35.0); MEAN CORPUSCULAR HGB CONC 30.8 g/dl (31.0-37.0); MEAN PLATELET VOLUME 9.6 fl (7.0-11.0); MONO # 0.8 (0.1-0.6); MONO % 10.8 % (1.0-6.0); WHITE BLOOD COUNT 6.9 10^3/uL (4.5-11.0)
[2018-10-20 06:16] LABS: ALB/GLOB RATIO 1.1 (1.1-1.8); ALBUMIN 3.6 g/dL (3.0-4.8); ALT/SGPT 25 U/L (7-56); AST/SGOT 35 U/L (17-59); BLOOD UREA NITROGEN 12 mg/dL (7-21); CALCIUM 8.5 mg/dL (8.4-10.5); GFR NON-AFRICAN AMERICAN > 60
--- NOTE | 2018-10-20 06:53 | CP.CCUPN ---
<Emanuel Gee - Last Filed: 10/20/18 11:21> CCU Subjective - Physician Review Subjective (Free Text): Emanuel Gee PGY-1 Critical Care Progress Note Patient seen and evaluated at bedside. No acute events reported overnight. Amiodarone drip discontinued overnight. Patient remains asymptomatic without chest pain, palpitations, shortness of breath, dizziness, headaches, blurry vision, diaphoresis, nausea or vomiting. 10/20/18 06:47 CCU Objective - Vital Signs / Intake & Output Vital Signs (Last 4 hours): Vital Signs Pulse Resp BP Pulse Ox 10/20/18 06:30 60 17 100 10/20/18 06:20 60 18 100 10/20/18 06:10 60 17 100 10/20/18 06:00 61 18 158/97 H 98 10/20/18 05:50 62 20 99 10/20/18 05:40 62 24 99 10/20/18 05:30 68 16 98 10/20/18 05:20 60 19 99 10/20/18 05:10 60 24 99 10/20/18 05:00 60 7 L 152/92 H 100 10/20/18 04:50 63 18 100 10/20/18 04:40 60 20 100 10/20/18 04:30 60 100 10/20/18 04:20 60 20 99 10/20/18 04:10 61 20 99 10/20/18 04:00 64 9 L 160/99 H 99 10/20/18 03:50 62 99 10/20/18 03:40 60 22 99 10/20/18 03:30 62 18 99 10/20/18 03:20 62 12 99 10/20/18 03:10 62 100 10/20/18 03:05 60 28 H 166/96 H 97 10/20/18 03:00 61 20 179/96 H 99 10/20/18 02:50 79 30 H 99 Intake and Output (Last 8hrs): Intake & Output 10/19/18 10/19/18 10/20/18 14:59 22:59 06:59 Intake Total 1015 640 Output Total 900 400 Balance 115 240 Intake: IV 555 40 Left Antecubital 40 Left Hand 300 Right Hand 255 0 Oral 460 600 Output: Urine 900 400 Urine, Voided 900 400 Stool 0 Other: # Bowel Movements 0 - Physical Exam Head: Positive for: Atraumatic, Normocephalic Pupils: Positive for: PERRL Extroacular Muscles: Positive for: EOMI Conjunctiva: Positive for: Normal Respiratory/Chest: Positive for: Clear to Auscultation, Good Air Exchange. Negative for: Respiratory Distress, Accessory Muscle Use Cardiovascular: Positive for: Regular Rate and Rhythm, Normal S1, S2. Negative for: Murmurs Upper Extremity: Positive for: Normal Inspection, Normal ROM, NORMAL PULSES. Negative for: Edema Lower Extremity: Positive for: Normal Inspection. Negative for: Edema, CALF TENDERNESS Neurological: Positive for: GCS=15, CN II-XII Intact, Speech Normal, Motor Func Grossly Intact Skin: Positive for: Warm, Dry, Pale. Negative for: Rashes Psychiatric: Positive for: Alert, Oriented x 3, Normal Insight, Normal Concentration - Medications Active Medications: Active Medications Generic Name Dose Route Start Last Admin Trade Name Freq PRN Reason Stop Dose Admin Acetaminophen 650 mg 10/20/18 01:55 10/20/18 02:11 Tylenol 325mg Tab PO 650 mg Q6H PRN Administration Pain, moderate (4-7) Amiodarone HCl 200 mg 10/20/18 10:00 Cordarone PO DAILY PENDING SALE TO [facility] Atorvastatin Calcium 20 mg 10/19/18 10:00 10/19/18 11:49 Lipitor PO 20 mg DAILY SANNA Administration Famotidine 20 mg 10/18/18 22:00 10/19/18 21:36 Pepcid PO 20 mg 1000,2200 SANNA Administration Guaifenesin 200 mg 10/19/18 03:48 10/19/18 21:36 Robitussin PO 200 mg Q4H PRN Administration Cough and congestion Levothyroxine Sodium 88 mcg 10/19/18 10:00 10/19/18 11:42 Synthroid PO 88 mcg DAILY SANNA Administration Magnesium Oxide 400 mg 10/19/18 10:15 10/19/18 18:50 Mag-Ox PO 10/20/18 23:59 400 mg BID SANNA Administration Metoprolol Tartrate 25 mg 10/18/18 20:45 10/19/18 18:50 Lopressor PO 25 mg BRKDIN SANNA Administration (Mexiletine [ 150 mg 10/19/18 10:00 Mexiletine] 150 Mg) PO BID SANNA Warfarin Sodium 5 mg 10/19/18 10:00 10/19/18 11:50 Coumadin PO 5 mg DAILY SANNA Administration Protocol - Patient Studies Lab Studies: Lab Studies 10/20/18 10/20/18 10/20/18 Range/Units 05:20 05:20 05:20 WBC 6.9 (4.5-11.0) 10^3/uL RBC 4.00 (3.5-6.1) 10^6/uL Hgb 9.4 L (14.0-18.0) g/dL Hct 30.5 L (42.0-52.0) % MCV 76.3 L (80.0-105.0) fl MCH 23.5 L (25.0-35.0) pg MCHC 30.8 L (31.0-37.0) g/dl RDW 18.0 H (11.5-14.5) % Plt Count 239 (120.0-450.0) 10^3/uL MPV 9.6 (7.0-11.0) fl Neut % (Auto) 77.5 H (50.0-68.0) % Lymph % (Auto) 9.9 L (22.0-35.0) % [place] % (Auto) 10.8 H (1.0-6.0) % Eos % (Auto) 1.7 (1.5-5.0) % Baso % (Auto) 0.1 (0.0-3.0) % Lymph # (Auto) 0.7 L (1.2-3.4) [place] # (Auto) 0.8 H (0.1-0.6) Eos # (Auto) 0.1 (0.0-0.7) Baso # (Auto) 0.01 (0.0-2.0) K/mm3 Absolute Neuts (auto) 5.37 (1.4-6.5) PT 25.2 H (9.4-12.5) SECONDS INR 2.23 Sodium 135 (132-148) mmol/L Potassium 4.3 (3.6-5.0) mmol/L Chloride 101 (98-107) mmol/L Carbon Dioxide 26 (21-33) mmol/L Anion Gap 11 (10-20) BUN 12 (7-21) mg/dL Creatinine 0.8 (0.8-1.5) mg/dl Est GFR ( Amer) > 60 Est GFR (Non-Af Amer) > 60 Random Glucose 88 (70-110) mg/dL Hemoglobin A1c (4.2-6.5) % Calcium 8.5 (8.4-10.5) mg/dL Phosphorus 2.0 L (2.5-4.5) mg/dL Magnesium 2.0 (1.7-2.2) mg/dL Total Bilirubin 0.4 (0.2-1.3) mg/dL AST 35 (17-59) U/L ALT 25 (7-56) U/L Alkaline Phosphatase 110 (38-126) U/L Total Protein 6.9 (5.8-8.3) g/dL Albumin 3.6 (3.0-4.8) g/dL Globulin 3.3 gm/dL Albumin/Globulin Ratio 1.1 (1.1-1.8) Free T4 (0.78-2.19) ng/dL 10/19/18 10/19/18 10/19/18 Range/Units 13:55 11:00 11:00 WBC (4.5-11.0) 10^3/uL RBC (3.5-6.1) 10^6/uL Hgb (14.0-18.0) g/dL Hct (42.0-52.0) % MCV (80.0-105.0) fl MCH (25.0-35.0) pg MCHC (31.0-37.0) g/dl RDW (11.5-14.5) % Plt Count (120.0-450.0) 10^3/uL MPV (7.0-11.0) fl Neut % (Auto) (50.0-68.0) % Lymph % (Auto) (22.0-35.0) % [place] % (Auto) (1.0-6.0) % Eos % (Auto) (1.5-5.0) % Baso % (Auto) (0.0-3.0) % Lymph # (Auto) (1.2-3.4) [place] # (Auto) (0.1-0.6) Eos # (Auto) (0.0-0.7) Baso # (Auto) (0.0-2.0) K/mm3 Absolute Neuts (auto) (1.4-6.5) PT 23.0 H (9.4-12.5) SECONDS INR 2.04 Sodium 133 (132-148) mmol/L Potassium 4.1 (3.6-5.0) mmol/L Chloride 99 (98-107) mmol/L Carbon Dioxide 26 (21-33) mmol/L Anion Gap 12 (10-20) BUN 10 (7-21) mg/dL Creatinine 0.7 L (0.8-1.5) mg/dl Est GFR ( Amer) > 60 Est GFR (Non-Af Amer) > 60 Random Glucose 118 H (70-110) mg/dL Hemoglobin A1c (4.2-6.5) % Calcium 8.6 (8.4-10.5) mg/dL Phosphorus (2.5-4.5) mg/dL Magnesium (1.7-2.2) mg/dL Total Bilirubin 0.4 (0.2-1.3) mg/dL AST 31 (17-59) U/L ALT 23 (7-56) U/L Alkaline Phosphatase 115 (38-126) U/L Total Protein 7.2 (5.8-8.3) g/dL Albumin 3.7 (3.0-4.8) g/dL Globulin 3.4 gm/dL Albumin/Globulin Ratio 1.1 (1.1-1.8) Free T4 1.72 (0.78-2.19) ng/dL 10/18/18 Range/Units 18:00 WBC (4.5-11.0) 10^3/uL RBC (3.5-6.1) 10^6/uL Hgb (14.0-18.0) g/dL Hct (42.0-52.0) % MCV (80.0-105.0) fl MCH (25.0-35.0) pg MCHC (31.0-37.0) g/dl RDW (11.5-14.5) % Plt Count (120.0-450.0) 10^3/uL MPV (7.0-11.0) fl Neut % (Auto) (50.0-68.0) % Lymph % (Auto) (22.0-35.0) % [place] % (Auto) (1.0-6.0) % Eos % (Auto) (1.5-5.0) % Baso % (Auto) (0.0-3.0) % Lymph # (Auto) (1.2-3.4) [place] # (Auto) (0.1-0.6) Eos # (Auto) (0.0-0.7) Baso # (Auto) (0.0-2.0) K/mm3 Absolute Neuts (auto) (1.4-6.5) PT (9.4-12.5) SECONDS INR Sodium (132-148) mmol/L Potassium (3.6-5.0) mmol/L Chloride (98-107) mmol/L Carbon Dioxide (21-33) mmol/L Anion Gap (10-20) BUN (7-21) mg/dL Creatinine (0.8-1.5) mg/dl Est GFR ( Amer) Est GFR (Non-Af Amer) Random Glucose (70-110) mg/dL Hemoglobin A1c 6.2 (4.2-6.5) % Calcium (8.4-10.5) mg/dL Phosphorus (2.5-4.5) mg/dL Magnesium (1.7-2.2) mg/dL Total Bilirubin (0.2-1.3) mg/dL AST (17-59) U/L ALT (7-56) U/L Alkaline Phosphatase (38-126) U/L Total Protein (5.8-8.3) g/dL Albumin (3.0-4.8) g/dL Globulin gm/dL Albumin/Globulin Ratio (1.1-1.8) Free T4 (0.78-2.19) ng/dL Laboratory Results - last 24 hr 10/18/18 10/19/18 10/19/18 18:00 11:00 11:00 WBC RBC Hgb Hct MCV MCH MCHC RDW Plt Count MPV Neut % (Auto) Lymph % (Auto) [place] % (Auto) Eos % (Auto) Baso % (Auto) Lymph # (Auto) [place] # (Auto) Eos # (Auto) Baso # (Auto) Absolute Neuts (auto) PT 23.0 H INR 2.04 Sodium Potassium Chloride Carbon Dioxide Anion Gap BUN Creatinine Est GFR ( Amer) Est GFR (Non-Af Amer) Random Glucose Hemoglobin A1c 6.2 Calcium Phosphorus Magnesium Total Bilirubin AST ALT Alkaline Phosphatase Total Protein Albumin Globulin Albumin/Globulin Ratio Free T4 1.72 10/19/18 10/20/18 10/20/18 13:55 05:20 05:20 WBC 6.9 RBC 4.00 Hgb 9.4 L Hct 30.5 L MCV 76.3 L MCH 23.5 L MCHC 30.8 L RDW 18.0 H Plt Count 239 MPV 9.6 Neut % (Auto) 77.5 H Lymph % (Auto) 9.9 L [place] % (Auto) 10.8 H Eos % (Auto) 1.7 Baso % (Auto) 0.1 Lymph # (Auto) 0.7 L [place] # (Auto) 0.8 H Eos # (Auto) 0.1 Baso # (Auto) 0.01 Absolute Neuts (auto) 5.37 PT INR Sodium 133 135 Potassium 4.1 4.3 Chloride 99 101 Carbon Dioxide 26 26 Anion Gap 12 11 BUN 10 12 Creatinine 0.7 L 0.8 Est GFR ( Amer) > 60 > 60 Est GFR (Non-Af Amer) > 60 > 60 Random Glucose 118 H 88 Hemoglobin A1c Calcium 8.6 8.5 Phosphorus 2.0 L Magnesium 2.0 Total Bilirubin 0.4 0.4 AST 31 35 ALT 23 25 Alkaline Phosphatase 115 110 Total Protein 7.2 6.9 Albumin 3.7 3.6 Globulin 3.4 3.3 Albumin/Globulin Ratio 1.1 1.1 Free T4 10/20/18 05:20 WBC RBC Hgb Hct MCV MCH MCHC RDW Plt Count MPV Neut % (Auto) Lymph % (Auto) [place] % (Auto) Eos % (Auto) Baso % (Auto) Lymph # (Auto) [place] # (Auto) Eos # (Auto) Baso # (Auto) Absolute Neuts (auto) PT 25.2 H INR 2.23 Sodium Potassium Chloride Carbon Dioxide Anion Gap BUN Creatinine Est GFR ( Amer) Est GFR (Non-Af Amer) Random Glucose Hemoglobin A1c Calcium Phosphorus Magnesium Total Bilirubin AST ALT Alkaline Phosphatase Total Protein Albumin Globulin Albumin/Globulin Ratio Free T4 Review of Systems - Review of Systems Review of Systems: 12 point ROS completed and negative except as described in HPI. Critical Care Progress Note - Nutrition Nutrition: Nutrition Category Date Time Status Heart Healthy Diet [DIET] Diets 10/18/18 Dinner Active Assessment/Plan - Assessment and Plan (Free Text) Assessment: 68 year old male with PMH recent AAA repair 10/11, CHF (EF 32%) s/p AICD, Hypothyroidism, CAD, HTN, CABG, COPD, Atrial Flutter, and Adenocarcinoma of R lung, is here s/p AICD firing on 10/18. Neuro: - AAOx3. No changes in mental status. Cont to monitor. - Reorient as necessary Cardio: - Patient had AICD which fired multiple times 2/2 reported episodes of v-tach and v-fib - EKG shows dual chamber paced rhythm @ 88 bpm. - Amiodarone drip discontinued - C/w Amiodarone PO maintenance regimen at 200 mg daily - will continue home meds metoprolol tartrate 25 BID PO and Mexilitine 150 mg PO BID - INR 2.23. c/w home Warfarin 5 mg daily for afib - trops negative x3 - Cardiology- Dr Wong consulted. Resp: - CXR 10/18 prominence of pulm vascular congestion. no pleural effusion/consolidation. - off NC, saturating well. - HOB elevated to 30 degrees - Monitor GI: - Pepcid for ppx - heart healthy diet Nephro: - BUN/Cr 12/0.8 - Mag-ox 400 mg BID for Mg repletion - electrolytes abnormalities resolved - monitor urine o/p Endo: - last A1C 6.2 - TSH 4.8, free T4 1.72 - Continue with Synthroid - BG 88 - Maintain euglycemia PPX: Warfarin, pepcid Patient seen, case reviewed and plan approved by Dr. Alejandro Barnett. Emanuel Gee, PGY-1 <Emi Barnett - Last Filed: 10/20/18 17:47> CCU Objective - Vital Signs / Intake & Output Intake and Output (Last 8hrs): Intake & Output 10/20/18 10/20/18 10/20/18 06:59 14:59 22:59 Intake Total 640 Output Total 400 Balance 240 Intake: IV 40 Left Antecubital 40 Right Hand 0 Oral 600 Output: Urine 400 Urine, Voided 400 Other: # Bowel Movements 0 - Medications Active Medications: Active Medications Generic Name Dose Route Start Last Admin Trade Name Freq PRN Reason Stop Dose Admin Acetaminophen 650 mg 10/20/18 01:55 10/20/18 02:11 Tylenol 325mg Tab PO 650 mg Q6H PRN Administration Pain, moderate (4-7) Amiodarone HCl 200 mg 10/20/18 10:00 10/20/18 09:37 Cordarone PO 200 mg DAILY SANNA Administration Atorvastatin Calcium 20 mg 10/19/18 10:00 10/19/18 11:49 Lipitor PO 20 mg DAILY SANNA Administration Docusate Sodium 100 mg 10/20/18 10:00 Colace PO BID SANNA Famotidine 20 mg 10/18/18 22:00 10/20/18 09:42 Pepcid PO 20 mg 1000,2200 SANNA Administration Guaifenesin 200 mg 10/19/18 03:48 10/20/18 13:27 Robitussin PO 200 mg Q4H PRN Administration Cough and congestion Levothyroxine Sodium 88 mcg 10/19/18 10:00 10/20/18 09:40 Synthroid PO 88 mcg DAILY SANNA Administration Magnesium Oxide 400 mg 10/19/18 10:15 10/20/18 09:38 Mag-Ox PO 10/20/18 23:59 400 mg BID SANNA Administration Metoprolol Tartrate 25 mg 10/18/18 20:45 10/20/18 09:38 Lopressor PO 25 mg BRKDIN SANNA Administration (Mexiletine [ 150 mg 10/19/18 10:00 Mexiletine] 150 Mg) PO BID PENDING SALE TO [facility] Tramadol HCl 50 mg 10/20/18 12:56 Ultram PO Q8H PRN back pain Warfarin Sodium 5 mg 10/19/18 10:00 10/20/18 09:38 Coumadin PO 5 mg DAILY SANNA Administration Protocol - Patient Studies Lab Studies: Lab Studies 10/20/18 10/20/18 10/20/18 Range/Units 05:20 05:20 05:20 WBC 6.9 (4.5-11.0) 10^3/uL RBC 4.00 (3.5-6.1) 10^6/uL Hgb 9.4 L (14.0-18.0) g/dL Hct 30.5 L (42.0-52.0) % MCV 76.3 L (80.0-105.0) fl MCH 23.5 L (25.0-35.0) pg MCHC 30.8 L (31.0-37.0) g/dl RDW 18.0 H (11.5-14.5) % Plt Count 239 (120.0-450.0) 10^3/uL MPV 9.6 (7.0-11.0) fl Neut % (Auto) 77.5 H (50.0-68.0) % Lymph % (Auto) 9.9 L (22.0-35.0) % [place] % (Auto) 10.8 H (1.0-6.0) % Eos % (Auto) 1.7 (1.5-5.0) % Baso % (Auto) 0.1 (0.0-3.0) % Lymph # (Auto) 0.7 L (1.2-3.4) [place] # (Auto) 0.8 H (0.1-0.6) Eos # (Auto) 0.1 (0.0-0.7) Baso # (Auto) 0.01 (0.0-2.0) K/mm3 Absolute Neuts (auto) 5.37 (1.4-6.5) PT 25.2 H (9.4-12.5) SECONDS INR 2.23 Sodium 135 (132-148) mmol/L Potassium 4.3 (3.6-5.0) mmol/L Chloride 101 (98-107) mmol/L Carbon Dioxide 26 (21-33) mmol/L Anion Gap 11 (10-20) BUN 12 (7-21) mg/dL Creatinine 0.8 (0.8-1.5) mg/dl Est GFR ( Amer) > 60 Est GFR (Non-Af Amer) > 60 Random Glucose 88 (70-110) mg/dL Calcium 8.5 (8.4-10.5) mg/dL Phosphorus 2.0 L (2.5-4.5) mg/dL Magnesium 2.0 (1.7-2.2) mg/dL Total Bilirubin 0.4 (0.2-1.3) mg/dL AST 35 (17-59) U/L ALT 25 (7-56) U/L Alkaline Phosphatase 110 (38-126) U/L Total Protein 6.9 (5.8-8.3) g/dL Albumin 3.6 (3.0-4.8) g/dL Globulin 3.3 gm/dL Albumin/Globulin Ratio 1.1 (1.1-1.8) Laboratory Results - last 24 hr 10/20/18 10/20/18 10/20/18 05:20 05:20 05:20 WBC 6.9 RBC 4.00 Hgb 9.4 L Hct 30.5 L MCV 76.3 L MCH 23.5 L MCHC 30.8 L RDW 18.0 H Plt Count 239 MPV 9.6 Neut % (Auto) 77.5 H Lymph % (Auto) 9.9 L [place] % (Auto) 10.8 H Eos % (Auto) 1.7 Baso % (Auto) 0.1 Lymph # (Auto) 0.7 L [place] # (Auto) 0.8 H Eos # (Auto) 0.1 Baso # (Auto) 0.01 Absolute Neuts (auto) 5.37 PT 25.2 H INR 2.23 Sodium 135 Potassium 4.3 Chloride 101 Carbon Dioxide 26 Anion Gap 11 BUN 12 Creatinine 0.8 Est GFR ( Amer) > 60 Est GFR (Non-Af Amer) > 60 Random Glucose 88 Calcium 8.5 Phosphorus 2.0 L Magnesium 2.0 Total Bilirubin 0.4 AST 35 ALT 25 Alkaline Phosphatase 110 Total Protein 6.9 Albumin 3.6 Globulin 3.3 Albumin/Globulin Ratio 1.1 Critical Care Progress Note - Nutrition Nutrition: Nutrition Category Date Time Status Heart Healthy Diet [DIET] Diets 10/18/18 Dinner Active Addendum Addendum: 10/20/18 17:47 MICU Attending Addendum: Patient seen and examined with housestaff, case discussed on rounds. I agree with resident note above with the following additions/exceptions: 68m with recent AAA repair 10/11, CHF (EF 32%) s/p AICD, Hypothyroidism, CAD, HTN, CABG, COPD, Atrial Flutter, and Adenocarcinoma of R lung, admitted s/p AICD firing on 10/18 Defib found to be appropriate based on interrogation. Loaded with amio. No shocks in the past 24 hours.Eletrolytes repleted.Trops negative x3. Can transfer to telemetry as per cardio. Emi Barnett MD Attending Pulmonary Critical Care Sleep Medicine
--- NOTE | 2018-10-20 08:26 | HP ---
DATE OF EXAM: 10/19/2018 HISTORY OF PRESENT ILLNESS: The patient is a 68-year-old male who is known to have a history of congestive heart failure with an ejection fraction of 35%. He is status post cardiac ablation, status post implanted cardiac defibrillator. He is also known to have a history of hypothyroidism and history of EtOH in the past. He was hospitalized about a week ago for repair of his abdominal aortic aneurysm, which was approximately 5 cm in diameter. The patient did well after repair of the AAA and was discharged to home. At home today while eating, the patient felt fluttering in his chest followed by firing of his defibrillator. He presented to the emergency room where he was again on the monitor showed runs of V-tach and again his defibrillator fired second time. The patient was admitted to the Intensive Care Unit. Consultation from his machine spring former, Dr. Birch is called. MEDICATIONS AT THE TIME OF ADMISSION: Included amiodarone 200 mg daily, Lipitor 20 mg once a day, Synthroid 88 mcg daily, metoprolol tartrate 25 mg twice a day, mexiletine 150 mg twice a day, and warfarin 5 mg once a day. ALLERGIES: THE PATIENT IS KNOWN TO HAVE NO KNOWN MEDICAL ALLERGIES. SOCIAL HISTORY: He has not been drinking alcohol for the past month. REVIEW OF SYSTEMS: Otherwise unremarkable. PHYSICAL EXAMINATION: GENERAL: The patient is awake, alert, and oriented. HEAD, EYES, EARS, NOSE AND THROAT: Unremarkable. LUNGS: Clear. HEART: Regular at this time. ABDOMEN: Soft and nontender. EXTREMITIES: Free of cyanosis, clubbing, or edema. LABORATORY STUDIES: His chest x-ray showed prominence of pulmonary vasculature secondary to the technique and/or pulmonary vascular congestion. There was no consolidations, no pleural effusions. EKG showed AV pacing. His laboratory studies showed the white blood cell count to be 7.4, hemoglobin and hematocrit 9.3 and 29.3 respectively, and platelet count is 269. PT/INR is 1.86. His sodium is 136, potassium 3.3, chloride is 99, carbon dioxide 24, blood urea nitrogen 15, and creatinine 0.5. Troponins are less than 0.01 and BNP is elevated at 2190. ASSESSMENT AND PLAN: The patient is admitted to the Intensive Care Unit. Cardiology consult is requested. His defibrillator will be interrogated. Royal Guzman MD [facility] # [id number]
[2018-10-20] MEDS: Magnesium Oxide 400 mg Tab UD PO SCH ×2 (09:38→18:40)
[2018-10-20] MEDS: Levothyroxine 88 MCG TAB PO SCH (09:40)
--- NOTE | 2018-10-20 13:04 | CP.PCM.APN ---
Subjective - Date & Time of Evaluation Date of Evaluation: 10/20/18 Time of Evaluation: 11:30 - Subjective Subjective: pt seen and examined at bedside, pt reports feeling better, no cp , no sob Review of Systems - Review of Systems All systems: reviewed and no additional remarkable complaints except Objective - Vital Signs/Intake and Output Vital Signs (last 24 hours): Temp Pulse Resp BP Pulse Ox 98 F 60 17 149/91 H 100 10/20/18 02:11 10/20/18 09:38 10/20/18 06:30 10/20/18 09:37 10/20/18 06:30 Intake and Output: 10/20/18 10/20/18 06:59 18:59 Intake Total 640 Output Total 400 Balance 240 - Medications Medications: Current Medications Acetaminophen (Tylenol 325mg Tab) 650 mg PO Q6H PRN PRN Reason: Pain, moderate (4-7) Last Admin: 10/20/18 02:11 Dose: 650 mg Amiodarone HCl (Cordarone) 200 mg PO DAILY [facility] Last Admin: 10/20/18 09:37 Dose: 200 mg Atorvastatin Calcium (Lipitor) 20 mg PO DAILY [facility] Last Admin: 10/19/18 11:49 Dose: 20 mg Docusate Sodium (Colace) 100 mg PO BID [facility] Famotidine (Pepcid) 20 mg PO 1000,2200 [facility] Last Admin: 10/20/18 09:42 Dose: 20 mg Guaifenesin (Robitussin) 200 mg PO Q4H PRN PRN Reason: Cough and congestion Last Admin: 10/19/18 21:36 Dose: 200 mg Levothyroxine Sodium (Synthroid) 88 mcg PO DAILY [facility] Last Admin: 10/20/18 09:40 Dose: 88 mcg Magnesium Oxide (Mag-Ox) 400 mg PO BID [facility] Stop: 10/20/18 23:59 Last Admin: 10/20/18 09:38 Dose: 400 mg Metoprolol Tartrate (Lopressor) 25 mg PO BRKDIN [facility] Last Admin: 10/20/18 09:38 Dose: 25 mg (Mexiletine [ (Mexiletine] 150 Mg)) 150 mg PO BID [facility] Tramadol HCl (Ultram) 100 mg PO STAT STA Stop: 10/20/18 12:55 Warfarin Sodium (Coumadin) 5 mg PO DAILY [facility]; Protocol Last Admin: 10/20/18 09:38 Dose: 5 mg - Labs Labs: 10/20/18 05:20 10/20/18 05:20 PT 25.2 SECONDS (9.4-12.5) H 10/20/18 05:20 INR 2.23 10/20/18 05:20 APTT 33.8 Seconds (26.9-38.3) 10/18/18 17:50 - Constitutional Appears: Non-toxic - Head Exam Head Exam: NORMAL INSPECTION, NORMOCEPHALIC - Eye Exam Eye Exam: Normal appearance - Cardiovascular Exam Cardiovascular Exam: +S1, +S2 - GI/Abdominal Exam GI & Abdominal Exam: Soft, Normal Bowel Sounds - Extremities Exam Extremities Exam: Normal Capillary Refill - Neurological Exam Neurological Exam: Alert, Awake Additional comments: ENCARNACION - Skin Skin Exam: Dry, Intact
[2018-10-20] MEDS: guaiFENesin 200 mg/10 ml Syrup UD PO PRN (13:27)
--- NOTE | 2018-10-20 15:33 | PN ---
DATE: 10/20/2018 REASON FOR CONSULTATION: Followup defibrillator fired multiple times, severe hypokalemia, hypomagnesemia. He is status post AICD. SUBJECTIVE: The patient denies any chest pain, shortness of breath, or any palpitations. Denies any further episode of firing of the defibrillator. PHYSICAL EXAMINATION: VITAL SIGNS: Temperature afebrile, heart rate 60, blood pressure 149/91. HEENT: PERRLA. Extraocular muscles intact. NECK: Supple. No carotid bruits or thyromegaly. CHEST: Clear to auscultation. HEART: S1 and S2, regular. ABDOMEN: Soft. EXTREMITIES: Clubbing, cyanosis negative. LABORATORY DATA: Blood workup: INR 2.23. WBC 6.9, hemoglobin 9. , hematocrit 30.5, and platelet count 239. Chemistry shows sodium 130, potassium 4.6, chloride 100, carbon dioxide 26, anion gap of 11, BUN 12, creatinine of 0.8, magnesium 2. IMPRESSION: A 68-year-old male with past medical history significant for non-obstructive coronary artery disease, status post cardiac catheterization, history of severe mitral regurgitation, status post mitral valve bioprosthetic replacement, history of ventricular tachycardia and accessory behind the mitral valve, cannot be ablated by laser because it is too dangerous because it will affect the valve and cause stenosis from the scarring. Admitted yesterday with defibrillator fired. Intervention was done and found to be on ventricular tachycardia, heart rate of 200, appropriately shock delivered. The patient loaded with intravenous amiodarone. The patient was at home, but the patient was severely hypokalemic at 3.7 and 2.9. Also magnesium was low, which was supplemented since and last 24 hours no further episode of arrhythmia noted. RECOMMENDATIONS: Continue mag oxide 400 mg p.o. b.i.d. Continue amiodarone 200 mg daily after the initial loading. Continue metoprolol 25 p.o. b.i.d. Transfer to telemetry. The patient had last echo on 09/12/2018 that shows prosthetic mitral valve appears normal, no vegetation noted. Mild tricuspid regurgitation, RV systolic pressure is 29. Mild pulmonary insufficiency, no pericardial effusion. History of atrial flutter, atrial fibrillation, on anticoagulation. The patient after shock has been back to sinus but with history of atrial fibrillation/flutter, on anticoagulation. Transfer to telemetry. If he remains stable, we will discharge tomorrow. We will repeat the blood workup tomorrow. Thank you Dr. Guzman for providing us the opportunity in taking care of the patient, Rohan Huitron. Anupama Birch MD
[2018-10-21] MEDS: Potassium & Sodium Phosphate PO SCH ×2 (01:00→14:31)
--- NOTE | 2018-10-21 03:11 | PN ---
DATE: 10/20/2018 SUBJECTIVE: The patient was seen this Friday in CCU. He was scheduled to be transferred to telemetry and the patient reports that he is told by his radiologic technologist mammogram that he may be going home as early as tomorrow. PHYSICAL EXAMINATION: GENERAL: He is awake, alert, clear and in good spirits. LUNGS: Show good aeration, right and left. HEART: Regular, nontachycardic. IMPRESSION: Cardiac arrhythmia, ventricular tachycardia with firing of his automatic implantable cardioverter-defibrillator on eight occasions prompting and during this hospitalization. The patient is now stable with no further activity on defibrillator. He has been loaded and dose of amiodarone increased. We will increase activity, out of bed. For discharge plans, I will follow the lead of Cardiology opinion. Carlos Alberto Guzman MD
[2018-10-21 05:59] LABS: BASO # 0.01 K/mm3 (0.0-2.0); BASO % 0.1 % (0.0-3.0); EOS # 0.2 (0.0-0.7); EOS % 2.6 % (1.5-5.0); HEMOGLOBIN 9.4 g/dL (14.0-18.0); LYMPH # 0.8 (1.2-3.4); LYMPH % 10.8 % (22.0-35.0); MEAN CELL VOLUME 76.5 fl (80.0-105.0); MEAN CORPUSCULAR HEMOGLOBIN 23.7 pg (25.0-35.0); MEAN PLATELET VOLUME 9.5 fl (7.0-11.0); MONO # 0.8 (0.1-0.6); RBC 3.96 10^6/uL (3.5-6.1); RED CELL DISTRIBUTION WIDTH 18.1 % (11.5-14.5); WHITE BLOOD COUNT 7.4 10^3/uL (4.5-11.0)
[2018-10-21 06:01] LABS: INR 2.52; PROTHROMBIN TIME 28.5 SECONDS (9.4-12.5)
[2018-10-21 08:09] LABS: ALB/GLOB RATIO 1.1 (1.1-1.8); ALBUMIN 3.4 g/dL (3.0-4.8); ALT/SGPT 23 U/L (7-56); AST/SGOT 35 U/L (17-59); BLOOD UREA NITROGEN 13 mg/dL (7-21); CALCIUM 8.7 mg/dL (8.4-10.5); GFR NON-AFRICAN AMERICAN > 60
[2018-10-21] MEDS: Levothyroxine 88 MCG TAB PO SCH (09:36)
[2018-10-21 14:28] VITALS: BP 135/87
--- NOTE | 2018-10-21 16:01 | PN ---
DATE: 10/21/2018 REASON FOR CONSULTATION: Followup defibrillator fired multiple times, VF shock delivered found to be severe hypokalemia, hypomagnesemic, history of AICD in the past. SUBJECTIVE: The patient denies any chest pain, shortness of breath, or any palpitations. No further episode of arrhythmia note. The patient feel stable. PHYSICAL EXAMINATION: VITAL SIGNS: Temperature afebrile, heart rate 60, blood pressure 130/90. HEENT: PERRLA. Extraocular muscles intact. NECK: Supple. No carotid bruits or thyromegaly. CHEST: Clear to auscultation. HEART: S1 and S2, regular. ABDOMEN: Soft. EXTREMITIES: Clubbing, cyanosis negative. LABORATORY DATA: Blood workup: WBC 7.5, hemoglobin 9.4, hematocrit 30.3, platelet count 237. Chemistry shows sodium 132, potassium 4.0, chloride 90, carbon dioxide 25, anion gap of 12, BUN 30, creatinine 0.7, magnesium 2, phosphorus 2.1. IMPRESSION: Multiple electrolytes abnormality status post defibrillator fired, history of ventricular tachycardia, cannot be ablated because tract is in behind the mitral valve, status post mitral valve replacement, history of cardiac catheterization, nonobstructive coronary artery disease prior to mitral valve replacement. RECOMMENDATIONS: The patient was loaded with IV amiodarone aggressively IV n.p.o. now stable. We will supplement phosphate, possible discharge planning. We will discuss with Dr. Guzman. We will give the first dose now. Thank you Dr. Guzman for providing us the opportunity in taking care of the patient, Rohan Huitron. Anupama Birch MD
[2018-10-21 16:15] VITALS: PULSE 64; RESP 18; O2SAT 96
== END 2018-10-21 14:25 | disposition home or self-care (01) | DRG 309 ==
LOC: ED 17:32 → ERH 19:20 → CCU 21:01
PROVIDERS: ADMIT Internal Medicine; ATTEND Internal Medicine
DX: I47.2 Ventricular tachycardia (principal); C34.91 Malignant neoplasm of unspecified part of right bronchus or lung; I42.9 Cardiomyopathy, unspecified; I49.01 Ventricular fibrillation; J44.9 Chronic obstructive pulmonary disease, unspecified; I48.92 Unspecified atrial flutter; I11.0 Hypertensive heart disease with heart failure; I25.10 Atherosclerotic heart disease of native coronary artery without angina pectoris; E03.9 Hypothyroidism, unspecified; F10.20 Alcohol dependence, uncomplicated; E87.6 Hypokalemia; E83.42 Hypomagnesemia; Z95.810 Presence of automatic (implantable) cardiac defibrillator; I34.0 Nonrheumatic mitral (valve) insufficiency; E83.51 Hypocalcemia; I48.91 Unspecified atrial fibrillation; Z86.79 Personal history of other diseases of the circulatory system; K21.9 Gastro-esophageal reflux disease without esophagitis; Z87.81 Personal history of (healed) traumatic fracture; Z79.01 Long term (current) use of anticoagulants; Z79.890 Hormone replacement therapy; Z79.899 Other long term (current) drug therapy; Z85.118 Personal history of other malignant neoplasm of bronchus and lung; Z87.891 Personal history of nicotine dependence; Z95.1 Presence of aortocoronary bypass graft; Z95.2 Presence of prosthetic heart valve; E83.39 Other disorders of phosphorus metabolism

== ENCOUNTER 2018-10-24 13:21 | Emergency (ER) | payer MEDICARE, OTHER ==
[2018-10-24 13:22] VITALS: PULSE 135; BMI 21.0
--- NOTE | 2018-10-24 13:57 | ED PDOC ---
Arrival/HPI - General Time Seen by Provider: 10/24/18 13:26 Historian: Patient, Website Programmer (Website Programmer #[id number]) - History of Present Illness Narrative History of Present Illness (Text): 10/24/18 13:54 A 68 year old male, whose past medical history includes CHF, pacemaker, CAD, hypothyroidism, AAA repair, and alcohol abuse, presents to the emergency department complaining of high blood pressure and chest pain since earlier today. Patient reports he was seen previously in the hospital at 10/18/18 for his defibrillator firing when his blood pressure increased. Patient states he was discharged on Friday and, noting his high blood pressure today, the patient worried that the pacemaker may fire again prompting him to go to ER. However the defibrillator did not fire. Patient denies any fever, chills, shortness of breath, diarrhea, nausea, vomiting, urinary symptoms, back pain, neck pain, headache, dizziness, or any other complaints. PMD: Dr. Guzman Website Programmer #[id number] Time/Duration: Other (earlier today) Symptom Onset: Gradual Symptom Course: Unchanged Activities at Onset: Light Context: Home Past Medical History - Provider Review Nursing Documentation Reviewed: Yes - Infectious Disease Hx of Infectious Diseases: None - Tetanus Immunization Tetanus Immunization: Unknown - Cardiac Hx Cardiac Disorders: Yes Hx Congestive Heart Failure: Yes Hx Hypertension: Yes Hx Pacemaker: Yes - Pulmonary Hx Respiratory Disorders: Yes Hx Chronic Obstructive Pulmonary Disease (COPD): Yes - Neurological Hx Neurological Disorder: No - HEENT Hx HEENT Disorder: No - Renal Hx Renal Disorder: No - Endocrine/Metabolic Hx Endocrine Disorders: Yes Hx Hypothyroidism: Yes - Hematological/Oncological Hx Blood Disorders: No - Integumentary Hx Dermatological Disorder: No - Musculoskeletal/Rheumatological Hx Musculoskeletal Disorders: Yes Hx Falls: Yes Hx Fractures: Yes - Gastrointestinal Hx Gastrointestinal Disorders: Yes (bilroth gastrectomy/gerd/pancreatitis) - Genitourinary/Gynecological Hx Genitourinary Disorders: No - Psychiatric Hx Psychophysiologic Disorder: No Hx Substance Use: No - Surgical History Other/Comment: HIATAL HERNIA REPAIR,TONSILLECTOMY,AICD,PACEMAKER, MITRAL VALVE REPLACEM, - Anesthesia Hx Anesthesia Reactions: No Hx Malignant Hyperthermia: No - Suicidal Assessment Feels Threatened In Home Enviroment: No Family/Social History - Physician Review Nursing Documentation Reviewed: Yes Family/Social History: No Known Family HX Smoking Status: Former Smoker Hx Alcohol Use: Yes ("I QUIT 08/2018 AFTER HOSPITALIZED"PAST ETOH) Hx Substance Use: No Hx Substance Use Treatment: No Allergies/Home Meds Allergies/Adverse Reactions: Allergies No Known Allergies Allergy (Verified 10/13/18 19:02) Home Medications: Home Meds Medication Instructions Recorded Confirmed Atorvastatin [Lipitor] 20 mg PO DAILY 02/23/16 10/24/18 Metoprolol Tartrate [Lopressor] 25 mg PO BRKDIN 02/23/16 10/24/18 Mexiletine 150 mg PO BID 02/23/16 10/24/18 Levothyroxine [Synthroid] 88 tab PO DAILY 05/17/17 10/24/18 Amiodarone [Cordarone] 200 mg PO DAILY 09/29/18 10/24/18 Warfarin [Coumadin] 5 mg PO DAILY 09/29/18 10/24/18 Ranitidine HCl [Zantac 300] 300 mg PO DAILY 10/24/18 10/24/18 Review of Systems - Physician Review All systems were reviewed & negative as marked: Yes - Review of Systems Constitutional: absent: Fevers Respiratory: SOB Cardiovascular: Chest Pain Gastrointestinal: absent: Nausea, Vomiting Neurological: Dizziness Physical Exam Vital Signs Reviewed: Yes Temperature: Afebrile Blood Pressure: Hypertensive Pulse: Regular Respiratory Rate: Normal Appearance: Positive for: Well-Appearing Pain Distress: None Mental Status: Positive for: Alert and Oriented X 3 - Systems Exam Head: Present: Atraumatic, Normocephalic Pupils: Present: PERRL Extroacular Muscles: Present: EOMI Conjunctiva: Present: Normal Respiratory/Chest: Present: Clear to Auscultation Cardiovascular: Present: Regular Rate and Rhythm, Normal S1, S2. No: Murmurs Abdomen: No: Tenderness, Distention, Peritoneal Signs Upper Extremity: Present: Normal Inspection. No: Cyanosis, Edema Lower Extremity: Present: Normal Inspection. No: Edema Neurological: Present: GCS=15, CN II-XII Intact, Speech Normal Skin: Present: Warm, Dry, Normal Color. No: Rashes Psychiatric: Present: Alert, Oriented x 3, Normal Insight, Normal Concentration Medical Decision Making ED Course and Treatment: 10/24/18 13:56 Impression: 68 year old male presenting to the emergency department complaining of high blood pressure and chest pain r/o ACS Plan: -- EKG -- Labs -- CBC -- Chest X-ray -- Reassess and disposition Prior Visits: Notes and results from previous visits were reviewed. Progress Notes: 10/24/18 14:02 EKG: Ordered, reviewed, and independently interpreted the EKG. Rate : 61 BPM Rhythm : Dual chamber paced rhythm 10/24/18 14:47 Report shows no events on the defibrillator device and good battery life via report faxed from [employer]. 10/24/18 15:08 CXR shows RLL infiltrate which is new compared to previous CXR. Patient does report a cough x 2-3 weeks. No fever. 10/24/18 16:[address] Guzman who knows patient well and was cleared by cardiology on recent admission so if his labs are normal then he can be discharged with f/u. I discussed the case with Dr. Red, cardiology, who states that if INR is stable then he can be discharged home with f/u as well. He reviewed recent stress text report, echo etc. Patient has had no pain since arrival. 10/24/18 17:14 Troponin negative x 2. Patient pain free. I explained in detail to the patient the discharge instructions. He needs to f/u with his PMD and his pulp cooker. He was advised to return to the ED if symptoms worsen or any other concern. Translation used during this ED visit as noted. - Scribe Statement The provider has reviewed the documentation as recorded by the Ileana Norris All medical record entries made by the Scribe were at my direction and personally dictated by me. I have reviewed the chart and agree that the record accurately reflects my personal performance of the history, physical exam, medical decision making, and the department course for this patient. I have also personally directed, reviewed, and agree with the discharge instructions and disposition. Disposition/Present on Arrival - Present on Arrival Any Indicators Present on Arrival: Yes History of DVT/PE: No History of Uncontrolled Diabetes: No Urinary Catheter: Yes History Surgical Site Infection Following: None - Disposition Have Diagnosis and Disposition been Completed?: Yes Diagnosis: Chest pain, Pneumonia Disposition: HOME/ ROUTINE Disposition Time: 15:09 Condition: IMPROVED Discharge Instructions (ExitCare): Chest Pain (ED) Additional Instructions: MELISSA E BLICHARZ, thank you for letting us take care of you today. Your provider was River Cintron DO and you were treated for Hypertension, Chest Pain. The emergency medical care you received today was directed at your acute symptoms. If you were prescribed any medication, please fill it and take as directed. It may take several days for your symptoms to resolve. Return to the Emergency Department if your symptoms worsen, do not improve, or if you have any other problems. Please contact your doctor or call one of the physicians/clinics you have been referred to that are listed on the Patient Visit Information form that is included in your discharge packet. Bring any paperwork you were given at discharge with you along with any medications you are taking to your follow up visit. Our treatment cannot replace ongoing medical care by a primary care provider outside of the emergency department. Thank you for allowing the [facility] team to be part of your care today. If you had an X-Ray or CT scan: A Radiologist will review the ED reading if any change in treatment is needed we will contact you. If you had a blood, urine, or wound culture: It will take several days for the results, if any change in treatment is needed we will contact you. If you had an STI test: It will take 48 hours for the results. Please call after 1 week if you have not heard back. Prescriptions: Azithromycin 250 mg PO DAILY #4 tab Referrals: Anupama Birch MD [Staff Provider] - Follow up with primary Royal Guzman MD [Primary Care Provider] - Follow up with primary Forms: [employer] (Italian), WORK NOTE
[2018-10-24 14:10] VITALS: RESP 18; TEMP 98
[2018-10-24 14:23] LABS: BASO # 0.02 K/mm3 (0.0-2.0); BASO % 0.3 % (0.0-3.0); EOS # 0.1 (0.0-0.7); EOS % 0.9 % (1.5-5.0); LYMPH # 1.2 (1.2-3.4); LYMPH % 14.4 % (22.0-35.0); MEAN CELL VOLUME 76.1 fl (80.0-105.0); MEAN CORPUSCULAR HEMOGLOBIN 24.1 pg (25.0-35.0); MEAN CORPUSCULAR HGB CONC 31.7 g/dl (31.0-37.0); MEAN PLATELET VOLUME 9.1 fl (7.0-11.0); MONO # 0.9 (0.1-0.6); MONO % 10.8 % (1.0-6.0); RBC 3.73 10^6/uL (3.5-6.1); RED CELL DISTRIBUTION WIDTH 18.5 % (11.5-14.5)
--- NOTE | 2018-10-24 14:31 | RAD ---
Date of service: 10/24/2018 HISTORY: chest pain COMPARISON: Chest radiograph dated 10/18/2018. TECHNIQUE: 1 view obtained. FINDINGS: LUNGS: Hyperinflated lungs. Opacity in the right lower lobe. PLEURA: No significant pleural effusion identified, no pneumothorax apparent. CARDIOVASCULAR: Left subclavian access AICD/pacemaker redemonstrated. Prior sternotomy with sternal wires, surgical clips and prosthetic aortic valve redemonstrated. Aortic atherosclerotic calcifications. Cardiomediastinal silhouette stably enlarged. OSSEOUS STRUCTURES: Unchanged. VISUALIZED UPPER ABDOMEN: Normal. OTHER FINDINGS: None. IMPRESSION: Right lower lobe opacity.
[2018-10-24 14:45] LABS: B-TYPE NATRIURETIC PEPTIDE 3790 pg/mL (0-450); TROPONIN I 0.02 ng/mL
[2018-10-24 14:53] LABS: ALB/GLOB RATIO 1.2 (1.1-1.8); ALBUMIN 3.7 g/dL (3.0-4.8); ALT/SGPT 52 U/L (7-56); AST/SGOT 100 U/L (17-59); BLOOD UREA NITROGEN 25 mg/dL (7-21); CALCIUM 8.6 mg/dL (8.4-10.5); GFR NON-AFRICAN AMERICAN > 60
[2018-10-24 16:36] LABS: INR 2.46; PARTIAL THROMBOPLASTIN TIME 35.9 Seconds (26.9-38.3); PROTHROMBIN TIME 27.3 SECONDS (9.4-12.5)
[2018-10-24 17:05] VITALS: BP 141/89; PULSE 79; O2SAT 98
--- NOTE | 2018-10-24 20:44 | CARD ---
APPROVED REPORT Date of service: 10/24/2018 EKG Measurement Heart [id number] <Conclusion> AV sequential or dual chamber electronic pacemaker
== END 2018-10-24 17:12 | disposition home or self-care (01) ==
LOC: ED 13:21
DX: J18.9 Pneumonia, unspecified organism (principal); R07.9 Chest pain, unspecified; E03.9 Hypothyroidism, unspecified; I50.9 Heart failure, unspecified; I25.10 Atherosclerotic heart disease of native coronary artery without angina pectoris; Z87.891 Personal history of nicotine dependence; Z95.0 Presence of cardiac pacemaker; I10 Essential (primary) hypertension